=== PATIENT | male | born 1940 | race Caucasian/White ===

== ENCOUNTER 2024-06-22 10:02 | Outpatient (CLI) | payer MEDICARE, SELFPAY ==
[2024-06-22 15:51] LABS: Basophils Percent Auto 0.7 % (0.2-1.2); Eosinophils Absolute Auto 0.1 K/mm3 (0-0.3); Eosinophils Percent Auto 1.6 % (0-4.4); Hematocrit 41.7 % (42.0-52.0); Hemoglobin 13.6 g/dL (14.0-18.0); Immature Granulocyte Absolute 0.03 K/mm3 (0.00-0.031); Immature Granulocyte Percent A 0.5 % (0-0.5); Lymphocytes Absolute Auto 1.74 K/mm3 (0.9-3.2); Lymphocytes Percent Auto 30.6 % (18.3-44.2); Mean Corpuscular HGB Conc 32.6 g/dl (32-36); Mean Corpuscular Hemoglobin 31.1 pg (26-34); Mean Corpuscular Volume 95.2 fl (80-100); Mean Platelet Volume 11.8 fl (7.4-10.4); Monocytes Absolute Auto 0.6 K/mm3 (0.1-0.6); Monocytes Percent Auto 10.5 % (2.6-8.5); Neutrophils Absolute Auto 3.2 K/mm3 (1.3-6.7); Neutrophils Percent Auto 56.1 % (45.5-73.1); Platelet Count Result 160 k/mm3 (150-375); Red Blood Count 4.38 M/mm3 (4.6-6.20); Red Cell Distribution Width 12.6 % (11.5-14.5); White Blood Count 5.7 K/mm3 (4.5-10.0)
[2024-06-22 18:23] LABS: Potassium 4.4 mmol/L (3.4-5.0)
[2024-06-22 18:40] LABS: Alanine Aminotransferase 13 U/L (6-50); Albumin Level 4.6 g/dL (3.5-5.1); Alkaline Phosphatase 74 U/L (38-126); Anion Gap 9 mmol/L (4-12); Aspartate Amino Transferase 33 U/L (17-59); Blood Urea Nitrogen 15 mg/dL (9-20); Calcium 9.7 mg/dL (8.4-10.2); Carbon Dioxide 28 mmol/L (22-30); Chloride 99 mmol/L (98-107); Estimated Glomerular Filt Rate 58; Glucose 84 mg/dL (65-110); Sodium 136 mmol/L (137-145)
== END 2024-06-22 10:03 | disposition home or self-care (01) ==
PROVIDERS: PCP Emergency Medicine; Visit Provider Emergency Medicine
DX: R41.89 Other symptoms and signs involving cognitive functions and awareness (principal); F32.A Depression, unspecified
CPT/HCPCS: 36415; 80053; 82607; 84443; 85025

== ENCOUNTER 2024-07-14 08:26 | Emergency (ER) | payer MEDICARE, SELFPAY ==
--- NOTE | ~2024-07-14 | CT_ITS ---
EXAMINATION: CT lumbar spine wo con DATE: 07/14/2024 09:58 INDICATION: Low back pain. TECHNIQUE: Computed tomography (CT) of the lumbar spine was performed without intravenous contrast. A utomated exposure control and iterative reconstruction technique were employed. The dose-length produ ct was 565.06 mGy-cm. COMPARISON: None FINDINGS: The bladder is distended. There is 3 mm retrolisthesis of L1 on L2 and L2 on L3 and 6 mm an terolisthesis of L4 on L5. There is 3 degrees dextrocurvature of thoracic lumbar spine. There is mild chronic anterior wedging of L1 vertebral body. There are changes of posterior fusion procedure from L3 to L5 with pedicle screws. There is an old periscrew fracture of right L5 pedicle and superior fac et. There are lucencies around the L5 screws, consistent with loosening. There is severely decreased disc height at L1-L2 and L2-L3, moderately decreased disc height at L3-L4, and mildly decreased disc height at L4-L5 and L5-S1. There are laminectomies at L4 and L5. The following disc levels are specif ically discussed: L1-L2: The disc is bulging. There is severe right and moderate left facet joint osteoarthritis. There is severe bilateral neural foraminal stenosis. There is moderate central canal stenosis. L2-L3: The disc is bulging. There is severe bilateral facet joint osteoarthritis. There is moderate b ilateral neural foraminal stenosis. There is mild central canal stenosis. L3-L4: The disc is bulging. There is severe bilateral facet joint osteoarthritis. There is mild right and moderate left neural foraminal stenosis. There is mild central canal stenosis with posterior dec ompression. L4-L5: The disc is bulging. There is severe bilateral facet joint osteoarthritis. There is moderate b ilateral neural foraminal stenosis. There is no central canal stenosis. L5-S1: The disc is bulging. There is severe bilateral facet joint osteoarthritis. There is mild bilat eral neural foraminal stenosis. There is mild central canal stenosis. IMPRESSION: 1. Severe lumbar spondylosis. 2. Posterior fusion procedure from L3 to L5. 3. 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 Lucencies around the L5 sc rews, consistent with loosening. Reviewed, dictated and finalized at location A. IMPRESSION: 1. Severe lumbar spondylosis. 2. Posterior fusion procedure from L3 to L5. 3. 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 [facility] ncies around the L5 screws, consistent with loosening.
[2024-07-14 08:31] VITALS: BP 124/68; PULSE 70; RESP 16; TEMP 36.7; O2SAT 97
--- NOTE | 2024-07-14 09:41 | ED.BACK ---
HPI - Back Pain/Injury General Chief Complaint: Back Pain/Injury Stated Complaint: lower back pain Time Seen by Provider: 07/14/24 08:47 History of Present Illness HPI Narrative: This is an 83-year-old male with a past medical history significant for chronic neuropathy, chronic low back pain, history of lumbar fusion in 2011. Today patient presents to the emergency room with chief complaint of low back pain radiating towards his right buttock. Describes as a intermittently burning sensation. States his symptoms are going on for 6+ months. No new neuropathy or worsening neuropathy. He states he has normal bladder and bowel function and does not have any incontinence. No saddle anesthesias. No new traumas recent injuries. He states he recently was told that he might have some hardware loosening in his lumbar spine which is when he is mostly concerned about. Does not presently follow-up with a spine or neurosurgeon as he had his procedure done in [place]. Denies any chest pain, abdominal pain, pain or symptoms. Describes the pain mostly in his right buttock posterior. No nausea, vomiting, headache, vision changes, weakness fatigue. Able to ambulate unassisted. Has not taken anything for the pain at home. Related Data Home Medications Medication Instructions Recorded Confirmed [id number] 150 mcg-vit K1 tablet PO 06/22/24 06/22/24 30 mcg-lycop 300 mcg-lutein tablet (Centrum Minis Men 50 Plus) Allergies Allergy/AdvReac Type Severity Reaction Status Date / Time No Known Allergies Allergy Unverified 06/22/24 09:17 Review of Systems Review of Systems: As reviewed above in HPI [facility] Past Medical History Medical History Age-related cognitive decline Arthritis Prophylactic gland removal Removed from neck 1976 Prostate disorder Vision disorder Surgical History Surgical History History of hip replacement Left 2006 Previous back surgery Fusion S3-S5 Family History Family History Father Cancer Mother Cancer Colostomy care Social History Social History Smoking status: Former smoker Tobacco type: pipe Alcohol intake: never Substance use: never Substance use type: does not use Exam Narrative: GENERAL: [Well-appearing, well-nourished, and in no acute distress.] HEAD: [Normocephalic, atraumatic.] EYES: [PERRLA and EOMI.] ENT: Nares clear, no rhinorrhea or epistaxis. Mucous membranes moist. NECK: Supple. CHEST: [Clear to auscultation. No respiratory distress.] HEART: [Regular rate and rhythm]. No murmur heard. [Normal peripheral pulses.] ABDOMEN: [Soft, nondistended], [nontender], [No rigidity or guarding] EXTREMITIES: Normal range of motion. [No edema.] Some tenderness focally in the right posterior thigh in the gluteus magda, no step-offs deformities, minimal paraspinal muscle with no midline tenderness to the lumbar region. SKIN: Warm, dry, no rash. NEURO: [No focal deficits]. Alert and oriented [x3.] No ataxia in the arms or legs. No saddle anesthesias, no weakness, footdrop or new neuropathy present. PSYCH: [Normal mood and affect.] Course Vital Signs Vital signs: Vital Signs Temperature 36.7 C 07/14/24 08:31 Pulse Rate 70 07/14/24 08:31 Respiratory Rate 16 07/14/24 08:31 Blood Pressure 124/68 07/14/24 08:31 Pulse Oximetry 97 07/14/24 08:31 Oxygen Delivery Room Air 07/14/24 08:31 Temperature 36.7 C 07/14/24 08:31 Pulse Rate 70 07/14/24 08:31 Respiratory Rate 16 07/14/24 08:31 Blood Pressure 124/68 07/14/24 08:31 Pulse Oximetry 97 07/14/24 08:31 Oxygen Delivery Room Air 07/14/24 08:31 MDM - Back Pain/Injury MDM Narrative Medical decision making narrative:
[2024-07-14] MEDS: methocarbamoL 750 MG TABLET PO (10:07)
[2024-07-14] MEDS: ACETAMINOPHEN 500 MG TABLET 1000 MG PO (10:07)
[2024-07-14 11:20] VITALS: BP 130/86; PULSE 74; RESP 14; O2SAT 99
== END 2024-07-14 11:21 | disposition home or self-care (01) ==
PROVIDERS: Emergency Provider Student in an Organized Health Care Education/Training Program; PCP Emergency Medicine
DX: M47.26 Other spondylosis with radiculopathy, lumbar region (principal); T84.038A Mechanical loosening of other internal prosthetic joint, initial encounter; G62.9 Polyneuropathy, unspecified; M19.90 Unspecified osteoarthritis, unspecified site; N42.9 Disorder of prostate, unspecified; R41.81 Age-related cognitive decline; Z98.1 Arthrodesis status; Z96.642 Presence of left artificial hip joint; Z87.891 Personal history of nicotine dependence; Y79.2 Prosthetic and other implants, materials and accessory orthopedic devices associated with adverse incidents
CPT/HCPCS: 72131; 99284; A9270

== ENCOUNTER 2024-12-01 03:36 | Inpatient (IN) | payer MEDICARE, SELFPAY ==
[2024-12-01] VITALS (56 sets, daily range): BP systolic 85–148; BP diastolic 51–109; PULSE 60–79; RESP 13–30; TEMP 36.4–36.6; O2SAT 93–100; BMI 25.9
--- NOTE | ~2024-12-01 | CT_ITS ---
EXAMINATION: CTA chest PE protocol DATE: 12/01/2024 08:36 INDICATION: Chest pain. TECHNIQUE: Computed tomography angiography (CTA) of the chest was performed with 100 mL Omnipaque-350 intravenous contrast timed to evaluate the pulmonary arteries. Coronal maximum intensity projection 3D-reconstructions were created by the technologist. Automated exposure control and iterative reconst ruction technique were employed. The dose-length product was 444.31 mGy-cm. COMPARISON: Chest 2 views 12/01/2024 FINDINGS: The lungs demonstrate mild atelectasis. Calcified right lung nodules and calcified right hi lar and mediastinal lymph nodes are consistent with old granulomatous disease. No pleural effusion. T he heart size is normal. No pericardial effusion. There is a left chest wall pacer with leads in the right atrium and right ventricle. There is no pulmonary embolus. Calcifications in the liver and sple en are consistent with old granulomatous disease. IMPRESSION: 1. No pulmonary embolus. 2. The nodule described on the chest radiograph correlates with costochondral calcification. Reviewed, dictated and finalized at location A. CTOR SEARCH MARKETING STRATEGIES IMPRESSION: 1. No pulmonary embolus. 2. The nodule described on the chest radiograph correlates with costochondral c alcification.
--- NOTE | ~2024-12-01 | US_ITS ---
EXAMINATION: US art doppler w press LE BI DATE: 12/02/2024 11:41 INDICATION: Claudication TECHNIQUE: Segmental pressures and plethysmographic and Doppler waveforms of the brachial and lower e xtremity arteries were obtained. COMPARISON: None. FINDINGS: Right and left brachial artery pressures of 124 mm Hg and 126 mm Hg, respectively, are concordant (no rmal difference <= 30 mmHg). The right and left high-thigh pressure indices are 0.82 and 1.29, respec tively (normal > 1.2). The right ankle-brachial index (NARDA) is 1.34 (normal >= 0.9-1). The right great toe-brachial index (T BI) is 0.52 (normal >= 0.6-0.8). The right lower extremity segmental pressure gradients are increased between the right high thigh and the contralateral left high thigh as well as between the right belo w-the-knee popliteal artery and the arteries at the ankle (normal gradients <= 20-30 mmHg between adj acent levels on the same leg or the same levels on the two legs). Arterial waveforms demonstrate bris k systolic upstrokes throughout the arteries of the right lower limb. The left NARDA is 1.28. The left TBI is 0.47. The left lower extremity segmental pressure gradients are increased between the left posterior tibial artery and both the left dorsalis pedis artery as well a s the contralateral right posterior tibial artery . Arterial waveforms demonstrate brisk systolic ups trokes throughout the arteries of the left lower limb. IMPRESSION: 1. Mild arterial occlusive disease with normal bilateral NARDA's but mildly decreased bilateral TBI's. Reviewed, dictated and finalized at location B. MOTIVE SERVICE MANAGEMENT TEACHER IMPRESSION: 1. Mild arterial occlusive disease with normal bilateral NARDA's but mildly decre ased bilateral TBI's.
--- NOTE | ~2024-12-01 | XR_ITS ---
Clinical Indication: Chest pain AP and lateral views of the chest: Comparison: None Findings: Possible 15 mm right basilar pulmonary nodule. Left lung clear. Cardiomediastinal silhouet te is within normal limits, with pacemaker device. Bones and soft tissues are unremarkable. Impression: Possible 15 mm right basilar pulmonary nodule versus confluence of shadows. Chest CT advised to confi rm or exclude pulmonary nodule. Reviewed, dictated and finalized at [facility]. OR DEPARTMENT SUPERVISOR Impression: Possible 15 mm right basilar pulmonary nodule versus confluence of shadows. Renetta st CT advised to confirm or exclude pulmonary nodule.
--- NOTE | 2024-12-01 03:38 | ECG_ITS ---
Test Date: 2024-12-01 03:38:22 Measurements Intervals [place] Rate: 61 P: 69 HI: 202 QRS: -23 QRSD: 132 T: 191 QT: 437 QTc: 442 Interpretive Statements ELECTRONIC ATRIAL PACEMAKER ELECTRONIC VENTRICULAR PACEMAKER BASELINE ARTIFACT- I, II, III, AVR, AVL, AVF, V1-V3 NO FURTHER INTERPRETATION IS POSSIBLE ATYPICAL ECG No previous ECG available for comparison Electronically Signed On 12-01-2024 06:18:24 PIN ATTACHER by Justin Rodriguez D.O.
[2024-12-01 03:59] LABS: Basophils Percent Auto 0.5 % (0.2-1.2); Eosinophils Absolute Auto 0.1 K/mm3 (0-0.3); Eosinophils Percent Auto 2.1 % (0-4.4); Hematocrit 39.8 % (42.0-52.0); Hemoglobin 13.2 g/dL (14.0-18.0); Immature Granulocyte Absolute 0.01 K/mm3 (0.00-0.031); Immature Granulocyte Percent A 0.2 % (0-0.5); Immature Platelet Fraction Pct 5.8 % (0.9-11.2); Lymphocytes Absolute Auto 2.09 K/mm3 (0.9-3.2); Lymphocytes Percent Auto 35.9 % (18.3-44.2); Mean Corpuscular HGB Conc 33.2 g/dl (32-36); Mean Corpuscular Hemoglobin 31.4 pg (26-34); Mean Corpuscular Volume 94.5 fl (80-100); Monocytes Absolute Auto 0.5 K/mm3 (0.1-0.6); Monocytes Percent Auto 8.4 % (2.6-8.5); Neutrophils Absolute Auto 3.1 K/mm3 (1.3-6.7); Neutrophils Percent Auto 52.9 % (45.5-73.1); Platelet Count Result 134 k/mm3 (150-375); Red Blood Count 4.21 M/mm3 (4.6-6.20); Red Cell Distribution Width 12.6 % (11.5-14.5); White Blood Count 5.8 K/mm3 (4.5-10.0)
[2024-12-01 04:08] LABS: Alanine Aminotransferase 20 U/L (6-50); Albumin Level 4.2 g/dL (3.5-5.1); Alkaline Phosphatase 63 U/L (38-126); Anion Gap 6 mmol/L (4-12); Aspartate Amino Transferase 30 U/L (17-59); Blood Urea Nitrogen 21 mg/dL (9-20); Calcium 9.5 mg/dL (8.4-10.2); Carbon Dioxide 28 mmol/L (22-30); Chloride 105 mmol/L (98-107); Estimated CRCL calculation 53 ml/min; Estimated Glomerular Filt Rate > 60; Glucose 97 mg/dL (65-110); INR 1.1; Lipase 163 U/L (23-300); Partial Thromboplastin Time 24.4 Seconds (22.3-36.8); Prothrombin Time 14.2 Seconds (11.1-14.7); Sodium 139 mmol/L (137-145)
[2024-12-01 04:34] LABS: Influenza A QL RT-PCR Negative (Negative); Influenza B QL RT-PCR Negative (Negative); RSV RNA, RT-PCR Negative (Negative); SARS-CoV-2 RNA PCR Negative (Negative)
--- OUTSIDE RECORDS SUMMARY | 2024-12-01 04:34 | XMS_ITS | Patient Health Summary ---
Author Organization [facility] Address [address] [place] [address] Care Team Providers Care Account Management Assistant Name Role Phone Chon Little MD Primary Care Provider + Note from [facility],non-owned Affiliates and Associated Physician Practices is amultiple site organization consisting of ambulatory clinics and hospital sitesin [place], [place], [place] and [place]. This disclosure is being madepursuant to the Care Everywhere program and may not contain all information available regarding this patient. Last updated 18.[facility] Allergies No known active allergies Medications * Be aware that medications may not be up to date on this document. Alwaysverify current medications with the patient. * tamsulosin (FLOMAX) 0.4 MG capsule(Started 08/10/2018) Take 1 capsule by mouth once daily 3 refills remaining * finasteride (PROSCAR) 5 MG tablet(Started 08/10/2018) Take 1 tablet by mouth once daily 3 refills remaining Social History Tobacco Use Types Packs/Day Years Used Date Smoking Tobacco: Former Smokeless Tobacco: Never Sex and Gender Information Value Date Recorded Sex Assigned at Not on file Gender Identity Not on file Sexual Orientation Not on file Last Filed Vital Signs Vital Sign Reading Time Taken Comments Blood Pressure 105/60 08/18/2018 2:44 PM CDT Pulse 52 08/18/2018 2:44 PM CDT Temperature 36.1 C (97 F) 08/18/2018 2:44 PM CDT Respiratory Rate - - Oxygen Saturation 99% 08/18/2018 2:44 PM CDT Inhaled Oxygen Concentration - - Weight 82.1 kg (181 lb) 08/18/2018 2:44 PM CDT Height 177.8 cm (5' 10 ) 08/18/2018 2:44 PM CDT Body Mass Index 25.97 08/18/2018 2:44 PM CDT Procedures * LA ANAL/URINARY MUSCLE STUDY(Performed 08/18/2018) 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 * LA COMPLEX CYSTOMETROGRAM(Performed 08/18/2018) 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 Results * LA COMPLEX CYSTOMETROGRAM, LA ANAL/URINARY MUSCLE STUDY (08/18/2018 4:11 PM CDT) Narrative Trav Price MD - 08/18/2018 4:11 PM CDT Trav Price MD 08/18/2018 4:11 PM Urodynamic Results Indication for Procedure: urinary retention Noninvasive Uroflow: Not done, pt in retention Cystometrogram: First Sensation: 83 ml Capacity: 273 ml Compliance: normal Instability: yes Urge incontinence: no Stress incontinence: no VLPP: n/a DLPP: n/a EMG: normal Comments: Pressure Flow Study: Pt unable to void but able to generate detrusor pressures up to over 90 cm/H2O Comments: Findings: Retention with high bladder pressures and pt still not able to void. C/W [place]. Plan: Discussed continued catheter drainage or cic alone, dual therapy with prostate meds that will hopefull eventually get him out of retention, and surgical options. Pt elects for the latter. TURP ordered. R/B of procedure was well as postoperative expectations explained and he still agrees to proceed. Trav Price MD Trav Price MD PROCEDURE/MINOR SHELL RGICAL ORDERABLES Care Teams Account Management Assistant Relationship Specialty Start Date End Date Chon Little MD [address] [place] [id number] PCP - General 08/10/18
--- OUTSIDE RECORDS SUMMARY | 2024-12-01 04:34 | XMS_ITS | Clinical Summary ---
Author Organization [facility] Address [address] [place] [address] Care Team Providers Care Color Printer Operator Name Role Phone Chon iLttle MD Primary Care Provider + Source Comments [facility],non-owned Affiliates and Associated Physician Practices is amultiple site organization consisting of ambulatory clinics and hospital sitesin [place], [place], [place] and [place]. This disclosure is being madepursuant to the Care Everywhere program and may not contain all information available regarding this patient. Last updated 18.[facility] Allergies No known active allergies Medications * Be aware that medications may not be up to date on this document. Alwaysverify current medications with the patient. Medication Sig Dispensed Refills Start Date End Date Status tamsulosin (FLOMAX) 0.4 MG capsuleIndications:Ur inary retention,Benign prostatic hyperplasia with urinary obstruction Take 1 capsule by mouth once daily 90 capsule 3 08/10/2018 Active finasteride (PROSCAR) 5 MG tabletIndications:Uri nary retention,Benign prostatic hyperplasia with urinary obstruction Take 1 tablet by mouth once daily 90 tablet 3 08/10/2018 Active Social History Tobacco Use Types Packs/Day Years [...] Mass Index 25.97 08/18/2018 2:44 PM CDT Plan of Treatment Health Maintenance Due Date Last Done Comments MEDICARE AWV 12 MONTHS 1940 DTAP/TDAP/TD VACCINES (1 - Tdap) 1959 PNEUMOCOCCAL VACCINE 50+ (1 of 1 - PCV) 1990 ZOSTER VACCINE (1 of 2) 1990 Respiratory Syncytial Virus (RSV) Vaccine Pt: or over 60 yrs (1 - 1-dose 75+ series) 2015 COVID-19 VACCINE ( - 2023-2 5 season) 2024 INFLUENZA VACCINE (#1) 2024 DEPRESSION SCREENING 10/26/2024 HEPATITIS B VACCINE Aged Out No longe r eligible based on patient's age to complete this topic HIB VACCINE Aged Out No longer eligi ble based on patient's age to complete this topic HPV VACCINE Aged Out No longer eligi ble based on patient's age to complete this topic MENINGOCOCCAL (Group B) VACCINE Aged Out No longer eligible based on patient's age to complete this topic MENINGOCOCCAL VACCINE Aged Out No akash sepideh eligible based on patient's age to complete this topic Care Teams Color Printer Operator Relationship Specialty Start Date End Date Chon Little MD [address] [facility] [[email or web address]] [address] [place] [phone] PCP - General 08/10/18
--- OUTSIDE RECORDS SUMMARY | 2024-12-01 04:34 | XMS_ITS | Referral Summary ---
Author Organization [facility] Address [address] [place] [address] Care Team Providers Care Surveyor Mine Name Role Phone Chon Little MD Primary Care Provider + Source Comments [facility],non-owned Affiliates and Associated Physician Practices is amultiple site organization consisting of ambulatory clinics and hospital sitesin [place], [place], [place] and [place]. This disclosure is being madepursuant to the Care Everywhere program and may not contain all information available regarding this patient. Last updated 18.[facility] Allergies No known active allergies Medications * [...] 08/18/2018 2:44 PM CDT Plan of Treatment Not on file Care Teams Surveyor Mine Relationship Specialty Start Date End Date Chon Little MD [address] [place] [address] [place] [id number] PCP - General 08/10/18
--- NOTE | 2024-12-01 05:54 | ED_ITS ---
HPI - Chest Pain General Chief Complaint: Chest Pain Stated Complaint: CHEST PAIN Time Seen by Provider: 12/01/24 04:24 Source: patient and RN notes reviewed Mode of arrival: EMS Limitations: no limitations History of Present Illness HPI narrative: Patient presents to the emergency department acute onset Right-sided chest pain from a 10 in severity occurring 3 hours prior to arrival while at rest listening to the radio. He states the pain was constant. he denies any underlying cardiac issues although he does have a pacemaker. When asked about this he states that was a joke ... and proceeds to tell a story about how he had been admitted at [facility] for a prostate issue when meals over because he dropped some paperwork and then a bunch pupil rest in and told he was having a heart attack and then he had a pacemaker placed. Patient had surgery on his left eye on Thursday. He states he has never experienced chest pain like this before he and it is not going away, initially described as dull. Earlier he had nausea but this resolved. No vomiting. Denies lower extremity edema. He he denies any jl diaphoresis although he states I felt like I was trying to get sweaty. he states that he was short of breath although also states that this is chronic for him. He has been having a cough but this is also chronic since 1976. Cardiac risk factors: no hypertension, no hyperlipidemia, no diabetes, puffs on a pipe but denies inhaling; no obesity. Prior history of myocardial infarction based on the above but no prior history of TIA or CVA. No family history of myocardial infarction first-degree relative before the age of 65. Related Data Home Medications ?Medication ?Instructions ?Recorded ?Confirmed ?Last Taken ?Type [id number] 150 mcg-vit K1 1 tablet PO DAILY 06/22/24 12/01/24 11/30/24 History 30 mcg-lycop 300 mcg-lutein tablet (Centrum Minis Men 50 Plus) brimonidine 0.1 % eye drops 1 drp EACH EYE BID 12/01/24 12/01/24 11/30/24 History Allergies Allergy/AdvReac Type Severity Reaction Status Date / Time No Known Allergies Allergy Verified 12/01/24 21:29 [facility] Past Medical History Medical History (Updated 12/01/24 @ 22:06 by Sondra Kerns MD) Anxiety Neuropathy Pacemaker Age-related cognitive decline Vision disorder Arthritis Prostate disorder Prophylactic gland removal Removed from neck 1976 Surgical History Surgical History S/P eye surgery Left eye 2024 Previous back surgery Fusion S3-S5 History of hip replacement Left 2006 Family History Family History Father Cancer Mother Cancer Colostomy care Son Diabetes mellitus Social History Social History (Updated 12/01/24 @ 08:47 by Sondra Kerns MD) Smoking status: Current some day smoker Tobacco type: pipe Second hand tobacco smoke exposure: No Alcohol intake: unknown Substance use: never Substance use type: does not use Do You Feel Safe in your Home?: Yes Lack of Transportation: No Lack of Food: Never True Current Housing: I Have Housing Concerned About Future Housing: No Difficulty Paying Gas/Electric Bills: No Difficulty Paying for Meds: No Currently Unemployed: No Education: High School Diploma/GED Difficulty w/ Childcare or Family Care: No Occupation/Education: retired 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 HEAD: Normocephalic, atraumatic. EYES: Non icteric. Left subconjunctival hemorrhage. ENT: Nares clear, no rhinorrhea or epistaxis. NECK: Supple. CHEST: Speaking in full sentences. No respiratory distress. lungs clear to auscultation bilaterally without appreciable crackles or rhonchi or wheezes. Pacemaker in place left anterior chest HEART: Regular rate and rhythm. ABDOMEN: Soft, nondistended. EXTREMITIES: Normal range of motion. No Bilateral lower extremity edema. SKIN: Warm, dry, no rash overlying chest NEURO: No focal deficits. Alert and oriented x3. PSYCH: Normal mood and affect. Course Vital Signs Vital signs: Vital Signs Temperature 97.6 F 12/01/24 03:32 Pulse Rate 66 12/01/24 03:32 Respiratory Rate 18 12/01/24 03:32 Blood Pressure 101/62 12/01/24 03:32 Pulse Oximetry 98 12/01/24 03:32 Oxygen Delivery Room Air 12/01/24 03:32 Temperature 97.8 F 12/01/24 21:30 Pulse Rate 60 12/01/24 21:53 Respiratory Rate 20 12/01/24 21:30 Blood Pressure 102/54 L 12/01/24 21:30 Pulse Oximetry 93 12/01/24 21:30 Oxygen Delivery Room Air 12/01/24 21:00 MDM - Chest Pain MDM Narrative Medical decision making narrative: Patient present with chest pain at rest starting prior to arrival. In the emergency department they are afebrile with vital signs within normal limits. Normocytic anemia, stable from previous. Thrombocytopenia. HEART SCORE History 2 highly suspicious 1 moderately suspicious 0 slightly suspicious History score [address] depression/elevation not due to LBBB, LVH, or digoxin [address] depression but LBBB, LVH, nonspecific repolarization changes 0 normal ECG score 0 (paced) Age 2 >/= 65 1 45-64 0 <45 Age score 2 Risk factors (HTN, hypercholesterolemia, DM, obesity with BMI >30, current smoker or cessation </=3mo), positive fam hx with parent or sibling with CVD before age 65, atherosclerotic disease (prior DC, PCI/CABG, CVA/TIA, or peripheral arterial disease) 2 >/= 3 risk factors or history of atherosclerotic dz 1 - 1-2 risk factors 0 no known risk factors Risk factor score 1 (Hx DC) Initial Troponin 2 >3 times normal limit 1 1-3 times normal limit 0 less than or equal to normal limit Troponin score 2 (16x upper limit normal) Total HEART Score 6 EMS reportedly administered nitroglycerin spray, unclear effect. Patient was given a 1 time dose of sublingual nitroglycerin here and he does state that the pain moves from 9/10 in severity to 5 or 6/10 in severity however he does become hypotensive during this with a blood pressure of 98/56 and a mean arterial pressure of 69. Dimer slightly elevated so proceeded with CT pe but negative. The pulmonary nodule seen on CXR appears to be a calcification. Repeat troponin still elevated. Discussed with control operator flow coat hospitalist Dr Sales. Will be IMU for NSTEMI and HEART score. Dr Sales requested consult be placed for cards. Patient confirms DNR status. In the event of cardiopulmonary arrest, put me in the ground. Differential Diagnosis Differential diagnosis: Likely pneumothorax, stable angina, unstable angina pectoris, atypical chest pain, st elevation myocardial infarction, costochondritis, chest pain, biliary colic and other (considered zoster, PE, PNA, acute viral syndrome) Lab Data Attestation: I reviewed the patient's lab results. 12/01/24 03:45 12/01/24 03:45 Labs: Lab Results 12/01/24 12/01/24 Range/Units 03:45 06:28 WBC 5.8 (4.5-10.0) K/mm3 RBC 4.21 L (4.6-6.20) M/mm3 Hgb 13.2 L (14.0-18.0) g/dL Hct 39.8 L (42.0-52.0) % MCV 94.5 (80-100) fl MCH 31.4 (26-34) pg MCHC 33.2 (32-36) g/dl RDW 12.6 (11.5-14.5) % Plt Count 134 L (150-375) k/mm3 MPV 11.0 H (7.4-10.4) fl Immature Gran % (Auto) 0.2 (0-0.5) % Neut % (Auto) 52.9 (45.5-73.1) % Lymph % (Auto) 35.9 (18.3-44.2) % Heard % (Auto) 8.4 (2.6-8.5) % Eos % (Auto) 2.1 (0-4.4) % Baso % (Auto) 0.5 (0.2-1.2) % Lymph # (Auto) 2.09 (0.9-3.2) K/mm3 Heard # (Auto) 0.5 (0.1-0.6) K/mm3 Eos # (Auto) 0.1 (0-0.3) K/mm3 Baso # (Auto) 0.0 (0.0-0.1) K/mm3 Abs Immat Gran (auto) 0.01 (0.00-0.031) K/mm3 Absolute Neuts (auto) 3.1 (1.3-6.7) K/mm3 Absolute Nucleated RBC 0.000 (0.0-0.012) K/mm3 Nucleated RBC % 0.0 (0.0-0.2) % % Immature Plt Fraction 5.8 (0.9-11.2) % PT 14.2 (11.1-14.7) Seconds INR 1.1 APTT 24.4 (22.3-36.8) Seconds D-Dimer 1.09 H (<0.48) ug/mL Sodium 139 (137-145) mmol/L Potassium 4.0 (3.4-5.0) mmol/L Chloride 105 (98-107) mmol/L Carbon Dioxide 28 (22-30) mmol/L Anion Gap 6 (4-12) mmol/L BUN 21 H (9-20) mg/dL Creatinine 0.95 (0.7-1.3) mg/dL Estim Creat Clear Calc 53 ml/min Estimated GFR > 60 (59 - ) Glucose 97 (65-110) mg/dL Calcium 9.5 (8.4-10.2) mg/dL Total Bilirubin 1.0 (0.2-1.3) mg/dL AST 30 (17-59) U/L ALT 20 (6-50) U/L Alkaline Phosphatase 63 (38-126) U/L Troponin I 0.550 H* 0.484 H* (0.000-0.034) ng/mL NT-Pro-B Natriuret Pep 54 (19.9-100) pg/mL Total Protein 7.0 (6.3-8.2) g/dL Albumin 4.2 (3.5-5.1) g/dL Lipase 163 (23-300) U/L Influenza A (RT-PCR) Negative (Negative) Influenza B (RT-PCR) Negative (Negative) RSV (RT-PCR) Negative (Negative) SARS-CoV-2 RNA (RT-PCR) Negative (Negative) Imaging Data Attestation: I personally reviewed and interpreted this imaging study as follows: My impression: cardiomegaly. Pacemaker leads present. Radiologist's impression: Impressions Chest X-Ray 12/01/24 06:34 Impression: Possible 15 mm right basilar pulmonary nodule versus confluence of shadows. Chest CT advised to confirm or exclude pulmonary nodule. Chest CTA 12/01/24 08:36 IMPRESSION: 1. No pulmonary embolus. 2. The nodule described on the chest radiograph correlates with costochondral calcification. ECG Data EKG #1: Attestation: I personally reviewed and interpreted this ECG as follows: ECG completion date: 12/01/24 ECG completion time: 03:38 Prior ECG tracings: not available for review ( No prior for comparison) Interpretation: electronic atrial pacemaker/electronic ventricular pacemaker. Good R-wave progression across the precordial leads. T-wave inversion in inferior leads 2 and AVF but upright in lead 3. T-wave inversion in V3, possibly due to lead placement. EKG #2: Attestation: I personally reviewed and interpreted this ECG as follows: ECG completion date: 12/01/24 ECG completion time: 06:38 Interpretation: Electronic atrial and ventricular pacemaker. Good R-wave progression across the precordial leads. Biphasic T-waves in lead 3 but upright in contiguous inferior leads 2 and AVF. No other T-wave inversions. Discharge Plan Discharge Clinical Impression: Non-ST elevation DC (NSTEMI), Normocytic anemia, Thrombocytopenia Patient Disposition: Still a Patient Condition: Stable Time of Disposition: 08:57
[2024-12-01] MEDS: NITROGLYCERIN SL 0.4 MG TABLET SUBLINGUAL (06:17)
--- NOTE | 2024-12-01 06:27 | ECG_ITS ---
Test Date: 2024-12-01 06:38:17 Measurements Intervals [place] Rate: 59 P: 195 NC: 193 QRS: -8 QRSD: 138 T: 40 QT: 466 QTc: 465 Interpretive Statements ELECTRONIC ATRIAL PACEMAKER ELECTRONIC VENTRICULAR PACEMAKER BASELINE ARTIFACT- III NO FURTHER INTERPRETATION IS POSSIBLE ATYPICAL ECG Compared to ECG 12/01/2024 03:38:22 No significant changes Electronically Signed On 12-01-2024 07:55:[address] OPERATIONS CLERK by Justin Rodriguez D.O.
[2024-12-01 06:59] LABS: NT Pro B Type Natriuretic Pept 54 pg/mL (19.9-100)
[2024-12-01 07:10] LABS: Troponin I 0.484 ng/mL (0.000-0.034)
[2024-12-01 08:19] LABS: D Dimer 1.09 ug/mL (<0.48)
--- NOTE | 2024-12-01 09:59 | ECG_ITS ---
Test Date: 2024-12-01 10:11:55 Measurements Intervals [place] Rate: 60 P: -52 WA: 193 QRS: -4 QRSD: 140 T: 43 QT: 469 QTc: 469 Interpretive Statements ELECTRONIC ATRIAL PACEMAKER ELECTRONIC VENTRICULAR PACEMAKER BASELINE ARTIFACT- I, II, III, AVR, AVL, AVF, V1-V3 NO FURTHER INTERPRETATION IS POSSIBLE ATYPICAL ECG Compared to ECG 12/01/2024 06:38:17 No significant changes Electronically Signed On 12-01-2024 10:24:10 SECURITY TESTER by Justin Rodriguez D.O.
--- NOTE | 2024-12-01 11:21 | PM.CNCAR ---
Assessment and Plan Assessment and plan (1) Non-ST elevation WI (NSTEMI): Code(s): I21.4 - Non-ST elevation (NSTEMI) myocardial infarction Status: Acute (2) Atrial fibrillation: Qualifiers: Atrial fibrillation type: unspecified Qualified Code(s): I48.91 - Unspecified atrial fibrillation Code(s): I48.91 - Unspecified atrial fibrillation Status: Acute Plan 84-year-old man with previous history of WI and tobacco use who is now also status post permanent pacemaker presented with chest discomfort Non ST-elevation WI -recommend aspirin 81 mg rosuvastatin 40 mg, metoprolol tartrate 25 mg p.o. b.i.d. -would recommend starting a heparin drip for ACS protocol -if patient continue to have chest pain despite medical management, would add nitroglycerin drip -obtain a transthoracic echocardiogram -patient will require an ischemic eval which he agreed to however like to consult his family member suggest his daughter prior to proceeding -also he has not been NPO and has been eating since 10:00 a.m., please keep patient NPO for possible left heart catheterization today if patient and his family agrees Chronic atrial fibrillation -on chart review, it appears that he has atrial fibrillation fibrillation 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 His right-sided chest discomfort is described as pain that is persistent since 2:00 a.m. this morning he typically wakes up at 2:00 a.m. to go turn on the TV and make his breakfast. Today when he woke up at 2:00 a.m., he made his way to his TV when he suddenly started to feel severe pain in the right side of his chest that is persistent. The pain has subsided since his arrival in the emergency department however it is still continuing to be persistent. He denies any shortness of breath, orthopnea, or bleeding. He denies any syncopal events recently. When asked about his permanent pacemaker device he is unsure why it was placed and he has not been following up with anyone for monitoring of his pacemaker. He lives at home by himself and typically is able to take care of everything by himself. When the weather was warmer this past summer, he was able to ambulate outside of his home for about a mile and did not experience any cardiopulmonary limitations. Throughout the interview, he continually is eating his breakfast around 10:00 a.m. Review of Systems Cardiovascular: Cardiovascular: Reports as per HPI Respiratory: Respiratory: Reports as per HPI [facility] Past Medical History Medical History (Updated 12/01/24 @ 11:28 by Mert Bradley MD) Anxiety Neuropathy Pacemaker Age-related cognitive decline Vision disorder Arthritis Prostate disorder Prophylactic gland removal Removed from neck 1976 Surgical History Surgical History S/P eye surgery Left eye 2024 Previous back surgery Fusion S3-S5 History of hip replacement Left 2006 Family History Family History Father Cancer Mother Cancer Colostomy care Son Diabetes mellitus Social History Social History (Updated 12/01/24 @ 08:47 by Sondra Kerns MD) Smoking status: Current every day smoker Tobacco type: pipe Alcohol intake: never Substance use: never Substance use type: does not use Occupation/Education: retired 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 Meds Home Medications and Allergies Home Medications ?Medication ?Instructions ?Recorded ?Confirmed ?Type [id number] 150 mcg-vit K1 tablet PO 06/22/24 08/10/24 History 30 mcg-lycop 300 mcg-lutein tablet (Centrum Minis Men 50 Plus) gabapentin 100 mg capsule 100 mg PO QHS #90 caps 08/10/24 12/01/24 Rx Allergies Allergy/AdvReac Type Severity Reaction Status Date / Time No Known Allergies Allergy Verified 12/01/24 03:40 Vital Signs Vital Signs - 24 hr 12/01/24 03:32 12/01/24 03:40 12/01/24 03:51 Temperature 36.4 C Pulse Rate 66 60 Respiratory Rate 18 Blood Pressure 101/62 Pulse Oximetry 98 100 Oxygen Delivery Room Air Room Air 12/01/24 03:51 12/01/24 05:23 12/01/24 06:16 Temperature 36.5 C Pulse Rate 61 61 Respiratory Rate 14 20 Blood Pressure 115/64 116/63 Pulse Oximetry 100 99 97 Oxygen Delivery Room Air 12/01/24 06:22 12/01/24 06:28 12/01/24 06:50 Temperature Pulse Rate 60 60 60 Respiratory Rate 20 20 20 Blood Pressure 105/59 L 85/57 L 105/60 Pulse Oximetry 100 100 95 Oxygen Delivery 12/01/24 07:55 12/01/24 11:13 Temperature Pulse Rate 60 79 Respiratory Rate 13 20 Blood Pressure 108/62 132/64 Pulse Oximetry 100 100 Oxygen Delivery Exam Const: General: comfortable Eyes: EOM: EOMs intact bilaterally Neck: Neck: no JVD Resp: Effort & Inspection: normal respiratory effort Auscultation: clear to auscultation bilaterally Cardio: Rate: regular rate Rhythm: regular rhythm GI: GI Palp: Yes Soft to palpation Neuro: Speech: normal speech Extrem: General: no pedal edema Results Labs and Meds 12/01/24 03:45 12/01/24 03:45 Lab results: Cardiac Enzymes 12/01/24 12/01/24 12/01/24 Range/Units 03:45 06:28 10:06 AST 30 (17-59) U/L Troponin I 0.550 H* 0.484 H* 1.070 H* D (0.000-0.034) ng/mL Coagulation 12/01/24 Range/Units 03:45 PT 14.2 (11.1-14.7) Seconds APTT 24.4 (22.3-36.8) Seconds CBC 12/01/24 Range/Units 03:45 WBC 5.8 (4.5-10.0) K/mm3 RBC 4.21 L (4.6-6.20) M/mm3 Hgb 13.2 L (14.0-18.0) g/dL Hct 39.8 L (42.0-52.0) % Plt Count 134 L (150-375) k/mm3 Lymph # (Auto) 2.09 (0.9-3.2) K/mm3 [place] # (Auto) 0.5 (0.1-0.6) K/mm3 Eos # (Auto) 0.1 (0-0.3) K/mm3 Baso # (Auto) 0.0 (0.0-0.1) K/mm3 Comprehensive Metabolic Panel 12/01/24 Range/Units 03:45 Sodium 139 (137-145) mmol/L Potassium 4.0 (3.4-5.0) mmol/L Chloride 105 (98-107) mmol/L Carbon Dioxide 28 (22-30) mmol/L BUN 21 H (9-20) mg/dL Creatinine 0.95 (0.7-1.3) mg/dL Glucose 97 (65-110) mg/dL Calcium 9.5 (8.4-10.2) mg/dL AST 30 (17-59) U/L ALT 20 (6-50) U/L Alkaline Phosphatase 63 (38-126) U/L Total Protein 7.0 (6.3-8.2) g/dL Albumin 4.2 (3.5-5.1) g/dL Intake and Output 11/30/24 12/01/24 12/01/24 23:59 07:59 15:59 Output Total 200 400 Balance -200 -400 Output: Urine 200 400 Other: Number of Bowel Movements Today 1 Patient Weight 12/01/24 23:59 Weight 81.81 kg
--- NOTE | 2024-12-01 12:15 | PC.NURSE ---
Spoke with daughter-updated on patient condition. She reported that patient does have paperwork for care wishes-suggested that they be brought so can be placed on chart. She reports that she will ask her brother to bring them when he comes later today. She reports that she is his POA
[2024-12-01] MEDS: HEPARIN SODIUM 5,000 UNITS/ML VIAL 4000 UNITS IV PUSH (12:28)
[2024-12-01] MEDS: HEPARIN SOD/D5W 100 UNITS/ML 25,000 UNITS/250 ML BAG 10 UNITS IV CONT (12:28)
--- NOTE | 2024-12-01 14:15 | PC.NURSE ---
Report to Nancy EUGENE from [facility]
--- NOTE | 2024-12-01 14:33 | WPDHPUPDATE1 ---
History and Physical Update Update Date/Time: 12/01/24 12:33 History and Physical has been reviewed, including an updated exam of the patient. There are NO changes in the patient's condition. Risks, benefits, and alternatives have been discussed and questions answered. Patient agrees to proceed with procedure.
--- NOTE | 2024-12-01 14:33 | WPDMODSED ---
Moderate Sedation Note-Pt Data Patient Data Allergies Allergy/AdvReac Type Severity Reaction Status Date / Time No Known Allergies Allergy Verified 12/01/24 03:40 Home Medications ?Medication ?Instructions ?Recorded ?Confirmed ?Type [id number] 150 mcg-vit K1 tablet PO 06/22/24 08/10/24 History 30 mcg-lycop 300 mcg-lutein tablet (Centrum Minis Men 50 Plus) gabapentin 100 mg capsule 100 mg PO QHS #90 caps 08/10/24 12/01/24 Rx brimonidine 0.1 % eye drops drp 12/01/24 History Current Medications: Active Medications Acetaminophen (Acetaminophen 325 Mg Tablet) 650 mg PO Q4H PRN PRN Reason: Mild Pain (1-3) or Fever Aspirin (Aspirin 81 Mg Enteric Tablet) 81 mg PO QAM [facility] Heparin Sodium (Porcine) (Heparin Sodium 5,000 Units/Ml Vial) 4,000 units IV PUSH PRN PRN PRN Reason: aPTT less than 55 seconds Heparin Sodium (Porcine) (Heparin Sodium 5,000 Units/Ml Vial) 3,500 units IV PUSH PRN PRN PRN Reason: aPTT 55 - 70 seconds Heparin Sodium/Dextrose (Heparin Sodium/D5w 100 Units/Ml) 25,000 units in 250 mls @ 10 mls/hr IV CONT .Q24H [facility]; Protocol Last Admin: 12/01/24 12:28 Dose: 1,000 units/hr, 10 mls/hr Metoprolol Tartrate (Metoprolol Tartrate 25 Mg Tablet) 25 mg PO Q12HR [facility] Ondansetron HCl (Ondansetron Inj 4 Mg/2 Ml Vial) 4 mg IV PUSH Q4H PRN PRN Reason: Nausea Perflutren Lipid Microsphere (Perflutren Lipid Microspheres 1.5 Ml Vial Diluted To 10 Ml Total Volume) 0 ml IV PUSH ONCE PRN; Protocol PRN Reason: adequate visualization Stop: 12/04/24 11:34 Rosuvastatin Calcium (Rosuvastatin 20 Mg Tablet) 40 mg PO EVENING [facility] Sedation/Anesthesia: No previous sedation/anesthesia problems (including family history). [facility] Past Medical History Medical History (Updated 12/01/24 @ 11:28 by Mert Bradley MD) Anxiety Neuropathy Pacemaker Age-related cognitive decline Vision disorder Arthritis Prostate disorder Prophylactic gland removal Removed from neck 1976 Surgical History Surgical History S/P eye surgery Left eye 2024 Previous back surgery Fusion S3-S5 History of hip replacement Left 2006 Family History Family History Father Cancer Mother Cancer Colostomy care Son Diabetes mellitus Social History Social History (Updated 12/01/24 @ 08:47 by Sondra Kerns MD) Smoking status: Current every day smoker Tobacco type: pipe Alcohol intake: never Substance use: never Substance use type: does not use Occupation/Education: retired 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 Physical Exam Physical Exam Pre Procedural Exam: Normal: Lungs, Heart Rate and Heart Rhythm Hours since solid foods: 5 Hours since liquid intake: 5 Mallampati Classification: class II Internal Medicine - PN: Obj Da Vital Signs Vital Signs: Vital Signs - 24 hr 12/01/24 03:32 12/01/24 03:40 12/01/24 03:51 Temperature 36.4 C Pulse Rate 66 60 Respiratory Rate 18 Blood Pressure 101/62 Pulse Oximetry 98 100 Oxygen Delivery Room Air Room Air 12/01/24 03:51 12/01/24 05:23 12/01/24 06:16 Temperature 36.5 C Pulse Rate 61 61 Respiratory Rate 14 20 Blood Pressure 115/64 116/63 Pulse Oximetry 100 99 97 Oxygen Delivery Room Air 12/01/24 06:22 12/01/24 06:28 12/01/24 06:50 Temperature Pulse Rate 60 60 60 Respiratory Rate 20 20 20 Blood Pressure 105/59 L 85/57 L 105/60 Pulse Oximetry 100 100 95 Oxygen Delivery 12/01/24 07:31 12/01/24 07:55 12/01/24 09:45 Temperature Pulse Rate 60 60 60 Respiratory Rate 20 13 25 H Blood Pressure 108/62 108/62 Pulse Oximetry 100 100 96 Oxygen Delivery 12/01/24 10:00 12/01/24 10:15 12/01/24 10:30 Temperature Pulse Rate 60 60 62 Respiratory Rate 14 22 H 27 H Blood Pressure Pulse Oximetry 100 100 99 Oxygen Delivery 12/01/24 10:45 12/01/24 11:00 12/01/24 11:13 Temperature Pulse Rate 64 60 79 Respiratory Rate 24 H 23 H 20 Blood Pressure 132/64 Pulse Oximetry 100 Oxygen Delivery 12/01/24 11:14 12/01/24 11:15 12/01/24 11:16 Temperature Pulse Rate 73 67 65 Respiratory Rate 18 18 19 Blood Pressure 132/64 123/69 Pulse Oximetry 100 100 100 Oxygen Delivery 12/01/24 11:30 12/01/24 11:45 12/01/24 12:00 Temperature Pulse Rate 60 60 60 Respiratory Rate 26 H 19 17 Blood Pressure Pulse Oximetry 100 100 Oxygen Delivery 12/01/24 12:02 12/01/24 12:15 12/01/24 12:30 Temperature Pulse Rate 60 62 63 Respiratory Rate 14 18 20 Blood Pressure 119/63 Pulse Oximetry 94 Oxygen Delivery 12/01/24 12:45 12/01/24 13:00 12/01/24 13:15 Temperature Pulse Rate 60 61 60 Respiratory Rate 25 H 24 H 14 Blood Pressure Pulse Oximetry 99 98 100 Oxygen Delivery 12/01/24 13:30 12/01/24 13:45 Temperature Pulse Rate 74 60 Respiratory Rate 19 25 H Blood Pressure Pulse Oximetry 100 99 Oxygen Delivery Intake/Output Intake/Output: Intake & Output 11/28/24 11/29/24 11/30/24 12/01/24 23:59 23:59 23:59 23:59 Output Total 600 Balance -600 Meds/Results Medications: Active Medications Generic Name Dose Route Start Last Admin Trade Name Freq PRN Reason Stop Dose Admin Acetaminophen 650 mg 12/01/24 08:58 Acetaminophen 325 Mg Tablet PO Q4H PRN Mild Pain (1-3) or Fever Aspirin 81 mg 12/02/24 09:00 Aspirin 81 Mg Enteric Tablet PO [facility] Heparin Sodium (Porcine) 4,000 units 12/01/24 11:33 Heparin Sodium 5,000 Units/Ml Vial IV PUSH PRN PRN aPTT less than 55 seconds Heparin Sodium (Porcine) 3,500 units 12/01/24 11:33 Heparin Sodium 5,000 Units/Ml Vial IV PUSH PRN PRN aPTT 55 - 70 seconds Heparin Sodium/Dextrose 25,000 units in 250 mls @ 10 mls/hr 12/01/24 11:35 12/01/24 12:28 Heparin Sodium/D5w 100 Units/Ml IV CONT 1,000 units/hr .Q24H [facility] 10 mls/hr Administration Protocol 1,000 UNITS/HR Metoprolol Tartrate 25 mg 12/01/24 21:00 Metoprolol Tartrate 25 Mg Tablet PO Q12HR [facility] Ondansetron HCl 4 mg 12/01/24 08:58 Ondansetron Inj 4 Mg/2 Ml Vial IV PUSH Q4H PRN Nausea Perflutren Lipid Microsphere 0 ml 12/01/24 11:34 Perflutren Lipid Microspheres 1.5 Ml Vial Diluted To 10 Ml Total Volume IV PUSH 12/04/24 11:34 ONCE PRN adequate visualization Protocol Rosuvastatin Calcium 40 mg 12/01/24 18:00 Rosuvastatin 20 Mg Tablet PO EVENING [facility] Radiology Results: ITS Impressions Chest X-Ray 12/01/24 06:34 Impression: Possible 15 mm right basilar pulmonary nodule versus confluence of shadows. Chest CT advised to confirm or exclude pulmonary nodule. Chest CTA 12/01/24 08:36 IMPRESSION: 1. No pulmonary embolus. 2. The nodule described on the chest radiograph correlates with costochondral calcification. Labs 12/01/24 03:45 12/01/24 03:45 Labs: Laboratory Results - last 24 hr 12/01/24 12/01/24 12/01/24 03:45 06:28 10:06 WBC 5.8 RBC 4.21 L Hgb 13.2 L Hct 39.8 L MCV 94.5 MCH 31.4 MCHC 33.2 RDW 12.6 Plt Count 134 L MPV 11.0 H Immature Gran % (Auto) 0.2 Neut % (Auto) 52.9 Lymph % (Auto) 35.9 [place] % (Auto) 8.4 Eos % (Auto) 2.1 Baso % (Auto) 0.5 Lymph # (Auto) 2.09 [place] # (Auto) 0.5 Eos # (Auto) 0.1 Baso # (Auto) 0.0 Abs Immat Gran (auto) 0.01 Absolute Neuts (auto) 3.1 Absolute Nucleated RBC 0.000 Nucleated RBC % 0.0 % Immature Plt Fraction 5.8 PT 14.2 INR 1.1 APTT 24.4 D-Dimer 1.09 H Sodium 139 Potassium 4.0 Chloride 105 Carbon Dioxide 28 Anion Gap 6 BUN 21 H Creatinine 0.95 Estim Creat Clear Calc 53 Estimated GFR > 60 Glucose 97 Calcium 9.5 Total Bilirubin 1.0 AST 30 ALT 20 Alkaline Phosphatase 63 Troponin I 0.550 H* 0.484 H* 1.070 H* D NT-Pro-B Natriuret Pep 54 Total Protein 7.0 Albumin 4.2 Lipase 163 Influenza A (RT-PCR) Negative Influenza B (RT-PCR) Negative RSV (RT-PCR) Negative SARS-CoV-2 RNA (RT-PCR) Negative ASA Classification/Sedation ASA Classification/Sedation ASA Class: III Emergent: No Risks: Risks, benefits and alternatives explained and patient/family accepted plan for sedation. Patient re-evaluated immediately prior to sedation.
--- NOTE | 2024-12-01 15:34 | PM.IMHP ---
H&P: HPI History of Present Illness Date/Time: 12/01/24 15:34 Chief Complaint: Chest pain Narrative: 84 years old gentleman with history of persists AFib, status post pacemaker, thrombocytopenia, chronic anemia, present ED with a chief complaint of chest pain. Patient started have chest pain about 2:00 a.m. today, locating in the right chest, patient has some shortness breath associated with chest pain. Patient denies cough, thyroid SIRS, fever, chills, abdomen pain, nausea vomiting diarrhea bloody stools, or dysuria. Patient also denies headache, focal weakness, vision change. Upon arrival to ED, patient is afebrile, blood pressure stable, patient was found have tachypnea. Labs showed anemia hemoglobin 13.2 on the baseline, dilated 134, chemistry unremarkable, a set elevated BUN creatinine ratio 21/0.95. Patient found have elevated troponin x3 that is trending up. EKG showed paced rhythm, heart rate 60, no specific ST or T-wave changes. CTA chest shows no PE, and old granulomatous disease. Patient received aspirin, heparin drip in the ED. ER physician consulted digital experience manager. We admit patient for further evaluation and management. Review of Systems Review of Systems: ROS negative except above PMFSH Past Medical History Medical History (Updated 12/01/24 @ 11:28 by Mert Bradley MD) Anxiety Neuropathy Pacemaker Age-related cognitive decline Vision disorder Arthritis Prostate disorder Prophylactic gland removal Removed from neck 1976 Surgical History Surgical History S/P eye surgery Left eye 2024 Previous back surgery Fusion S3-S5 History of hip replacement Left 2006 Family History Family History Father Cancer Mother Cancer Colostomy care Son Diabetes mellitus Social History Social History (Updated 12/01/24 @ 08:47 by Sondra Kerns MD) Smoking status: Current every day smoker Tobacco type: pipe Alcohol intake: never Substance use: never Substance use type: does not use Occupation/Education: retired 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 Meds Home Medications and Allergies Home Medications ?Medication ?Instructions ?Recorded ?Confirmed ?Type [id number] 150 mcg-vit K1 tablet PO 06/22/24 08/10/24 History 30 mcg-lycop 300 mcg-lutein tablet (Centrum Minis Men 50 Plus) gabapentin 100 mg capsule 100 mg PO QHS #90 caps 08/10/24 12/01/24 Rx brimonidine 0.1 % eye drops drp 12/01/24 History Allergies Allergy/AdvReac Type Severity Reaction Status Date / Time No Known Allergies Allergy Verified 12/01/24 03:40 Vital Signs Vital Signs - 24 hr 12/01/24 03:32 12/01/24 03:40 12/01/24 03:51 Temperature 97.6 F Pulse Rate 66 60 Respiratory Rate 18 Blood Pressure 101/62 Pulse Oximetry 98 100 Oxygen Delivery Room Air Room Air 12/01/24 03:51 12/01/24 05:23 12/01/24 06:16 Temperature 97.7 F Pulse Rate 61 61 Respiratory Rate 14 20 Blood Pressure 115/64 116/63 Pulse Oximetry 100 99 97 Oxygen Delivery Room Air 12/01/24 06:22 12/01/24 06:28 12/01/24 06:50 Temperature Pulse Rate 60 60 60 Respiratory Rate 20 20 20 Blood Pressure 105/59 L 85/57 L 105/60 Pulse Oximetry 100 100 95 Oxygen Delivery 12/01/24 07:31 12/01/24 07:55 12/01/24 09:45 Temperature Pulse Rate 60 60 60 Respiratory Rate 20 13 25 H Blood Pressure 108/62 108/62 Pulse Oximetry 100 100 96 Oxygen Delivery 12/01/24 10:00 12/01/24 10:15 12/01/24 10:30 Temperature Pulse Rate 60 60 62 Respiratory Rate 14 22 H 27 H Blood Pressure Pulse Oximetry 100 100 99 Oxygen Delivery 12/01/24 10:45 12/01/24 11:00 12/01/24 11:13 Temperature Pulse Rate 64 60 79 Respiratory Rate 24 H 23 H 20 Blood Pressure 132/64 Pulse Oximetry 100 Oxygen Delivery 12/01/24 11:14 12/01/24 11:15 12/01/24 11:16 Temperature Pulse Rate 73 67 65 Respiratory Rate 18 18 19 Blood Pressure 132/64 123/69 Pulse Oximetry 100 100 100 Oxygen Delivery 12/01/24 11:30 12/01/24 11:45 12/01/24 12:00 Temperature Pulse Rate 60 60 60 Respiratory Rate 26 H 19 17 Blood Pressure Pulse Oximetry 100 100 Oxygen Delivery 02/06/25 12:02 12/01/24 12:15 12/01/24 12:30 Temperature Pulse Rate 60 62 63 Respiratory Rate 14 18 20 Blood Pressure 119/63 Pulse Oximetry 94 Oxygen Delivery 12/01/24 12:45 12/01/24 13:00 12/01/24 13:15 Temperature Pulse Rate 60 61 60 Respiratory Rate 25 H 24 H 14 Blood Pressure Pulse Oximetry 99 98 100 Oxygen Delivery 12/01/24 13:30 12/01/24 13:45 Temperature Pulse Rate 74 60 Respiratory Rate 19 25 H Blood Pressure Pulse Oximetry 100 99 Oxygen Delivery Exam Narrative: GENERAL: Pleasant, in no acute distress. Well-nourished. - EYES: EOMI. Anicteric. - HENT: Moist mucous membranes. - LUNGS: Clear to auscultation bilaterally, no wheezing, rhonchi, or rales. - CARDIOVASCULAR: Regular rate and rhythm. No murmur. No JVD. - ABDOMEN: Soft, non-tender and non-distended. No palpable masses. - EXTREMITIES: No edema. Peripheral pulses 2+. Non-tender. - NEUROLOGIC: No focal neurological deficits. CN II-XII grossly intact. - PSYCHIATRIC: Awake, Alert and oriented x 3. Appropriate mood and affect. - SKIN: No rashes or lesions. Warm. - LYMPH: No cervical lymphadenopathy. H&P: Results Labs Labs: Short CBC 12/01/24 Range/Units 03:45 WBC 5.8 (4.5-10.0) K/mm3 Hgb 13.2 L (14.0-18.0) g/dL Hct 39.8 L (42.0-52.0) % Plt Count 134 L (150-375) k/mm3 [facility] 12/01/24 03:45 Sodium 139 Potassium 4.0 Chloride 105 Carbon Dioxide 28 BUN 21 H Creatinine 0.95 Glucose 97 Calcium 9.5 Cardiac Enzymes 12/01/24 12/01/24 12/01/24 Range/Units 03:45 06:28 10:06 Troponin I 0.550 H* 0.484 H* 1.070 H* D (0.000-0.034) ng/mL Liver Function 12/01/24 Range/Units 03:45 Total Bilirubin 1.0 (0.2-1.3) mg/dL AST 30 (17-59) U/L ALT 20 (6-50) U/L Alkaline Phosphatase 63 (38-126) U/L Albumin 4.2 (3.5-5.1) g/dL Assessment and Plan Assessment and plan (1) Non-ST elevation CT (NSTEMI): Code(s): I21.4 - Non-ST elevation (NSTEMI) myocardial infarction Status: Acute (2) Atrial fibrillation: Qualifiers: Atrial fibrillation type: unspecified Qualified Code(s): I48.91 - Unspecified atrial fibrillation Code(s): I48.91 - Unspecified atrial fibrillation Status: Acute (3) Pacemaker: Code(s): Z95.0 - Presence of cardiac pacemaker Status: Acute (4) Pulmonary nodule: Code(s): R91.1 - Solitary pulmonary nodule Status: Acute (5) Tobacco use: Code(s): Z72.0 - Tobacco use Status: Acute (6) Glaucoma: Qualifiers: Glaucoma type: unspecified Laterality: bilateral Qualified Code(s): H40.9 - Unspecified glaucoma Code(s): H40.9 - Unspecified glaucoma Status: Acute (7) Thrombocytopenia: Code(s): D69.6 - Thrombocytopenia, unspecified Status: Acute Plan NSTEMI Patient started have chest pain about 2:00 p.m. today patient has some shortness breast Denies history of stent or CABG Positive troponin x3 does trending up EKG showed paced rhythm no specific ST or T-wave changes Received aspirin 324 mg once in the ED, continue aspirin 81 mg daily p.o. metoprolol 12.5 mg b.i.d. p.o., nitroglycerin 0.4 mg p.o. p.r.n. Crestor 40 mg daily p.o. Follow-up lipid panel, serial troponin, EKG p.r.n. Pending echocardiogram Started heparin drip, continue heparin drip per ACS protocol Place patient telemetry monitoring Chronic anemia No obvious bleeding On the baseline Follow-up CBC, ferritin, iron panel and reticulocyte Thrombocytopenia On the lower side of normal range Follow-up CBC May refer to heme oncologist for follow-up after discharge Patient may stay more than 2 midnights hospital Hospitalist MIPS Advance Care Plan I have confirmed that the patient's Advanced Care Plan is present, code status is documented, or surrogate decision maker is listed in patient medical record.: Yes Medication Reconciliation I have utilized all available resources to obtain, update and review the patients current medications (includes all prescriptions, OTC, herbals, cannabis, and nutritional supplements).: Yes
[2024-12-01 16:14] LABS: Activated Clotting Time 308 SEC (74-137)
[2024-12-01 16:14] LABS: Activated Clotting Time 314 SEC (74-137)
--- NOTE | 2024-12-01 16:16 | WPDCARDPROC ---
Cardiac Cath Procedure Note Date of procedure:: 12/01/24 Performing physician:: CATHETERIZATION LABORATORY REPORT Procedure Date: 12/01/2024 Referring Physician: Dr. Sales Anesthesia: Versed and Fentanyl were ordered and given in my presence at 1439, procedure ended at 1606. Supervision of nurse monitored moderate sedation with 2mg Versed and 100mcg Fentanyl was provided for 86 minutes. Pre-op Diagnosis: NSTEMI Post-op Diagnosis: NSTEMI Procedure(s): Left heart catheterization with coronary angiography Percutaneous coronary intervention to left circumflex and proximal to mid LAD Access Site: Right radial artery Brief History and Clinical Indications: A 4-year-old man with bradycardia status post permanent pacemaker placement and previous history of ME presents with chest discomfort whose clinical presentation is consistent with non ST elevation ME All risks, benefits and alternatives to left heart catheterization with or without percutaneous coronary intervention was discussed at length with the patient. Risk of complications including but not limited to bleeding, infection, arrhythmia, stroke, worsening kidney function, blood loss, groin hematoma, limb loss, emergency coronary artery bypass grafting, and even were discussed with the patient and all questions were answered. The patient understood and wished to proceed. Time out called, patient name, date of , medical record number, allergies, procedure performed, identify Profiling Machine Operator, patient and staff member concurred with accurate data, procedure carried on. Findings: LEFT HEART CATHETERIZATION FINDINGS: 1. Left main: The left main coronary artery is widely patent without any significant obstructive disease. 2. Left anterior descending: The LAD is a large caliber vessel that gives off 1 significant diagonal branch. The LAD in its midbody has a 70% stenosis. One significant diagonal branch is angiographically free of high-grade stenosis. 3. Left circumflex: The left circumflex artery gives off 1 OM branch that is angiographically free of high-grade stenosis. The remainder of the left circumflex terminates distally as an occlusion. 4. Right coronary artery: The RCA is a large dominant vessel that has a 80% stenosis in its proximal body followed by diffuse 20-30% stenosis. The RPDA and right posterior lateral branches are free of angiographic high-grade stenosis. There does not appear to be any clear collaterals to the left circulation system. 5. Left ventricle: A. End-diastolic pressure 23 mmHg. B. LV gram deferred. C. No significant gradient across aortic valve on catheter pullback. 6. Opening AO pressure 131/70 and closing AO pressure 144/70 Description of Procedure: Informed consent signed and placed in the chart. Patient transferred to lift slab operator room. Prepped and draped in usual sterile fashion. 2% lidocaine injected subcutaneously in right wrist area. 22-gauge venipuncture catheter used to access the right radial artery with the Seldinger technique. 6-FR slender sheath placed in right radial artery. Nitroglycerin 200mcg, Verapamil 2.5mg, and Heparin 5000U was given intraarterial through the sheath. J wire advanced under fluoroscopy 5F TIG diagnostic catheter engaged Left Main Coronary Artery. 5F TIG diagnostic catheter engaged Right Coronary Artery Multiple orthogonal angiogram obtained and reviewed 5F Pigtail diagnostic catheter crossed aortic valve to obtain LVEDP, LV angiogram deferred. At this time given lack of robust collaterals to the left circulation system and persistent chest discomfort, decision was made to revascularize the occluded left circumflex the significant LAD lesion. Procedure Description for PCI: Heparin was used for anticoagulation (ACT maintained above 250) Patient loaded with heparin at 70 units/kg. 6F EBU3.5 guide catheter was used to intubate the LMCA. 0.014 Runthrough coronary wire was passed in to the distal left circumflex. The lesion was pre-dilated with a 2.5 x 20 mm balloon inflated to high BERTHA with sabianism of NIURKA 3 flow. A 2.5 x 18mm [place] Cotton SHAVON was successfully deployed into distal left circumflex prior to the take off of the OM2 branch that returned after pre-dilation. The stent was post dilated with a 2.75 x 15mm NC. After deployment of stent and post-dilation, there was no reflow phenomenon and a BMW wire was placed into OM2 vessel which had NIURKA 0 flow. Both the distal left circumflex and the OM2 vessel were treated with a 2.0 x 15 mm balloon dilated to high atmosphere without significant sabianism of flow. At this time the Runthrough wire was exchanged out for a 300 cm luge coronary wire was advanced into the distal left circumflex. A caravel microcatheter, which was the only available microcatheter was used to deliver 200mcg of nitroprusside and 200mcg of adenosine into the left circumflex system. After drug delivery, the Caravel microcatheter was removed. Repeat angiography demonstrated excellent stent apposition and expansion with NIURKA 3 flow into the distal left circumflex as well as the OM2 vessel. All equipment was removed from the left circumflex system under fluoroscopy. Attention was then turned to LAD lesion. A new Runthrough wire was negotiated into the distal LAD. The LAD lesion was stented with a 3.5 x 22 mm Johnathan Cotton SHAVON; post dilated with a 3.75 x 12mm NC to 22atm with excellent angiographic results. Coronary wire and guide-catheter were removed were removed under fluoroscopy. Final angiogram demonstrated excellent results with no angiographic complications identified. At this time, given the patient's contrast load and earlier CT angiogram, decision was made to complete the procedure at this time without intervening on the RCA. Assessment: Successful PCI to an occluded distal left circumflex with a 2.5 x 18mm Johnathan Cotton SHAVON; post dilated with 2.75 x 15mm NC with sabianism of NIURKA 3 flow in OM2 and distal left circumflex vessels. Successful PCI to an angiographically significant mLAD lesion with a 3.5 x 22mm Cambridge Cotton SHAVON with excellent angioraphic results. Post Operative Condition: Stable No significant blood loss Disposition: Floor. Plan: Aspirin 81 mg p.o. daily indefinitely. Brilinta 90 mg p.o. b.i.d. for minimum of 1 year. Continue anti-anginals, aggressive medical therapy, and risk factor modification. Obtain transthoracic echocardiogram. Consider RCA revascularization. Mert Bradley Interventional Cardiology
[2024-12-01] MEDS: SODIUM CHLORIDE 0.9% IV 1,000 ML 125 ML IV CONT (19:05)
[2024-12-01] MEDS: ACETAMINOPHEN 325 MG TABLET 650 MG PO (20:12)
--- NOTE | 2024-12-01 21:05 | ADMGEN ---
This patient, Andrés Dempsey, was admitted to IMU Room 200-01. Patient/family oriented to hospital policies and general routines including ID bracelet, bed and alarms, visiting hours, pain management, procedures, bathroom and other care routines, personal items, smoking policy, room service/diet, and visiting hours. Information on how to activate the Rapid Response Team has been discussed. Patient/Family are encouraged to report perceived risks to care and to ask questions if they do not understand what they are told or what they should do.
--- NOTE | 2024-12-01 21:15 | ADMGEN ---
This patient, Andrés Dempsey, was admitted to [facility] at 2105. Patient/family oriented to hospital policies and general routines including ID bracelet, bed and alarms, visiting hours, pain management, procedures, bathroom and other care routines, personal items, smoking policy, room service/diet, and visiting hours. Information on how to activate the Rapid Response Team has been discussed. Patient/Family are encouraged to report perceived risks to care and to ask questions if they do not understand what they are told or what they should do.
[2024-12-01] MEDS: ROSUVASTATIN 20 MG TABLET 40 MG PO (21:53)
[2024-12-01] MEDS: METOPROLOL TARTRATE 25 MG TABLET PO (21:53)
[2024-12-01] MEDS: GABAPENTIN 100 MG CAPSULE PO (21:53)
[2024-12-02] VITALS (16 sets, daily range): BP systolic 104–121; BP diastolic 51–81; PULSE 5–75; RESP 16–24; TEMP 36.6–36.9; O2SAT 96–100
--- NOTE | 2024-12-02 | ECHO_ITS ---
Patient Info Name: Andrés Dempsey Age: 84 years : 1940 Gender: Male Ht: 70 in Wt: 180 lbs BSA: 2.02 m2 HR: 60 bpm BP: 104 / 52 mmHg Technical Quality: Fair Exam Date: 12/02/2024 10:06 AM Exam Location: Echo Lab Patient Status: Inpatient Admit Date: 12/02/2024 Staff Ordering Physician: Mert Bradley [facility] Construction Inspector: González De León RDCS Attending Provider: Deepti Sales MD Exam Type: CA echo doppler color flow Study Info Indications - NSTEMI Complete two-dimensional, color flow and Doppler transthoracic echocardiogram is performed. Summary 1. Technically difficult study with limited views. Patient uncooperative during exam. 2. Left ventricular chamber dimension is normal. 3. Left ventricular systolic function is mildly reduced, estimated at 40-45%. 4. There is moderately increased left ventricular wall thickness. 5. The left ventricular diastolic function is grade I diastolic dysfunction. 6. Right ventricular systolic function is normal. 7. Left atrial chamber dimension is mildly enlarged. 8. Right atrial chamber dimension is mildly enlarged. 9. No significant valvular disease. Left Ventricle Left ventricular chamber dimension is normal. Left ventricular systolic function is mildly reduced, estimated at 40-45%. There is moderately increased left ventricular wall thickness. The left ventricular diastolic function is grade I diastolic dysfunction. Right Ventricle Right ventricular chamber dimension is normal. Right ventricular systolic function is normal. Left Atria Left atrial chamber dimension is mildly enlarged. Right Atria Right atrial chamber dimension is mildly enlarged. Atrial Septum Intact interatrial septum visualized by color flow imaging. Aortic Valve The aortic valve is not well visualized. There is no aortic valve regurgitation. Pulmonic Valve The pulmonic valve is not well visualized. Mitral Valve There is trace mitral valve regurgitation. Tricuspid Valve There is trace tricuspid valve regurgitation. Pericardium/Pleural There is no pericardial effusion. Inferior Vena Cava Inferior vena cava is not well visualized. Aorta The aortic root size at the sinus of Valsalva is normal. Left Ventricular Outflow Tract Name Value Normal LVOT 2D LVOT Diameter 1.8 cm LVOT Doppler LVOT Peak Gradient 3 mmHg LVOT Mean Gradient 2 mmHg LVOT VTI 19 cm LVOT VTI/AV VTI Ratio 0.8 LVOT Stroke Volume 48 ml LVOT CO 2.9 l/min LVOT CI 1.4 l/min/m2 Pulmonic Valve Name Value Normal RVOT Doppler RVOT Peak Gradient 2 mmHg PV Doppler PV Peak Gradient 2 mmHg Mitral Valve Name Value Normal MV Doppler MV Peak Gradient 4 mmHg MV Mean Gradient 2 mmHg MV Decel [place] 405 cm/s2 MV PHT 47 ms MV Area (PHT) 4.7 cm2 4.0-5.0 MV Area (Cont Eq VTI) 1.8 cm2 MV Diastolic Function MV E Peak Velocity 45 cm/s MV A Peak Velocity 100 cm/s MV E/A 0.4 MV Decel Time 111 ms MV Annular TDI MV E/e' (Septal) 9.4 <=8.0 MV E/e' (Lateral) 9.5 <=8.0 MV E/e' (Average) 9.5 Aorta Name Value Normal Ascending Aorta Ao Root Diameter (MM) 3.0 cm Ao Root Diam Index (MM) 1.5 cm/m2 Aortic Valve Name Value Normal AV Doppler AV Peak Velocity 120 cm/s AV Peak Gradient 6 mmHg AV Mean Gradient 3 mmHg AV VTI 25 cm AV Area (Cont Eq VTI) 1.9 cm2 >=3.0 AV Area (Cont Eq Anders) 1.7 cm2 AV Regurgitation 2D LVOT Area 2.5 cm2 Ventricles Name Value Normal LV Dimensions 2D/MM IVS Diastolic Thickness (2D) 1.3 cm 0.6-1.0 LVID Diastole (2D) 4.0 cm 4.2-5.8 LVIW Diastolic Thickness (2D) 1.8 cm 0.6-1.0 LVID Systole (2D) 3.1 cm 2.5-4.0 LVOT Diameter 1.8 cm LV Mass (2D Cubed) 249.21 g 88.00-224.00 LV Mass Index (2D Cubed) 123 g/m2 49-115 Relative Wall Thickness (2D) 0.92 LV Fractional Shortening/Ejection Fraction 2D/MM LV Fractional Shortening (2D) 23 % 25-43 LV EF (2D Teicholz) 46 % 52-72 LV Diastolic Volume (4C MOD) 110 ml LV EF (4C MOD) 53 % LV Diastolic Volume (2C MOD) 74 ml LV EF (2C MOD) 49 % LV Diastolic Volume (BP MOD) 91 ml 62-150 LV Diastolic Volume Index (BP MOD) 45 ml/m2 34-74 LV Systolic Volume (BP MOD) 45 ml 21-61 LV Systolic Volume Index (BP MOD) 22 ml/m2 11-31 LV EF (BP MOD) 51 % 52-72 LV Diastolic Length (4C) 8.2 cm LV Systolic Length (4C) 7.3 cm LV Stroke Volume (4C MOD) 58 ml Atria Name Value Normal LA Dimensions LA Dimension (MM) 4.2 cm 3.0-4.1 LA Volume (4C A-L) 49 ml LA Volume (BP A-L) 48 ml RA Dimensions RA Area (4C) 17.6 cm2 <=18.0 Report Signatures
[2024-12-02] MEDS: BRIMONIDINE TARTRATE 0.1% 5 ML OPHTH DROPS 1 DROP EACH EYE ×2 (00:15→08:43)
--- NOTE | 2024-12-02 02:59 | PC.NURSE ---
Pt center consultant driver multiple times per hour with various requests. When staff attempts to ascertain what the pt needs pt became aggitated. Pt confused at times stating he wants to get up but when reminded that he needed assist x 2 to ambulate on admission pt states that this was not true. Staff reoriented pt on multiple occasions.
[2024-12-02] MEDS: ASPIRIN 81 MG ENTERIC TABLET PO (08:44)
[2024-12-02] MEDS: METOPROLOL TARTRATE 25 MG TABLET PO ×2 (08:44→22:05)
[2024-12-02] MEDS: TICAGRELOR 90 MG TABLET PO (08:44)
--- NOTE | 2024-12-02 10:16 | PC.NURSE ---
planetarium technician called this RN to the room. Stated that the patient is being rude and uncooperative and that she doesn't want to complete the testing at this point . This RN discussed with the planetarium technician that not completing the test was not optional. This RN discussed then with the patient that while we understand he wants to go home, we have some testing to complete to make sure he has a safe discharge. This RN asked the patient if he can be compliant with the testing or if he wants to refuse the testing he has a right to do so. The patient agreed to complete the testing and turned into the position the planetarium technician requested he turn to.
--- NOTE | 2024-12-02 12:40 | PC.NURSE ---
Patient chair alarm going off in the room. This RN entered the room to find the patient up walking with a very unsteady gait. Upon arrival to the room the patient appeared as though he were about to fall forward. This RN took ahold of patient's arm to assist him back to the chair. The patient became very angry and combative. Yelling and even acted as though he would hit me. This RN instructed the patient that due to our safety concerns related to his unsteady gait and the fact that he is hooked up to a Purewick for urination, that at this time he is unable to get up without help. Several people entered the room at this time including patient managed care director, charge nurse and someone from physical therapy team. The patient stated These people will not let me get up to walk 5 feet to the bathroom . and I just want to go get my vitamins . This RN and the physical therapist reiterated to the patient that he can not get up without help, and that it is a safety concern from our perspective. The patient continued to say, I just want to go to my house and get my vitamins, and you won't let me do that or walk to the bathroom . This RN called the patients family member to inform them that the patient will be moved from room 200 and placed in room 206 bed 2. This RN explained to the patient's family member that he appeared to be confused at times and other times he was able to answer all orientation questions. This RN explained to the family member that he had became angry, and acted as though he might hit not only myself, but also the patient managed care director when she tried to assist him back to the chair. This RN further explained that he is a high risk for leaving against medical advice, and/or falling. This RN explained he was being moved into room 206 because it has a camera and our goal of care is that he remain safe. Family member verbalizes understanding. States that she is out of state and cannot get to the hospital until tomorrow. The family member did raise concern about the fact that the patient is BiPolar and that while she don't believe he would hurt anyone his emotions can be impacted. She asked questions about starting on anti-psychotics. This RN explained that he would need to be seen outpatient for that particular issue, and that if he had been non-compliant with medications in the past there is a high risk that he will not follow through with the meds. Family member verbalizes understanding. Patient is now refusing to where his potline monitor and refusing to allow us to get vital signs at this time.
--- NOTE | 2024-12-02 12:48 | PM.PNCARD ---
Progress Note: A&P Assessment and Plan (1) Non-ST elevation [place] (NSTEMI): Code(s): I21.4 - Non-ST elevation (NSTEMI) myocardial infarction Status: Acute (2) Atrial fibrillation: Qualifiers: Atrial fibrillation type: unspecified Qualified Code(s): I48.91 - Unspecified atrial fibrillation Code(s): I48.91 - Unspecified atrial fibrillation Status: Acute Plan 84-year-old man with previous history of NV and tobacco use who is now also status post permanent pacemaker presented with chest discomfort Non ST-elevation NV -s/p coronary angiogram with PCI/SHAVON x 2 to the distal LCx and mid LAD -Aspirin 81 mg p.o. daily indefinitely. He has no insurance coverage for medications. Therefore, will shift to Plavix. 600mg loading dose tomorrow followed by 75mg daily for minimum of 1 year. -Continue anti-anginals, aggressive medical therapy, and risk factor modification. -Echo pending -Consider RCA revascularization. 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 Security present because he has been aggressive toward staff. He is verbally abusive/insulting but he did agree to talk to me and denies having any chest pain. Review of Systems Cardiovascular: Cardiovascular: Reports as per HPI Respiratory: Respiratory: Reports as per HPI Exam Const: General: comfortable Eyes: EOM: EOMs intact bilaterally Neck: Neck: no JVD Resp: Effort & Inspection: normal respiratory effort Auscultation: clear to auscultation bilaterally Cardio: Rate: regular rate Rhythm: regular rhythm Neuro: General: confusion Speech: normal speech Extrem: General: no pedal edema Other: right radial arterial access site free from bleeding, hematoma. Radial pulse intact Psych: Mental Status: mental status grossly abnormal Affect: Hostile affect present Attitude: Belligerent attititude/behavior present Objective Data Vital Signs Vital Signs: Vital Signs - 24 hr 12/01/24 13:00 12/01/24 13:15 12/01/24 13:30 Temperature Pulse Rate 61 60 74 Pulse Rate [Bilateral Radial Palpation] Respiratory Rate 24 H 14 19 Blood Pressure Pulse Oximetry 98 100 100 Oxygen Delivery 12/01/24 13:45 12/01/24 16:30 12/01/24 16:30 Temperature Pulse Rate 60 67 Pulse Rate [Bilateral Radial Palpation] 67 Respiratory Rate 25 H 19 Blood Pressure 120/64 Pulse Oximetry 99 100 Oxygen Delivery Room Air 12/01/24 16:45 12/01/24 16:45 12/01/24 17:00 Temperature Pulse Rate 61 62 Pulse Rate [Bilateral Radial Palpation] 61 Respiratory Rate 14 16 Blood Pressure 120/64 121/109 H Pulse Oximetry 100 98 Oxygen Delivery Room Air Room Air 12/01/24 17:00 12/01/24 17:15 12/01/24 17:15 Temperature Pulse Rate 72 Pulse Rate [Bilateral Radial Palpation] 62 72 Respiratory Rate 15 Blood Pressure 128/75 Pulse Oximetry 96 Oxygen Delivery Room Air 12/01/24 17:30 12/01/24 17:30 12/01/24 17:45 Temperature Pulse Rate 60 Pulse Rate [Bilateral Radial Palpation] 60 61 Respiratory Rate 14 Blood Pressure 111/51 L Pulse Oximetry 100 Oxygen Delivery Room Air 12/01/24 17:45 12/01/24 18:00 12/01/24 18:00 Temperature Pulse Rate 61 60 Pulse Rate [Bilateral Radial Palpation] 60 Respiratory Rate 23 H 24 H Blood Pressure 142/73 H 142/73 H Pulse Oximetry 99 98 Oxygen Delivery Room Air Room Air 12/01/24 18:15 12/01/24 18:15 12/01/24 18:30 Temperature Pulse Rate 64 Pulse Rate [Bilateral Radial Palpation] 64 60 Respiratory Rate 30 H Blood Pressure 109/70 Pulse Oximetry 100 Oxygen Delivery Room Air 12/01/24 18:30 12/01/24 18:45 12/01/24 18:45 Temperature Pulse Rate 60 61 Pulse Rate [Bilateral Radial Palpation] 61 Respiratory Rate 23 H 26 H Blood Pressure 102/59 L 109/59 L Pulse Oximetry 98 98 Oxygen Delivery Room Air Room Air 12/01/24 19:03 12/01/24 19:03 12/01/24 19:15 Temperature Pulse Rate 60 Pulse Rate [Bilateral Radial Palpation] 60 60 Respiratory Rate 27 H Blood Pressure 114/60 Pulse Oximetry 100 Oxygen Delivery Room Air 12/01/24 19:15 12/01/24 19:30 12/01/24 19:30 Temperature Pulse Rate 60 60 Pulse Rate [Bilateral Radial Palpation] 60 Respiratory Rate 22 H 19 Blood Pressure 112/64 114/61 Pulse Oximetry 98 98 Oxygen Delivery Room Air Room Air 12/01/24 19:45 12/01/24 19:45 12/01/24 20:00 Temperature Pulse Rate 60 61 Pulse Rate [Bilateral Radial Palpation] 60 Respiratory Rate 23 H 20 Blood Pressure 112/56 L 148/69 H Pulse Oximetry 98 100 Oxygen Delivery Room Air Room Air 12/01/24 20:00 12/01/24 20:15 12/01/24 20:15 Temperature Pulse Rate 61 Pulse Rate [Bilateral Radial Palpation] 61 61 Respiratory Rate 20 Blood Pressure 112/65 Pulse Oximetry 99 Oxygen Delivery Room Air 12/01/24 20:30 12/01/24 20:30 12/01/24 20:45 Temperature Pulse Rate 60 Pulse Rate [Bilateral Radial Palpation] 60 63 Respiratory Rate 19 Blood Pressure 114/56 L Pulse Oximetry 100 Oxygen Delivery Room Air 12/01/24 20:45 12/01/24 21:00 12/01/24 21:00 Temperature Pulse Rate 63 60 Pulse Rate [Bilateral Radial Palpation] 60 Respiratory Rate 21 H 16 Blood Pressure 119/65 119/65 Pulse Oximetry 100 100 Oxygen Delivery Room Air Room Air 12/01/24 21:30 12/01/24 21:53 12/01/24 22:00 Temperature 36.6 C 36.5 C Pulse Rate 67 60 60 Pulse Rate [Bilateral Radial Palpation] Respiratory Rate 20 18 Blood Pressure 102/54 L 129/75 Pulse Oximetry 93 93 Oxygen Delivery 12/01/24 23:00 12/01/24 23:00 12/01/24 23:33 Temperature Pulse Rate 60 60 Pulse Rate [Bilateral Radial Palpation] 60 Respiratory Rate 18 Blood Pressure Pulse Oximetry 93 Oxygen Delivery Room Air 12/01/24 23:35 12/02/24 00:00 12/02/24 04:00 Temperature 36.6 C 36.6 C Pulse Rate 60 65 62 Pulse Rate [Bilateral Radial Palpation] Respiratory Rate 18 18 Blood Pressure 111/65 104/52 L Pulse Oximetry 96 100 Oxygen Delivery 12/02/24 04:00 12/02/24 04:00 12/02/24 07:34 Temperature 36.6 C Pulse Rate 60 60 64 Pulse Rate [Bilateral Radial Palpation] Respiratory Rate 18 20 Blood Pressure 121/58 L Pulse Oximetry 100 98 Oxygen Delivery Room Air 12/02/24 08:00 12/02/24 08:00 12/02/24 08:44 Temperature Pulse Rate 75 64 64 Pulse Rate [Bilateral Radial Palpation] Respiratory Rate 20 Blood Pressure Pulse Oximetry 98 Oxygen Delivery Room Air 12/02/24 10:00 Temperature Pulse Rate 65 Pulse Rate [Bilateral Radial Palpation] Respiratory Rate Blood Pressure Pulse Oximetry Oxygen Delivery Intake/Output Intake/Output: Intake & Output 11/29/24 11/30/24 12/01/24 12/02/24 23:59 23:59 23:59 23:59 Intake Total 2520 Output Total 600 2600 Balance -600 -80 Meds/Results Medications: Active Medications Generic Name Dose Route Start Last Admin Trade Name Freq PRN Reason Stop Dose Admin Acetaminophen 650 mg 12/01/24 08:58 12/01/24 20:12 Acetaminophen 325 Mg Tablet PO 650 mg Q4H PRN Administration Mild Pain (1-3) or Fever Aspirin 81 mg 12/02/24 09:00 12/02/24 08:44 Aspirin 81 Mg Enteric Tablet PO 81 mg QAM LORETO Administration Brimonidine Tartrate 1 drop 12/02/24 00:15 12/02/24 08:43 Brimonidine Tartrate 0.1% 5 Ml Ophth Drops EACH EYE 1 drop BID LORETO Administration Gabapentin 100 mg 12/01/24 21:00 12/01/24 21:53 Gabapentin 100 Mg Capsule PO 100 mg QHS LORETO Administration Metoprolol Tartrate 25 mg 12/01/24 21:00 12/02/24 08:44 Metoprolol Tartrate 25 Mg Tablet PO 25 mg Q12HR LORETO Administration Ondansetron HCl 4 mg 12/01/24 08:58 Ondansetron Inj 4 Mg/2 Ml Vial IV PUSH Q4H PRN Nausea Perflutren Lipid Microsphere 0 ml 12/01/24 11:34 Perflutren Lipid Microspheres 1.5 Ml Vial Diluted To 10 Ml Total Volume IV PUSH 12/04/24 11:34 ONCE PRN adequate visualization Protocol Rosuvastatin Calcium 40 mg 12/01/24 18:00 12/01/24 21:53 Rosuvastatin 20 Mg Tablet PO 40 mg EVENING LORETO Administration Ticagrelor 90 mg 12/02/24 09:00 12/02/24 08:44 Ticagrelor 90 Mg Tablet PO 90 mg Q12HR LORETO Administration Radiology Results: ITS Impressions Chest X-Ray 12/01/24 06:34 Impression: Possible 15 mm right basilar pulmonary nodule versus confluence of shadows. Chest CT advised to confirm or exclude pulmonary nodule. Chest CTA 12/01/24 08:36 IMPRESSION: 1. No pulmonary embolus. 2. The nodule described on the chest radiograph correlates with costochondral calcification. Doppler Study Ultrasound 12/02/24 11:42 IMPRESSION: 1. Mild arterial occlusive disease with normal bilateral NARDA's but mildly decreased bilateral TBI's. Labs Labs: Laboratory Results - last 24 hr 12/01/24 12/01/24 15:14 16:13 Activ Coag Time Kaolin 314 H 308 H
[2024-12-02] MEDS: OLANZapine 5 MG, WATER, STERILE FOR INJECTION 2.1 ML IM (13:38)
--- NOTE | 2024-12-02 14:05 | P.PNIM_ITS ---
Progress Note: A&P Assessment and Plan (1) Non-ST elevation [place] (NSTEMI): Code(s): I21.4 - Non-ST elevation (NSTEMI) myocardial infarction Status: Acute (2) Atrial fibrillation: Qualifiers: Atrial fibrillation type: unspecified Qualified Code(s): I48.91 - Unspecified atrial fibrillation Code(s): I48.91 - Unspecified atrial fibrillation Status: Acute (3) Pacemaker: Code(s): Z95.0 - Presence of cardiac pacemaker Status: Acute (4) Pulmonary nodule: Code(s): R91.1 - Solitary pulmonary nodule (5) Tobacco use: Code(s): Z72.0 - Tobacco use Status: Acute (6) Glaucoma: Qualifiers: Glaucoma type: unspecified Laterality: bilateral Qualified Code(s): H40.9 - Unspecified glaucoma Code(s): H40.9 - Unspecified glaucoma Status: Acute (7) Thrombocytopenia: Code(s): D69.6 - Thrombocytopenia, unspecified Status: Acute Plan NSTEMI chest pain resolved S/p PCI to LCX and mid LAD Continue Aspirin, Plavix, Metoprolol and Statin cardiology recommends revascularization of RCA ECHO pending cardiology pending Chronic anemia No obvious bleeding On the baseline Follow-up CBC, ferritin, iron panel and reticulocyte Thrombocytopenia Plts 134 monitor Afib on pacemaker continue Metoprolol anticoagulation per cardiology DVT prophylaxis on Sq lovenox Subjective Date/time seen: 12/02/24 14:05 Interval history: denies any chest pain Cardiology recommending RCA revascularization Review of Systems Review of Systems: ROS negative except above Exam Narrative: GENERAL: Pleasant, in no acute distress. Well-nourished. - EYES: EOMI. Anicteric. - HENT: Moist mucous membranes. - LUNGS: Clear to auscultation bilateral ly, no wheezing, rhonchi, or rales. - CARDIOVASCULAR: Regular rate and rhyth m. No murmur. No JVD. - ABDOMEN: Soft, non-tender and non-dist ended. No palpable masses. - EXTREMITIES: No edema. Peripheral puls es 2+. Non-tender. - NEUROLOGIC: No focal neurological defi cits. CN II-XII grossly intact. - PSYCHIATRIC: Awake, Alert and oriented x 3. Appropriate mood and affect. - SKIN: No rashes or lesions. Warm. - LYMPH: No cervical lymphadenopathy. Objective Data Vital Signs Vital Signs: Vital Signs - 24 hr 12/01/24 16:30 12/01/24 16:30 12/01/24 16:45 Temperature Pulse Rate 67 Pulse Rate [Bilateral Radial Palpation] 67 61 Respiratory Rate 19 Blood Pressure 120/64 Pulse Oximetry 100 Oxygen Delivery Room Air 12/01/24 16:45 12/01/24 17:00 12/01/24 17:00 Temperature Pulse Rate 61 62 Pulse Rate [Bilateral Radial Palpation] 62 Respiratory Rate 14 16 Blood Pressure 120/64 121/109 H Pulse Oximetry 100 98 Oxygen Delivery Room Air Room Air 12/01/24 17:15 12/01/24 17:15 12/01/24 17:30 Temperature Pulse Rate 72 60 Pulse Rate [Bilateral Radial Palpation] 72 Respiratory Rate 15 14 Blood Pressure 128/75 111/51 L Pulse Oximetry 96 100 Oxygen Delivery Room Air Room Air 12/01/24 17:30 12/01/24 17:45 12/01/24 17:45 Temperature Pulse Rate 61 Pulse Rate [Bilateral Radial Palpation] 60 61 Respiratory Rate 23 H Blood Pressure 142/73 H Pulse Oximetry 99 Oxygen Delivery Room Air 12/01/24 18:00 12/01/24 18:00 12/01/24 18:15 Temperature Pulse Rate 60 64 Pulse Rate [Bilateral Radial Palpation] 60 Respiratory Rate 24 H 30 H Blood Pressure 142/73 H 109/70 Pulse Oximetry 98 100 Oxygen Delivery Room Air Room Air 12/01/24 18:15 12/01/24 18:30 12/01/24 18:30 Temperature Pulse Rate 60 Pulse Rate [Bilateral Radial Palpation] 64 60 Respiratory Rate 23 H Blood Pressure 102/59 L Pulse Oximetry 98 Oxygen Delivery Room Air 12/01/24 18:45 12/01/24 18:45 12/01/24 19:03 Temperature Pulse Rate 61 Pulse Rate [Bilateral Radial Palpation] 61 60 Respiratory Rate 26 H Blood Pressure 109/59 L Pulse Oximetry 98 Oxygen Delivery Room Air 12/01/24 19:03 12/01/24 19:15 12/01/24 19:15 Temperature Pulse Rate 60 60 Pulse Rate [Bilateral Radial Palpation] 60 Respiratory Rate 27 H 22 H Blood Pressure 114/60 112/64 Pulse Oximetry 100 98 Oxygen Delivery Room Air Room Air 12/01/24 19:30 12/01/24 19:30 12/01/24 19:45 Temperature Pulse Rate 60 Pulse Rate [Bilateral Radial Palpation] 60 60 Respiratory Rate 19 Blood Pressure 114/61 Pulse Oximetry 98 Oxygen Delivery Room Air 12/01/24 19:45 12/01/24 20:00 12/01/24 20:00 Temperature Pulse Rate 60 61 Pulse Rate [Bilateral Radial Palpation] 61 Respiratory Rate 23 H 20 Blood Pressure 112/56 L 148/69 H Pulse Oximetry 98 100 Oxygen Delivery Room Air Room Air 12/01/24 20:15 12/01/24 20:15 12/01/24 20:30 Temperature Pulse Rate 61 Pulse Rate [Bilateral Radial Palpation] 61 60 Respiratory Rate 20 Blood Pressure 112/65 Pulse Oximetry 99 Oxygen Delivery Room Air 12/01/24 20:30 12/01/24 20:45 12/01/24 20:45 Temperature Pulse Rate 60 63 Pulse Rate [Bilateral Radial Palpation] 63 Respiratory Rate 19 21 H Blood Pressure 114/56 L 119/65 Pulse Oximetry 100 100 Oxygen Delivery Room Air Room Air 12/01/24 21:00 12/01/24 21:00 12/01/24 21:30 Temperature 97.8 F Pulse Rate 60 67 Pulse Rate [Bilateral Radial Palpation] 60 Respiratory Rate 16 20 Blood Pressure 119/65 102/54 L Pulse Oximetry 100 93 Oxygen Delivery Room Air 12/01/24 21:53 12/01/24 22:00 12/01/24 23:00 Temperature 97.7 F Pulse Rate 60 60 Pulse Rate [Bilateral Radial Palpation] 60 Respiratory Rate 18 Blood Pressure 129/75 Pulse Oximetry 93 Oxygen Delivery 12/01/24 23:00 12/01/24 23:33 12/01/24 23:35 Temperature Pulse Rate 60 60 60 Pulse Rate [Bilateral Radial Palpation] Respiratory Rate 18 Blood Pressure Pulse Oximetry 93 Oxygen Delivery Room Air 12/02/24 00:00 12/02/24 04:00 12/02/24 04:00 Temperature 98 F 97.9 F Pulse Rate 65 62 60 Pulse Rate [Bilateral Radial Palpation] Respiratory Rate 18 18 Blood Pressure 111/65 104/52 L Pulse Oximetry 96 100 Oxygen Delivery 12/02/24 04:00 12/02/24 07:34 12/02/24 08:00 Temperature 97.8 F Pulse Rate 60 64 75 Pulse Rate [Bilateral Radial Palpation] Respiratory Rate 18 20 Blood Pressure 121/58 L Pulse Oximetry 100 98 Oxygen Delivery Room Air 12/02/24 08:00 12/02/24 08:44 12/02/24 10:00 Temperature Pulse Rate 64 64 65 Pulse Rate [Bilateral Radial Palpation] Respiratory Rate 20 Blood Pressure Pulse Oximetry 98 Oxygen Delivery Room Air Intake/Output Intake/Output: Intake & Output 11/29/24 11/30/24 12/01/24 12/02/24 23:59 23:59 23:59 23:59 Intake Total 2520 Output Total 600 2600 Balance -600 -80 Meds/Results Medications: Active Medications Generic Name Dose Route Start Last Admin Trade Name Freq PRN Reason Stop Dose Admin Acetaminophen 650 mg 12/01/24 08:58 12/01/24 20:12 Acetaminophen 325 Mg Tablet PO 650 mg Q4H PRN Administration Mild Pain (1-3) or Fever Aspirin 81 mg 12/02/24 09:00 12/02/24 08:44 Aspirin 81 Mg Enteric Tablet PO 81 mg QAM LORETO Administration Brimonidine Tartrate 1 drop 12/02/24 00:15 12/02/24 08:43 Brimonidine Tartrate 0.1% 5 Ml Ophth Drops EACH EYE 1 drop BID LROETO Administration Clopidogrel Bisulfate 600 mg 12/03/24 09:00 Clopidogrel Bisulfate 300 Mg Tablet PO 12/03/24 09:01 ONCE ONE Clopidogrel Bisulfate 75 mg 12/04/24 09:00 Clopidogrel Bisulfate 75 Mg Tablet PO QAM LORETO Gabapentin 100 mg 12/01/24 21:00 12/01/24 21:53 Gabapentin 100 Mg Capsule PO 100 mg QHS LORETO Administration Metoprolol Tartrate 25 mg 12/01/24 21:00 12/02/24 08:44 Metoprolol Tartrate 25 Mg Tablet PO 25 mg Q12HR LORETO Administration Ondansetron HCl 4 mg 12/01/24 08:58 Ondansetron Inj 4 Mg/2 Ml Vial IV PUSH Q4H PRN Nausea Perflutren Lipid Microsphere 0 ml 12/01/24 11:34 Perflutren Lipid Microspheres 1.5 Ml Vial Diluted To 10 Ml Total Volume IV PUSH 12/04/24 11:34 ONCE PRN adequate visualization Protocol Rosuvastatin Calcium 40 mg 12/01/24 18:00 12/01/24 21:53 Rosuvastatin 20 Mg Tablet PO 40 mg EVENING LORETO Administration Radiology Results: ITS Impressions Chest X-Ray 12/01/24 06:34 Impression: Possible 15 mm right basilar pulmonary nodule versus confluence of shadows. Chest CT advised to confirm or exclude pulmonary nodule. Chest CTA 12/01/24 08:36 IMPRESSION: 1. No pulmonary embolus. 2. The nodule described on the chest radiograph correlates with costochondral calcification. Doppler Study Ultrasound 12/02/24 11:42 IMPRESSION: 1. Mild arterial occlusive disease with normal bilateral NARDA's but mildly decreased bilateral TBI's. Labs Labs: Laboratory Results - last 24 hr 12/01/24 12/01/24 15:14 16:13 Activ Coag Time Kaolin 314 H 308 H
--- NOTE | 2024-12-02 15:50 | PCOTNOTE ---
Pt on hold for OT evaluation due to needing to be restrained and sedated. Will continue to follow.
[2024-12-02] MEDS: HALOPERIDOL LACTATE 5 MG/ML VIAL 2 MG IV PUSH (17:43)
[2024-12-02] MEDS: QUEtiapine FUMARATE 25 MG TABLET PO (22:05)
[2024-12-02] MEDS: GABAPENTIN 100 MG CAPSULE PO (22:05)
[2024-12-03] VITALS (18 sets, daily range): BP systolic 92–102; BP diastolic 46–61; PULSE 60–102; RESP 16–20; TEMP 36.4–37; O2SAT 93–98
[2024-12-03] MEDS: METOPROLOL TARTRATE 25 MG TABLET PO ×2 (09:45→21:36)
[2024-12-03] MEDS: ENOXAPARIN 40 MG/0.4 ML SYRINGE SUB-Q (09:45)
[2024-12-03] MEDS: ASPIRIN 81 MG ENTERIC TABLET PO (09:45)
[2024-12-03] MEDS: CLOPIDOGREL BISULFATE 300 MG TABLET 600 MG PO (10:00)
[2024-12-03] MEDS: BRIMONIDINE TARTRATE 0.1% 5 ML OPHTH DROPS 1 DROP EACH EYE ×2 (12:00→18:48)
--- NOTE | 2024-12-03 12:47 | P.PNCA_ITS ---
Progress Note: A&P Assessment and Plan (1) Non-ST elevation [place] (NSTEMI): Code(s): I21.4 - Non-ST elevation (NSTEMI) myocardial infarction Status: Acute (2) Atrial fibrillation: Qualifiers: Atrial fibrillation type: unspecified Qualified Code(s): I48.91 - Unspecified atrial fibrillation Code(s): I48.91 - Unspecified atrial fibrillation Status: Acute Plan NSTEMI status post PCI to left circumflex and LAD with residual disease in the RCA 80% stenosis Atrial fibrillation intermittent Status post dual-chamber pacemaker V paced Plan Aspirin Plavix Metoprolol Statin Start oral anticoagulation Eliquis 5 mg b.i.d. and DC aspirin, after the staged PCI Follow-up device interrogation Subjective Date/time seen: 12/03/24 12:47 Interval history: No acute events Telemetry paced ventricular rhythm Review of Systems Review of Systems: All systems reviewed & are unremarkable except as noted in HPI and below Exam Const: General: comfortable Eyes: EOM: EOMs intact bilaterally Neck: Neck: no JVD Resp: Effort & Inspection: normal respiratory effort Auscultation: clear to auscultation bilaterally Cardio: Rate: regular rate Rhythm: regular rhythm Neuro: General: confusion Speech: normal speech Extrem: General: no pedal edema Other: right radial arterial access site free from bleeding, hematoma. Radial pulse intact Psych: Mental Status: mental status grossly abnormal Affect: Hostile affect present Attitude: Belligerent attititude/behavior present Objective Data Vital Signs Vital Signs: Vital Signs - 24 hr 12/02/24 16:00 12/02/24 16:00 12/02/24 16:00 Temperature 36.9 C Pulse Rate 69 69 69 Respiratory Rate 24 H 24 H Blood Pressure 120/81 Pulse Oximetry 98 Oxygen Delivery Room Air 12/02/24 18:00 12/02/24 19:45 12/02/24 20:00 Temperature Pulse Rate 5 L 63 62 Respiratory Rate 16 Blood Pressure Pulse Oximetry 100 Oxygen Delivery Room Air 12/02/24 22:00 12/02/24 22:05 12/02/24 22:39 Temperature 36.8 C Pulse Rate 62 62 64 Respiratory Rate 16 Blood Pressure 109/51 L Pulse Oximetry 100 Oxygen Delivery 12/02/24 23:39 12/02/24 23:58 12/03/24 00:00 Temperature 36.6 C Pulse Rate 60 60 60 Respiratory Rate 16 16 Blood Pressure 110/51 L Pulse Oximetry 100 100 Oxygen Delivery Room Air 12/03/24 02:00 12/03/24 03:43 12/03/24 04:00 Temperature 36.6 C Pulse Rate 65 60 60 Respiratory Rate 16 16 Blood Pressure 95/47 L Pulse Oximetry 96 96 Oxygen Delivery Room Air 12/03/24 04:00 12/03/24 05:29 12/03/24 08:00 Temperature 37.0 C Pulse Rate 60 60 60 Respiratory Rate 18 Blood Pressure 94/47 L Pulse Oximetry 98 Oxygen Delivery 12/03/24 08:00 12/03/24 08:00 12/03/24 09:45 Temperature Pulse Rate 101 H 101 H 101 H Respiratory Rate 18 Blood Pressure Pulse Oximetry 98 Oxygen Delivery Room Air 12/03/24 10:00 12/03/24 12:00 Temperature 36.4 C L Pulse Rate 102 H 60 Respiratory Rate 20 Blood Pressure 92/61 L Pulse Oximetry 97 Oxygen Delivery Intake/Output Intake/Output: Intake & Output 11/30/24 12/01/24 12/02/24 12/03/24 23:59 23:59 23:59 23:59 Intake Total 2520 760 Output Total 600 3250 Balance -600 -730 760 Meds/Results Medications: Active Medications Generic Name Dose Route Start Last Admin Trade Name Freq PRN Reason Stop Dose Admin Acetaminophen 650 mg 12/01/24 08:58 12/01/24 20:12 Acetaminophen 325 Mg Tablet PO 650 mg Q4H PRN Administration Mild Pain (1-3) or Fever Aspirin 81 mg 12/02/24 09:00 12/03/24 09:45 Aspirin 81 Mg Enteric Tablet PO 81 mg QAM [facility] Administration Brimonidine Tartrate 1 drop 12/02/24 00:15 12/02/24 17:26 Brimonidine Tartrate 0.1% 5 Ml Ophth Drops EACH EYE Not Given BID [facility]1983 Clopidogrel Bisulfate 75 mg 12/04/24 09:00 Clopidogrel Bisulfate 75 Mg Tablet PO QAM [facility]1983 Enoxaparin Sodium 40 mg 12/03/24 09:00 12/03/24 09:45 Enoxaparin 40 Mg/0.4 Ml Syringe SUB-Q 40 mg DAILY [facility]1983 Administration Gabapentin 100 mg 12/01/24 21:00 12/02/24 22:05 Gabapentin 100 Mg Capsule PO 100 mg QHS LORETO Administration Metoprolol Tartrate 25 mg 12/01/24 21:00 12/03/24 09:45 Metoprolol Tartrate 25 Mg Tablet PO 25 mg Q12HR LORETO Administration Ondansetron HCl 4 mg 12/01/24 08:58 Ondansetron Inj 4 Mg/2 Ml Vial IV PUSH Q4H PRN Nausea Perflutren Lipid Microsphere 0 ml 12/01/24 11:34 Perflutren Lipid Microspheres 1.5 Ml Vial Diluted To 10 Ml Total Volume IV PUSH 12/04/24 11:34 ONCE PRN adequate visualization Protocol Quetiapine Fumarate 25 mg 12/02/24 21:00 12/02/24 22:05 Quetiapine Fumarate 25 Mg Tablet PO 25 mg HS LORETO Administration Rosuvastatin Calcium 40 mg 12/01/24 18:00 12/02/24 17:27 Rosuvastatin 20 Mg Tablet PO Not Given EVENING [facility] Radiology Results: ITS Impressions Chest X-Ray 12/01/24 06:34 Impression: Possible 15 mm right basilar pulmonary nodule versus confluence of shadows. Chest CT advised to confirm or exclude pulmonary nodule. Chest CTA 12/01/24 08:36 IMPRESSION: 1. No pulmonary embolus. 2. The nodule described on the chest radiograph correlates with costochondral calcification. Doppler Study Ultrasound 12/02/24 11:42 IMPRESSION: 1. Mild arterial occlusive disease with normal bilateral NARDA's but mildly decreased bilateral TBI's.
--- NOTE | 2024-12-03 14:50 | P.PNIM_ITS ---
Progress Note: A&P Assessment and Plan (1) Non-ST elevation OR (NSTEMI): Code(s): I21.4 - Non-ST elevation (NSTEMI) myocardial infarction Status: Acute (2) Atrial fibrillation: Qualifiers: Atrial fibrillation type: unspecified Qualified Code(s): I48.91 - Unspecified atrial fibrillation Code(s): I48.91 - Unspecified atrial fibrillation Status: Acute (3) Pacemaker: Code(s): Z95.0 - Presence of cardiac pacemaker Status: Acute (4) Pulmonary nodule: Code(s): R91.1 - Solitary pulmonary nodule (5) Tobacco use: Code(s): Z72.0 - Tobacco use Status: Acute (6) Glaucoma: Qualifiers: Glaucoma type: unspecified Laterality: bilateral Qualified Code(s): H40.9 - Unspecified glaucoma Code(s): H40.9 - Unspecified glaucoma Status: Acute (7) Thrombocytopenia: Code(s): D69.6 - Thrombocytopenia, unspecified Status: Acute Plan NSTEMI chest pain resolved S/p PCI to LCX and mid LAD Continue Plavix, Metoprolol and Statin cardiology recommends revascularization of RCA ECHO EF 40-45% cardiology pending Ischemic cardiomyopathy with EF 40-45% ECHO showed EF 40-45% cardiology to started titrating guideline therapy cardiology following Atrial fibrillation Continue Eliquis and Metoprolol s/p pacemaker monitor Chronic anemia No obvious bleeding On the baseline Follow-up CBC, ferritin, iron panel and reticulocyte Thrombocytopenia Plts 134 monitor Afib on pacemaker continue Metoprolol anticoagulation per cardiology DVT prophylaxis on Sq lovenox Subjective Date/time seen: 12/03/24 14:50 Interval history: Comfortable at bedside patient was agitated yesterday Review of Systems Review of Systems: ROS negative except above Exam Narrative: GENERAL: Pleasant, in no acute distress. Well-nourished. - EYES: EOMI. Anicteric. - HENT: Moist mucous membranes. - LUNGS: Clear to auscultation bilateral ly, no wheezing, rhonchi, or rales. - CARDIOVASCULAR: Regular rate and rhyth m. No murmur. No JVD. - ABDOMEN: Soft, non-tender and non-dist ended. No palpable masses. - EXTREMITIES: No edema. Peripheral puls es 2+. Non-tender. - NEUROLOGIC: No focal neurological defi cits. CN II-XII grossly intact. - PSYCHIATRIC: Awake, Alert and oriented x 3. Appropriate mood and affect. - SKIN: No rashes or lesions. Warm. - LYMPH: No cervical lymphadenopathy. Objective Data Vital Signs Vital Signs: Vital Signs - 24 hr 12/02/24 16:00 12/02/24 16:00 12/02/24 16:00 Temperature 98.4 F Pulse Rate 69 69 69 Respiratory Rate 24 H 24 H Blood Pressure 120/81 Pulse Oximetry 98 Oxygen Delivery Room Air 12/02/24 18:00 12/02/24 19:45 12/02/24 20:00 Temperature Pulse Rate 5 L 63 62 Respiratory Rate 16 Blood Pressure Pulse Oximetry 100 Oxygen Delivery Room Air 12/02/24 22:00 12/02/24 22:05 12/02/24 22:39 Temperature 98.2 F Pulse Rate 62 62 64 Respiratory Rate 16 Blood Pressure 109/51 L Pulse Oximetry 100 Oxygen Delivery 12/02/24 23:39 12/02/24 23:58 12/03/24 00:00 Temperature 97.9 F Pulse Rate 60 60 60 Respiratory Rate 16 16 Blood Pressure 110/51 L Pulse Oximetry 100 100 Oxygen Delivery Room Air 12/03/24 02:00 12/03/24 03:43 12/03/24 04:00 Temperature 98 F Pulse Rate 65 60 60 Respiratory Rate 16 16 Blood Pressure 95/47 L Pulse Oximetry 96 96 Oxygen Delivery Room Air 12/03/24 04:00 12/03/24 05:29 12/03/24 08:00 Temperature 98.6 F Pulse Rate 60 60 60 Respiratory Rate 18 Blood Pressure 94/47 L Pulse Oximetry 98 Oxygen Delivery 12/03/24 08:00 12/03/24 08:00 12/03/24 09:45 Temperature Pulse Rate 101 H 101 H 101 H Respiratory Rate 18 Blood Pressure Pulse Oximetry 98 Oxygen Delivery Room Air 12/03/24 10:00 12/03/24 12:00 Temperature 97.5 F L Pulse Rate 102 H 60 Respiratory Rate 20 Blood Pressure 92/61 L Pulse Oximetry 97 Oxygen Delivery Intake/Output Intake/Output: Intake & Output 11/30/24 12/01/24 12/02/24 12/03/24 23:59 23:59 23:59 23:59 Intake Total 2520 760 Output Total 600 3250 Balance -600 -730 760 Meds/Results Medications: Active Medications Generic Name Dose Route Start Last Admin Trade Name Freq PRN Reason Stop Dose Admin Acetaminophen 650 mg 12/01/24 08:58 12/01/24 20:12 Acetaminophen 325 Mg Tablet PO 650 mg Q4H PRN Administration Mild Pain (1-3) or Fever Aripiprazole 10 mg 12/03/24 14:50 Aripiprazole 10 Mg Tablet PO DAILY [facility] Aspirin 81 mg 12/02/24 09:00 12/03/24 09:45 Aspirin 81 Mg Enteric Tablet PO 81 mg QAM [facility] Administration Brimonidine Tartrate 1 drop 12/02/24 00:15 12/02/24 17:26 Brimonidine Tartrate 0.1% 5 Ml Ophth Drops EACH EYE Not Given BID [facility] Clopidogrel Bisulfate 75 mg 12/04/24 09:00 Clopidogrel Bisulfate 75 Mg Tablet PO QAM [facility] Enoxaparin Sodium 40 mg 12/03/24 09:00 12/03/24 09:45 Enoxaparin 40 Mg/0.4 Ml Syringe SUB-Q 40 mg DAILY [facility] Administration Gabapentin 100 mg 12/01/24 21:00 12/02/24 22:05 Gabapentin 100 Mg Capsule PO 100 mg QHS [facility] Administration Metoprolol Tartrate 25 mg 12/01/24 21:00 12/03/24 09:45 Metoprolol Tartrate 25 Mg Tablet PO 25 mg Q12HR [facility] Administration Ondansetron HCl 4 mg 12/01/24 08:58 Ondansetron Inj 4 Mg/2 Ml Vial IV PUSH Q4H PRN Nausea Perflutren Lipid Microsphere 0 ml 12/01/24 11:34 Perflutren Lipid Microspheres 1.5 Ml Vial Diluted To 10 Ml Total Volume IV PUSH 12/04/24 11:34 ONCE PRN adequate visualization Protocol Rosuvastatin Calcium 40 mg 12/01/24 18:00 12/02/24 17:27 Rosuvastatin 20 Mg Tablet PO Not Given EVENING [facility] Radiology Results: ITS Impressions Chest X-Ray 12/01/24 06:34 Impression: Possible 15 mm right basilar pulmonary nodule versus confluence of shadows. Chest CT advised to confirm or exclude pulmonary nodule. Chest CTA 12/01/24 08:36 IMPRESSION: 1. No pulmonary embolus. 2. The nodule described on the chest radiograph correlates with costochondral calcification. Doppler Study Ultrasound 12/02/24 11:42 IMPRESSION: 1. Mild arterial occlusive disease with normal bilateral NARDA's but mildly decreased bilateral TBI's.
[2024-12-03] MEDS: ARIPiprazole 10 MG TABLET PO (16:20)
[2024-12-03] MEDS: ROSUVASTATIN 20 MG TABLET 40 MG PO (18:00)
[2024-12-03] MEDS: ACETAMINOPHEN 325 MG TABLET 650 MG PO (21:36)
[2024-12-03] MEDS: GABAPENTIN 100 MG CAPSULE PO (21:36)
[2024-12-04] VITALS (24 sets, daily range): BP systolic 98–118; BP diastolic 46–83; PULSE 60–90; RESP 18–20; TEMP 36.6–37.1; O2SAT 93–100
[2024-12-04 04:45] LABS: Basophils Percent Auto 0.4 % (0.2-1.2); Eosinophils Absolute Auto 0.1 K/mm3 (0-0.3); Eosinophils Percent Auto 1.2 % (0-4.4); Hematocrit 41.8 % (42.0-52.0); Hemoglobin 13.7 g/dL (14.0-18.0); Immature Granulocyte Absolute 0.04 K/mm3 (0.00-0.031); Immature Granulocyte Percent A 0.4 % (0-0.5); Immature Platelet Fraction Pct 6.3 % (0.9-11.2); Lymphocytes Percent Auto 13.9 % (18.3-44.2); Mean Corpuscular HGB Conc 32.8 g/dl (32-36); Mean Corpuscular Hemoglobin 31.4 pg (26-34); Mean Corpuscular Volume 95.9 fl (80-100); Mean Platelet Volume 11.3 fl (7.4-10.4); Monocytes Absolute Auto 1.1 K/mm3 (0.1-0.6); Monocytes Percent Auto 11.1 % (2.6-8.5); Neutrophils Absolute Auto 7.4 K/mm3 (1.3-6.7); Platelet Count Result 126 k/mm3 (150-375); Red Blood Count 4.36 M/mm3 (4.6-6.20); Red Cell Distribution Width 12.5 % (11.5-14.5); White Blood Count 10.1 K/mm3 (4.5-10.0)
[2024-12-04 05:00] LABS: Alanine Aminotransferase 32 U/L (6-50); Alkaline Phosphatase 69 U/L (38-126); Anion Gap 9 mmol/L (4-12); Aspartate Amino Transferase 74 U/L (17-59); Bilirubin,Total 1.1 mg/dL (0.2-1.3); Blood Urea Nitrogen 29 mg/dL (9-20); Calcium 9.4 mg/dL (8.4-10.2); Carbon Dioxide 23 mmol/L (22-30); Chloride 105 mmol/L (98-107); Estimated CRCL calculation 43 ml/min; Estimated Glomerular Filt Rate 59; Glucose 99 mg/dL (65-110); Potassium 3.6 mmol/L (3.4-5.0); Sodium 137 mmol/L (137-145)
[2024-12-04] MEDS: ASPIRIN 81 MG ENTERIC TABLET PO (08:03)
[2024-12-04] MEDS: METOPROLOL TARTRATE 25 MG TABLET PO ×2 (08:03→22:27)
[2024-12-04] MEDS: ARIPiprazole 10 MG TABLET PO (08:03)
[2024-12-04] MEDS: CLOPIDOGREL BISULFATE 75 MG TABLET PO (08:03)
[2024-12-04] MEDS: BRIMONIDINE TARTRATE 0.1% 5 ML OPHTH DROPS 1 DROP EACH EYE ×2 (08:04→17:37)
[2024-12-04] MEDS: ENOXAPARIN 40 MG/0.4 ML SYRINGE SUB-Q (08:04)
--- NOTE | 2024-12-04 12:53 | P.PNIM_ITS ---
Progress Note: A&P Assessment and Plan (1) Non-ST elevation [place] (NSTEMI): Code(s): I21.4 - Non-ST elevation (NSTEMI) myocardial infarction Status: Acute (2) Atrial fibrillation: Qualifiers: Atrial fibrillation type: unspecified Qualified Code(s): I48.91 - Unspecified atrial fibrillation Code(s): I48.91 - Unspecified atrial fibrillation Status: Acute (3) Pacemaker: Code(s): Z95.0 - Presence of cardiac pacemaker Status: Acute (4) Pulmonary nodule: Code(s): R91.1 - Solitary pulmonary nodule (5) Tobacco use: Code(s): Z72.0 - Tobacco use Status: Acute (6) Glaucoma: Qualifiers: Glaucoma type: unspecified Laterality: bilateral Qualified Code(s): H40.9 - Unspecified glaucoma Code(s): H40.9 - Unspecified glaucoma Status: Acute (7) Thrombocytopenia: Code(s): D69.6 - Thrombocytopenia, unspecified Status: Acute Plan NSTEMI chest pain resolved S/p PCI to LCX and mid LAD Continue Plavix, Metoprolol and Statin cardiology recommends revascularization of RCA ECHO EF 40-45% cardiology pending Ischemic cardiomyopathy with EF 40-45% ECHO showed EF 40-45% cardiology to started titrating guideline therapy cardiology following Atrial fibrillation Continue Eliquis and Metoprolol s/p pacemaker monitor Chronic anemia No obvious bleeding On the baseline Follow-up CBC, ferritin, iron panel and reticulocyte Thrombocytopenia Plts 126 monitor Afib on pacemaker continue Metoprolol and Eliquis Cardiology following Hx of Schizophrenia patient was agitated Continue Aripiprazole will discuss discharge plans tomorrow with family DVT prophylaxis on Sq lovenox Subjective Date/time seen: 12/04/24 12:53 Interval history: Comfortable at bedside patient appears calm today and was eating by herself this morning Review of Systems Review of Systems: ROS negative except above Exam Narrative: GENERAL: Pleasant, in no acute distress. Well-nourished. - EYES: EOMI. Anicteric. - HENT: Moist mucous membranes. - LUNGS: Clear to auscultation bilateral ly, no wheezing, rhonchi, or rales. - CARDIOVASCULAR: Regular rate and rhyth m. No murmur. No JVD. - ABDOMEN: Soft, non-tender and non-dist ended. No palpable masses. - EXTREMITIES: No edema. Peripheral puls es 2+. Non-tender. - NEUROLOGIC: No focal neurological defi cits. CN II-XII grossly intact. - PSYCHIATRIC: Awake, Alert and oriented x 3. Appropriate mood and affect. - SKIN: No rashes or lesions. Warm. - LYMPH: No cervical lymphadenopathy. Objective Data Vital Signs Vital Signs: Vital Signs - 24 hr 12/03/24 14:00 12/03/24 15:50 12/03/24 16:00 Temperature 97.7 F Pulse Rate 60 60 60 Respiratory Rate 19 19 Blood Pressure 92/51 L Pulse Oximetry 98 98 Oxygen Delivery Room Air 12/03/24 16:00 12/03/24 18:00 12/03/24 20:00 Temperature 97.8 F Pulse Rate 60 60 60 Respiratory Rate 18 Blood Pressure 102/48 L Pulse Oximetry 95 Oxygen Delivery 12/03/24 20:00 12/03/24 20:05 12/03/24 21:36 Temperature Pulse Rate 63 60 60 Respiratory Rate 18 Blood Pressure Pulse Oximetry 95 Oxygen Delivery Room Air 12/03/24 22:00 12/03/24 23:46 12/04/24 00:00 Temperature 98.3 F Pulse Rate 60 65 60 Respiratory Rate 18 Blood Pressure 96/46 L Pulse Oximetry 93 Oxygen Delivery 12/04/24 00:10 12/04/24 02:00 12/04/24 03:10 Temperature 98.7 F Pulse Rate 65 61 64 Respiratory Rate 18 20 Blood Pressure 104/50 L Pulse Oximetry 93 97 Oxygen Delivery Room Air 12/04/24 03:18 12/04/24 04:00 12/04/24 05:44 Temperature Pulse Rate 64 72 63 Respiratory Rate 20 Blood Pressure Pulse Oximetry 97 Oxygen Delivery Room Air 12/04/24 08:00 12/04/24 08:00 12/04/24 08:03 Temperature Pulse Rate 73 73 90 Respiratory Rate 20 Blood Pressure Pulse Oximetry 98 Oxygen Delivery Room Air 12/04/24 08:21 12/04/24 10:00 12/04/24 12:00 Temperature 97.8 F Pulse Rate 73 73 73 Respiratory Rate 20 20 Blood Pressure 98/48 L Pulse Oximetry 98 98 Oxygen Delivery Room Air 12/04/24 12:00 12/04/24 12:31 Temperature 98.3 F Pulse Rate 73 63 Respiratory Rate 20 Blood Pressure 107/65 Pulse Oximetry 100 Oxygen Delivery Intake/Output Intake/Output: Intake & Output 12/01/24 12/02/24 12/03/24 12/04/24 23:59 23:59 23:59 23:59 Intake Total 2520 1000 480 Output Total 600 3250 0 325 Balance -600 -730 1000 155 Meds/Results Medications: Active Medications Generic Name Dose Route Start Last Admin Trade Name Freq PRN Reason Stop Dose Admin Acetaminophen 650 mg 12/01/24 08:58 12/03/24 21:36 Acetaminophen 325 Mg Tablet PO 650 mg Q4H PRN Administration Mild Pain (1-3) or Fever Aripiprazole 10 mg 12/03/24 14:50 12/04/24 08:03 Aripiprazole 10 Mg Tablet PO 10 mg DAILY [facility] Administration Aspirin 81 mg 12/02/24 09:00 12/04/24 08:03 Aspirin 81 Mg Enteric Tablet PO 81 mg QAM [facility] Administration Brimonidine Tartrate 1 drop 12/02/24 00:15 12/04/24 08:04 Brimonidine Tartrate 0.1% 5 Ml Ophth Drops EACH EYE 1 drop BID [facility] Administration Clopidogrel Bisulfate 75 mg 12/04/24 09:00 12/04/24 08:03 Clopidogrel Bisulfate 75 Mg Tablet PO 75 mg QAM [facility] Administration Enoxaparin Sodium 40 mg 12/03/24 09:00 12/04/24 08:04 Enoxaparin 40 Mg/0.4 Ml Syringe SUB-Q 40 mg DAILY [facility] Administration Gabapentin 100 mg 12/01/24 21:00 12/03/24 21:36 Gabapentin 100 Mg Capsule PO 100 mg QHS [facility] Administration Metoprolol Tartrate 25 mg 12/01/24 21:00 12/04/24 08:03 Metoprolol Tartrate 25 Mg Tablet PO 25 mg Q12HR [facility] Administration Ondansetron HCl 4 mg 12/01/24 08:58 Ondansetron Inj 4 Mg/2 Ml Vial IV PUSH Q4H PRN Nausea Rosuvastatin Calcium 40 mg 12/01/24 18:00 12/03/24 18:00 Rosuvastatin 20 Mg Tablet PO 40 mg EVENING [facility] Administration Radiology Results: ITS Impressions Chest X-Ray 12/01/24 06:34 Impression: Possible 15 mm right basilar pulmonary nodule versus confluence of shadows. Chest CT advised to confirm or exclude pulmonary nodule. Chest CTA 12/01/24 08:36 IMPRESSION: 1. No pulmonary embolus. 2. The nodule described on the chest radiograph correlates with costochondral calcification. Doppler Study Ultrasound 12/02/24 11:42 IMPRESSION: 1. Mild arterial occlusive disease with normal bilateral NARDA's but mildly decreased bilateral TBI's. Labs Labs: Laboratory Results - last 24 hr 12/04/24 04:22 WBC 10.1 H RBC 4.36 L Hgb 13.7 L Hct 41.8 L MCV 95.9 MCH 31.4 MCHC 32.8 RDW 12.5 Plt Count 126 L MPV 11.3 H Immature Gran % (Auto) 0.4 Neut % (Auto) 73.0 Lymph % (Auto) 13.9 L Story % (Auto) 11.1 H Eos % (Auto) 1.2 Baso % (Auto) 0.4 Lymph # (Auto) 1.40 Story # (Auto) 1.1 H Eos # (Auto) 0.1 Baso # (Auto) 0.0 Abs Immat Gran (auto) 0.04 H Absolute Neuts (auto) 7.4 H Absolute Nucleated RBC 0.000 Nucleated RBC % 0.0 % Immature Plt Fraction 6.3 Sodium 137 Potassium 3.6 Chloride 105 Carbon Dioxide 23 Anion Gap 9 BUN 29 H Creatinine 1.18 Estim Creat Clear Calc 43 Estimated GFR 59 Glucose 99 Calcium 9.4 Magnesium 2.0 Total Bilirubin 1.1 AST 74 H ALT 32 Alkaline Phosphatase 69 Total Protein 7.0 Albumin 4.0
[2024-12-04] MEDS: ROSUVASTATIN 20 MG TABLET 40 MG PO (17:37)
[2024-12-04] MEDS: ACETAMINOPHEN 325 MG TABLET 650 MG PO (22:27)
[2024-12-04] MEDS: GABAPENTIN 100 MG CAPSULE PO (22:27)
[2024-12-05] VITALS (15 sets, daily range): BP systolic 94–119; BP diastolic 47–63; PULSE 47–86; RESP 17–20; TEMP 36.5–36.8; O2SAT 96–97
--- NOTE | 2024-12-05 08:29 | P.PNCA_ITS ---
Progress Note: A&P Assessment and Plan (1) Non-ST elevation CT (NSTEMI): Code(s): I21.4 - Non-ST elevation (NSTEMI) myocardial infarction Status: Acute (2) Pacemaker: Code(s): Z95.0 - Presence of cardiac pacemaker Status: Acute Plan 84-year-old man with previous history of CT and tobacco use who is now also status post permanent pacemaker presented with chest discomfort Non ST elevation CT -status post PCI to occluded left circumflex and severe LAD stenosis -there is residual severe RCA stenosis that will be medically managed after dis cussion with patient and his family -continue aspirin 81 mg p.o. daily, Plavix 75 mg p.o. daily, and rosuvastatin 40 mg every evening -he was switched from Brilinta to Plavix due to insurance issues Bradycardia status post permanent pacemaker -after discussion with his family, it was found out that he had severe episode of bradycardia with anesthesia the left to the permanent pacemaker implantation -outpatient monitoring and interrogation Ischemic cardiomyopathy -consolidate metoprolol tartrate to metoprolol succinate 50 mg p.o. daily -currently his blood pressures are unable to tolerate additional guideline directed medical therapy -will repeat transthoracic echocardiogram 3-6 months from now in the outpatient setting Hyperlipidemia -continue rosuvastatin 40 mg every evening There is no further inpatient cardiac workup warranted at this time. Patient can be discharged from a cardiac perspective. Please call Cardiology with additional questions. Subjective Date/time seen: 12/05/24 08:29 Interval history: No chest pain or shortness of breath. Review of Systems Cardiovascular: Cardiovascular: Reports as per HPI Respiratory: Respiratory: Reports as per HPI Exam Const: General: comfortable Eyes: EOM: EOMs intact bilaterally Neck: Neck: no JVD Resp: Effort & Inspection: normal respiratory effort Auscultation: clear to auscultation bilaterally Cardio: Rate: regular rate Rhythm: regular rhythm Extrem: General: no edema Objective Data Vital Signs Vital Signs: Vital Signs - 24 hr 12/04/24 10:00 12/04/24 12:00 12/04/24 12:00 Temperature Pulse Rate 73 73 73 Respiratory Rate 20 Blood Pressure Pulse Oximetry 98 Oxygen Delivery Room Air 12/04/24 12:31 12/04/24 14:00 12/04/24 16:00 Temperature 36.8 C Pulse Rate 63 63 64 Respiratory Rate 20 Blood Pressure 107/65 Pulse Oximetry 100 Oxygen Delivery 12/04/24 16:00 12/04/24 16:48 12/04/24 17:43 Temperature 37.1 C Pulse Rate 63 62 62 Respiratory Rate 20 20 Blood Pressure 98/46 L Pulse Oximetry 100 97 Oxygen Delivery Room Air 12/04/24 19:38 12/04/24 20:00 12/04/24 21:30 Temperature 36.9 C Pulse Rate 60 62 60 Respiratory Rate 18 18 Blood Pressure 105/55 L Pulse Oximetry 95 95 Oxygen Delivery Room Air 12/04/24 22:00 12/04/24 22:27 12/04/24 23:20 Temperature 36.7 C Pulse Rate 60 61 61 Respiratory Rate 20 Blood Pressure 118/83 Pulse Oximetry 95 Oxygen Delivery 12/04/24 23:24 12/05/24 00:00 12/05/24 02:00 Temperature Pulse Rate 61 67 69 Respiratory Rate 20 Blood Pressure Pulse Oximetry 95 Oxygen Delivery Room Air 12/05/24 03:15 12/05/24 03:18 12/05/24 04:00 Temperature 36.5 C Pulse Rate 64 64 64 Respiratory Rate 20 20 Blood Pressure 94/54 L Pulse Oximetry 97 97 Oxygen Delivery Room Air 12/05/24 06:00 Temperature Pulse Rate 63 Respiratory Rate Blood Pressure Pulse Oximetry Oxygen Delivery Intake/Output Intake/Output: Intake & Output 12/02/24 12/03/24 12/04/24 12/05/24 23:59 23:59 23:59 23:59 Intake Total 2520 1000 1220 572 Output Total 3250 0 1325 700 Balance -730 1000 -105 -128 Meds/Results Medications: Active Medications Generic Name Dose Route Start Last Admin Trade Name Freq PRN Reason Stop Dose Admin Acetaminophen 650 mg 12/01/24 08:58 12/04/24 22:27 Acetaminophen 325 Mg Tablet PO 650 mg Q4H PRN Administration Mild Pain (1-3) or Fever Aripiprazole 10 mg 12/03/24 14:50 12/04/24 08:03 Aripiprazole 10 Mg Tablet PO 10 mg DAILY [facility] Administration Aspirin 81 mg 12/02/24 09:00 12/04/24 08:03 Aspirin 81 Mg Enteric Tablet PO 81 mg QAM [facility] Administration Brimonidine Tartrate 1 drop 12/02/24 00:15 12/04/24 17:37 Brimonidine Tartrate 0.1% 5 Ml Ophth Drops EACH EYE 1 drop BID [facility] Administration Clopidogrel Bisulfate 75 mg 12/04/24 09:00 12/04/24 08:03 Clopidogrel Bisulfate 75 Mg Tablet PO 75 mg QAM [facility] Administration Enoxaparin Sodium 40 mg 12/03/24 09:00 12/04/24 08:04 Enoxaparin 40 Mg/0.4 Ml Syringe SUB-Q 40 mg DAILY [facility] Administration Gabapentin 100 mg 12/01/24 21:00 12/04/24 22:27 Gabapentin 100 Mg Capsule PO 100 mg QHS [facility] Administration Metoprolol Succinate 50 mg 12/05/24 09:00 Metoprolol Succinate Ext Rel 50 Mg Tabcr PO QAM [facility] Ondansetron HCl 4 mg 12/01/24 08:58 Ondansetron Inj 4 Mg/2 Ml Vial IV PUSH Q4H PRN Nausea Rosuvastatin Calcium 40 mg 12/01/24 18:00 12/04/24 17:37 Rosuvastatin 20 Mg Tablet PO 40 mg EVENING [facility] Administration Radiology Results: ITS Impressions Chest X-Ray 12/01/24 06:34 Impression: Possible 15 mm right basilar pulmonary nodule versus confluence of shadows. Chest CT advised to confirm or exclude pulmonary nodule. Chest CTA 12/01/24 08:36 IMPRESSION: 1. No pulmonary embolus. 2. The nodule described on the chest radiograph correlates with costochondral calcification. Doppler Study Ultrasound 12/02/24 11:42 IMPRESSION: 1. Mild arterial occlusive disease with normal bilateral NARDA's but mildly decreased bilateral TBI's.
[2024-12-05] MEDS: METOPROLOL SUCCINATE EXT REL 50 MG TABCR PO (08:43)
[2024-12-05] MEDS: ARIPiprazole 10 MG TABLET PO (08:43)
[2024-12-05] MEDS: CLOPIDOGREL BISULFATE 75 MG TABLET PO (08:43)
[2024-12-05] MEDS: ASPIRIN 81 MG ENTERIC TABLET PO (08:43)
[2024-12-05] MEDS: ENOXAPARIN 40 MG/0.4 ML SYRINGE SUB-Q (08:44)
[2024-12-05] MEDS: BRIMONIDINE TARTRATE 0.1% 5 ML OPHTH DROPS 1 DROP EACH EYE (08:48)
--- NOTE | 2024-12-05 13:45 | P.PNIM_ITS ---
Progress Note: A&P Assessment and Plan (1) Non-ST elevation [place] (NSTEMI): Code(s): I21.4 - Non-ST elevation (NSTEMI) myocardial infarction Status: Acute (2) Atrial fibrillation: Qualifiers: Atrial fibrillation type: unspecified Qualified Code(s): I48.91 - Unspecified atrial fibrillation Code(s): I48.91 - Unspecified atrial fibrillation Status: Acute (3) Pacemaker: Code(s): Z95.0 - Presence of cardiac pacemaker Status: Acute (4) Pulmonary nodule: Code(s): R91.1 - Solitary pulmonary nodule (5) Tobacco use: Code(s): Z72.0 - Tobacco use Status: Acute (6) Glaucoma: Qualifiers: Glaucoma type: unspecified Laterality: bilateral Qualified Code(s): H40.9 - Unspecified glaucoma Code(s): H40.9 - Unspecified glaucoma Status: Acute (7) Thrombocytopenia: Code(s): D69.6 - Thrombocytopenia, unspecified Status: Acute Plan NSTEMI chest pain resolved S/p PCI to LCX and mid LAD Continue Plavix, Metoprolol and Statin cardiology recommends revascularization of RCA ECHO EF 40-45% cardiology pending Ischemic cardiomyopathy with EF 40-45% ECHO showed EF 40-45% Continue Metoprolol for now, Blood pressure not able to tolerate further GDMT meds cardiology following will follow up with cardiology for further titration Atrial fibrillation Continue Eliquis and Metoprolol s/p pacemaker monitor Chronic anemia No obvious bleeding On the baseline Follow-up CBC, ferritin, iron panel and reticulocyte Thrombocytopenia Plts 126 monitor Afib on pacemaker continue Metoprolol and Eliquis Cardiology following Hx of Schizophrenia patient was agitated Continue Aripiprazole will discuss discharge plans tomorrow with family DVT prophylaxis on Sq lovenox will clarify with cardiology about continueing Aspirin and Plavix with Eliquis vs Plavix and Eliquis. Subjective Date/time seen: 12/05/24 13:45 Interval history: No chest pain or shortness of breath. Comfortable at bedside Agitation controlled on Aripiprazole, patient will discharge on current dose and follow up with Psych cardiology and patient agreed to medical management of RCA Review of Systems Review of Systems: ROS negative except above Exam Narrative: GENERAL: Pleasant, in no acute distress. Well-nourished. - EYES: EOMI. Anicteric. - HENT: Moist mucous membranes. - LUNGS: Clear to auscultation bilateral ly, no wheezing, rhonchi, or rales. - CARDIOVASCULAR: Regular rate and rhyth m. No murmur. No JVD. - ABDOMEN: Soft, non-tender and non-dist ended. No palpable masses. - EXTREMITIES: No edema. Peripheral puls es 2+. Non-tender. - NEUROLOGIC: No focal neurological defi cits. CN II-XII grossly intact. - PSYCHIATRIC: Awake, Alert and oriented x 3. Appropriate mood and affect. - SKIN: No rashes or lesions. Warm. - LYMPH: No cervical lymphadenopathy. Objective Data Vital Signs Vital Signs: Vital Signs - 24 hr 12/04/24 14:00 12/04/24 16:00 12/04/24 16:00 Temperature Pulse Rate 63 64 63 Respiratory Rate 20 Blood Pressure Pulse Oximetry 100 Oxygen Delivery Room Air 12/04/24 16:48 12/04/24 17:43 12/04/24 19:38 Temperature 98.8 F 98.4 F Pulse Rate 62 62 60 Respiratory Rate 20 18 Blood Pressure 98/46 L 105/55 L Pulse Oximetry 97 95 Oxygen Delivery 12/04/24 20:00 12/04/24 21:30 12/04/24 22:00 Temperature Pulse Rate 62 60 60 Respiratory Rate 18 Blood Pressure Pulse Oximetry 95 Oxygen Delivery Room Air 12/04/24 22:27 12/04/24 23:20 12/04/24 23:24 Temperature 98.1 F Pulse Rate 61 61 61 Respiratory Rate 20 20 Blood Pressure 118/83 Pulse Oximetry 95 95 Oxygen Delivery Room Air 12/05/24 00:00 12/05/24 02:00 12/05/24 03:15 Temperature 97.7 F Pulse Rate 67 69 64 Respiratory Rate 20 Blood Pressure 94/54 L Pulse Oximetry 97 Oxygen Delivery 12/05/24 03:18 12/05/24 04:00 12/05/24 06:00 Temperature Pulse Rate 64 64 63 Respiratory Rate 20 Blood Pressure Pulse Oximetry 97 Oxygen Delivery Room Air 12/05/24 08:00 12/05/24 08:00 12/05/24 08:43 Temperature 97.7 F Pulse Rate 47 L 60 62 Respiratory Rate 18 Blood Pressure 118/63 Pulse Oximetry 96 Oxygen Delivery 12/05/24 10:00 12/05/24 11:31 12/05/24 12:00 Temperature 97.7 F Pulse Rate 62 58 L Respiratory Rate 20 Blood Pressure 119/47 L Pulse Oximetry 96 97 Oxygen Delivery Room Air 12/05/24 12:23 Temperature Pulse Rate 78 Respiratory Rate Blood Pressure Pulse Oximetry Oxygen Delivery Intake/Output Intake/Output: Intake & Output 12/02/24 12/03/24 12/04/24 12/05/24 23:59 23:59 23:59 23:59 Intake Total 2520 1000 1220 892 Output Total 3250 0 1325 700 Balance -730 1000 -105 192 Meds/Results Medications: Active Medications Generic Name Dose Route Start Last Admin Trade Name Freq PRN Reason Stop Dose Admin Acetaminophen 650 mg 12/01/24 08:58 12/04/24 22:27 Acetaminophen 325 Mg Tablet PO 650 mg Q4H PRN Administration Mild Pain (1-3) or Fever Aripiprazole 10 mg 12/03/24 14:50 12/05/24 08:43 Aripiprazole 10 Mg Tablet PO 10 mg DAILY LORETO Administration Aspirin 81 mg 12/02/24 09:00 12/05/24 08:43 Aspirin 81 Mg Enteric Tablet PO 81 mg QAM LORETO Administration Brimonidine Tartrate 1 drop 12/02/24 00:15 12/05/24 08:48 Brimonidine Tartrate 0.1% 5 Ml Ophth Drops EACH EYE 1 drop BID LORETO Administration Clopidogrel Bisulfate 75 mg 12/04/24 09:00 12/05/24 08:43 Clopidogrel Bisulfate 75 Mg Tablet PO 75 mg QAM LORETO Administration Enoxaparin Sodium 40 mg 12/03/24 09:00 12/05/24 08:44 Enoxaparin 40 Mg/0.4 Ml Syringe SUB-Q 40 mg DAILY LORETO Administration Gabapentin 100 mg 12/01/24 21:00 12/04/24 22:27 Gabapentin 100 Mg Capsule PO 100 mg QHS LORETO Administration Metoprolol Succinate 50 mg 12/05/24 09:00 12/05/24 08:43 Metoprolol Succinate Ext Rel 50 Mg Tabcr PO 50 mg QAM LORETO Administration Ondansetron HCl 4 mg 12/01/24 08:58 Ondansetron Inj 4 Mg/2 Ml Vial IV PUSH Q4H PRN Nausea Rosuvastatin Calcium 40 mg 12/01/24 18:00 12/04/24 17:37 Rosuvastatin 20 Mg Tablet PO 40 mg EVENING LORETO Administration Radiology Results: ITS Impressions Chest X-Ray 12/01/24 06:34 Impression: Possible 15 mm right basilar pulmonary nodule versus confluence of shadows. Chest CT advised to confirm or exclude pulmonary nodule. Chest CTA 12/01/24 08:36 IMPRESSION: 1. No pulmonary embolus. 2. The nodule described on the chest radiograph correlates with costochondral calcification. Doppler Study Ultrasound 12/02/24 11:42 IMPRESSION: 1. Mild arterial occlusive disease with normal bilateral NARDA's but mildly decreased bilateral TBI's.
[2024-12-05] MEDS: QUEtiapine FUMARATE 12.5 MG TABLET PO ×2 (17:20→20:18)
[2024-12-05] MEDS: ROSUVASTATIN 20 MG TABLET 40 MG PO (17:20)
--- NOTE | 2024-12-05 19:25 | PC.NURSE ---
Patient started to be combative toward staff, Rosie Rodriges called at 1905.
[2024-12-05] MEDS: GABAPENTIN 100 MG CAPSULE PO (20:18)
[2024-12-06] VITALS (8 sets, daily range): BP systolic 100–111; BP diastolic 53–59; PULSE 59–86; RESP 16–20; TEMP 36.3–37.1; O2SAT 94–100
--- NOTE | 2024-12-06 05:51 | ECG_ITS ---
Test Date: 2024-12-06 06:52:13 Measurements Intervals [place] Rate: 60 P: 170 WY: 199 QRS: -2 QRSD: 133 T: 75 QT: 455 QTc: 455 Interpretive Statements ELECTRONIC ATRIAL PACEMAKER ELECTRONIC VENTRICULAR PACEMAKER NO FURTHER INTERPRETATION IS POSSIBLE ATYPICAL ECG Compared to ECG 12/01/2024 10:11:55 No significant changes Electronically Signed On 12-06-2024 07:07:16 SEAT COVERER by Justin Rodriguez D.O.
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
[2024-12-06] MEDS: HALOPERIDOL LACTATE 5 MG/ML VIAL IV PUSH (06:00)
--- NOTE | 2024-12-06 08:36 | PM.IMPN ---
Progress Note: A&P Assessment and Plan (1) Non-ST elevation [place] (NSTEMI): Code(s): I21.4 - Non-ST elevation (NSTEMI) myocardial infarction Status: Acute (2) Atrial fibrillation: Qualifiers: Atrial fibrillation type: unspecified Qualified Code(s): I48.91 - Unspecified atrial fibrillation Code(s): I48.91 - Unspecified atrial fibrillation Status: Acute (3) Pacemaker: Code(s): Z95.0 - Presence of cardiac pacemaker Status: Acute (4) Pulmonary nodule: Code(s): R91.1 - Solitary pulmonary nodule (5) Tobacco use: Code(s): Z72.0 - Tobacco use Status: Acute (6) Glaucoma: Qualifiers: Glaucoma type: unspecified Laterality: bilateral Qualified Code(s): H40.9 - Unspecified glaucoma Code(s): H40.9 - Unspecified glaucoma Status: Acute (7) Thrombocytopenia: Code(s): D69.6 - Thrombocytopenia, unspecified Status: Acute Plan NSTEMI chest pain resolved S/p PCI to LCX and mid LAD Continue aspirin, Plavix, Metoprolol and Statin cardiology recommends revascularization of RCA ECHO EF 40-45% cardiology following Ischemic cardiomyopathy with EF 40-45% ECHO showed EF 40-45% Continue Metoprolol for now, Blood pressure not able to tolerate further GDMT meds cardiology following will follow up with cardiology for further titration Atrial fibrillation Continue Metoprolol s/p pacemaker monitor Chronic anemia No obvious bleeding On the baseline Follow-up CBC, ferritin, iron panel and reticulocyte Thrombocytopenia Plts 150 monitor Afib on pacemaker continue Metoprolol and Eliquis Cardiology following Hx of Schizophrenia patient was agitated Continue Aripiprazole will discuss discharge plans tomorrow with family DVT prophylaxis on Sq lovenox will clarify with cardiology about continueing Aspirin and Plavix with Eliquis vs Plavix and Eliquis. Subjective Date/time seen: 12/06/24 08:36 Interval history: Discussed with the daughter. She reports the patient has a long history of psychiatric disease. Patient was medication in compliance for long period of time. She believes he was diagnosed with bipolar as a teenager but never took his medications properly. During current hospitalization patient received 2 stents and needs RCA revascularization. Review of Systems Review of Systems: ROS negative except above Exam Narrative: GENERAL: Pleasant, in no acute distress. Well-nourished. - EYES: EOMI. Anicteric. - HENT: Moist mucous membranes. - LUNGS: Clear to auscultation bilaterally, no wheezing, rhonchi, or rales. - CARDIOVASCULAR: Regular rate and rhythm. No murmur. No JVD. - ABDOMEN: Soft, non-tender and non-distended. No palpable masses. - EXTREMITIES: No edema. Peripheral pulses 2+. Non-tender. - NEUROLOGIC: No focal neurological deficits. CN II-XII grossly intact. - PSYCHIATRIC: Awake, Alert and oriented x 3. Appropriate mood and affect. - SKIN: No rashes or lesions. Warm. - LYMPH: No cervical lymphadenopathy. Objective Data Vital Signs Vital Signs: Vital Signs - 24 hr 12/05/24 08:43 12/05/24 10:00 12/05/24 11:31 Temperature Pulse Rate 62 62 Respiratory Rate Blood Pressure Pulse Oximetry 96 Oxygen Delivery Room Air 12/05/24 12:00 12/05/24 12:23 12/05/24 16:23 Temperature 97.7 F Pulse Rate 58 L 78 71 Respiratory Rate 20 Blood Pressure 119/47 L Pulse Oximetry 97 Oxygen Delivery 12/05/24 16:50 12/05/24 20:00 12/05/24 20:00 Temperature 98.2 F Pulse Rate 51 L 86 Respiratory Rate 17 Blood Pressure 109/53 L Pulse Oximetry 96 Oxygen Delivery Room Air 12/05/24 20:00 12/06/24 00:00 12/06/24 04:00 Temperature 98.2 F Pulse Rate 77 71 67 Respiratory Rate 20 Blood Pressure 111/52 L Pulse Oximetry 97 Oxygen Delivery Intake/Output Intake/Output: Intake & Output 12/03/24 12/04/24 12/05/24 12/06/24 23:59 23:59 23:59 23:59 Intake Total 1000 1220 1802 Output Total 0 1325 1000 470 Balance 1000 -105 802 -470 Meds/Results Medications: Active Medications Generic Name Dose Route Start Last Admin Trade Name Freq PRN Reason Stop Dose Admin Acetaminophen 650 mg 12/01/24 08:58 12/04/24 22:27 Acetaminophen 325 Mg Tablet PO 650 mg Q4H PRN Administration Mild Pain (1-3) or Fever Aripiprazole 10 mg 12/03/24 14:50 12/05/24 08:43 Aripiprazole 10 Mg Tablet PO 10 mg DAILY LORETO Administration Aspirin 81 mg 12/02/24 09:00 12/05/24 08:43 Aspirin 81 Mg Enteric Tablet PO 81 mg QAM LORETO Administration Brimonidine Tartrate 1 drop 12/02/24 00:15 12/05/24 17:45 Brimonidine Tartrate 0.1% 5 Ml Ophth Drops EACH EYE Not Given BID LORETO Clopidogrel Bisulfate 75 mg 12/04/24 09:00 12/05/24 08:43 Clopidogrel Bisulfate 75 Mg Tablet PO 75 mg QAM LORETO Administration Enoxaparin Sodium 40 mg 12/03/24 09:00 12/05/24 08:44 Enoxaparin 40 Mg/0.4 Ml Syringe SUB-Q 40 mg DAILY LORETO Administration Gabapentin 100 mg 12/01/24 21:00 12/05/24 20:18 Gabapentin 100 Mg Capsule PO 100 mg QHS LORETO Administration Metoprolol Succinate 50 mg 12/05/24 09:00 12/05/24 08:43 Metoprolol Succinate Ext Rel 50 Mg Tabcr PO 50 mg QAM LORETO Administration Rosuvastatin Calcium 40 mg 12/01/24 18:00 12/05/24 17:20 Rosuvastatin 20 Mg Tablet PO 40 mg EVENING LORETO Administration Radiology Results: ITS Impressions Chest X-Ray 12/01/24 06:34 Impression: Possible 15 mm right basilar pulmonary nodule versus confluence of shadows. Chest CT advised to confirm or exclude pulmonary nodule. Chest CTA 12/01/24 08:36 IMPRESSION: 1. No pulmonary embolus. 2. The nodule described on the chest radiograph correlates with costochondral calcification. Doppler Study Ultrasound 12/02/24 11:42 IMPRESSION: 1. Mild arterial occlusive disease with normal bilateral NARDA's but mildly decreased bilateral TBI's. Hospitalist [facility] Advance Care Plan I have confirmed that the patient's Advanced Care Plan is present, code status is documented, or surrogate decision maker is listed in patient medical record.: Yes Medication Reconciliation I have utilized all available resources to obtain, update and review the patients current medications (includes all prescriptions, OTC, herbals, cannabis, and nutritional supplements).: Yes
[2024-12-06] MEDS: ARIPiprazole 10 MG TABLET PO (09:20)
[2024-12-06] MEDS: METOPROLOL SUCCINATE EXT REL 50 MG TABCR PO (09:20)
[2024-12-06] MEDS: ENOXAPARIN 40 MG/0.4 ML SYRINGE SUB-Q (09:20)
[2024-12-06] MEDS: ASPIRIN 81 MG ENTERIC TABLET PO (09:20)
[2024-12-06] MEDS: CLOPIDOGREL BISULFATE 75 MG TABLET PO (09:21)
[2024-12-06] MEDS: BRIMONIDINE TARTRATE 0.1% 5 ML OPHTH DROPS 1 DROP EACH EYE ×2 (09:22→17:05)
[2024-12-06 09:46] LABS: Basophils Percent Auto 0.7 % (0.2-1.2); Eosinophils Absolute Auto 0.2 K/mm3 (0-0.3); Eosinophils Percent Auto 3.6 % (0-4.4); Hematocrit 42.5 % (42.0-52.0); Hemoglobin 14.2 g/dL (14.0-18.0); Immature Granulocyte Absolute 0.02 K/mm3 (0.00-0.031); Immature Granulocyte Percent A 0.3 % (0-0.5); Lymphocytes Absolute Auto 0.87 K/mm3 (0.9-3.2); Lymphocytes Percent Auto 14.8 % (18.3-44.2); Mean Corpuscular HGB Conc 33.4 g/dl (32-36); Mean Corpuscular Volume 92.8 fl (80-100); Mean Platelet Volume 11.4 fl (7.4-10.4); Monocytes Absolute Auto 0.4 K/mm3 (0.1-0.6); Monocytes Percent Auto 7.3 % (2.6-8.5); Neutrophils Absolute Auto 4.3 K/mm3 (1.3-6.7); Neutrophils Percent Auto 73.3 % (45.5-73.1); Platelet Count Result 150 k/mm3 (150-375); Red Blood Count 4.58 M/mm3 (4.6-6.20); Red Cell Distribution Width 12.3 % (11.5-14.5); White Blood Count 5.9 K/mm3 (4.5-10.0)
[2024-12-06 09:58] LABS: Alanine Aminotransferase 62 U/L (6-50); Alkaline Phosphatase 86 U/L (38-126); Anion Gap 7 mmol/L (4-12); Aspartate Amino Transferase 62 U/L (17-59); Blood Urea Nitrogen 20 mg/dL (9-20); Calcium 9.7 mg/dL (8.4-10.2); Carbon Dioxide 27 mmol/L (22-30); Chloride 104 mmol/L (98-107); Estimated CRCL calculation 50 ml/min; Estimated Glomerular Filt Rate > 60; Glucose 120 mg/dL (65-110); Magnesium 2.2 mg/dL (1.6-2.3); Potassium 4.1 mmol/L (3.4-5.0); Sodium 138 mmol/L (137-145)
--- NOTE | 2024-12-06 11:20 | PCPTNOTE ---
Attempted to see patient for PT, however patient was too drowsy to participate with PT. Patient would open eyes when requested, however unable to keep them open.
--- NOTE | 2024-12-06 12:12 | PCOTNOTE ---
The patient treatment was not able to be completed. No appropriate to be seen at this time. Will plan to continue treatment per plan of care.
[2024-12-06] MEDS: ROSUVASTATIN 20 MG TABLET 40 MG PO (17:04)
--- NOTE | 2024-12-06 18:11 | PC.NURSE ---
Right soft wrist restraint released at 0800. Dr. Jameson notified and in agreement.
--- NOTE | 2024-12-06 18:13 | PC.NURSE ---
Left soft wrist restraint released at 1200. Dr. Jameson notified and in agreement. All restraint interventions removed/completed.
[2024-12-06] MEDS: GABAPENTIN 100 MG CAPSULE PO (20:50)
[2024-12-07] VITALS: PULSE 60
[2024-12-07 04:00] VITALS: BP 131/80; PULSE 60; RESP 16; TEMP 36.6; O2SAT 99
[2024-12-07 06:33] LABS: Hematocrit 38.3 % (42.0-52.0); Hemoglobin 12.7 g/dL (14.0-18.0); Mean Corpuscular HGB Conc 33.2 g/dl (32-36); Mean Corpuscular Hemoglobin 31.2 pg (26-34); Mean Corpuscular Volume 94.1 fl (80-100); Mean Platelet Volume 11.6 fl (7.4-10.4); Platelet Count Result 147 k/mm3 (150-375); Red Blood Count 4.07 M/mm3 (4.6-6.20); Red Cell Distribution Width 12.1 % (11.5-14.5); White Blood Count 6.5 K/mm3 (4.5-10.0)
[2024-12-07 06:41] LABS: Alanine Aminotransferase 58 U/L (6-50); Albumin Level 3.6 g/dL (3.5-5.1); Alkaline Phosphatase 90 U/L (38-126); Anion Gap 9 mmol/L (4-12); Aspartate Amino Transferase 52 U/L (17-59); Bilirubin,Total 0.8 mg/dL (0.2-1.3); Blood Urea Nitrogen 21 mg/dL (9-20); Calcium 9.1 mg/dL (8.4-10.2); Carbon Dioxide 24 mmol/L (22-30); Chloride 103 mmol/L (98-107); Estimated CRCL calculation 50 ml/min; Estimated Glomerular Filt Rate > 60; Glucose 104 mg/dL (65-110); Potassium 3.7 mmol/L (3.4-5.0); Sodium 136 mmol/L (137-145)
[2024-12-07 08:00] VITALS: BP 98/54; PULSE 84; RESP 15; TEMP 36.9; O2SAT 95
--- NOTE | 2024-12-07 08:29 | PM.DS ---
DS: Admitting Diagnosis Discharge Date 12/07/2024 Admitting Diagnosis Chest pain DS: Discharge Diagnosis Discharge Diagnosis (1) Non-ST elevation [place] (NSTEMI): Code(s): I21.4 - Non-ST elevation (NSTEMI) myocardial infarction Status: Acute (2) Atrial fibrillation: Qualifiers: Atrial fibrillation type: unspecified Qualified Code(s): I48.91 - Unspecified atrial fibrillation Code(s): I48.91 - Unspecified atrial fibrillation Status: Acute (3) Pacemaker: Code(s): Z95.0 - Presence of cardiac pacemaker Status: Acute (4) Pulmonary nodule: Code(s): R91.1 - Solitary pulmonary nodule (5) Tobacco use: Code(s): Z72.0 - Tobacco use Status: Acute (6) Glaucoma: Qualifiers: Glaucoma type: unspecified Laterality: bilateral Qualified Code(s): H40.9 - Unspecified glaucoma Code(s): H40.9 - Unspecified glaucoma Status: Acute (7) Thrombocytopenia: Code(s): D69.6 - Thrombocytopenia, unspecified Status: Acute Plan NSTEMI DS: Summary Hospital Course Hospital Course: 84 years old gentleman with history of persists AFib, status post pacemaker, thrombocytopenia, chronic anemia, present ED with a chief complaint of chest pain. Patient started have chest pain about 2:00 a.m. today, locating in the right chest, patient has some shortness breath associated with chest pain. Patient denies cough, thyroid SIRS, fever, chills, abdomen pain, nausea vomiting diarrhea bloody stools, or dysuria. Patient also denies headache, focal weakness, vision change. Upon arrival to ED, patient is afebrile, blood pressure stable, patient was found have tachypnea. Labs showed anemia hemoglobin 13.2 on the baseline, dilated 134, chemistry unremarkable, a set elevated BUN creatinine ratio 21/0.95. Patient found have elevated troponin x3 that is trending up. EKG showed paced rhythm, heart rate 60, no specific ST or T-wave changes. CTA chest shows no PE, and old granulomatous disease. Patient received aspirin, heparin drip in the ED. ER physician consulted protein chemist. I assumed on 12/06 NSTEMI chest pain resolved S/p PCI to LCX and mid LAD Continue aspirin, Plavix, Metoprolol and Statin cardiology recommends revascularization of RCA as OP ECHO EF 40-45% F/U cardiology as OP Ischemic cardiomyopathy with EF 40-45% ECHO showed EF 40-45% Continue Metoprolol for now, Blood pressure not able to tolerate further GDMT meds will follow up with cardiology for further titration Atrial fibrillation Continue Metoprolol s/p pacemaker monitor Chronic anemia No obvious bleeding On the baseline Follow-up CBC, ferritin, iron panel and reticulocyte Thrombocytopenia Plts 150 monitor Afib on pacemaker continue Metoprolol and Eliquis Cardiology following Hx of Schizophrenia patient was agitated Continue Aripiprazole Pt needs Psychiatry evalaution will discuss discharge plans tomorrow with family Discharged with following instructions: -Status post PCI to occluded left circumflex and severe LAD stenosis -Residual severe RCA stenosis that will be medically managed after discussion with patient and his family -Continue aspirin 81 mg p.o. daily, Plavix 75 mg p.o. daily, and rosuvastatin 40 mg every evening -Patient needs formal Psychiatry Evaluation for Bipolar -Started Abilify in hospital but strongly recommend to follow up with Psychiatry to continue the medication. -Outpatient pacemaker monitoring and interrogation. Time Spent with Patient Time attestation: Total time spent providing and/or coordinating discharge services: Exam Narrative: GENERAL: Pleasant, in no acute distress. Well-nourished. - EYES: EOMI. Anicteric. - HENT: Moist mucous membranes. - LUNGS: Clear to auscultation bilaterally, no wheezing, rhonchi, or rales. - CARDIOVASCULAR: Regular rate and rhythm. No murmur. No JVD. - ABDOMEN: Soft, non-tender and non-distended. No palpable masses. - EXTREMITIES: No edema. Peripheral pulses 2+. Non-tender. - NEUROLOGIC: No focal neurological deficits. CN II-XII grossly intact. - PSYCHIATRIC: Awake, Alert and oriented x 3. Appropriate mood and affect. - SKIN: No rashes or lesions. Warm. - LYMPH: No cervical lymphadenopathy. DS: Data Data Completed and Pending Labs on day of discharge: Labs from last 24 hours 12/07/24 12/06/24 06:13 09:33 WBC 6.5 5.9 RBC 4.07 L 4.58 L Hgb 12.7 L 14.2 Hct 38.3 L 42.5 MCV 94.1 92.8 MCH 31.2 31.0 MCHC 33.2 33.4 RDW 12.1 12.3 Plt Count 147 L 150 MPV 11.6 H 11.4 H Immature Gran % (Auto) 0.3 Neut % (Auto) 73.3 H Lymph % (Auto) 14.8 L [place] % (Auto) 7.3 Eos % (Auto) 3.6 Baso % (Auto) 0.7 Lymph # (Auto) 0.87 L [place] # (Auto) 0.4 Eos # (Auto) 0.2 Baso # (Auto) 0.0 Abs Immat Gran (auto) 0.02 Absolute Neuts (auto) 4.3 Absolute Nucleated RBC 0.000 Nucleated RBC % 0.0 Sodium 136 L 138 Potassium 3.7 4.1 Chloride 103 104 Carbon Dioxide 24 27 Anion Gap 9 7 BUN 21 H 20 Creatinine 1.00 1.00 Estim Creat Clear Calc 50 50 Estimated GFR > 60 > 60 Glucose 104 120 H Calcium 9.1 9.7 Magnesium 2.2 Total Bilirubin 0.8 1.0 AST 52 62 H ALT 58 H 62 H Alkaline Phosphatase 90 86 Total Protein 7.0 7.0 Albumin 3.6 4.0 Discharge Plan Discharge Attending physician on discharge: Amadou Jameson Consulting providers: Mert Bradley Discharging Clinician: Amadou Jameson Anticipated Discharge Date/Time: 12/07/24 10:58 Patient Disposition: Home Health Service Activity: as tolerated Diet: heart healthy Discharge Instructions: [facility] [address] [place] [address] DISCHARGE INSTRUCTIONS - POST PCI Activity 1. No driving x 24 hours 2. No lifting, pushing or pulling more than 10 pounds for 1 week. 3. No strenuous exercise or activity (including sexual activity) until you are released to do so. 4. May shower but no tub baths or swimming pool for 1 week. Medications DO NOT STOP YOUR MEDICATIONS ONLY YOUR HAIR DRYER CAN STOP THE FOLLOWING MEDICATIONS - PLEASE CALL THE OFFICE WITH QUESTIONS. *Aspirin *Atorvastatin *Metoprolol *Clopidogrel (Plavix) Important Reminders 1. Keep your stent card in your wallet at all times 2. Follow a heart healthy diet paying extra attention to cholesterol and fats. 3. Stay hydrated. 4. If you have chest pain unrelieved by rest or nitroglycerin (if prescribed) call 911 immediately. 5. If you miss one dose of Plavix (if prescribed) take a tablet at the next time due. If you miss 2 doses take a tablet when you remember and resume at the next time due. *For any other questions please call the office at [phone]. Office hours are 8AM 4:30PM Thursday through Thursday. Per Care Coordination: [facility] ([phone]) has been arranged for physical and occupational therapy. They will call you to schedule first visit. RN please fax discharge orders to [phone] Please follow up with [facility] for Psychiatry you have a choice, but some of the services are below: [place] [address] [address] [place] [address] -Status post PCI to occluded left circumflex and severe LAD stenosis -Residual severe RCA stenosis that will be medically managed after discussion with patient and his family -Continue aspirin 81 mg p.o. daily, Plavix 75 mg p.o. daily, and rosuvastatin 40 mg every evening -Patient needs formal Psychiatry Evaluation for Bipolar -Started Abilify in hospital but strongly recommend to follow up with Psychiatry to continue the medication. -Outpatient pacemaker monitoring and interrogation. Patient Instructions: Antibiotic Form, Clopidogrel (By mouth) Patient Language: Maltese Stand Alone Forms: General Discharge Information Follow-up/Referrals: Andrés Garcia DO [Primary Care Provider] - (-status post PCI to occluded left circumflex and severe LAD stenosis -there is residual severe RCA stenosis that will be medically managed after discussion with patient and his family -continue aspirin 81 mg p.o. daily, Plavix 75 mg p.o. daily, and rosuvastatin 40 mg every evening) Discharge Medications: New metoprolol succinate 50 mg Tablet Extended Release 24 Hr 50 mg PO QAM Qty: 30 0RF clopidogrel 75 mg Tablet 75 mg PO QAM Qty: 30 0RF aspirin 81 mg Tablet,Delayed Release (Dr/Ec) 81 mg PO QAM Qty: 30 0RF aripiprazole [Abilify] 10 mg Tablet 10 mg PO DAILY Qty: 30 0RF rosuvastatin 20 mg Tablet 40 mg PO EVENING Qty: 30 0RF Continued Centrum Minis Men 50 Plus [id number] mcg tablet 1 tablet PO DAILY gabapentin 100 mg capsule 100 mg PO QHS Qty: 90 0RF brimonidine 0.1 % drops 1 drp EACH EYE BID Date of admission: 12/02/24 10:09 Primary Care Provider: Andrés Garcia Admitting Provider: Deepti Sales Attending physician on admission: Deepti Sales Condition: Stable
[2024-12-07 09:24] VITALS: PULSE 65
[2024-12-07] MEDS: METOPROLOL SUCCINATE EXT REL 50 MG TABCR PO (09:24)
[2024-12-07] MEDS: CLOPIDOGREL BISULFATE 75 MG TABLET PO (09:24)
[2024-12-07] MEDS: ARIPiprazole 10 MG TABLET PO (09:24)
[2024-12-07] MEDS: ASPIRIN 81 MG ENTERIC TABLET PO (09:25)
[2024-12-07] MEDS: ENOXAPARIN 40 MG/0.4 ML SYRINGE SUB-Q (09:25)
[2024-12-07] MEDS: BRIMONIDINE TARTRATE 0.1% 5 ML OPHTH DROPS 1 DROP EACH EYE (09:26)
== END 2024-12-07 11:38 | disposition home health service (06) | DRG 322 ==
LOC: ANHED 08:58 → ANHIMU 10:20 → ANH2MED 12-05 13:20
PROVIDERS: Internal Medicine; Admitting Provider Hospitalist; Emergency Provider Student in an Organized Health Care Education/Training Program; PCP Internal Medicine; Visit Provider General Practice
PROC: 4A023N7 Measurement of Cardiac Sampling and Pressure, Left Heart, Percutaneous Approach (ICD-10-PCS; CPT 93452; principal; 2024-12-01 14:00)
PROC: 027135Z Dilation of Coronary Artery, Two Arteries with Two Drug-eluting Intraluminal Devices, Percutaneous Approach (ICD-10-PCS; CPT 92928; 2024-12-01 14:00)
PROC: 027135Z Dilation of Coronary Artery, Two Arteries with Two Drug-eluting Intraluminal Devices, Percutaneous Approach (ICD-10-PCS; 2024-12-01 14:00)
DX: I21.4 Non-ST elevation (NSTEMI) myocardial infarction (principal); I48.19 Other persistent atrial fibrillation; I24.89 Other forms of acute ischemic heart disease; I73.9 Peripheral vascular disease, unspecified; I25.5 Ischemic cardiomyopathy; D64.9 Anemia, unspecified; D69.6 Thrombocytopenia, unspecified; R91.1 Solitary pulmonary nodule; M19.90 Unspecified osteoarthritis, unspecified site; H40.9 Unspecified glaucoma; H53.9 Unspecified visual disturbance; G62.9 Polyneuropathy, unspecified; F20.9 Schizophrenia, unspecified; R41.81 Age-related cognitive decline; F41.9 Anxiety disorder, unspecified; Z20.822 Contact with and (suspected) exposure to COVID-19; Z96.642 Presence of left artificial hip joint; Z95.0 Presence of cardiac pacemaker; Z72.0 Tobacco use
CPT/HCPCS: 36415; 71046; 71275; 80053; 83690; 83735; 83880; 84484; 85025; 85027; 85055; 85380; 85610; 85730; 87637; 93005; 93306; 93458; 93923; 96374; 96375; 97110; 97116; 97161; 97165; 97530; 99285; A4565; A9270; C1725; C1769; C1874; C1887; C1894; C9600; G0378; J0153; J1327; J1630; J1644; J1650; J2003; J2250; J2305; J2359; J2405; J3010; J7030; J7040; Q9967

== ENCOUNTER 2024-12-22 19:37 | Inpatient (IN) | payer MEDICARE, SELFPAY ==
--- NOTE | ~2024-12-22 | XR_ITS ---
XR chest 1V portable Ordering provider: Marin West MD History: 84 years Male with . Weakness . Comparison: December 01, 2024 FINDINGS: MEDIASTINUM: The cardiac silhouette is slightly enlarged. Left bipolar pacemaker. LUNGS: No effusions or pneumothorax. Minimal opacification in the left lung base suggestive of atelec tasis versus pneumonia. OTHER: No free air under the diaphragm. Degenerative changes of the spine. IMPRESSION: Left basilar Atelectasis versus pneumonia. Reviewed, dictated and finalized at location A. ING MACHINE OPERATOR
--- NOTE | ~2024-12-22 | CT_ITS ---
EXAMINATION: CT lumbar spine wo con DATE: 12/23/2024 04:34 INDICATION: Back pain TECHNIQUE: Computed tomography (CT) of the lumbar spine was performed without intravenous contrast. T he dose-length product was 982.03 mGy-cm. Automated exposure control and iterative reconstruction chanel hnique were employed. COMPARISON: CT dated 07/14/2024 FINDINGS: There is posterior fusion at L3-L5. 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 Screw fracture right L5 pedicle and superior facet. Lucencies around L5 screws, consistent with loosening. There is disc narrowing an d endplate hypertrophy at all lumbar levels. There is degenerative retrolisthesis at L1-2 and L2-3 wi th grade 1 spondylolisthesis at L4-5. No acute fracture or traumatic malalignment. There are calcifie d granulomas of the spleen. There is dependent atelectasis in the lung bases. There are parapelvic cy st of the left kidney. There is atherosclerosis of the aorta. IMPRESSION: 1. No acute fracture. 2: Severe lumbar spondylosis with fusion at L3-L5. Reviewed, dictated and finalized at location A. ICING SPECIALIST
--- NOTE | ~2024-12-22 | US_ITS ---
TESTICULAR ULTRASOUND (Doppler ultrasound interrogation techniques used as needed for this exam.) Ordering provider: Marin West History: . Scrotal pain . Comparison: None. FINDINGS: TESTICLES: Normal in size. The right measures 4.2x 2.1x 3 cm and the left measures 4x 1.7x 3 cm. Norm al echogenicity bilaterally without mass lesion. Normal Doppler flow bilaterally. EPIDIDYMIDES: Normal in size. Normal echogenicity bilaterally. Both demonstrate normal Doppler flow. HYDROCELE: None. VARICOCELE: Bilateral varicocele. OTHER ABNORMALITY: Air is seen in the left scrotum. IMPRESSION: Air is seen in the left scrotum. Clinical evaluation to exclude anaerobic infection should be conside red. Bilateral varicocele. Otherwise, normal testicular ultrasound. Reviewed, dictated and finalized at location A. S ASSOCIATE FISHING IMPRESSION: Air is seen in the left scrotum. Clinical evaluation to exclude anaerobic infec tion should be considered. Bilateral varicocele. Otherwise, normal testicular u ltrasound.
--- NOTE | ~2024-12-22 | CT_ITS ---
EXAMINATION: CT hip LT wo con DATE: 12/23/2024 04:30 INDICATION: Flank pain. Status post fall. TECHNIQUE: Computed tomography (CT) of the left hip was performed without intravenous contrast. The d ose-length product was 331.82 mGy-cm. Automated exposure control and iterative reconstruction technPopdust ue were employed. COMPARISON: CT dated 12/22/2024 FINDINGS: There is a left total hip arthroplasty. Prosthesis in anatomic alignment. No fracture or tr aumatic malalignment. No significant soft tissue abnormality. Enlarged prostate gland. IMPRESSION: 1. No acute bone or joint abnormality. Reviewed, dictated and finalized at location A. ING MACHINE OPERATOR
--- NOTE | ~2024-12-22 | XR_ITS ---
XR knee LT 3V Ordering provider: Salvador Guerrero MD History: . fall/pain . Comparison: None. FINDINGS: BONES: No acute fracture or dislocation. JOINT SPACES: Normal. chondrocalcinosis. Marginal osteophytes in the knee and patella. SOFT TISSUES: Normal. IMPRESSION: No acute osseous abnormality left knee. Chondrocalcinosis. Reviewed, dictated and finalized at location A. D REPRESENTATIVE/HEALTH EDUCATION
--- NOTE | ~2024-12-22 | US_ITS ---
Renal-Bladder ultrasound Clinical History: Soft tissue density right renal pelvis COMPARISON: CT scan dated 12/22/2024 Technique: Real-time sonographic imaging of the kidneys and urinary bladder was performed. Findings: The right kidney measures 10.7 cm in length and the left kidney measures 11.3 cm. There is no hydronephrosis or renal calculus identified. Renal cortical echogenicity is within normal limits. There is a suspected 4.3 x 3.6 x 3.8 cm mass at the right renal pelvis region. The urinary bladder is moderately distended at the time of this exam. No intraluminal echoes are iden tified. No abnormal wall thickening is seen. Prostate gland is enlarged. Impression: 4.3 x 3.6 x 3.8 cm probable mass in the renal pelvis region, suspicious for urothelial carcinoma. CT urogram or pre and postcontrast renal MRI recommended to assess for enhancing soft tissue neoplastic lesion versus a potential alternative consideration such as hematoma. Reviewed, dictated and finalized at [facility]. STANT PLANT CONTROLLER Impression: 4.3 x 3.6 x 3.8 cm probable mass in the renal pelvis region, suspicious for uro thelial carcinoma. CT urogram or pre and postcontrast renal MRI recommended to assess for enhancing soft tissue neoplastic lesion versus a potential alternati ve consideration such as hematoma.
--- NOTE | ~2024-12-22 | CT_ITS ---
CT abdomen pelvis wo con Ordering provider: Marin West MD History: 84 years Male with . Flank pain . Comparison: None. Technique: CT abdomen and pelvis without IV and without oral contrast. Automated exposure control and iterative reconstruction technique were employed. The dose-length product was 564.21 mGy-cm. Findings: VISUALIZED LOWER CHEST: Normal. UPPER ABDOMINAL ORGANS: Liver: Normal. Multiple calcified granulomas. Gallbladder: Normal. Spleen: Normal. Multiple calcified granulomas. Stomach/duodenum: Normal. Pancreas: Normal. Adrenals: Normal. Kidneys: Left parapelvic cysts are noted. Soft tissue density in the right renal pelvis is noted laura uring 2.8 cm and extending into the renal pelvis. A mass cannot be excluded. Other differential inclu de hematoma. Further evaluation advised. PELVIC ORGANS: The bladder is normal. Grossly enlarged prostate is noted. BOWEL AND MESENTERY: Colon: No evidence of diverticulitis. Normal appendix. Small Bowel: Normal. No obstruction. Peritoneum/mesentery: No free air or free fluid. No mesenteric lymphadenopathy. RETROPERITONEUM: Mild atheromatous disease of the abdominal aorta. No retroperitoneal lymphadenopat hy. MUSCULOSKELETAL: Superficial soft tissues: The superficial soft tissues are normal. Bones: Age appropriate degenerative changes of the spine. Postoperative changes in the left femur. Po stoperative changes in the lower spine. Bilateral right hip osteoarthritic changes. IMPRESSION: 1. No evidence of appendicitis, diverticulitis or intestinal obstruction. 2. Soft tissue density in the right renal pelvis area. Further evaluation advised. Left parapelvic r enal cysts. 3. Grossly enlarged prostate. Reviewed, dictated and finalized at location A. UMER RELATIONS SPECIALIST
[2024-12-22 19:35] VITALS: BP 149/83; PULSE 66; RESP 17; TEMP 36.4; O2SAT 100
--- OUTSIDE RECORDS SUMMARY | 2024-12-22 19:58 | XMS_ITS | Referral Summary ---
Author Organization [facility] Address [address] [place] [address] Care Team Providers Care Shrink Pit Operator Name Role Phone Chon Little MD Primary Care Provider + Source Comments [facility],non-owned Affiliates and Associated Physician Practices is amultiple site organization consisting of ambulatory clinics and hospital sitesin [place], [place], [place] and [place]. This disclosure is being madepursuant to the Care Everywhere program and may not contain all information available regarding this patient. Last updated 18.[facility] Allergies No known active allergies Medications * [...] of Treatment Not on file Care Teams Shrink Pit Operator Relationship Specialty Start Date End Date Chon Little MD [address] [place] [id number] PCP - General 08/10/18
--- OUTSIDE RECORDS SUMMARY | 2024-12-22 19:58 | XMS_ITS | Clinical Summary ---
Author Organization [facility] Address [facility] [place] [address] Care Team Providers Care Trailer Mechanic Name Role Phone KiraHaseeb koenig Primary Care Provider Allergies No known active allergies Medications gabapentin (NEURONTIN) 400 MG capsule Take 1 capsule (400 mg total) by mouth 3 (three) times daily. Active Active Problems Problem Noted Date Diagnosed Date Lumbar radiculopathy 09/03/2023 GERD (gastroesophageal reflux disease) Tobacco use 12/01/2022 Spinal stenosis 12/01/2022 Arthritis 12/01/2022 BPH without urinary obstruction 12/01/2022 Pacemaker 11/28/2022 [facility]) Heart block AV second degree 11/26/2022 BPH with urinary obstruction 11/18/2022 BPH with obstruction/lower urinary tract symptom s 03/15/2019 Benign prostatic hyperplasia with urinary obstru ction 02/19/2019 Recurrent UTI 02/19/2019 Abnormal digital rectal exam 02/19/2019 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 09/27/2012 Overview (11/02/2018): s/p L3--L5 fusion Esophageal reflux 06/04/2012 Irritable bowel syndrome 06/04/2012 Spinal stenosis of lumbar region 10/13/2011 Overview (11/02/2018): Date Onset: 10/13/2011 Sprain of other specified site of sacroiliac reg ion 10/13/2011 Overview (11/02/2018): Date Onset: 10/13/2011 Resolved Problems Problem Noted Date Diagnosed Date Resolved Date Hypertrophy of prostate with out urinary obstruction and other lower urinary tract symptoms (LUTS) 09/22/2012 11/09/2022 Encounters Date Type Department Care Team Description 12/20/2024 Telephone [facility], [address] [address] Marni Ham, RN Record Request 12/07/2024 Telephone [facility] Care Management [address] [place] [address] Susan Nina vehicle body builder (Swing bed referral to [facility] from [facility]/) 10/31/2024 2:20 PM SUPERVISOR PICKING CREW Allied Health/Nurse Visit [facility], [address] [address] Sonido Nielson MD Remote Device Check from Last 3 Months Immunizations Name Administration Dates Next Due Influenza Adult (Generic) 08/08/2022 MODERNA COVID-19 (12+) MRNA, LNP-S, PF, 100 MCG/ 0.5 ML DOSE 08/22/2021,01/23/2021,12/26/2020 MODERNA COVID-19 (AIRCRAFT MECHANIC ELECTRICAL AND RADIO FLOYD TAMANNA), MRNA, LNP-S, PF, 50 MCG/ 0.25 ML DOSE 06/19/2022 Pneumococcal (Pneumovax 23) 06/06/2021 Pneumococcal (Prevnar 20) 12/11/2022 Family History Medical History Relation Comments Cancer Father Cancer Mother rectal cancer, c olostomy Cancer Sister Relation Status Comments Daughter 1 Alive Daughter 2 Alive Father (Age 80) unsure of caus e of his Mother (Age 92) unsure of what caused her Sister Son 1 Alive Son 2 Alive Social History Tobacco Use Types Packs/Day Years Used Date Smoking Tobacco: Every Day Pipe Smokeless Tobacco: Never Tobacco Cessation:Ready to Q uit: Not Asked; Counseling Given: Not Answered Comments:quit cigarettes in 1984, smokes a pipe occasionally and says he does not inhale Passive Exposure Comments:PT STATES STOPPED CIGARETTES, ONLY USES PIPE NOW Alcohol Use Standard Drinks/Week Comments Never 0 (1 standard drink = 0.6 oz pur e alcohol) OASIS D0700: Social Isolation Answer Da te Recorded Frequency of experiencing loneliness or isolatio n Sometimes 01/12/2023 OASIS A1250: Transportation Answer Date Recorded Lack of Transportation (Medical) No 01/12/2023 Lack of Transportation (Non-Medical) No 01/12/2023 Patient Unable or Declines to Respond No 01/12/2023 OASIS B1300: Health Literacy Answer Jeffrey e Recorded Frequency of needing help to read materials from doctor or pharmacy Never 01/12/2023 Humiliation, Afraid, Rape, and Kick questionnair e Answer Date Recorded Within the last year, have y ou been afraid of your partner or ex-partner? No 11/26/2022 Within the last year, have y ou been humiliated or emotionally abused in other ways by your partner or ex-partner? No Within the last year, have y ou been kicked, hit, slapped, or otherwise physically hurt by your partner or ex-partner? No 11/26/2022 Within the last year, have y ou been raped or forced to have any kind of sexual activity by your partner or ex-partner? No 11/26/2022 AUDIT-C Answer Date Recorded Frequency of Alcohol Consumption Never 11/02/2018 Average Number of Drinks Not on file 019 Frequency of Binge Drinking Not on file 05/2019 Overall Financial Resource Strain (CARDIA) Answe r Date Recorded How hard is it for you to pa y for the very basics like food, housing, medical care, and heating? Not very hard 11/26/2022 PHQ-2 Answer Date Recorded Patient Health Questionnaire-2 Score 0 01/05/2023 Hunger Vital Sign Answer Date Recorded Within the past 12 months, y ou worried that your food would run out before you got the money to buy more. Never true 11/26/19 23 Within the past 12 months, t he food you bought just didn't last and you didn't have money to get more. Never true 11/26/2022 PRAPARE - Transportation Answer Date Re corded In the past 12 months, has l ack of transportation kept you from medical appointments or from getting medications? No 10/2022 In the past 12 months, has l ack of transportation kept you from meetings, work, or from getting things needed for daily living? No 11/26/2022 Housing Stability Vital Sign Answer Jeffrey e Recorded In the last 12 months, was t here a time when you were not able to pay the mortgage or rent on time? No 11/26/2022 In the last 12 months, how many places have you lived? 1 11/26/2022 In the last 12 months, was t here a time when you did not have a steady place to sleep or slept in a fci (including now)? No 11/26/2022 Sex and Gender Information Value Date Recorded Sex Assigned at Not on file Legal Sex Male 11:10 PM CDT Gender Identity Not on file Sexual Orientation Not on file Last Filed Vital Signs Vital Sign Reading Time Taken Comments Blood Pressure 107/58 09/19/2024 10:05 AM SUPERVISOR PICKING CREW Pulse 81 09/19/2024 10:05 AM SUPERVISOR PICKING CREW Temperature 36 C (96.8 F) 09/19/2024 8:03 AM SUPERVISOR PICKING CREW Respiratory Rate 16 09/19/2024 8:03 AM SUPERVISOR PICKING CREW Oxygen Saturation 98% 09/19/2024 10:05 AM SUPERVISOR PICKING CREW Inhaled Oxygen Concentration - - Weight 79.4 kg (175 lb) 09/19/2024 8:03 AM SUPERVISOR PICKING CREW Height 177.8 cm (5' 10 ) 09/19/2024 8:03 AM SUPERVISOR PICKING CREW Body Mass Index 25.11 09/19/2024 8:03 AM SUPERVISOR PICKING CREW Plan of Treatment Health Maintenance Due Date Last Done Comments Zoster Vaccines (1 of 2) 1990 Annual Medicare Wellness Visit 2005 RSV Immunization or 60+ Years (1 - 1-dose 75+ series) 2015 COVID-19 Vaccine ( - season) 2024 05/12/2023, 06/19/2022, 08/22/2021, Additional history exists Influenza Adult (#1) 2024 08/08/2022 PHQ-2 (Physician Sterling) 10/26/2024 01/05/2023 DTaP, Tdap and Td Vaccines (1 - Tdap) 10/26/2028 Postponed from 1959 (Per Provider Recommendation) Pneumococcal Vaccine: 65+ Years Completed 12/11/2022, 06/06/2021 Meningococcal B Vaccine Aged Out No l onger eligible based on patient's age to complete this topic Meningococcal Vaccine Aged Out No akash sepideh eligible based on patient's age to complete this topic RSV Immunizations Under 20 Months Aged Out No longer eligible based on patient's age to complete this topic Goals Goal Patient Goal Type Associated Problems Recent Progress Patient-Stated? Author Establish Plan for Symptom Monitoring Lifestyle On track( 023 9:43 AM SUPERVISOR PICKING CREW) Naima Barrett RN Medical Devices Implanted Type Area Calculator Operator Device Identifier Shelf Expiration Date Model / Serial / Lot His Lead Implant-2022 Implanted:Qt y: 1 on 11/27/2022 by Kaiden Hodgson MD Lead Implant Left: Chest [employer] [id number] 07/04/2024 [id number] / [id number] / Description:LEFT BUNDLE BRAN CH Ra Lead Implant-2022 Implanted:Qt y: 1 on 11/27/2022 by Kaiden Hodgson MD Lead Implant Right: Atrium [employer] [id number] 09/17/2024 [id number] / [id number] / Description:APPENDAGE Mdt Pacemaker-11/27/2022 Implanted:Qt y: 1 on 11/27/2022 by Kaiden Hodgson MD Pacemaker Left: Chest [employer] CARDIAC RHYTHM AND HEART FAILURE - DIV M [id number] 02/21/2024 [id number] / [id number] / Tecnis 1 Piece Iol Implanted:Qt y: 1 on 09/19/2024 by Jean-Pierre Chaparro MD at [facility] Left: Eye [employer] [id number] 04/11/2027 / [id number] / Insurance MEDICARE AETNA Advance Directives * Full Code (Latest Code Status on File) Date Activated Date Inactivated Comments 12/14/2022 6:40 PM 12/22/2022 9:12 AM * Full Code Date Activated Date Inactivated Comments 12/01/2022 5:44 PM 12/10/2022 2:04 PM * Full Code Date Activated Date Inactivated Comments 11/27/2022 5:33 PM 12/01/2022 5:11 PM * Full Code Date Activated Date Inactivated Comments 11/26/2022 2:49 PM 11/27/2022 5:33 PM * Full Code Date Activated Date Inactivated Comments 11/18/2022 3:16 PM 2022 2:54 PM Care Teams Trailer Mechanic Relationship Specialty Start Date End Date Haseeb Malone [place] [address] [address] PCP - General FAMILY PRACTICE 12/11/22
--- OUTSIDE RECORDS SUMMARY | 2024-12-22 19:58 | XMS_ITS | Encounter Summary ---
Author Organization [facility] Address [facility] [place] [address] Care Team Providers Care Stock Counter Name Role Phone Miki Munoz MD Unavailable [phone] Naima Nobles RN Unavailable [phone] Haseeb Malone DO Primary Care Provider [phone] Reason for Visit * Reason Onset Date Comments Follow Up Call 12/12/2022 Encounter Details Date Type Department Care Team (Late st Contact Info) Description 12/12/2022 Hospital Follow-up Call [facility] [address] [place] [address] Luh Mendiola, RN Follow Up Call Social History Tobacco Use Types Packs/Day Years Used Date Smoking Tobacco: Former Cigarettes 2 30 1 955 - 1984 Pipe Smokeless Tobacco: Never Comments:quit cigarettes in 1984, smokes a pipe occasionally and says he does not inhale Alcohol Use Standard Drinks/Week Comments Never 0 (1 standard drink = 0.6 oz pur e alcohol) Humiliation, Afraid, Rape, and Kick questionnair e [...] Answer Date Recorded Patient Health Questionnaire-2 Score 2 12/15/2022 Hunger Vital Sign Answer Date Recorded Within [...] place to sleep or slept in a custodial (including now)? No 11/26/2022 Sex and Gender Information Value Date Recorded Sex Assigned at Not on file Legal Sex Male 11:10 PM CDT Gender Identity Not on file Sexual Orientation Not on file COVID-19 Exposure Response Date Recorded In the last 10 days, have yo u been in contact with someone who was confirmed or suspected to have Coronavirus/COVID-19? No / Unsure 12/15/2022 7:48 AM SEASONAL RETAIL MERCHANDISER documented as of this encounter Functional Status * RETIRED Are you deaf or do you have serious difficulty hearing Answer Date of Assessment Author Status No 12/10/2022 10:01 AM SEASONAL RETAIL MERCHANDISER Acti ve * RETIRED Are you blind or do you have serious difficulty seeing, even when wearing glasses? Answer Date of Assessment Author Status No 12/10/2022 10:01 AM SEASONAL RETAIL MERCHANDISER Acti ve * Do you have serious difficulty walking or climbing stairs? Answer Date of Assessment Author Status No 12/10/2022 10:01 AM April Kang RN Active * Do you have difficulty dressing or bathing? Answer Date of Assessment Author Status No 12/10/2022 10:01 AM April Kang RN Active * Because of a physical, mental, or emotional condition, do you have difficulty doing errands alone such as visiting a doctor's office or shopping? Answer Date of Assessment Author Status Yes 12/10/2022 10:01 AM April Kang RN Active documented as of this encounter Mental Status * Because of a physical, mental, or emotional condition, do you have serious difficulty concentrating, remembering, or making decisions? Answer Entry Date Author Status No 12/10/2022 10:01 AM April Kang RN Active documented in this encounter Plan of Treatment Not on file documented as of this encounter Goals Goal Patient Goal Type Associated Problems Recent Progress Patient-Stated? Author Establish Plan for Symptom Monitoring Lifestyle On track( 023 9:43 AM SEASONAL RETAIL MERCHANDISER) No Naima Nobles RN documented as of this encounter Visit Diagnoses Not on filedocumented in this encounter Additional Health Concerns Assessment Noted Time PHQ-9 Depression Total Score: 12 022 10:30 AM CDT documented as of this encounter Care Teams Stock Counter Relationship Specialty Start Date End Date Haseeb Malone DO [address] [place] [address] PCP - General FAMILY PRACTICE 12/11/22 Miki Munoz MD UROLOGY 03/03/19 01/04/23 Naima Nobles, RN [address] [place] [address] Clinic Specialist (Ambulatory) REGISTERED NURSE 11/19/2210/17 documented as of this encounter
--- OUTSIDE RECORDS SUMMARY | 2024-12-22 19:58 | XMS_ITS | Encounter Summary ---
Author Organization [facility] Address [facility] [place] [address] Care Team Providers Care Manager Women Name Role Phone Trav Bullock MD Primary Care Provider [phone] Miki Munoz MD Unavailable [phone] Andrés Goins DO Primary Care Provider [phone] None, Provider Primary Care Provider UnavailMaritza Garcia MD Primary Care Provider [phone] Naima Nobles RN Unavailable [phone] Haseeb Malone DO Primary Care Provider [phone] None, Provider Primary Care Provider UnavailHaseeb Hunter DO Primary Care Provider [phone] Encounter Details Date Type Department Care Team (Late st Contact Info) Description 01/03/2019 Abstract [facility] CONVERSION [address] [place] [address] , Generic Conversion, Social History Tobacco Use Types Packs/Day Years Used Date Smoking Tobacco: Former Cigarettes Q uit: 1985 Smokeless Tobacco: Never Alcohol Use Standard Drinks/Week Comments No 0 (1 standard drink = 0.6 oz pur e alcohol) AUDIT-C Answer Date Recorded Frequency of Alcohol Consumption Never 11/02/2018 Average Number of Drinks Not on file 019 Frequency of Binge Drinking Not on file 05/2019 Sex and Gender Information Value Date Recorded Sex Assigned at Not on file Legal Sex Male 11:10 PM CDT Gender Identity Not on file Sexual Orientation Not on file documented as of this encounter Plan of Treatment Not on file documented as of this encounter Visit Diagnoses Not on filedocumented in this encounter Care Teams Manager Women Relationship Specialty [place] [address] [place] [address] PCP - General FAMILY PRACTICE 10/29/18 06/05/21 [place] [address] [place] [address] PCP - General FAMILY PRACTICE 06/06/21 09/30/22 None, ProviderMD PCP - General UNKNOWN PHYSICIAN SPECIALTY 10/01/22 10/07/22 Maritza Rose MD [address] [place] [address] PCP - General FAMILY PRACTICE 10/08/22 11/19/22 Haseeb Malone [place] [address] [place] [place] [address] PCP - General FAMILY PRACTICE 11/20/22 11/25/22 None, MD Ariel PCP - General UNKNOWN PHYSICIAN SPECIALTY 11/26/22 12/10/22 Haseeb Malone DO [address] [place] [address] PCP - General FAMILY PRACTICE 12/11/22 [place] [address] [place] [address] UROLOGY 03/03/19 01/04/23 Naima Nobles RN [address] [place] [address] Cnc Machine Setter (Ambulatory) REGISTERED NURSE 11/19/22 01/04/23 documented as of this encounter
--- OUTSIDE RECORDS SUMMARY | 2024-12-22 19:58 | XMS_ITS | Clinical Summary ---
Author Organization [facility] [employer] Address [address] [place] [address] Care Team Providers Care Passenger Locomotive Engineer Name Role Phone Chon Little MD Primary Care Provider + Source Comments [facility],non-owned Affiliates and Associated Physician Practices is amultiple site organization consisting of ambulatory clinics and hospital sitesin [place], [place], [place] and [place]. This disclosure is being madepursuant to the Care Everywhere program and may not contain all information available regarding this patient. Last updated 18.[employer] Allergies No known active allergies Medications * [...] age to complete this topic Care Teams Passenger Locomotive Engineer Relationship Specialty Start Date End Date Chon Little MD [address] [facility] [address] [place] [address] PCP - General 08/10/18
--- OUTSIDE RECORDS SUMMARY | 2024-12-22 19:58 | XMS_ITS | Patient Health Summary ---
Author Organization [facility] [employer] Address [address] [place] [address] Care Team Providers Care Vice President Of Contracts Name Role Phone Chon Little MD Primary Care Provider + Note from [facility],non-owned Affiliates and Associated Physician Practices is amultiple site organization consisting of ambulatory clinics and hospital sitesin [place], [place], [place] and [place]. This disclosure is being madepursuant to the Care Everywhere program and may not contain all information available regarding this patient. Last updated 18.[facility] Allergies No known active allergies Medications * [...] 25.97 08/18/2018 2:44 PM CDT Procedures * RI ANAL/URINARY MUSCLE STUDY(Performed 08/18/2018) 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 * RI COMPLEX CYSTOMETROGRAM(Performed 08/18/2018) 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 Results * RI COMPLEX CYSTOMETROGRAM, RI ANAL/URINARY MUSCLE STUDY (08/18/2018 4:11 PM CDT) [...] MD PROCEDURE/MINOR SHELL RGICAL ORDERABLES Care Teams Vice President Of Contracts Relationship Specialty Start Date End Date Chon Little MD [address] [facility] [address] [place] [address] PCP - General 08/10/18
[2024-12-22 20:00] VITALS: BP 140/79; PULSE 66; RESP 19; O2SAT 100
--- NOTE | 2024-12-22 20:04 | ED_ITS ---
HPI - General Adult General Chief complaint: Urogenital-Male <Marin West MD - Last Filed: 12/22/24 20:05> Stated complaint: LOW BACK PAIN INTO TESTICLES RASH ACROSS FLANK <Marin West MD - Last Filed: 12/22/24 20:05> Time Seen by Provider: 12/22/24 19:50 <Marin West MD - Last Filed: 12/22/24 20:05> History of Present Illness HPI narrative: Patient 84-year-old gentleman presents emergency department with chief complaint of back pain and difficulty urinating and pain in his testicles. The patient states he is very weak has not really gotten out of bed reports that he has been sitting and urine and stool patient states that he started having pain in his low back reports he feels as though he is not able to urinate and feels as though his kidneys are failing. <Marin West MD - Last Filed: 12/22/24 20:05> Related Data Home medications: Home Medications ?Medication ?Instructions ?Recorded ?Confirmed ?Last Taken ?Type [id number] 150 mcg-vit K1 1 tablet PO DAILY 06/22/24 12/01/24 11/30/24 History 30 mcg-lycop 300 mcg-lutein tablet (Centrum Minis Men 50 Plus) brimonidine 0.1 % eye drops 1 drp EACH EYE BID 12/01/24 12/01/24 11/30/24 History <Marin West MD - Last Filed: 12/22/24 20:05> Allergies/adverse reactions: Allergies Allergy/AdvReac Type Severity Reaction Status Date / Time No Known Allergies Allergy Verified 12/22/24 19:44 <Marin West MD - Last Filed: 12/22/24 20:05> Review of Systems 2 Review of Systems: A 10 system review of systems was completed on the patient and is negative except for what is stated in the HPI. Nursing and ancillary documentation was reviewed. <Marin West MD - Last Filed: 12/22/24 20:05> [facility] Past Medical History Medical History: Medical History Anxiety Neuropathy Pacemaker Age-related cognitive decline Vision disorder Arthritis Prostate disorder Prophylactic gland removal Removed from neck 1976 <Marin West MD - Last Filed: 12/22/24 20:05> Surgical History Surgical History: Surgical History S/P eye surgery Left eye 2024 Previous back surgery Fusion S3-S5 History of hip replacement Left 2006 <Marin West MD - Last Filed: 12/22/24 20:05> Family History Family History: Family History Father Cancer Mother Cancer Colostomy care Son Diabetes mellitus <Marin West MD - Last Filed: 12/22/24 20:05> Social History Social History: Social History Smoking status: Current some day smoker Tobacco type: pipe Second hand tobacco smoke exposure: No Alcohol intake: unknown Substance use: never Substance use type: does not use Do You Feel Safe in your Home?: Yes Lack of Transportation: No Lack of Food: Never True Current Housing: I Have Housing Concerned About Future Housing: No Difficulty Paying Gas/Electric Bills: No Difficulty Paying for Meds: No Currently Unemployed: No Education: High School Diploma/GED Difficulty w/ Childcare or Family Care: No Occupation/Education: retired 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 HEAD: Normocephalic, atraumatic. EYES: PERRLA and EOMI. ENT: Nares clear, no rhinorrhea or epistaxis. Mucous membranes moist. NECK: Supple. CHEST: Clear to auscultation. No respiratory distress. HEART: Regular rate and rhythm. No murmur heard. Normal peripheral pulses. ABDOMEN: Soft, nontender, nondistended, normal active bowel sounds. EXTREMITIES: Normal range of motion. No edema. SKIN: Warm, dry, no rash. No skin breakdown but there is dried stool present on the skin NEURO: No focal deficits. Alert and oriented x3. PSYCH: Normal mood and affect. <Marin West MD - Last Filed: 12/22/24 20:05> Course Course Emergency Course: Patient signed out to me at 10:[address] results and likely admission to hospital given his deconditioning and debility with inability to ambulate without causing significant back pain. I went and evaluated the patient who tells me that over last 3 weeks he has not been able to walk significantly well as he is having pain that is worsening from his lumbar back. His a history of lumbar surgery at L3 through 5 and fusion. He states that he has not fallen or had any new injuries but was recently hospitalized here several weeks ago and upon discharge was not able to take care of himself. EMS found the patient covered in his own feces at home, he has been crawling around the house trying to get to the bathroom. He was covered in feces on his arrival here in the emergency department. After getting cleaned up I evaluated him from a neurological standpoint he has good strength and sensation distally, normal range of motion of the ankles with EHL and FHL 5/5, no sensory deficits in the arms or legs. No saddle anesthesias. Good rectal tone. No midline thoracic, lumbar spinal tenderness in the cervical region. We tried an ambulate the patient multiple times after analgesia medications and he was not able to tolerate bearing more than a few steps without feeling decongestant and the and feeling the pain returning. Suspicion is very low for any kind of neurological emergency or cauda equina given his lack of red flag signs. 2+ radial pulses 2+ dorsalis pedis pulses. He was recently admitted here for cardiac catheterization although they went through his radial artery suspicion for intra aortic process is very unlikely. Patient was also complaining of some urinary issues in testicular pain and swelling although on examination he has no testicular pain or masses. We did obtain CT images of his abdomen, pelvis, lumbar spine and hip. Ultrasound of the scrotum were obtained. Laboratory studies showed no leukocytosis or significant anemia. Normal platelet count. Patient's electrolytes are all within normal limits, normal renal function, normal hepatic function. Negative lactic acid. Urinalysis had some ketones but no signs of infection or blood. Negative viral panel. Chest x-ray shows basilar atelectasis. Scrotal ultrasound shows bilateral varicoceles, mild amount of air in left scrotum but clinically has no evidence of infection and urinalysis without any signs of infection. Normal testicular ultrasound otherwise. Abdomen pelvis CT shows no evidence of appendicitis, diverticulitis, intestinal obstruction. Grossly enlarged prostate is seen which could explain his feelings that he is having difficulty urinating. Soft tissue density in the right pelvis incidentally found. CT of the cervical spine shows no fractures, hip shows no bone or joint abnormalities. Previous lumbar fusion is seen. Attempt to ambulate the patient more time he was still having difficulties. Again neurologically he is intact, will require PT, OT and possible rehabilitation or senior care placement given his level functional status at baseline. I also reviewed the chart show that he has a history of bipolar depression. Spoke to the hospitalist who accepted the patient to a medical- surgical bed at this time. Admit orders and physical therapy, occupational therapy orders placed. Patient comfortable with this plan of care. <Hoang Greer MD - Last Filed: 12/23/24 06:32> Vital Signs Vital signs: Vital Signs Temperature 36.4 C 12/22/24 19:35 Pulse Rate 66 12/22/24 19:35 Respiratory Rate 17 12/22/24 19:35 Blood Pressure 149/83 H 12/22/24 19:35 Pulse Oximetry 100 12/22/24 19:35 Oxygen Delivery Room Air 12/22/24 19:35 Temperature 36.4 C 12/22/24 19:35 Pulse Rate 71 12/23/24 05:50 Respiratory Rate 12/23/24 05:50 Blood Pressure 136/86 12/23/24 05:50 Pulse Oximetry 100 12/23/24 05:50 Oxygen Delivery Room Air 12/22/24 19:35 <Marin West MD - Last Filed: 12/22/24 20:05> Vital Signs Temperature 36.4 C 12/22/24 19:35 Pulse Rate 66 12/22/24 19:35 Respiratory Rate 17 12/22/24 19:35 Blood Pressure 149/83 H 12/22/24 19:35 Pulse Oximetry 100 12/22/24 19:35 Oxygen Delivery Room Air 12/22/24 19:35 Temperature 36.4 C 12/22/24 19:35 Pulse Rate 71 12/23/24 05:50 Respiratory Rate 20 12/23/24 05:50 Blood Pressure 136/86 12/23/24 05:50 Pulse Oximetry 100 12/23/24 05:50 Oxygen Delivery Room Air 12/22/24 19:35 <Hoang Greer MD - Last Filed: 12/23/24 06:32> Medical Decision Making Vital Signs Vital Signs: Vital Signs Temperature 36.4 C 12/22/24 19:35 Pulse Rate 66 12/22/24 19:35 Respiratory Rate 17 12/22/24 19:35 Blood Pressure 149/83 H 12/22/24 19:35 Pulse Oximetry 100 12/22/24 19:35 Oxygen Delivery Room Air 12/22/24 19:35 Temperature 36.4 C 12/22/24 19:35 Pulse Rate 71 12/23/24 05:50 Respiratory Rate 20 12/23/24 05:50 Blood Pressure 136/86 12/23/24 05:50 Pulse Oximetry 100 12/23/24 05:50 Oxygen Delivery Room Air 12/22/24 19:35 <Marin West MD - Last Filed: 12/22/24 20:05> Vital Signs Temperature 36.4 C 12/22/24 19:35 Pulse Rate 66 12/22/24 19:35 Respiratory Rate 17 12/22/24 19:35 Blood Pressure 149/83 H 12/22/24 19:35 Pulse Oximetry 100 12/22/24 19:35 Oxygen Delivery Room Air 12/22/24 19:35 Temperature 36.4 C 12/22/24 19:35 Pulse Rate 71 12/23/24 05:50 Respiratory Rate 20 12/23/24 05:50 Blood Pressure 136/86 12/23/24 05:50 Pulse Oximetry 100 12/23/24 05:50 Oxygen Delivery Room Air 12/22/24 19:35 <Hoang Greer MD - Last Filed: 12/23/24 06:32> Lab Data Result diagrams: 12/22/24 21:34 12/22/24 22:18 <Marin West MD - Last Filed: 12/22/24 20:05> Labs: Lab Results 12/22/24 12/22/24 12/23/24 Range/Units 21:34 22:18 01:06 WBC 7.5 (4.5-10.0) K/mm3 RBC 3.81 L (4.6-6.20) M/mm3 Hgb 11.8 L (14.0-18.0) g/dL Hct 35.9 L (42.0-52.0) % MCV 94.2 (80-100) fl MCH 31.0 (26-34) pg MCHC 32.9 (32-36) g/dl RDW 13.0 (11.5-14.5) % Plt Count 141 L (150-375) k/mm3 MPV 11.4 H (7.4-10.4) fl Immature Gran % (Auto) 0.3 (0-0.5) % Neut % (Auto) 64.9 (45.5-73.1) % Lymph % (Auto) 20.1 (18.3-44.2) % [place] % (Auto) 10.8 H (2.6-8.5) % Eos % (Auto) 3.2 (0-4.4) % Baso % (Auto) 0.7 (0.2-1.2) % Lymph # (Auto) 1.51 (0.9-3.2) K/mm3 [place] # (Auto) 0.8 H (0.1-0.6) K/mm3 Eos # (Auto) 0.2 (0-0.3) K/mm3 Baso # (Auto) 0.1 (0.0-0.1) K/mm3 Abs Immat Gran (auto) 0.02 (0.00-0.031) K/mm3 Absolute Neuts (auto) 4.9 (1.3-6.7) K/mm3 Absolute Nucleated RBC 0.000 (0.0-0.012) K/mm3 Nucleated RBC % 0.0 (0.0-0.2) % Sodium 139 (137-145) mmol/L Potassium 4.0 (3.4-5.0) mmol/L Chloride 108 H (98-107) mmol/L Carbon Dioxide 19 L (22-30) mmol/L Anion Gap 12 (4-12) mmol/L BUN 19 (9-20) mg/dL Creatinine 0.91 (0.7-1.3) mg/dL Estim Creat Clear Calc 55 ml/min Estimated GFR > 60 (59 - ) Glucose 88 (65-110) mg/dL Lactic Acid 0.7 (0.7-2.0) mmol/L Calcium 9.1 (8.4-10.2) mg/dL Magnesium 1.8 (1.6-2.3) mg/dL Total Bilirubin 0.9 (0.2-1.3) mg/dL AST 28 (17-59) U/L ALT 26 (6-50) U/L Alkaline Phosphatase 69 (38-126) U/L Total Protein 7.0 (6.3-8.2) g/dL Albumin 3.8 (3.5-5.1) g/dL Lipase 152 (23-300) U/L Procalcitonin 0.1 ng/mL Urine Color Yellow (Yellow) Urine Appearance Clear (Clear) Urine pH 5.5 (5.0-9.0) Ur Specific [place] 1.018 (1.001-1.035) Urine Protein Negative (Negative) mg/dL Urine Glucose (UA) Negative (Negative) mg/dL Urine Ketones 1+ H (Negative) mg/dL Ur Blood (Man) Negative (Negative) Urine Nitrate Negative (Negative) Urine Bilirubin Negative (Negative) Urine Urobilinogen 0.2 (<2.0) mg/dL Leukocyte Esterase Rfl Negative (Negative) ANA/UL Influenza A (RT-PCR) Negative (Negative) Influenza B (RT-PCR) Negative (Negative) RSV (RT-PCR) Negative (Negative) SARS-CoV-2 RNA (RT-PCR) Negative (Negative) <Marin West MD - Last Filed: 12/22/24 20:05> Lab Results 12/22/24 12/22/24 12/23/24 Range/Units 21:34 22:18 01:06 WBC 7.5 (4.5-10.0) K/mm3 RBC 3.81 L (4.6-6.20) M/mm3 Hgb 11.8 L (14.0-18.0) g/dL Hct 35.9 L (42.0-52.0) % MCV 94.2 (80-100) fl MCH 31.0 (26-34) pg MCHC 32.9 (32-36) g/dl RDW 13.0 (11.5-14.5) % Plt Count 141 L (150-375) k/mm3 MPV 11.4 H (7.4-10.4) fl Immature Gran % (Auto) 0.3 (0-0.5) % Neut % (Auto) 64.9 (45.5-73.1) % Lymph % (Auto) 20.1 (18.3-44.2) % [place] % (Auto) 10.8 H (2.6-8.5) % Eos % (Auto) 3.2 (0-4.4) % Baso % (Auto) 0.7 (0.2-1.2) % Lymph # (Auto) 1.51 (0.9-3.2) K/mm3 [place] # (Auto) 0.8 H (0.1-0.6) K/mm3 Eos # (Auto) 0.2 (0-0.3) K/mm3 Baso # (Auto) 0.1 (0.0-0.1) K/mm3 Abs Immat Gran (auto) 0.02 (0.00-0.031) K/mm3 Absolute Neuts (auto) 4.9 (1.3-6.7) K/mm3 Absolute Nucleated RBC 0.000 (0.0-0.012) K/mm3 Nucleated RBC % 0.0 (0.0-0.2) % Sodium 139 (137-145) mmol/L Potassium 4.0 (3.4-5.0) mmol/L Chloride 108 H (98-107) mmol/L Carbon Dioxide 19 L (22-30) mmol/L Anion Gap 12 (4-12) mmol/L BUN 19 (9-20) mg/dL Creatinine 0.91 (0.7-1.3) mg/dL Estim Creat Clear Calc 55 ml/min Estimated GFR > 60 (59 - ) Glucose 88 (65-110) mg/dL Lactic Acid 0.7 (0.7-2.0) mmol/L Calcium 9.1 (8.4-10.2) mg/dL Magnesium 1.8 (1.6-2.3) mg/dL Total Bilirubin 0.9 (0.2-1.3) mg/dL AST 28 (17-59) U/L ALT 26 (6-50) U/L Alkaline Phosphatase 69 (38-126) U/L Total Protein 7.0 (6.3-8.2) g/dL Albumin 3.8 (3.5-5.1) g/dL Lipase 152 (23-300) U/L Procalcitonin 0.1 ng/mL Urine Color Yellow (Yellow) Urine Appearance Clear (Clear) Urine pH 5.5 (5.0-9.0) Ur Specific [place] 1.018 (1.001-1.035) Urine Protein Negative (Negative) mg/dL Urine Glucose (UA) Negative (Negative) mg/dL Urine Ketones 1+ H (Negative) mg/dL Ur Blood (Man) Negative (Negative) Urine Nitrate Negative (Negative) Urine Bilirubin Negative (Negative) Urine Urobilinogen 0.2 (<2.0) mg/dL Leukocyte Esterase Rfl Negative (Negative) ANA/UL Influenza A (RT-PCR) Negative (Negative) Influenza B (RT-PCR) Negative (Negative) RSV (RT-PCR) Negative (Negative) SARS-CoV-2 RNA (RT-PCR) Negative (Negative) <Hoang Greer MD - Last Filed: 12/23/24 06:32> Discharge Plan Discharge Clinical Impression: Acute exacerbation of chronic low back pain, Debility, Difficulty in walking, Fusion of lumbar spine <Marin West MD - Last Filed: 12/22/24 20:05> Patient Disposition: Still a Patient <Marin West MD - Last Filed: 12/22/24 20:05> Condition: Stable <Marin West MD - Last Filed: 12/22/24 20:05> Patient Language: Peruvian <Marin West MD - Last Filed: 12/22/24 20:05> Prescriptions: No Action Centrum Minis Men 50 Plus [id number] mcg tablet 1 tablet PO DAILY gabapentin 100 mg capsule 100 mg PO QHS Qty: 90 0RF brimonidine 0.1 % drops 1 drp EACH EYE BID metoprolol succinate 50 mg Tablet Extended Release 24 Hr 50 mg PO QAM Qty: 30 0RF clopidogrel 75 mg Tablet 75 mg PO QAM Qty: 30 0RF aspirin 81 mg Tablet,Delayed Release (Dr/Ec) 81 mg PO QAM Qty: 30 0RF aripiprazole [Abilify] 10 mg Tablet 10 mg PO DAILY Qty: 30 0RF rosuvastatin 20 mg Tablet 40 mg PO EVENING Qty: 30 0RF <Marin West MD - Last Filed: 12/22/24 20:05> Follow-up/Referrals: Andrés Garcia, [Primary Care Provider] - <Marin West MD - Last Filed: 12/22/24 20:05> Time of Disposition: 06:32 <Marin West MD - Last Filed: 12/22/24 20:05> 06:32 <Hoang Greer MD - Last Filed: 12/23/24 06:32>
[2024-12-22] MEDS: SODIUM CHLORIDE 0.9% IV 1,000 ML 999 ML IV CONT (21:00)
--- NOTE | 2024-12-22 21:02 | PC.NURSE ---
2044 Patient refusing catheterization
[2024-12-22 21:14] VITALS: BP 143/69; PULSE 75; RESP 21; O2SAT 98
[2024-12-22 21:51] LABS: Basophils Absolute Auto 0.1 K/mm3 (0.0-0.1); Basophils Percent Auto 0.7 % (0.2-1.2); Eosinophils Absolute Auto 0.2 K/mm3 (0-0.3); Eosinophils Percent Auto 3.2 % (0-4.4); Hematocrit 35.9 % (42.0-52.0); Hemoglobin 11.8 g/dL (14.0-18.0); Immature Granulocyte Absolute 0.02 K/mm3 (0.00-0.031); Immature Granulocyte Percent A 0.3 % (0-0.5); Lymphocytes Absolute Auto 1.51 K/mm3 (0.9-3.2); Lymphocytes Percent Auto 20.1 % (18.3-44.2); Mean Corpuscular HGB Conc 32.9 g/dl (32-36); Mean Corpuscular Volume 94.2 fl (80-100); Mean Platelet Volume 11.4 fl (7.4-10.4); Monocytes Absolute Auto 0.8 K/mm3 (0.1-0.6); Monocytes Percent Auto 10.8 % (2.6-8.5); Neutrophils Absolute Auto 4.9 K/mm3 (1.3-6.7); Neutrophils Percent Auto 64.9 % (45.5-73.1); Platelet Count Result 141 k/mm3 (150-375); Red Blood Count 3.81 M/mm3 (4.6-6.20); White Blood Count 7.5 K/mm3 (4.5-10.0)
[2024-12-22 22:00] VITALS: BP 140/73; PULSE 77; RESP 22; O2SAT 97
[2024-12-22 22:01] LABS: Lactic Acid Reflex 0.7 mmol/L (0.7-2.0)
[2024-12-22] MEDS: MORPHINE SULFATE (*CRX) 4 MG/ML INJ 2 MG IV PUSH (22:14)
[2024-12-22 22:27] LABS: Influenza A QL RT-PCR Negative (Negative); Influenza B QL RT-PCR Negative (Negative); RSV RNA, RT-PCR Negative (Negative); SARS-CoV-2 RNA PCR Negative (Negative)
[2024-12-22 22:35] LABS: Alanine Aminotransferase 26 U/L (6-50); Albumin Level 3.8 g/dL (3.5-5.1); Alkaline Phosphatase 69 U/L (38-126); Anion Gap 12 mmol/L (4-12); Aspartate Amino Transferase 28 U/L (17-59); Bilirubin,Total 0.9 mg/dL (0.2-1.3); Blood Urea Nitrogen 19 mg/dL (9-20); Calcium 9.1 mg/dL (8.4-10.2); Carbon Dioxide 19 mmol/L (22-30); Chloride 108 mmol/L (98-107); Estimated CRCL calculation 55 ml/min; Estimated Glomerular Filt Rate > 60; Glucose 88 mg/dL (65-110); Lipase 152 U/L (23-300); Magnesium 1.8 mg/dL (1.6-2.3); Sodium 139 mmol/L (137-145)
[2024-12-22 22:40] LABS: Procalcitonin 0.1 ng/mL
[2024-12-23] VITALS (9 sets, daily range): BP systolic 107–147; BP diastolic 55–86; PULSE 60–88; RESP 16–20; TEMP 36.3–36.9; O2SAT 96–100; BMI 26.9
[2024-12-23 01:14] LABS: Add Urine Microscopic? NO; Appearance Urine Clear (Clear); Bilirubin Urine Negative (Negative); Blood Urine Negative (Negative); Color Urine Yellow (Yellow); Glucose Urine UA Negative (Negative); Ketones Urine 1+ mg/dL (Negative); Leukocyte Esterase Ur Negative LEU/UL (Negative); Nitrate Urine Negative (Negative); Protein Urine Negative (Negative); Specific Grav Ur 1.018 (1.001-1.035); Urobilinogen Urine 0.2 mg/dL (<2.0); pH Urine 5.5 (5.0-9.0)
[2024-12-23] MEDS: MORPHINE SULFATE (*CRX) 4 MG/ML INJ IV PUSH (03:02)
[2024-12-23] MEDS: HYDROmorphone HCL INJ (*CRX) 1 MG/ML SYR 0.5 MG IV PUSH (04:13)
[2024-12-23] MEDS: dexAMETHasone SOD PHOS INJ 10 MG/ML 1 ML VIAL IV PUSH (04:13)
--- NOTE | 2024-12-23 08:31 | PC.NURSE ---
Spoke with pt's POA, POA would like follow up with kidney and back CT findings.
--- NOTE | 2024-12-23 11:13 | ADMGEN ---
This patient, Andrés Dempsey, was admitted to [facility] Room 314-01. Patient/family oriented to hospital policies and general routines including ID bracelet, bed and alarms, visiting hours, pain management, procedures, bathroom and other care routines, personal items, smoking policy, room service/diet, and visiting hours. Information on how to activate the Rapid Response Team has been discussed. Patient/Family are encouraged to report perceived risks to care and to ask questions if they do not understand what they are told or what they should do.
--- NOTE | 2024-12-23 13:46 | PM.IMHP ---
H&P: HPI History of Present Illness Date/Time: 12/23/24 13:46 Chief Complaint: Urinary retention generalized weakness Narrative: ER-HPI narrative: Patient 84-year-old gentleman presents emergency department with chief complaint of back pain and difficulty urinating and pain in his testicles. The patient states he is very weak has not really gotten out of bed reports that he has been sitting and urine and stool patient states that he started having pain in his low back reports he feels as though he is not able to urinate and feels as though his kidneys are failing. Patient is 84-year-old male will hold emergency department and poor hygiene with complaint of unable to urinate unable to ambulate and do a debilitated. Patient with history of bipolar unfortunately patient had not been able to followed up by his psychiatrist. Patient states his main concern is unable to urinate though he has a frequent urination with small amount. Review of Systems Review of Systems: A 10 system review of systems was completed on the patient and is negative except for what is stated in the HPI. Nursing and ancillary documentation was reviewed. [facility] Past Medical History Medical History Anxiety Neuropathy Pacemaker Age-related cognitive decline Vision disorder Arthritis Prostate disorder Prophylactic gland removal Removed from neck 1976 Surgical History Surgical History S/P eye surgery Left eye 2024 Previous back surgery Fusion S3-S5 History of hip replacement Left 2006 Family History Family History Father Cancer Mother Cancer Colostomy care Son Diabetes mellitus Social History Social History Smoking status: Current some day smoker Second hand tobacco smoke exposure: No Alcohol intake: unknown Substance use: never Substance use type: does not use Do You Feel Safe in your Home?: Yes Lack of Transportation: No Lack of Food: Never True Current Housing: I Have Housing Concerned About Future Housing: No Difficulty Paying Gas/Electric Bills: No Difficulty Paying for Meds: No Currently Unemployed: No Education: High School Diploma/GED Difficulty w/ Childcare or Family Care: No Occupation/Education: retired 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 Spiritual care concerns: No Meds Home Medications and Allergies Home Medications ?Medication ?Instructions ?Recorded ?Confirmed ?Type [id number] 150 mcg-vit K1 1 tablet PO DAILY 06/22/24 12/23/24 History 30 mcg-lycop 300 mcg-lutein tablet (Centrum Minis Men 50 Plus) gabapentin 100 mg capsule 100 mg PO QHS #90 caps 08/10/24 12/23/24 Rx brimonidine 0.1 % eye drops 1 drp EACH EYE BID 12/01/24 12/23/24 History aripiprazole 10 mg tablet (Abilify) 10 mg PO DAILY #30 tabs 12/07/24 12/23/24 Rx aspirin 81 mg tablet,delayed 81 mg PO QAM #30 tabs 12/07/24 12/23/24 Rx release clopidogrel 75 mg tablet 75 mg PO QAM #30 tabs 12/07/24 12/23/24 Rx metoprolol succinate 50 mg 50 mg PO QAM #30 tabs 12/07/24 12/23/24 Rx tablet,extended release 24 hr rosuvastatin 20 mg tablet 40 mg (2 x 20 mg) PO EVENING #30 12/07/24 12/23/24 Rx tabs Allergies Allergy/AdvReac Type Severity Reaction Status Date / Time No Known Allergies Allergy Verified 12/22/24 19:44 Vital Signs Vital Signs - 24 hr 12/22/24 19:35 12/22/24 20:00 12/22/24 21:14 Temperature 36.4 C Pulse Rate 66 66 75 Respiratory Rate 17 19 21 H Blood Pressure 149/83 H 140/79 143/69 H Pulse Oximetry 100 100 98 Oxygen Delivery Room Air 12/22/24 22:00 12/23/24 00:07 12/23/24 02:12 Temperature Pulse Rate 77 64 63 Respiratory Rate 22 H 20 17 Blood Pressure 140/73 131/65 Pulse Oximetry 97 97 96 Oxygen Delivery 12/23/24 03:20 12/23/24 05:50 12/23/24 08:55 Temperature Pulse Rate 60 71 80 Respiratory Rate 17 20 18 Blood Pressure 128/57 L 136/86 136/61 Pulse Oximetry 97 100 98 Oxygen Delivery 12/23/24 09:40 12/23/24 12:18 Temperature 36.3 C L Pulse Rate 88 Respiratory Rate 16 Blood Pressure 147/58 H Pulse Oximetry 98 98 Oxygen Delivery Room Air Exam Narrative: Elderly somewhat confused Patient is comfortable, NAD HEENT: eyes are clear and none icteric LUNGS:CTA HEART: RR S1S2 ABD: BS+, Soft and nontender Lower extremities: no edema SKIN: nonjaundiced Neuro: grossly intact. H&P: Results Labs Labs: Short CBC 12/22/24 Range/Units 21:34 WBC 7.5 (4.5-10.0) K/mm3 Hgb 11.8 L (14.0-18.0) g/dL Hct 35.9 L (42.0-52.0) % Plt Count 141 L (150-375) k/mm3 BMP 12/22/24 22:18 Sodium 139 Potassium 4.0 Chloride 108 H Carbon Dioxide 19 L BUN 19 Creatinine 0.91 Glucose 88 Calcium 9.1 Liver Function 12/22/24 Range/Units 22:18 Total Bilirubin 0.9 (0.2-1.3) mg/dL AST 28 (17-59) U/L ALT 26 (6-50) U/L Alkaline Phosphatase 69 (38-126) U/L Albumin 3.8 (3.5-5.1) g/dL Urine 12/23/24 Range/Units 01:06 Urine Color Yellow (Yellow) Urine Appearance Clear (Clear) Urine pH 5.5 (5.0-9.0) Ur Specific [place] 1.018 (1.001-1.035) Urine Protein Negative (Negative) mg/dL Urine Glucose (UA) Negative (Negative) mg/dL Assessment and Plan Assessment and plan (1) Urinary retention due to benign prostatic hyperplasia: Code(s): N40.1 - Benign prostatic hyperplasia with lower urinary tract symptoms; R33.8 - Other retention of urine Status: Acute (2) Debility: Code(s): R53.81 - Other malaise Status: Acute (3) Acute exacerbation of chronic low back pain: Code(s): M54.50 - Low back pain, unspecified; G89.29 - Other chronic pain Status: Acute (4) HTN (hypertension), benign: Code(s): I10 - Essential (primary) hypertension Status: Acute (5) Hyperlipidemia LDL goal <100: Code(s): E78.5 - Hyperlipidemia, unspecified Status: Acute (6) Atrial fibrillation: Qualifiers: Atrial fibrillation type: unspecified Qualified Code(s): I48.91 - Unspecified atrial fibrillation Code(s): I48.91 - Unspecified atrial fibrillation Status: Acute Plan 84-year-old male with history of grossly enlarged prostate and complains of urinary retention unable to urinate will start the patient on Flomax and finasteride and monitor the patient, patient was recently admitted in hospital with atrial fibrillation and was discharged home on Plavix and aspirin for anticoagulation as patient was not able to for Eliquis, patient with history of bipolar has not been able to seen by his psychiatrist will resume patient's Abilify. Will have a PT OT evaluate the patient patient will benefit going to rehab deferred discharged home. Quality VTE Prophylaxis VTE prophylaxis: mechanical ordered and pharmacologic ordered Hospitalist MIPS Advance Care Plan I have confirmed that the patient's Advanced Care Plan is present, code status is documented, or surrogate decision maker is listed in patient medical record.: Yes Medication Reconciliation I have utilized all available resources to obtain, update and review the patients current medications (includes all prescriptions, OTC, herbals, cannabis, and nutritional supplements).: Yes
--- NOTE | 2024-12-23 14:09 | ECG_ITS ---
Test Date: 2024-12-23 15:37:28 Measurements Intervals [place] Rate: 70 P: 81 TN: 210 QRS: -13 QRSD: 133 T: 78 QT: 435 QTc: 472 Interpretive Statements ELECTRONIC VENTRICULAR PACEMAKER VENTRICULAR PREMATURE COMPLEX BASELINE ARTIFACT- I, II, III, AVR, AVL, AVF, V1-V2 NO FURTHER INTERPRETATION IS POSSIBLE ATYPICAL ECG Compared to ECG 12/06/2024 06:52:13 NO SIGNIFICANT CHANGE Electronically Signed On 12-23-2024 16:04:50 DRAWER LINER by Justin Rodriguez D.O.
[2024-12-23] MEDS: TAMSULOSIN HCL 0.4 MG CAPSULE PO (15:14)
[2024-12-23] MEDS: ARIPiprazole 10 MG TABLET PO (15:14)
[2024-12-23] MEDS: LORazepam (*CRX) 0.5 MG TABLET PO ×2 (15:14→22:44)
[2024-12-23] MEDS: ROSUVASTATIN 20 MG TABLET 40 MG PO (17:26)
[2024-12-23] MEDS: GABAPENTIN 100 MG CAPSULE PO (20:42)
[2024-12-23] MEDS: BRIMONIDINE TARTRATE 0.1% 5 ML OPHTH DROPS 1 DROP EACH EYE (20:43)
[2024-12-23] MEDS: HYDROcodone/acetaminophen (*CRX) 5-325 MG TABLET 1 TAB PO (22:43)
[2024-12-24] MEDS: LIDOCAINE 5% PATCH 2 PATCH TRANSDERM ×2 (03:55→20:20)
[2024-12-24 06:00] VITALS: BP 144/64; PULSE 71; RESP 18; TEMP 36.3; O2SAT 99
[2024-12-24 07:02] LABS: Hematocrit 37.7 % (42.0-52.0); Hemoglobin 12.3 g/dL (14.0-18.0); Mean Corpuscular HGB Conc 32.6 g/dl (32-36); Mean Corpuscular Hemoglobin 31.2 pg (26-34); Mean Corpuscular Volume 95.7 fl (80-100); Mean Platelet Volume 11.5 fl (7.4-10.4); Platelet Count Result 155 k/mm3 (150-375); Red Blood Count 3.94 M/mm3 (4.6-6.20); Red Cell Distribution Width 12.8 % (11.5-14.5); White Blood Count 7.4 K/mm3 (4.5-10.0)
[2024-12-24 07:10] LABS: Anion Gap 11 mmol/L (4-12); Blood Urea Nitrogen 26 mg/dL (9-20); Calcium 9.6 mg/dL (8.4-10.2); Carbon Dioxide 24 mmol/L (22-30); Chloride 105 mmol/L (98-107); Estimated CRCL calculation 46 ml/min; Estimated Glomerular Filt Rate > 60; Glucose 129 mg/dL (65-110); Sodium 140 mmol/L (137-145)
[2024-12-24] MEDS: LORazepam (*CRX) 0.5 MG TABLET PO (10:54)
[2024-12-24] MEDS: FINASTERIDE 5 MG TABLET PO (10:55)
[2024-12-24 10:56] VITALS: PULSE 72
[2024-12-24] MEDS: METOPROLOL SUCCINATE EXT REL 50 MG TABCR PO (10:56)
[2024-12-24] MEDS: ASPIRIN 81 MG ENTERIC TABLET PO (10:57)
[2024-12-24] MEDS: MULTIVITAMINS /C LUTEIN (CENTRUM SILVER) TABLET *BKC 1 TAB PO (10:57)
[2024-12-24] MEDS: TAMSULOSIN HCL 0.4 MG CAPSULE PO (10:57)
[2024-12-24] MEDS: CLOPIDOGREL BISULFATE 75 MG TABLET PO (10:58)
[2024-12-24] MEDS: ARIPiprazole 10 MG TABLET PO (10:58)
--- NOTE | 2024-12-24 13:47 | P.PNIM_ITS ---
Progress Note: A&P Assessment and Plan (1) Urinary retention due to benign prostatic hyperplasia: Code(s): N40.1 - Benign prostatic hyperplasia with lower urinary tract symptoms; R33.8 - Other retention of urine Status: Acute (2) Debility: Code(s): R53.81 - Other malaise Status: Acute (3) Acute exacerbation of chronic low back pain: Code(s): M54.50 - Low back pain, unspecified; G89.29 - Other chronic pain Status: Acute (4) HTN (hypertension), benign: Code(s): I10 - Essential (primary) hypertension Status: Acute (5) Hyperlipidemia LDL goal <100: Code(s): E78.5 - Hyperlipidemia, unspecified Status: Acute (6) Atrial fibrillation: Qualifiers: Atrial fibrillation type: unspecified Qualified Code(s): I48.91 - Unspecified atrial fibrillation Code(s): I48.91 - Unspecified atrial fibrillation Status: Acute Plan Patient is 84-year-old male was brought to emergency department with poor h ygiene with complaint of unable to urinate unable to ambulate and debilitated. Patient with history of bipolar unfortunately patient had not been able to followed up by his psychiatrist. today patient confused and not cooperative has a sitter, Patient states his main concern is unable to urinate though he has a frequent urination with small amount, started patient on Flomax and finasteride which has helped patient with urination. will have PT/OT work with the patient, will continue to monitor. Subjective Date/time seen: 12/24/24 13:47 Interval history: Patient is 84-year-old male was brought to emergency department with poor hygiene with complaint of unable to urinate unable to ambulate and debilitated. Patient with history of bipolar unfortunately patient had not been able to followed up by his psychiatrist. today patient confused and not cooperative has a sitter, Patient states his main concern is unable to urinate though he has a frequent urination with small amount, starte patient on Flomax and finasteride which has helped patient with urination. will have PT/OT work with the patient, will continue to monitor. Review of Systems Review of Systems: A 10 system review of systems was completed on the patient and is negative except for what is stated in the HPI. Nursing and ancillary documentation was reviewed. Exam Narrative: Elderly somewhat confused Patient is comfortable, NAD HEENT: eyes are clear and none icteric LUNGS:CTA HEART: RR S1S2 ABD: BS+, Soft and nontender Lower extremities: no edema SKIN: nonjaundiced Neuro: grossly intact. Objective Data Vital Signs Vital Signs: Vital Signs - 24 hr 12/23/24 14:32 12/23/24 20:00 12/23/24 21:48 Temperature 36.9 C 36.5 C Pulse Rate 83 68 Respiratory Rate 16 18 Blood Pressure 107/79 116/55 L Pulse Oximetry 99 98 Oxygen Delivery Room Air 12/24/24 06:00 12/24/24 10:56 Temperature 36.3 C L Pulse Rate 71 72 Respiratory Rate 18 Blood Pressure 144/64 H Pulse Oximetry 99 Oxygen Delivery Intake/Output Intake/Output: Intake & Output 12/21/24 12/22/24 12/23/24 12/24/24 23:59 23:59 23:59 23:59 Intake Total 1000 1030 1660 Balance 1000 1030 1660 Meds/Results Medications: Active Medications Generic Name Dose Route Start Last Admin Trade Name Freq PRN Reason Stop Dose Admin Acetaminophen 650 mg 12/23/24 06:32 Acetaminophen 325 Mg Tablet PO Q4H PRN Mild Pain (1-3) or Fever Hydrocodone Bitart/Acetaminophen 1 tab 12/23/24 14:23 12/23/24 22:43 Hydrocodone/Acetaminophen (*Crx) 5-325 Mg Tablet PO 1 tab Q6H PRN Administration Pain Rated 4-6 Aripiprazole 10 mg 12/24/24 09:00 12/24/24 10:58 Aripiprazole 10 Mg Tablet PO 10 mg DAILY LORETO Administration Aspirin 81 mg 12/24/24 09:00 12/24/24 10:57 Aspirin 81 Mg Enteric Tablet PO 81 mg QAM LORETO Administration Brimonidine Tartrate 1 drop 12/23/24 21:00 12/23/24 20:43 Brimonidine Tartrate 0.1% 5 Ml Ophth Drops EACH EYE 1 drop Q12HR LORETO Administration Clopidogrel Bisulfate 75 mg 12/24/24 09:00 12/24/24 10:58 Clopidogrel Bisulfate 75 Mg Tablet PO 75 mg QAM LORETO Administration Finasteride 5 mg 12/24/24 09:00 12/24/24 10:55 Finasteride 5 Mg Tablet PO 5 mg QAM LORETO Administration Gabapentin 100 mg 12/23/24 21:00 12/23/24 20:42 Gabapentin 100 Mg Capsule PO 100 mg QHS LORETO Administration Lidocaine 2 patch 12/24/24 03:55 12/24/24 03:55 Lidocaine 5% Patch TRANSDERM 2 patch HS LORETO Administration Lorazepam 0.5 mg 12/23/24 14:58 12/24/24 10:54 Lorazepam (*Crx) 0.5 Mg Tablet PO 0.5 mg Q8H PRN Administration Anxiety Metoprolol Succinate 50 mg 12/24/24 09:00 12/24/24 10:56 Metoprolol Succinate Ext Rel 50 Mg Tabcr PO 50 mg QAM LORETO Administration Multivitamins/Minerals 1 tab 12/24/24 09:00 12/24/24 10:57 Multivitamins /C Lutein (Centrum Silver) Tablet *Bkc PO 1 tab QAM LORETO Administration Rosuvastatin Calcium 40 mg 12/23/24 18:00 12/23/24 17:26 Rosuvastatin 20 Mg Tablet PO 40 mg EVENING LORETO Administration Tamsulosin HCl 0.4 mg 12/23/24 14:15 12/24/24 10:57 Tamsulosin Hcl 0.4 Mg Capsule PO 0.4 mg QAM LORETO Administration Radiology Results: ITS Impressions Chest X-Ray 12/22/24 20:28 IMPRESSION: Left basilar Atelectasis versus pneumonia. Scrotum Ultrasound 12/22/24 22:32 IMPRESSION: Air is seen in the left scrotum. Clinical evaluation to exclude anaerobic infection should be considered. Bilateral varicocele. Otherwise, normal testicular ultrasound. Hip CT 12/23/24 06:07 IMPRESSION: 1. No acute bone or joint abnormality. Lumbar Spine CT 12/23/24 06:11 IMPRESSION: 1. No acute fracture. 2: Severe lumbar spondylosis with fusion at L3-L5. Labs Labs: Laboratory Results - last 24 hr 12/24/24 06:04 WBC 7.4 RBC 3.94 L Hgb 12.3 L Hct 37.7 L MCV 95.7 MCH 31.2 MCHC 32.6 RDW 12.8 Plt Count 155 MPV 11.5 H Sodium 140 Potassium 4.0 Chloride 105 Carbon Dioxide 24 Anion Gap 11 BUN 26 H Creatinine 1.10 Estim Creat Clear Calc 46 Estimated GFR > 60 Glucose 129 H Calcium 9.6 Magnesium 2.0 Quality VTE Prophylaxis VTE prophylaxis: mechanical ordered and pharmacologic ordered
[2024-12-24 14:00] VITALS: BP 116/72; PULSE 85; RESP 16; TEMP 36.5; O2SAT 98
[2024-12-24] MEDS: OLANZapine 5 MG, WATER, STERILE FOR INJECTION 2.1 ML IM (15:05)
--- NOTE | 2024-12-24 18:57 | WPDPN ---
Subjective Date/time seen: 12/24/24 18:57 Interval history: this is a short progress note, patient had been confused, noncooperative, combative and aggressive patient was ativan and zyprexa without much improvement, patient was hitting nursing staff therefore patient is placed in 4 point soft retrains, patient is comfortable and NAD, there is a sitter with patient to monitor. Objective Data Vital Signs Vital Signs: Vital Signs - 24 hr 12/23/24 20:00 12/23/24 21:48 12/24/24 06:00 Temperature 36.5 C 36.3 C L Pulse Rate 68 71 Respiratory Rate 18 18 Blood Pressure 116/55 L 144/64 H Pulse Oximetry 98 99 Oxygen Delivery Room Air 12/24/24 10:56 12/24/24 13:31 12/24/24 14:00 Temperature 36.5 C Pulse Rate 72 85 Respiratory Rate 16 Blood Pressure 116/72 Pulse Oximetry 98 Oxygen Delivery Room Air 12/24/24 15:46 Temperature Pulse Rate Respiratory Rate Blood Pressure Pulse Oximetry Oxygen Delivery Room Air Intake/Output Intake/Output: Intake & Output 12/21/24 12/22/24 12/23/24 12/24/24 23:59 23:59 23:59 23:59 Intake Total 1000 1030 1780 Balance 1000 1030 1780 Meds/Results Medications: Active Medications Generic Name Dose Route Start Last Admin Trade Name Freq PRN Reason Stop Dose Admin Acetaminophen 650 mg 12/23/24 06:32 Acetaminophen 325 Mg Tablet PO Q4H PRN Mild Pain (1-3) or Fever Hydrocodone Bitart/Acetaminophen 1 tab 12/23/24 14:23 12/23/24 22:43 Hydrocodone/Acetaminophen (*Crx) 5-325 Mg Tablet PO 1 tab Q6H PRN Administration Pain Rated 4-6 Aripiprazole 10 mg 12/24/24 09:00 12/24/24 10:58 Aripiprazole 10 Mg Tablet PO 10 mg DAILY LORETO Administration Aspirin 81 mg 12/24/24 09:00 12/24/24 10:57 Aspirin 81 Mg Enteric Tablet PO 81 mg QAM LORETO Administration Brimonidine Tartrate 1 drop 12/23/24 21:00 12/24/24 17:44 Brimonidine Tartrate 0.1% 5 Ml Ophth Drops EACH EYE Not Given Q12HR LORETO Clopidogrel Bisulfate 75 mg 12/24/24 09:00 12/24/24 10:58 Clopidogrel Bisulfate 75 Mg Tablet PO 75 mg QAM LORETO Administration Finasteride 5 mg 12/24/24 09:00 12/24/24 10:55 Finasteride 5 Mg Tablet PO 5 mg QAM LORETO Administration Gabapentin 100 mg 12/23/24 21:00 12/23/24 20:42 Gabapentin 100 Mg Capsule PO 100 mg QHS LORETO Administration Lidocaine 2 patch 12/24/24 03:55 12/24/24 03:55 Lidocaine 5% Patch TRANSDERM 2 patch HS LORETO Administration Lorazepam 0.5 mg 12/23/24 14:58 12/24/24 10:54 Lorazepam (*Crx) 0.5 Mg Tablet PO 0.5 mg Q8H PRN Administration Anxiety Metoprolol Succinate 50 mg 12/24/24 09:00 12/24/24 10:56 Metoprolol Succinate Ext Rel 50 Mg Tabcr PO 50 mg QAM LORETO Administration Multivitamins/Minerals 1 tab 12/24/24 09:00 12/24/24 10:57 Multivitamins /C Lutein (Centrum Silver) Tablet *Bkc PO 1 tab QAM LORETO Administration Rosuvastatin Calcium 40 mg 12/23/24 18:00 12/24/24 18:41 Rosuvastatin 20 Mg Tablet PO Not Given EVENING LORETO Tamsulosin HCl 0.4 mg 12/23/24 14:15 12/24/24 10:57 Tamsulosin Hcl 0.4 Mg Capsule PO 0.4 mg QAM LORETO Administration Radiology Results: ITS Impressions Chest X-Ray 12/22/24 20:28 IMPRESSION: Left basilar Atelectasis versus pneumonia. Scrotum Ultrasound 12/22/24 22:32 IMPRESSION: Air is seen in the left scrotum. Clinical evaluation to exclude anaerobic infection should be considered. Bilateral varicocele. Otherwise, normal testicular ultrasound. Hip CT 12/23/24 06:07 IMPRESSION: 1. No acute bone or joint abnormality. Lumbar Spine CT 12/23/24 06:11 IMPRESSION: 1. No acute fracture. 2: Severe lumbar spondylosis with fusion at L3-L5. Knee X-Ray 12/24/24 17:54 IMPRESSION: No acute osseous abnormality left knee. Chondrocalcinosis. Labs Labs: Laboratory Results - last 24 hr 12/24/24 06:04 WBC 7.4 RBC 3.94 L Hgb 12.3 L Hct 37.7 L MCV 95.7 MCH 31.2 MCHC 32.6 RDW 12.8 Plt Count 155 MPV 11.5 H Sodium 140 Potassium 4.0 Chloride 105 Carbon Dioxide 24 Anion Gap 11 BUN 26 H Creatinine 1.10 Estim Creat Clear Calc 46 Estimated GFR > 60 Glucose 129 H Calcium 9.6 Magnesium 2.0
[2024-12-24] MEDS: GABAPENTIN 100 MG CAPSULE PO (20:23)
[2024-12-24] MEDS: BRIMONIDINE TARTRATE 0.1% 5 ML OPHTH DROPS 1 DROP EACH EYE (20:23)
[2024-12-24 22:01] VITALS: BP 97/73; PULSE 60; RESP 18; TEMP 36.8; O2SAT 100
[2024-12-25] MEDS: LORazepam (*CRX) 0.5 MG TABLET PO ×2 (00:08→21:27)
[2024-12-25 00:51] VITALS: RESP 18
[2024-12-25 04:47] VITALS: RESP 16
[2024-12-25 06:09] VITALS: BP 117/61; PULSE 65; RESP 16; O2SAT 98
--- NOTE | 2024-12-25 12:07 | P.PNIM_ITS ---
Progress Note: A&P Assessment and Plan (1) Urinary retention due to benign prostatic hyperplasia: Code(s): N40.1 - Benign prostatic hyperplasia with lower urinary tract symptoms; R33.8 - Other retention of urine Status: Acute (2) Debility: Code(s): R53.81 - Other malaise Status: Acute (3) Acute exacerbation of chronic low back pain: Code(s): M54.50 - Low back pain, unspecified; G89.29 - Other chronic pain Status: Acute (4) HTN (hypertension), benign: Code(s): I10 - Essential (primary) hypertension Status: Acute (5) Hyperlipidemia LDL goal <100: Code(s): E78.5 - Hyperlipidemia, unspecified Status: Acute (6) Atrial fibrillation: Qualifiers: Atrial fibrillation type: unspecified Qualified Code(s): I48.91 - Unspecified atrial fibrillation Code(s): I48.91 - Unspecified atrial fibrillation Status: Acute Plan Patient is 84-year-old male was brought to emergency department with poor h ygiene with complaint of unable to urinate unable to ambulate and debilitated. Patient with history of bipolar unfortunately patient had not been able to followed up by his psychiatrist. patient confused and not cooperative has a sitter, Patient states his main concern is unable to urinate though he has a frequent urination with small amount, started patient on Flomax and finasteride which has helped patient with urination. will have PT/OT work with the patient, will continue to monitor. there was incidental finding on patient CT of abdomen which was concerning of renal mass to delores evaluate patient had renal US which showed 4.3 x 3.6 x 3.8 cm probable mass in the renal pelvis region, suspicious for urothelial carcinoma. CT urogram or pre and postcontrast renal MRI recommended to assess for enhancing soft tissue neoplastic lesion versus a potential alternative consideration such as hematoma. will consult urologist for further recommendations. Subjective Date/time seen: 12/25/24 12:07 Interval history: on 12/24, was called to assess, patient had been confused, noncooperative, combative and aggressive patient was given Ativan and Zyprexa without much improvement, patient was hitting nursing staff therefore patient was placed in 4 point soft retrains, today patient still remains in strain patient is comfortable and NAD, there is a sitter with patient to monitor. Patient is 84-year-old male was brought to emergency department with poor hygiene with complaint of unable to urinate unable to ambulate and debilitated. Patient with history of bipolar unfortunately patient had not been able to followed up by his psychiatrist. patient confused and not cooperative has a sitter, Patient states his main concern is unable to urinate though he has a frequent urination with small amount, started patient on Flomax and finasteride which has helped patient with urination. will have PT/OT work with the patient, will continue to monitor. there was incidental finding on patient CT of abdomen which was concerning of renal mass to delores evaluate patient had renal US which showed 4.3 x 3.6 x 3.8 cm probable mass in the renal pelvis region, suspicious for urothelial carcinoma. CT urogram or pre and postcontrast renal MRI recommended to assess for enhancing soft tissue neoplastic lesion versus a potential alternative consideration such as hematoma. will consult urologist for further recommendations. Review of Systems Review of Systems: A 10 system review of systems was completed on the patient and is negative except for what is stated in the HPI. Nursing and ancillary documentation was reviewed. Exam Narrative: Elderly somewhat confused Patient is comfortable, NAD HEENT: eyes are clear and none icteric LUNGS:CTA HEART: RR S1S2 ABD: BS+, Soft and nontender Lower extremities: no edema SKIN: nonjaundiced Neuro: grossly intact. Objective Data Vital Signs Vital Signs: Vital Signs - 24 hr 12/24/24 13:31 12/24/24 14:00 12/24/24 15:46 Temperature 36.5 C Pulse Rate 85 Respiratory Rate 16 Blood Pressure 116/72 Pulse Oximetry 98 Oxygen Delivery Room Air Room Air 12/24/24 20:00 12/24/24 22:01 12/25/24 00:51 Temperature 36.8 C Pulse Rate 60 Respiratory Rate 18 18 Blood Pressure 97/73 L Pulse Oximetry 100 Oxygen Delivery Room Air 12/25/24 04:47 12/25/24 06:09 Temperature Pulse Rate 65 Respiratory Rate 16 16 Blood Pressure 117/61 Pulse Oximetry 98 Oxygen Delivery Intake/Output Intake/Output: Intake & Output 12/22/24 12/23/24 12/24/24 12/25/24 23:59 23:59 23:59 23:59 Intake Total 1000 1030 1780 640 Output Total 800 Balance 1000 1030 1780 -160 Meds/Results Medications: Active Medications Generic Name Dose Route Start Last Admin Trade Name Freq PRN Reason Stop Dose Admin Acetaminophen 650 mg 12/23/24 06:32 Acetaminophen 325 Mg Tablet PO Q4H PRN Mild Pain (1-3) or Fever Hydrocodone Bitart/Acetaminophen 1 tab 12/23/24 14:23 12/23/24 22:43 Hydrocodone/Acetaminophen (*Crx) 5-325 Mg Tablet PO 1 tab Q6H PRN Administration Pain Rated 4-6 Aripiprazole 10 mg 12/24/24 09:00 12/24/24 10:58 Aripiprazole 10 Mg Tablet PO 10 mg DAILY LORETO Administration Aspirin 81 mg 12/24/24 09:00 12/24/24 10:57 Aspirin 81 Mg Enteric Tablet PO 81 mg QAM LORETO Administration Brimonidine Tartrate 1 drop 12/23/24 21:00 12/24/24 20:23 Brimonidine Tartrate 0.1% 5 Ml Ophth Drops EACH EYE 1 drop Q12HR LORETO Administration Clopidogrel Bisulfate 75 mg 12/24/24 09:00 12/24/24 10:58 Clopidogrel Bisulfate 75 Mg Tablet PO 75 mg QAM LORETO Administration Finasteride 5 mg 12/24/24 09:00 12/24/24 10:55 Finasteride 5 Mg Tablet PO 5 mg QAM LORETO Administration Gabapentin 100 mg 12/23/24 21:00 12/24/24 20:23 Gabapentin 100 Mg Capsule PO 100 mg QHS LORETO Administration Lidocaine 2 patch 12/24/24 03:55 12/24/24 20:20 Lidocaine 5% Patch TRANSDERM 2 patch HS LORETO Administration Lorazepam 0.5 mg 12/23/24 14:58 12/25/24 00:08 Lorazepam (*Crx) 0.5 Mg Tablet PO 0.5 mg Q8H PRN Administration Anxiety Metoprolol Succinate 50 mg 12/24/24 09:00 12/24/24 10:56 Metoprolol Succinate Ext Rel 50 Mg Tabcr PO 50 mg QAM LORETO Administration Multivitamins/Minerals 1 tab 12/24/24 09:00 12/24/24 10:57 Multivitamins /C Lutein (Centrum Silver) Tablet *Bkc PO 1 tab QAM LORETO Administration Rosuvastatin Calcium 40 mg 12/23/24 18:00 12/24/24 18:41 Rosuvastatin 20 Mg Tablet PO Not Given EVENING [facility] Tamsulosin HCl 0.4 mg 12/23/24 14:15 12/24/24 10:57 Tamsulosin Hcl 0.4 Mg Capsule PO 0.4 mg QAM [facility] Administration Radiology Results: ITS Impressions Chest X-Ray 12/22/24 20:28 IMPRESSION: Left basilar Atelectasis versus pneumonia. Scrotum Ultrasound 12/22/24 22:32 IMPRESSION: Air is seen in the left scrotum. Clinical evaluation to exclude anaerobic infection should be considered. Bilateral varicocele. Otherwise, normal testicular ultrasound. Hip CT 12/23/24 06:07 IMPRESSION: 1. No acute bone or joint abnormality. Lumbar Spine CT 12/23/24 06:11 IMPRESSION: 1. No acute fracture. 2: Severe lumbar spondylosis with fusion at L3-L5. Knee X-Ray 12/24/24 17:54 IMPRESSION: No acute osseous abnormality left knee. Chondrocalcinosis. Renal Ultrasound 12/25/24 06:36 Impression: 4.3 x 3.6 x 3.8 cm probable mass in the renal pelvis region, suspicious for urothelial carcinoma. CT urogram or pre and postcontrast renal MRI recommended to assess for enhancing soft tissue neoplastic lesion versus a potential alternative consideration such as hematoma. Quality VTE Prophylaxis VTE prophylaxis: mechanical ordered and pharmacologic ordered
[2024-12-25 12:46] LABS: Hematocrit 37.1 % (42.0-52.0); Hemoglobin 12.2 g/dL (14.0-18.0); Immature Platelet Fraction Pct 5.1 % (0.9-11.2); Mean Corpuscular HGB Conc 32.9 g/dl (32-36); Mean Corpuscular Hemoglobin 31.1 pg (26-34); Mean Corpuscular Volume 94.6 fl (80-100); Mean Platelet Volume 10.9 fl (7.4-10.4); Platelet Count Result 121 k/mm3 (150-375); Red Blood Count 3.92 M/mm3 (4.6-6.20); White Blood Count 6.8 K/mm3 (4.5-10.0)
[2024-12-25 12:54] LABS: Anion Gap 8 mmol/L (4-12); Blood Urea Nitrogen 20 mg/dL (9-20); Calcium 9.5 mg/dL (8.4-10.2); Carbon Dioxide 25 mmol/L (22-30); Chloride 107 mmol/L (98-107); Estimated CRCL calculation 52 ml/min; Estimated Glomerular Filt Rate > 60; Glucose 86 mg/dL (65-110); Magnesium 1.9 mg/dL (1.6-2.3); Sodium 140 mmol/L (137-145)
[2024-12-25 14:00] VITALS: BP 122/77; PULSE 61; RESP 16; TEMP 36.1; O2SAT 97
[2024-12-25 21:22] VITALS: BP 137/88; PULSE 65; RESP 16; TEMP 37.1; O2SAT 96
[2024-12-25] MEDS: GABAPENTIN 100 MG CAPSULE PO (21:27)
[2024-12-25] MEDS: BRIMONIDINE TARTRATE 0.1% 5 ML OPHTH DROPS 1 DROP EACH EYE (21:29)
[2024-12-25] MEDS: LIDOCAINE 5% PATCH 2 PATCH TRANSDERM (21:46)
[2024-12-26] VITALS: BP 132/73; PULSE 60; RESP 16; TEMP 36.8; O2SAT 98
[2024-12-26 06:00] VITALS: BP 111/92; PULSE 78; RESP 14; TEMP 36.6; O2SAT 95
[2024-12-26 06:57] LABS: Hematocrit 41.7 % (42.0-52.0); Hemoglobin 13.7 g/dL (14.0-18.0); Immature Platelet Fraction Pct 5.7 % (0.9-11.2); Mean Corpuscular HGB Conc 32.9 g/dl (32-36); Mean Corpuscular Hemoglobin 30.9 pg (26-34); Mean Corpuscular Volume 93.9 fl (80-100); Mean Platelet Volume 11.3 fl (7.4-10.4); Platelet Count Result 146 k/mm3 (150-375); Red Blood Count 4.44 M/mm3 (4.6-6.20); Red Cell Distribution Width 12.7 % (11.5-14.5); White Blood Count 6.8 K/mm3 (4.5-10.0)
[2024-12-26 07:10] LABS: Anion Gap 11 mmol/L (4-12); Blood Urea Nitrogen 20 mg/dL (9-20); Calcium 9.9 mg/dL (8.4-10.2); Carbon Dioxide 24 mmol/L (22-30); Chloride 104 mmol/L (98-107); Estimated CRCL calculation 55 ml/min; Estimated Glomerular Filt Rate > 60; Glucose 84 mg/dL (65-110); Potassium 4.1 mmol/L (3.4-5.0); Sodium 139 mmol/L (137-145)
[2024-12-26 09:35] VITALS: PULSE 64
[2024-12-26] MEDS: LORazepam (*CRX) 0.5 MG TABLET PO ×2 (09:35→20:16)
[2024-12-26] MEDS: ASPIRIN 81 MG ENTERIC TABLET PO (09:35)
[2024-12-26] MEDS: MULTIVITAMINS /C LUTEIN (CENTRUM SILVER) TABLET *BKC 1 TAB PO (09:35)
[2024-12-26] MEDS: METOPROLOL SUCCINATE EXT REL 50 MG TABCR PO (09:35)
[2024-12-26] MEDS: ARIPiprazole 10 MG TABLET PO (09:36)
[2024-12-26] MEDS: TAMSULOSIN HCL 0.4 MG CAPSULE PO (09:36)
[2024-12-26] MEDS: CLOPIDOGREL BISULFATE 75 MG TABLET PO (09:36)
[2024-12-26] MEDS: FINASTERIDE 5 MG TABLET PO (09:36)
[2024-12-26] MEDS: BRIMONIDINE TARTRATE 0.1% 5 ML OPHTH DROPS 1 DROP EACH EYE ×2 (09:40→20:16)
--- NOTE | 2024-12-26 12:20 | P.CONUR_ITS ---
Assessment and Plan Assessment and plan (1) Renal mass, right: Code(s): N28.89 - Other specified disorders of kidney and ureter Status: Acute Assessment and Plan: - 3.5cm right renal mass noted on noncontrast CT imaging and renal ultrasound, new compared to CT imaging in [facility] 4[facility] years ago - Known history of bilateral renal cysts (2) Scrotal pain: Code(s): N50.82 - Scrotal pain Status: Acute Assessment and Plan: - Left scrotal gas and bilateral varicocele noted on testicular ultrasound - Urine culture negative for infection - Perineal tenderness on palpation, testicles unremarkable (3) BPH w urinary obs/LUTS: Code(s): N40.1 - Benign prostatic hyperplasia with lower urinary tract symptoms; N13.8 - Other obstructive and reflux uropathy Status: Acute Assessment and Plan: - Chronic prostatomegaly with hx laser vaporization - Hospitalist restarted tamsulosin, finasteride on admission (4) History of elevated PSA: Code(s): Z87.898 - Personal history of other specified conditions Status: Acute Assessment and Plan: PSA Trend 10/2022 9.84 04/2022 9.14 05/2021 8.56 11/2019 7.83 07/2018 10.16 Negative prostate biopsy 2018 (5) Debility: Code(s): R53.81 - Other malaise Status: Acute Assessment and Plan: - Per hospitalist input, he may require detention placement Plan - Renal function stable, Cr 0.9 - No leukocytosis, afebrile - Agree with tamsulosin + finasteride for obstructive BPH - Recommend CT urogram when patient no longer requires restraints to better assess upper tract - Recommend outpatient cystoscopy to evaluate for recurrent urethral stricture - Symptoms of dysuria, increased urinary frequency, and perineum tenderness suspicious for prostatitis - Consider treatment with 14-day course BID Cipro or Bactrim - Patient will need referral to [facility] or [facility] for ongoing outpatient management Urology Consult Note HPI Date Seen: 12/26/24 Requesting Physician: Israel Elias MD Primary Care Provider: Andrés Garcia DO Consult Narrative Reason for consult: Right renal mass Narrative: Andrés Uma Dempsey is an 84 year old male admitted 12/23/24 from home with low back pain, dysuria, testicular pain, debility after he was found down by EMS covered in urine and feces. On chart review, patient has an extensive urologic history including obstructive BPH, chronically elevated PSA, bulbar urethral stricture, bilateral renal cysts. He is a former patient of Dr. Munoz ([facility]), last office visit 11/2022. Had negative prostate biopsy in 2019. Urethral stricture dilation & laser vaporization of prostate 10/2022. He was dismissed from [facility] in 2013 after an escalating behavioral episode in clinic. On chart review in [facility], he has not been evaluated by urology in 2 years. Medical history significant for biploar depression, cardiac disease, pacemaker, chronic low back pain, former smoker. DNR code status noted. Urology was consulted for evaluation of right kidney abnormality suspicious for possible renal mass identified on CT imaging. He was previously on finasteride and tamsulosin for prostatomegaly, unknown how long he has been without these medications. These meds were restarted by the hospitalist team on admission. On exam, patient is in 4-point restraints. Bedside sitter reports violent behavior, including kicking and swinging at staff. He is alert and conversational, [facility] historian. States he and his primary care provider make decisions together. Reports low back pain currently, denies dysuria, constipation, abdominal pain, fever, nausea. Testicular exam unremarkable except mild perineal tenderness. PERTINENT IMAGIN12/24/24 Renal-Bladder Ultrasound Impression: 4.3 x 3.6 x 3.8 cm probable mass in the right renal pelvis region, suspicious for urothelial carcinoma. CT urogram or pre and postcontrast renal MRI recommended to assess for enhancing soft tissue neoplastic lesion versus a potential alternative consideration such as hematoma. /12/22/24 Testicular Ultrasound Impression: Air is seen in the left scrotum. Clinical evaluation to exclude anaerobic infection should be considered. Bilateral varicocele. Otherwise, normal testicular ultrasound. 12/22/24 CT AP WO CON Kidneys: Left parapelvic cysts are noted. Soft tissue density in the right renal pelvis is noted measuring 2.8 cm and extending into the renal pelvis. A mass cannot be excluded. Other differential include hematoma. Further evaluation advised. PELVIC ORGANS: The bladder is normal. Grossly enlarged prostate is noted. PERTINENT LABS: 12/26/24 - WBC 6.8, HGB 13.7, Cr 0.91 12/23/24 URINALYSIS - negative for blood and infection Review of Systems 2 Constitutional: Constitutional: Reports as per HPI Eyes: Eyes: Reports no additional eye complaints ENT: Reports Normal hearing present Cardiovascular: Cardiovascular: Denies chest pain Respiratory: Respiratory: Reports no additional respiratory complaints Gastrointestinal: Gastrointestinal: Reports as per HPI Genitourinary: Genitourinary: Reports as per HPI Musculoskeletal: Musculoskeletal: Reports as per HPI Psychiatric: Psychiatric: Reports as per HPI [facility] Past Medical History Medical History (Updated 12/26/24 @ 15:05 by Kamini Nunn APRN) Bulbous urethral stricture Anxiety Neuropathy Pacemaker Age-related cognitive decline Vision disorder Arthritis Prostate disorder Prophylactic gland removal Removed from neck 1976 Surgical History Surgical History S/P eye surgery Left eye 2024 Previous back surgery Fusion S3-S5 History of hip replacement Left 2006 Family History Family History Father Cancer Mother Cancer Colostomy care Son Diabetes mellitus Social History Social History Smoking status: Current some day smoker Second hand tobacco smoke exposure: No Alcohol intake: unknown Substance use: never Substance use type: does not use Do You Feel Safe in your Home?: Yes Lack of Transportation: No Lack of Food: Never True Current Housing: I Have Housing Concerned About Future Housing: No Difficulty Paying Gas/Electric Bills: No Difficulty Paying for Meds: No Currently Unemployed: No Education: High School Diploma/GED Difficulty w/ Childcare or Family Care: No Occupation/Education: retired 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 Spiritual care concerns: No Meds Home Medications and Allergies Home Medications ?Medication ?Instructions ?Recorded ?Confirmed ?Type [id number] 150 mcg-vit K1 1 tablet PO DAILY 06/22/24 12/23/24 History 30 mcg-lycop 300 mcg-lutein tablet (Centrum Minis Men 50 Plus) gabapentin 100 mg capsule 100 mg PO QHS #90 caps 08/10/24 12/23/24 Rx brimonidine 0.1 % eye drops 1 drp EACH EYE BID 12/01/24 12/23/24 History aripiprazole 10 mg tablet (Abilify) 10 mg PO DAILY #30 tabs 12/07/24 12/23/24 Rx aspirin 81 mg tablet,delayed 81 mg PO QAM #30 tabs 12/07/24 12/23/24 Rx release clopidogrel 75 mg tablet 75 mg PO QAM #30 tabs 12/07/24 12/23/24 Rx metoprolol succinate 50 mg 50 mg PO QAM #30 tabs 12/07/24 12/23/24 Rx tablet,extended release 24 hr rosuvastatin 20 mg tablet 40 mg (2 x 20 mg) PO EVENING #30 12/07/24 12/23/24 Rx tabs Allergies Allergy/AdvReac Type Severity Reaction Status Date / Time No Known Allergies Allergy Verified 12/22/24 19:44 Vital Signs Vital Signs - 24 hr 12/25/24 14:00 12/25/24 20:00 12/25/24 21:22 Temperature 97.0 F L 98.7 F Pulse Rate 61 65 Respiratory Rate 16 16 Blood Pressure 122/77 137/88 Pulse Oximetry 97 96 Oxygen Delivery Room Air 12/26/24 00:00 12/26/24 06:00 12/26/24 08:00 Temperature 98.2 F 97.9 F Pulse Rate 60 78 Respiratory Rate 16 14 Blood Pressure 132/73 111/92 H Pulse Oximetry 98 95 Oxygen Delivery Room Air 12/26/24 09:35 Temperature Pulse Rate 64 Respiratory Rate Blood Pressure Pulse Oximetry Oxygen Delivery Exam 2 Const: General: no acute distress HENMT: Face/Nose/Sinus: Normal nares present Eyes: General: appearance normal, both eyes and all related structures Resp: Effort & Inspection: normal respiratory effort : Male General Exam: Yes tenderness (perineal ) Urinary Catheter: Urinary Catheter: other (PureWick) Skin: General skin exam: normal color Psych: Affect: normal affect Results Labs 12/26/24 06:17 12/26/24 06:17 Labs: Short CBC 12/25/24 12/26/24 Range/Units 12:39 06:17 WBC 6.8 6.8 (4.5-10.0) K/mm3 Hgb 12.2 L 13.7 L (14.0-18.0) g/dL Hct 37.1 L 41.7 L (42.0-52.0) % Plt Count 121 L 146 L (150-375) k/mm3 BMP 12/25/24 12/26/24 12:39 06:17 Sodium 140 139 Potassium 4.0 4.1 Chloride 107 104 Carbon Dioxide 25 24 BUN 20 20 Creatinine 0.96 0.91 Glucose 86 84 Calcium 9.5 9.9
[2024-12-26 13:57] VITALS: BP 120/60; PULSE 60; RESP 18; TEMP 36.5; O2SAT 95
--- NOTE | 2024-12-26 16:49 | PM.IMPN ---
Progress Note: A&P Assessment and Plan (1) Urinary retention due to benign prostatic hyperplasia: Code(s): N40.1 - Benign prostatic hyperplasia with lower urinary tract symptoms; R33.8 - Other retention of urine Status: Acute (2) Debility: Code(s): R53.81 - Other malaise Status: Acute (3) Acute exacerbation of chronic low back pain: Code(s): M54.50 - Low back pain, unspecified; G89.29 - Other chronic pain Status: Acute (4) HTN (hypertension), benign: Code(s): I10 - Essential (primary) hypertension Status: Acute (5) Hyperlipidemia LDL goal <100: Code(s): E78.5 - Hyperlipidemia, unspecified Status: Acute (6) Atrial fibrillation: Qualifiers: Atrial fibrillation type: unspecified Qualified Code(s): I48.91 - Unspecified atrial fibrillation Code(s): I48.91 - Unspecified atrial fibrillation Status: Acute Plan Patient is 84-year-old male was brought to emergency department with poor hygiene with complaint of unable to urinate unable to ambulate and debilitated. Patient with history of bipolar unfortunately patient had not been able to followed up by his psychiatrist. patient confused and not cooperative has a sitter, Patient states his main concern is unable to urinate though he has a frequent urination with small amount, started patient on Flomax and finasteride which has helped patient with urination. will have PT/OT work with the patient, will continue to monitor. there was incidental finding on patient CT of abdomen which was concerning of renal mass to delores evaluate patient had renal US which showed 4.3 x 3.6 x 3.8 cm probable mass in the renal pelvis region, suspicious for urothelial carcinoma. CT urogram or pre and postcontrast renal MRI recommended to assess for enhancing soft tissue neoplastic lesion versus a potential alternative consideration such as hematoma. Today patient was seen by urologist to further evaluate renal and monitor patient will need CT urogram this can be done once the patient is more cooperative and clinically stable, the urologist also suspect the patient urinary symptoms may be stemming from parostitis and recommended 14 days of Cipro which will start. today spoke with patient daughter Orly and gave update, she is not too keen to transfer patient to [facility] or [facility]. Subjective Date/time seen: 12/26/24 16:49 Interval history: on 12/24, was called to assess, patient had been confused, noncooperative, combative and aggressive patient was given Ativan and Zyprexa without much improvement, patient was hitting nursing staff therefore patient was placed in 4 point soft retrains, today patient still remains in strain patient is comfortable and NAD, there is a sitter with patient to monitor. Patient is 84-year-old male was brought to emergency department with poor hygiene with complaint of unable to urinate unable to ambulate and debilitated. Patient with history of bipolar unfortunately patient had not been able to followed up by his psychiatrist. patient confused and not cooperative has a sitter, Patient states his main concern is unable to urinate though he has a frequent urination with small amount, started patient on Flomax and finasteride which has helped patient with urination. will have PT/OT work with the patient, will continue to monitor. there was incidental finding on patient CT of abdomen which was concerning of renal mass to delores evaluate patient had renal US which showed 4.3 x 3.6 x 3.8 cm probable mass in the renal pelvis region, suspicious for urothelial carcinoma. CT urogram or pre and postcontrast renal MRI recommended to assess for enhancing soft tissue neoplastic lesion versus a potential alternative consideration such as hematoma. Today patient was seen by urologist to further evaluate renal and monitor patient will need CT urogram this can be done once the patient is more cooperative and clinically stable, the urologist also suspect the patient urinary symptoms may be stemming from parostitis and recommended 14 days of Cipro which will start. today spoke with patient daughter Orly and gave update, she is not too keen to transfer patient to [facility] or [facility]. Review of Systems Review of Systems: A 10 system review of systems was completed on the patient and is negative except for what is stated in the HPI. Nursing and ancillary documentation was reviewed. Exam Narrative: Elderly somewhat confused Patient is comfortable, NAD HEENT: eyes are clear and none icteric LUNGS:CTA HEART: RR S1S2 ABD: BS+, Soft and nontender Lower extremities: no edema SKIN: nonjaundiced Neuro: grossly intact. Objective Data Vital Signs Vital Signs: Vital Signs - 24 hr 12/25/24 20:00 12/25/24 21:22 12/26/24 00:00 Temperature 37.1 C 36.8 C Pulse Rate 65 60 Respiratory Rate 16 16 Blood Pressure 137/88 132/73 Pulse Oximetry 96 98 Oxygen Delivery Room Air 12/26/24 06:00 12/26/24 08:00 12/26/24 09:35 Temperature 36.6 C Pulse Rate 78 64 Respiratory Rate 14 Blood Pressure 111/92 H Pulse Oximetry 95 Oxygen Delivery Room Air 12/26/24 13:57 Temperature 36.5 C Pulse Rate 60 Respiratory Rate 18 Blood Pressure 120/60 Pulse Oximetry 95 Oxygen Delivery Intake/Output Intake/Output: Intake & Output 12/23/24 12/24/24 12/25/24 12/26/24 23:59 23:59 23:59 23:59 Intake Total 1030 1780 640 150 Output Total 800 450 Balance 1030 1780 -160 -300 Meds/Results Medications: Active Medications Generic Name Dose Route Start Last Admin Trade Name Freq PRN Reason Stop Dose Admin Acetaminophen 650 mg 12/23/24 06:32 Acetaminophen 325 Mg Tablet PO Q4H PRN Mild Pain (1-3) or Fever Hydrocodone Bitart/Acetaminophen 1 tab 12/23/24 14:23 12/23/24 22:43 Hydrocodone/Acetaminophen (*Crx) 5-325 Mg Tablet PO 1 tab Q6H PRN Administration Pain Rated 4-6 Aripiprazole 10 mg 12/24/24 09:00 12/26/24 09:36 Aripiprazole 10 Mg Tablet PO 10 mg DAILY LORETO Administration Aspirin 81 mg 12/24/24 09:00 12/26/24 09:35 Aspirin 81 Mg Enteric Tablet PO 81 mg QAM LORETO Administration Brimonidine Tartrate 1 drop 12/23/24 21:00 12/26/24 09:40 Brimonidine Tartrate 0.1% 5 Ml Ophth Drops EACH EYE 1 drop Q12HR LORETO Administration Clopidogrel Bisulfate 75 mg 12/24/24 09:00 12/26/24 09:36 Clopidogrel Bisulfate 75 Mg Tablet PO 75 mg QAM LORETO Administration Finasteride 5 mg 12/24/24 09:00 12/26/24 09:36 Finasteride 5 Mg Tablet PO 5 mg QAM LORETO Administration Gabapentin 100 mg 12/23/24 21:00 12/25/24 21:27 Gabapentin 100 Mg Capsule PO 100 mg QHS LORETO Administration Lidocaine 2 patch 12/24/24 03:55 12/25/24 21:46 Lidocaine 5% Patch TRANSDERM 2 patch HS LORETO Administration Lorazepam 0.5 mg 12/23/24 14:58 12/26/24 09:35 Lorazepam (*Crx) 0.5 Mg Tablet PO 0.5 mg Q8H PRN Administration Anxiety Metoprolol Succinate 50 mg 12/24/24 09:00 12/26/24 09:35 Metoprolol Succinate Ext Rel 50 Mg Tabcr PO 50 mg QAM LORETO Administration Multivitamins/Minerals 1 tab 12/24/24 09:00 12/26/24 09:35 Multivitamins /C Lutein (Centrum Silver) Tablet *Bkc PO 1 tab QAM LORETO Administration Rosuvastatin Calcium 40 mg 12/23/24 18:00 12/25/24 18:56 Rosuvastatin 20 Mg Tablet PO Not Given EVENING LORETO Tamsulosin HCl 0.4 mg 12/23/24 14:15 12/26/24 09:36 Tamsulosin Hcl 0.4 Mg Capsule PO 0.4 mg QAM LORETO Administration Radiology Results: ITS Impressions Chest X-Ray 12/22/24 20:28 IMPRESSION: Left basilar Atelectasis versus pneumonia. Scrotum Ultrasound 12/22/24 22:32 IMPRESSION: Air is seen in the left scrotum. Clinical evaluation to exclude anaerobic infection should be considered. Bilateral varicocele. Otherwise, normal testicular ultrasound. Hip CT 12/23/24 06:07 IMPRESSION: 1. No acute bone or joint abnormality. Lumbar Spine CT 12/23/24 06:11 IMPRESSION: 1. No acute fracture. 2: Severe lumbar spondylosis with fusion at L3-L5. Knee X-Ray 12/24/24 17:54 IMPRESSION: No acute osseous abnormality left knee. Chondrocalcinosis. Renal Ultrasound 12/25/24 06:36 Impression: 4.3 x 3.6 x 3.8 cm probable mass in the renal pelvis region, suspicious for urothelial carcinoma. CT urogram or pre and postcontrast renal MRI recommended to assess for enhancing soft tissue neoplastic lesion versus a potential alternative consideration such as hematoma. Labs Labs: Laboratory Results - last 24 hr 12/26/24 06:17 WBC 6.8 RBC 4.44 L Hgb 13.7 L Hct 41.7 L MCV 93.9 MCH 30.9 MCHC 32.9 RDW 12.7 Plt Count 146 L MPV 11.3 H % Immature Plt Fraction 5.7 Sodium 139 Potassium 4.1 Chloride 104 Carbon Dioxide 24 Anion Gap 11 BUN 20 Creatinine 0.91 Estim Creat Clear Calc 55 Estimated GFR > 60 Glucose 84 Calcium 9.9 Magnesium 2.0 Quality VTE Prophylaxis VTE prophylaxis: mechanical ordered and pharmacologic ordered
[2024-12-26] MEDS: ROSUVASTATIN 20 MG TABLET 40 MG PO (17:41)
[2024-12-26] MEDS: HYDROcodone/acetaminophen (*CRX) 5-325 MG TABLET 1 TAB PO (18:16)
[2024-12-26] MEDS: LIDOCAINE 5% PATCH 2 PATCH TRANSDERM (20:16)
[2024-12-26] MEDS: CIPROFLOXACIN 500 MG TAB PO (20:16)
[2024-12-26] MEDS: GABAPENTIN 100 MG CAPSULE PO (20:16)
[2024-12-26 20:47] VITALS: BP 109/54; PULSE 67; RESP 20; TEMP 37; O2SAT 95
[2024-12-27] VITALS: BP 115/67; PULSE 67; RESP 16; TEMP 37.1; O2SAT 95
[2024-12-27 05:46] VITALS: BP 117/65; PULSE 67; RESP 18; TEMP 36.6; O2SAT 90
[2024-12-27 06:39] LABS: Hemoglobin 13.5 g/dL (14.0-18.0); Immature Platelet Fraction Pct 5.4 % (0.9-11.2); Mean Corpuscular HGB Conc 32.9 g/dl (32-36); Mean Corpuscular Volume 94.3 fl (80-100); Mean Platelet Volume 10.9 fl (7.4-10.4); Platelet Count Result 136 k/mm3 (150-375); Red Blood Count 4.35 M/mm3 (4.6-6.20); Red Cell Distribution Width 12.5 % (11.5-14.5); White Blood Count 7.9 K/mm3 (4.5-10.0)
[2024-12-27 07:00] LABS: Anion Gap 8 mmol/L (4-12); Blood Urea Nitrogen 24 mg/dL (9-20); Calcium 9.9 mg/dL (8.4-10.2); Carbon Dioxide 26 mmol/L (22-30); Chloride 103 mmol/L (98-107); Estimated CRCL calculation 52 ml/min; Estimated Glomerular Filt Rate > 60; Glucose 95 mg/dL (65-110); Magnesium 1.9 mg/dL (1.6-2.3); Potassium 4.3 mmol/L (3.4-5.0); Sodium 137 mmol/L (137-145)
[2024-12-27 08:26] VITALS: PULSE 68
[2024-12-27] MEDS: MULTIVITAMINS /C LUTEIN (CENTRUM SILVER) TABLET *BKC 1 TAB PO (08:26)
[2024-12-27] MEDS: ARIPiprazole 10 MG TABLET PO (08:26)
[2024-12-27] MEDS: METOPROLOL SUCCINATE EXT REL 50 MG TABCR PO (08:26)
[2024-12-27] MEDS: TAMSULOSIN HCL 0.4 MG CAPSULE PO (08:26)
[2024-12-27] MEDS: CIPROFLOXACIN 500 MG TAB PO ×2 (08:26→21:16)
[2024-12-27] MEDS: CLOPIDOGREL BISULFATE 75 MG TABLET PO (08:26)
[2024-12-27] MEDS: ASPIRIN 81 MG ENTERIC TABLET PO (08:26)
[2024-12-27] MEDS: HYDROcodone/acetaminophen (*CRX) 5-325 MG TABLET 1 TAB PO ×3 (08:27→21:16)
[2024-12-27] MEDS: FINASTERIDE 5 MG TABLET PO (08:27)
[2024-12-27] MEDS: BRIMONIDINE TARTRATE 0.1% 5 ML OPHTH DROPS 1 DROP EACH EYE ×2 (08:28→21:17)
[2024-12-27 14:00] VITALS: BP 105/56; PULSE 62; RESP 16; TEMP 36; O2SAT 99
--- NOTE | 2024-12-27 14:13 | P.PNIM_ITS ---
Progress Note: A&P Assessment and Plan (1) Urinary retention due to benign prostatic hyperplasia: Code(s): N40.1 - Benign prostatic hyperplasia with lower urinary tract symptoms; R33.8 - Other retention of urine Status: Acute (2) Debility: Code(s): R53.81 - Other malaise Status: Acute (3) Acute exacerbation of chronic low back pain: Code(s): M54.50 - Low back pain, unspecified; G89.29 - Other chronic pain Status: Acute (4) HTN (hypertension), benign: Code(s): I10 - Essential (primary) hypertension Status: Acute (5) Hyperlipidemia LDL goal <100: Code(s): E78.5 - Hyperlipidemia, unspecified Status: Acute (6) Atrial fibrillation: Qualifiers: Atrial fibrillation type: unspecified Qualified Code(s): I48.91 - Unspecified atrial fibrillation Code(s): I48.91 - Unspecified atrial fibrillation Status: Acute Plan Patient is 84-year-old male was brought to emergency department with poor h ygiene with complaint of unable to urinate unable to ambulate and debilitated. Patient with history of bipolar unfortunately patient had not been able to followed up by his psychiatrist. patient confused and not cooperative has a sitter, Patient states his main concern is unable to urinate though he has a frequent urination with small amount, started patient on Flomax and finasteride which has helped patient with urination. will have PT/OT work with the patient, will continue to monitor. there was incidental finding on patient CT of abdomen which was concerning of renal mass to delores evaluate patient had renal US which showed 4.3 x 3.6 x 3.8 cm probable mass in the renal pelvis region, suspicious for urothelial carcinoma. CT urogram or pre and postcontrast renal MRI recommended to assess for enhancing soft tissue neoplastic lesion versus a potential alternative consideration such as hematoma. Today patient was seen by urologist to further evaluate renal and monitor patient will need CT urogram this can be done once the patient is more cooperative and clinically stable, the urologist also suspect the patient urinary symptoms may be stemming from parostitis and recommended 14 days of Cipro which will start. on 12/26 spoke with patient daughter Orly and gave update, she is not too keen to transfer patient to [facility] or [facility]. patient still need aggresive and needs soft restains, will continue to monitor. Subjective Date/time seen: 12/27/24 14:13 Interval history: on 12/24, was called to assess, patient had been confused, noncooperative, combative and aggressive patient was given Ativan and Zyprexa without much im provement, patient was hitting nursing staff therefore patient was placed in 4 point soft retrains, today patient still remains in strain patient is comfortable and NAD, there is a sitter with patient to monitor. Patient is 84-year-old male was brought to emergency department with poor hygiene with complaint of unable to urinate unable to ambulate and debilitated. Patient with history of bipolar unfortunately patient had not been able to followed up by his psychiatrist. patient confused and not cooperative has a sitter, Patient states his main concern is unable to urinate though he has a frequent urination with small amount, started patient on Flomax and finasteride which has helped patient with urination. will have PT/OT work with the patient, will continue to monitor. there was incidental finding on patient CT of abdomen which was concerning of renal mass to delores evaluate patient had renal US which showed 4.3 x 3.6 x 3.8 cm probable mass in the renal pelvis region, suspicious for urothelial carcinoma. CT urogram or pre and postcontrast renal MRI recommended to assess for enhancing soft tissue neoplastic lesion versus a potential alternative consideration such as hematoma. Today patient was seen by urologist to further evaluate renal and monitor patient will need CT urogram this can be done once the patient is more cooperative and clinically stable, the urologist also suspect the patient urinary symptoms may be stemming from parostitis and recommended 14 days of Cipro which will start. on 12/26 spoke with patient daughter Orly and gave update, she is not too keen to transfer patient to [facility] or [facility]. patient still need aggresive and needs soft restains, will continue to monitor. Review of Systems Review of Systems: A 10 system review of systems was completed on the patient and is negative except for what is stated in the HPI. Nursing and ancillary documentation was reviewed. Exam Narrative: Elderly somewhat confused Patient is comfortable, NAD HEENT: eyes are clear and none icteric LUNGS:CTA HEART: RR S1S2 ABD: BS+, Soft and nontender Lower extremities: no edema SKIN: nonjaundiced Neuro: grossly intact. Objective Data Vital Signs Vital Signs: Vital Signs - 24 hr 12/26/24 20:47 12/27/24 00:00 12/27/24 05:46 Temperature 37.0 C 37.1 C 36.6 C Pulse Rate 67 67 67 Respiratory Rate 20 16 18 Blood Pressure 109/54 L 115/67 117/65 Pulse Oximetry 95 95 90 Oxygen Delivery 12/27/24 08:25 12/27/24 08:26 Temperature Pulse Rate 68 Respiratory Rate Blood Pressure Pulse Oximetry Oxygen Delivery Room Air Intake/Output Intake/Output: Intake & Output 12/24/24 12/25/24 12/26/24 12/27/24 23:59 23:59 23:59 23:59 Intake Total 1780 640 150 790 Output Total 800 1050 175 Balance 1780 160 900 615 Meds/Results Medications: Active Medications Generic Name Dose Route Start Last Admin Trade Name Freq PRN Reason Stop Dose Admin Acetaminophen 650 mg 12/23/24 06:32 Acetaminophen 325 Mg Tablet PO Q4H PRN Mild Pain (1-3) or Fever Hydrocodone Bitart/Acetaminophen 1 tab 12/23/24 14:23 12/27/24 08:27 Hydrocodone/Acetaminophen (*Crx) 5-325 Mg Tablet PO 1 tab Q6H PRN Administration Pain Rated 4-6 Aripiprazole 10 mg 12/24/24 09:00 12/27/24 08:26 Aripiprazole 10 Mg Tablet PO 10 mg DAILY LORETO Administration Aspirin 81 mg 12/24/24 09:00 12/27/24 08:26 Aspirin 81 Mg Enteric Tablet PO 81 mg QAM LORETO Administration Brimonidine Tartrate 1 drop 12/23/24 21:00 12/27/24 08:28 Brimonidine Tartrate 0.1% 5 Ml Ophth Drops EACH EYE 1 drop Q12HR LORETO Administration Ciprofloxacin 500 mg 12/26/24 21:00 12/27/24 08:26 Ciprofloxacin 500 Mg Tab PO 500 mg Q12HR LORETO Administration Clopidogrel Bisulfate 75 mg 12/24/24 09:00 12/27/24 08:26 Clopidogrel Bisulfate 75 Mg Tablet PO 75 mg QAM LORETO Administration Finasteride 5 mg 12/24/24 09:00 12/27/24 08:27 Finasteride 5 Mg Tablet PO 5 mg QAM LORETO Administration Gabapentin 100 mg 12/23/24 21:00 12/26/24 20:16 Gabapentin 100 Mg Capsule PO 100 mg QHS LORETO Administration Lidocaine 2 patch 12/24/24 03:55 12/26/24 20:16 Lidocaine 5% Patch TRANSDERM 2 patch HS LORETO Administration Lorazepam 0.5 mg 12/23/24 14:58 12/26/24 20:16 Lorazepam (*Crx) 0.5 Mg Tablet PO 0.5 mg Q8H PRN Administration Anxiety Metoprolol Succinate 50 mg 12/24/24 09:00 12/27/24 08:26 Metoprolol Succinate Ext Rel 50 Mg Tabcr PO 50 mg QAM LORETO Administration Multivitamins/Minerals 1 tab 12/24/24 09:00 12/27/24 08:26 Multivitamins /C Lutein (Centrum Silver) Tablet *Bkc PO 1 tab QAM LORETO Administration Rosuvastatin Calcium 40 mg 12/23/24 18:00 12/26/24 17:41 Rosuvastatin 20 Mg Tablet PO 40 mg EVENING LORETO Administration Tamsulosin HCl 0.4 mg 12/23/24 14:15 12/27/24 08:26 Tamsulosin Hcl 0.4 Mg Capsule PO 0.4 mg QAM LORETO Administration Radiology Results: ITS Impressions Chest X-Ray 12/22/24 20:28 IMPRESSION: Left basilar Atelectasis versus pneumonia. Scrotum Ultrasound 12/22/24 22:32 IMPRESSION: Air is seen in the left scrotum. Clinical evaluation to exclude anaerobic infection should be considered. Bilateral varicocele. Otherwise, normal testicular ultrasound. Hip CT 12/23/24 06:07 IMPRESSION: 1. No acute bone or joint abnormality. Lumbar Spine CT 12/23/24 06:11 IMPRESSION: 1. No acute fracture. 2: Severe lumbar spondylosis with fusion at L3-L5. Knee X-Ray 12/24/24 17:54 IMPRESSION: No acute osseous abnormality left knee. Chondrocalcinosis. Renal Ultrasound 12/25/24 06:36 Impression: 4.3 x 3.6 x 3.8 cm probable mass in the renal pelvis region, suspicious for urothelial carcinoma. CT urogram or pre and postcontrast renal MRI recommended to assess for enhancing soft tissue neoplastic lesion versus a potential alternative consideration such as hematoma. Labs Labs: Laboratory Results - last 24 hr 12/27/24 06:30 WBC 7.9 RBC 4.35 L Hgb 13.5 L Hct 41.0 L MCV 94.3 MCH 31.0 MCHC 32.9 RDW 12.5 Plt Count 136 L MPV 10.9 H % Immature Plt Fraction 5.4 Sodium 137 Potassium 4.3 Chloride 103 Carbon Dioxide 26 Anion Gap 8 BUN 24 H Creatinine 0.97 Estim Creat Clear Calc 52 Estimated GFR > 60 Glucose 95 Calcium 9.9 Magnesium 1.9 Quality VTE Prophylaxis VTE prophylaxis: mechanical ordered and pharmacologic ordered
[2024-12-27] MEDS: LORazepam (*CRX) 0.5 MG TABLET PO (17:50)
[2024-12-27] MEDS: ROSUVASTATIN 20 MG TABLET 40 MG PO (17:50)
[2024-12-27] MEDS: GABAPENTIN 100 MG CAPSULE PO (21:16)
[2024-12-27] MEDS: LIDOCAINE 5% PATCH 2 PATCH TRANSDERM (21:17)
[2024-12-27 22:00] VITALS: BP 97/47; PULSE 65; RESP 14; TEMP 37; O2SAT 94
[2024-12-28 06:00] VITALS: BP 117/52; PULSE 64; RESP 14; TEMP 36.2; O2SAT 97
[2024-12-28 06:28] LABS: Anion Gap 12 mmol/L (4-12); Blood Urea Nitrogen 31 mg/dL (9-20); Calcium 9.4 mg/dL (8.4-10.2); Carbon Dioxide 23 mmol/L (22-30); Chloride 102 mmol/L (98-107); Estimated CRCL calculation 46 ml/min; Estimated Glomerular Filt Rate > 60; Glucose 88 mg/dL (65-110); Potassium 3.9 mmol/L (3.4-5.0); Sodium 137 mmol/L (137-145)
[2024-12-28 06:31] LABS: Hematocrit 39.5 % (42.0-52.0); Hemoglobin 13.1 g/dL (14.0-18.0); Immature Platelet Fraction Pct 5.9 % (0.9-11.2); Mean Corpuscular HGB Conc 33.2 g/dl (32-36); Mean Corpuscular Hemoglobin 31.5 pg (26-34); Mean Platelet Volume 11.5 fl (7.4-10.4); Platelet Count Result 129 k/mm3 (150-375); Red Blood Count 4.16 M/mm3 (4.6-6.20); Red Cell Distribution Width 12.5 % (11.5-14.5); White Blood Count 6.4 K/mm3 (4.5-10.0)
[2024-12-28] MEDS: ARIPiprazole 10 MG TABLET PO (09:22)
[2024-12-28] MEDS: CIPROFLOXACIN 500 MG TAB PO ×2 (09:22→20:43)
[2024-12-28 09:23] VITALS: PULSE 62
[2024-12-28] MEDS: ASPIRIN 81 MG ENTERIC TABLET PO (09:23)
[2024-12-28] MEDS: CLOPIDOGREL BISULFATE 75 MG TABLET PO (09:23)
[2024-12-28] MEDS: METOPROLOL SUCCINATE EXT REL 50 MG TABCR PO (09:23)
[2024-12-28] MEDS: MULTIVITAMINS /C LUTEIN (CENTRUM SILVER) TABLET *BKC 1 TAB PO (09:23)
[2024-12-28] MEDS: TAMSULOSIN HCL 0.4 MG CAPSULE PO (09:23)
[2024-12-28] MEDS: FINASTERIDE 5 MG TABLET PO (09:23)
[2024-12-28] MEDS: BRIMONIDINE TARTRATE 0.1% 5 ML OPHTH DROPS 1 DROP EACH EYE (09:34)
[2024-12-28 14:00] VITALS: BP 114/75; PULSE 62; RESP 18; TEMP 36.8; O2SAT 97
--- NOTE | 2024-12-28 14:59 | WPDUROPN2 ---
Progress Note: A&P Assessment and Plan (1) Renal mass, right: Code(s): N28.89 - Other specified disorders of kidney and ureter Status: Acute Assessment and Plan: - 3.5cm right renal mass noted on noncontrast CT imaging and renal ultrasound, new compared to CT imaging in [facility] 4[facility] years ago - Known history of bilateral renal cysts (2) BPH w urinary obs/LUTS: Code(s): N40.1 - Benign prostatic hyperplasia with lower urinary tract symptoms; N13.8 - Other obstructive and reflux uropathy Status: Acute (3) History of elevated PSA: Code(s): Z87.898 - Personal history of other specified conditions Status: Acute (4) Scrotal pain: Code(s): N50.82 - Scrotal pain Status: Acute Plan - Renal function stable, no leukocytosis, afebrile - Agree with tamsulosin + finasteride for obstructive BPH - Recommend CT urogram to better assess upper tract, ordered for tomorrow morning - Recommend outpatient cystoscopy to evaluate for recurrent urethral stricture - Symptoms of dysuria, increased urinary frequency, and perineum tenderness suspicious for prostatitis, agree with 14-day course BID Cipro - Patient will need referral to [facility] or [facility] on discharge for ongoing outpatient management (former patient of Dr. Munoz who left [facility] practice in 2022; dismissed by [facility] for escalating behaviors in clinic setting). Subjective Subjective Date/Time Seen: 12/28/24 14:59 Interval history: NAEO; Patient comfortable on exam, restraints have been removed. Patient agreeable to CT Urogram tomorrow morning. Exam Narrative: Comfortable, pleasant, no distress Objective Data Vital Signs Vital Signs: Vital Signs - 24 hr 12/27/24 22:00 12/28/24 06:00 12/28/24 09:23 Temperature 98.6 F 97.1 F L Pulse Rate 65 64 62 Respiratory Rate 14 14 Blood Pressure 97/47 L 117/52 L Pulse Oximetry 94 97 12/28/24 14:00 Temperature 98.2 F Pulse Rate 62 Respiratory Rate 18 Blood Pressure 114/75 Pulse Oximetry 97 Intake/Output Intake/Output: Intake & Output 12/25/24 12/26/24 12/27/24 12/28/24 23:59 23:59 23:59 23:59 Intake Total 158 877 3734 860 Output Total 800 1050 575 Balance -160 -900 455 860 Meds/Results Medications: Active Medications Generic Name Dose Route Start Last Admin Trade Name Freq PRN Reason Stop Dose Admin Acetaminophen 650 mg 12/23/24 06:32 Acetaminophen 325 Mg Tablet PO Q4H PRN Mild Pain (1-3) or Fever Hydrocodone Bitart/Acetaminophen 1 tab 12/23/24 14:23 12/27/24 21:16 Hydrocodone/Acetaminophen (*Crx) 5-325 Mg Tablet PO 1 tab Q6H PRN Administration Pain Rated 4-6 Aripiprazole 10 mg 12/24/24 09:00 12/28/24 09:22 Aripiprazole 10 Mg Tablet PO 10 mg DAILY LORETO Administration Aspirin 81 mg 12/24/24 09:00 12/28/24 09:23 Aspirin 81 Mg Enteric Tablet PO 81 mg QAM LORETO Administration Brimonidine Tartrate 1 drop 12/23/24 21:00 12/28/24 09:34 Brimonidine Tartrate 0.1% 5 Ml Ophth Drops EACH EYE 1 drop Q12HR LORETO Administration Ciprofloxacin 500 mg 12/26/24 21:00 12/28/24 09:22 Ciprofloxacin 500 Mg Tab PO 500 mg Q12HR LORETO Administration Clopidogrel Bisulfate 75 mg 12/24/24 09:00 12/28/24 09:23 Clopidogrel Bisulfate 75 Mg Tablet PO 75 mg QAM LORETO Administration Finasteride 5 mg 12/24/24 09:00 12/28/24 09:23 Finasteride 5 Mg Tablet PO 5 mg QAM LORETO Administration Gabapentin 100 mg 12/23/24 21:00 12/27/24 21:16 Gabapentin 100 Mg Capsule PO 100 mg QHS LORETO Administration Lidocaine 2 patch 12/24/24 03:55 12/27/24 21:17 Lidocaine 5% Patch TRANSDERM 2 patch HS LORETO Administration Lorazepam 0.5 mg 12/23/24 14:58 12/27/24 17:50 Lorazepam (*Crx) 0.5 Mg Tablet PO 0.5 mg Q8H PRN Administration Anxiety Metoprolol Succinate 50 mg 12/24/24 09:00 12/28/24 09:23 Metoprolol Succinate Ext Rel 50 Mg Tabcr PO 50 mg QAM LORETO Administration Multivitamins/Minerals 1 tab 12/24/24 09:00 12/28/24 09:23 Multivitamins /C Lutein (Centrum Silver) Tablet *Bkc PO 1 tab QAM LORETO Administration Rosuvastatin Calcium 40 mg 12/23/24 18:00 12/27/24 17:50 Rosuvastatin 20 Mg Tablet PO 40 mg EVENING LORETO Administration Tamsulosin HCl 0.4 mg 12/23/24 14:15 12/28/24 09:23 Tamsulosin Hcl 0.4 Mg Capsule PO 0.4 mg QAM LORETO Administration Radiology Results: ITS Impressions Chest X-Ray 12/22/24 20:28 IMPRESSION: Left basilar Atelectasis versus pneumonia. Scrotum Ultrasound 12/22/24 22:32 IMPRESSION: Air is seen in the left scrotum. Clinical evaluation to exclude anaerobic infection should be considered. Bilateral varicocele. Otherwise, normal testicular ultrasound. Hip CT 12/23/24 06:07 IMPRESSION: 1. No acute bone or joint abnormality. Lumbar Spine CT 12/23/24 06:11 IMPRESSION: 1. No acute fracture. 2: Severe lumbar spondylosis with fusion at L3-L5. Knee X-Ray 12/24/24 17:54 IMPRESSION: No acute osseous abnormality left knee. Chondrocalcinosis. Renal Ultrasound 12/25/24 06:36 Impression: 4.3 x 3.6 x 3.8 cm probable mass in the renal pelvis region, suspicious for urothelial carcinoma. CT urogram or pre and postcontrast renal MRI recommended to assess for enhancing soft tissue neoplastic lesion versus a potential alternative consideration such as hematoma. Labs Labs: Laboratory Results - last 24 hr 12/28/24 05:58 WBC 6.4 RBC 4.16 L Hgb 13.1 L Hct 39.5 L MCV 95.0 MCH 31.5 MCHC 33.2 RDW 12.5 Plt Count 129 L MPV 11.5 H % Immature Plt Fraction 5.9 Sodium 137 Potassium 3.9 Chloride 102 Carbon Dioxide 23 Anion Gap 12 BUN 31 H Creatinine 1.10 Estim Creat Clear Calc 46 Estimated GFR > 60 Glucose 88 Calcium 9.4 Magnesium 2.0
--- NOTE | 2024-12-28 16:52 | P.PNIM_ITS ---
Progress Note: A&P Assessment and Plan (1) Urinary retention due to benign prostatic hyperplasia: Code(s): N40.1 - Benign prostatic hyperplasia with lower urinary tract symptoms; R33.8 - Other retention of urine Status: Acute (2) Debility: Code(s): R53.81 - Other malaise Status: Acute (3) Acute exacerbation of chronic low back pain: Code(s): M54.50 - Low back pain, unspecified; G89.29 - Other chronic pain Status: Acute (4) HTN (hypertension), benign: Code(s): I10 - Essential (primary) hypertension Status: Acute (5) Hyperlipidemia LDL goal <100: Code(s): E78.5 - Hyperlipidemia, unspecified Status: Acute (6) Atrial fibrillation: Qualifiers: Atrial fibrillation type: unspecified Qualified Code(s): I48.91 - Unspecified atrial fibrillation Code(s): I48.91 - Unspecified atrial fibrillation Status: Acute Plan Patient is 84-year-old male was brought to emergency department with poor h ygiene with complaint of unable to urinate unable to ambulate and debilitated. Patient with history of bipolar unfortunately patient had not been able to followed up by his psychiatrist. patient confused and not cooperative has a sitter, Patient states his main concern is unable to urinate though he has a frequent urination with small amount, started patient on Flomax and finasteride which has helped patient with urination. will have PT/OT work with the patient, will continue to monitor. there was incidental finding on patient CT of abdomen which was concerning of renal mass to delores evaluate patient had renal US which showed 4.3 x 3.6 x 3.8 cm probable mass in the renal pelvis region, suspicious for urothelial carcinoma. CT urogram or pre and postcontrast renal MRI recommended to assess for enhancing soft tissue neoplastic lesion versus a potential alternative consideration such as hematoma. Today patient was seen by urologist to further evaluate renal and monitor patient will need CT urogram this can be done once the patient is more cooperative and clinically stable, the urologist also suspect the patient urinary symptoms may be stemming from parostitis and recommended 14 days of Cipro which will start. on 12/26 spoke with patient daughter Orly and gave update, she is not too keen to transfer patient to [facility] or [facility]. today patient if off restran and calm, seen by urology agrees with current plan, patient is scheduled for CT urogram to better assess tract, will follow up, patinet waiting to dischage to a facility. Subjective Date/time seen: 12/28/24 16:52 Interval history: on 12/24, was called to assess, patient had been confused, noncooperative, combative and aggressive patient was given Ativan and Zyprexa without much improvement, patient was hitting nursing staff therefore patient was placed in 4 point soft retrains, today patient still remains in strain patient is comfortable and NAD, there is a sitter with patient to monitor. Patient is 84-year-old male was brought to emergency department with poor hygiene with complaint of unable to urinate unable to ambulate and debilitated. Patient with history of bipolar unfortunately patient had not been able to followed up by his psychiatrist. patient confused and not cooperative has a sitter, Patient states his main concern is unable to urinate though he has a frequent urination with small amount, started patient on Flomax and finasteride which has helped patient with urination. will have PT/OT work with the patient, will continue to monitor. there was incidental finding on patient CT of abdomen which was concerning of renal mass to delores evaluate patient had renal US which showed 4.3 x 3.6 x 3.8 cm probable mass in the renal pelvis region, suspicious for urothelial carcinoma. CT urogram or pre and postcontrast renal MRI recommended to assess for enhancing soft tissue neoplastic lesion versus a potential alternative consideration such as hematoma. Today patient was seen by urologist to further evaluate renal and monitor patient will need CT urogram this can be done once the patient is more cooperative and clinically stable, the urologist also suspect the patient urinary symptoms may be stemming from parosti tis and recommended 14 days of Cipro which will start. on 12/26 spoke with patient daughter Orly and gave update, she is not too keen to transfer patient to [facility] or [facility]. today patient if off restran and calm, seen by urology agrees with current plan, patient is scheduled for CT urogram to better assess tract, will follow up, patinet waiting to dischage to a facility. Review of Systems Review of Systems: A 10 system review of systems was completed on the patient and is negative except for what is stated in the HPI. Nursing and ancillary documentation was reviewed. Exam Narrative: Elderly somewhat confused Patient is comfortable, NAD HEENT: eyes are clear and none icteric LUNGS:CTA HEART: RR S1S2 ABD: BS+, Soft and nontender Lower extremities: no edema SKIN: nonjaundiced Neuro: grossly intact. Objective Data Vital Signs Vital Signs: Vital Signs - 24 hr 12/27/24 22:00 12/28/24 06:00 12/28/24 09:23 Temperature 37.0 C 36.2 C L Pulse Rate 65 64 62 Respiratory Rate 14 14 Blood Pressure 97/47 L 117/52 L Pulse Oximetry 94 97 12/28/24 14:00 Temperature 36.8 C Pulse Rate 62 Respiratory Rate 18 Blood Pressure 114/75 Pulse Oximetry 97 Intake/Output Intake/Output: Intake & Output 12/25/24 12/26/24 12/27/24 12/28/24 23:59 23:59 23:59 23:59 Intake Total 660 250 6607 860 Output Total 800 1050 575 Balance -160 -900 455 860 Meds/Results Medications: Active Medications Generic Name Dose Route Start Last Admin Trade Name Freq PRN Reason Stop Dose Admin Acetaminophen 650 mg 12/23/24 06:32 Acetaminophen 325 Mg Tablet PO Q4H PRN Mild Pain (1-3) or Fever Hydrocodone Bitart/Acetaminophen 1 tab 12/23/24 14:23 12/27/24 21:16 Hydrocodone/Acetaminophen (*Crx) 5-325 Mg Tablet PO 1 tab Q6H PRN Administration Pain Rated 4-6 Aripiprazole 10 mg 12/24/24 09:00 12/28/24 09:22 Aripiprazole 10 Mg Tablet PO 10 mg DAILY LORETO Administration Aspirin 81 mg 12/24/24 09:00 12/28/24 09:23 Aspirin 81 Mg Enteric Tablet PO 81 mg QAM LORETO Administration Brimonidine Tartrate 1 drop 12/23/24 21:00 12/28/24 09:34 Brimonidine Tartrate 0.1% 5 Ml Ophth Drops EACH EYE 1 drop Q12HR LORETO Administration Ciprofloxacin 500 mg 12/26/24 21:00 12/28/24 09:22 Ciprofloxacin 500 Mg Tab PO 500 mg Q12HR LORETO Administration Clopidogrel Bisulfate 75 mg 12/24/24 09:00 12/28/24 09:23 Clopidogrel Bisulfate 75 Mg Tablet PO 75 mg QAM LORETO Administration Finasteride 5 mg 12/24/24 09:00 12/28/24 09:23 Finasteride 5 Mg Tablet PO 5 mg QAM LORETO Administration Gabapentin 100 mg 12/23/24 21:00 12/27/24 21:16 Gabapentin 100 Mg Capsule PO 100 mg QHS LORETO Administration Lidocaine 2 patch 12/24/24 03:55 12/27/24 21:17 Lidocaine 5% Patch TRANSDERM 2 patch HS LORETO Administration Lorazepam 0.5 mg 12/23/24 14:58 12/27/24 17:50 Lorazepam (*Crx) 0.5 Mg Tablet PO 0.5 mg Q8H PRN Administration Anxiety Metoprolol Succinate 50 mg 12/24/24 09:00 12/28/24 09:23 Metoprolol Succinate Ext Rel 50 Mg Tabcr PO 50 mg QAM LORETO Administration Multivitamins/Minerals 1 tab 12/24/24 09:00 12/28/24 09:23 Multivitamins /C Lutein (Centrum Silver) Tablet *Bkc PO 1 tab QAM LORETO Administration Rosuvastatin Calcium 40 mg 12/23/24 18:00 12/27/24 17:50 Rosuvastatin 20 Mg Tablet PO 40 mg EVENING LORETO Administration Tamsulosin HCl 0.4 mg 12/23/24 14:15 12/28/24 09:23 Tamsulosin Hcl 0.4 Mg Capsule PO 0.4 mg QAM LORETO Administration Radiology Results: ITS Impressions Chest X-Ray 12/22/24 20:28 IMPRESSION: Left basilar Atelectasis versus pneumonia. Scrotum Ultrasound 12/22/24 22:32 IMPRESSION: Air is seen in the left scrotum. Clinical evaluation to exclude anaerobic infection should be considered. Bilateral varicocele. Otherwise, normal te sticular ultrasound. Hip CT 12/23/24 06:07 IMPRESSION: 1. No acute bone or joint abnormality. Lumbar Spine CT 12/23/24 06:11 IMPRESSION: 1. No acute fracture. 2: Severe lumbar spondylosis with fusion at L3-L5. Knee X-Ray 12/24/24 17:54 IMPRESSION: No acute osseous abnormality left knee. Chondrocalcinosis. Renal Ultrasound 12/25/24 06:36 Impression: 4.3 x 3.6 x 3.8 cm probable mass in the renal pelvis region, suspicious for urothelial carcinoma. CT urogram or pre and postcontrast renal MRI recommended to assess for enhancing soft tissue neoplastic lesion versus a potential alternative consideration such as hematoma. Labs Labs: Laboratory Results - last 24 hr 12/28/24 05:58 WBC 6.4 RBC 4.16 L Hgb 13.1 L Hct 39.5 L MCV 95.0 MCH 31.5 MCHC 33.2 RDW 12.5 Plt Count 129 L MPV 11.5 H % Immature Plt Fraction 5.9 Sodium 137 Potassium 3.9 Chloride 102 Carbon Dioxide 23 Anion Gap 12 BUN 31 H Creatinine 1.10 Estim Creat Clear Calc 46 Estimated GFR > 60 Glucose 88 Calcium 9.4 Magnesium 2.0 Quality VTE Prophylaxis VTE prophylaxis: mechanical ordered and pharmacologic ordered
[2024-12-28] MEDS: ROSUVASTATIN 20 MG TABLET 40 MG PO (17:06)
[2024-12-28 20:40] VITALS: PULSE 62; RESP 18; O2SAT 97
[2024-12-28] MEDS: GABAPENTIN 100 MG CAPSULE PO (20:43)
[2024-12-28 22:00] VITALS: BP 129/73; PULSE 66; RESP 18; TEMP 36.9; O2SAT 98
[2024-12-29] VITALS: RESP 18
[2024-12-29 06:00] VITALS: BP 121/60; PULSE 64; RESP 16; TEMP 36.9; O2SAT 98
[2024-12-29 07:56] LABS: Hematocrit 39.5 % (42.0-52.0); Hemoglobin 13.1 g/dL (14.0-18.0); Immature Platelet Fraction Pct 5.6 % (0.9-11.2); Mean Corpuscular HGB Conc 33.2 g/dl (32-36); Mean Corpuscular Hemoglobin 31.2 pg (26-34); Mean Platelet Volume 11.3 fl (7.4-10.4); Platelet Count Result 130 k/mm3 (150-375); Red Cell Distribution Width 12.4 % (11.5-14.5); White Blood Count 6.2 K/mm3 (4.5-10.0)
[2024-12-29 08:34] LABS: Anion Gap 6 mmol/L (4-12); Blood Urea Nitrogen 29 mg/dL (9-20); Calcium 9.5 mg/dL (8.4-10.2); Carbon Dioxide 28 mmol/L (22-30); Chloride 104 mmol/L (98-107); Estimated CRCL calculation 46 ml/min; Estimated Glomerular Filt Rate > 60; Glucose 106 mg/dL (65-110); Magnesium 2.1 mg/dL (1.6-2.3); Potassium 3.8 mmol/L (3.4-5.0); Sodium 138 mmol/L (137-145)
[2024-12-29 10:49] VITALS: PULSE 68
[2024-12-29] MEDS: MULTIVITAMINS /C LUTEIN (CENTRUM SILVER) TABLET *BKC 1 TAB PO (10:49)
[2024-12-29] MEDS: ARIPiprazole 10 MG TABLET PO (10:49)
[2024-12-29] MEDS: METOPROLOL SUCCINATE EXT REL 50 MG TABCR PO (10:49)
[2024-12-29] MEDS: FINASTERIDE 5 MG TABLET PO (10:49)
[2024-12-29] MEDS: CLOPIDOGREL BISULFATE 75 MG TABLET PO (10:52)
[2024-12-29] MEDS: ASPIRIN 81 MG ENTERIC TABLET PO (10:52)
[2024-12-29] MEDS: CIPROFLOXACIN 500 MG TAB PO (10:57)
--- NOTE | 2024-12-29 10:59 | PC.NURSE ---
AM medications administered at 1100 as patient was NPO for 2 hours prior to a procedure.
[2024-12-29 11:00] VITALS: O2SAT 98
--- NOTE | 2024-12-29 13:55 | WPDUROPN2 ---
Progress Note: A&P Assessment and Plan (1) Renal mass, right: Code(s): N28.89 - Other specified disorders of kidney and ureter Status: Acute Assessment and Plan: - 3.5cm right renal mass noted on noncontrast CT imaging and renal ultrasound, new compared to [facility] imaging in [facility] years ago - Known history of bilateral renal cysts (2) BPH w urinary obs/LUTS: Code(s): N40.1 - Benign prostatic hyperplasia with lower urinary tract symptoms; N13.8 - Other obstructive and reflux uropathy Status: Acute (3) History of elevated PSA: Code(s): Z87.898 - Personal history of other specified conditions Status: Acute (4) Scrotal pain: Code(s): N50.82 - Scrotal pain Status: Acute Plan - Agree with tamsulosin + finasteride for obstructive BPH. Continue on discharge - CT urogram to better assess upper tract, can be completed as an outpatient - Recommend outpatient cystoscopy to evaluate for recurrent urethral stricture - Symptoms of dysuria, increased urinary frequency, and perineum tenderness suspicious for prostatitis, agree with 14-day course BID Cipro - Patient will need referral to [facility] or [facility] on discharge for ongoing outpatient management (former patient of Dr. Munoz who left [facility] practice in 2022; dismissed by [facility] for escalating behaviors in clinic setting). Subjective Subjective Date/Time Seen: 12/29/24 13:55 Interval history: CT Urogram canceled. Patient uncooperative/combative with IV. Can attempt imaging on a nonurgent, outpatient basis when appropriate. Exam Narrative: Comfortable, pleasant, no distress Objective Data Vital Signs Vital Signs: Vital Signs - 24 hr 12/28/24 14:00 12/28/24 20:40 12/28/24 22:00 Temperature 98.2 F 98.4 F Pulse Rate 62 62 66 Respiratory Rate 18 18 18 Blood Pressure 114/75 129/73 Pulse Oximetry 97 97 98 Oxygen Delivery Room Air 12/29/24 00:00 12/29/24 06:00 12/29/24 10:49 Temperature 98.4 F Pulse Rate 64 68 Respiratory Rate 18 16 Blood Pressure 121/60 Pulse Oximetry 98 Oxygen Delivery 12/29/24 11:00 Temperature Pulse Rate Respiratory Rate Blood Pressure Pulse Oximetry 98 Oxygen Delivery Room Air Intake/Output Intake/Output: Intake & Output 12/26/24 12/27/24 12/28/24 12/29/24 23:59 23:59 23:59 23:59 Intake Total 150 1030 1200 Output Total 1050 575 Balance -953 460 8428 Meds/Results Medications: Active Medications Generic Name Dose Route Start Last Admin Trade Name Freq PRN Reason Stop Dose Admin Acetaminophen 650 mg 12/23/24 06:32 Acetaminophen 325 Mg Tablet PO Q4H PRN Mild Pain (1-3) or Fever Hydrocodone Bitart/Acetaminophen 1 tab 12/23/24 14:23 12/27/24 21:16 Hydrocodone/Acetaminophen (*Crx) 5-325 Mg Tablet PO 1 tab Q6H PRN Administration Pain Rated 4-6 Aripiprazole 10 mg 12/24/24 09:00 12/29/24 10:49 Aripiprazole 10 Mg Tablet PO 10 mg DAILY LORETO Administration Aspirin 81 mg 12/24/24 09:00 12/29/24 10:52 Aspirin 81 Mg Enteric Tablet PO 81 mg QAM LORETO Administration Brimonidine Tartrate 1 drop 12/23/24 21:00 12/28/24 20:09 Brimonidine Tartrate 0.1% 5 Ml Ophth Drops EACH EYE Not Given Q12HR LORETO Ciprofloxacin 500 mg 12/26/24 21:00 12/29/24 10:57 Ciprofloxacin 500 Mg Tab PO 500 mg Q12HR LORETO Administration Clopidogrel Bisulfate 75 mg 12/24/24 09:00 12/29/24 10:52 Clopidogrel Bisulfate 75 Mg Tablet PO 75 mg QAM LORETO Administration Finasteride 5 mg 12/24/24 09:00 12/29/24 10:49 Finasteride 5 Mg Tablet PO 5 mg QAM LORETO Administration Gabapentin 100 mg 12/23/24 21:00 12/28/24 20:43 Gabapentin 100 Mg Capsule PO 100 mg QHS LORETO Administration Lidocaine 2 patch 12/24/24 03:55 12/28/24 20:09 Lidocaine 5% Patch TRANSDERM Not Given HS LORETO Lorazepam 0.5 mg 12/23/24 14:58 12/27/24 17:50 Lorazepam (*Crx) 0.5 Mg Tablet PO 0.5 mg Q8H PRN Administration Anxiety Metoprolol Succinate 50 mg 12/24/24 09:00 12/29/24 10:49 Metoprolol Succinate Ext Rel 50 Mg Tabcr PO 50 mg QAM LORETO Administration Multivitamins/Minerals 1 tab 12/24/24 09:00 12/29/24 10:49 Multivitamins /C Lutein (Centrum Silver) Tablet *Bkc PO 1 tab QAM LORETO Administration Rosuvastatin Calcium 40 mg 12/23/24 18:00 12/28/24 17:06 Rosuvastatin 20 Mg Tablet PO 40 mg EVENING LORETO Administration Tamsulosin HCl 0.4 mg 12/23/24 14:15 12/28/24 09:23 Tamsulosin Hcl 0.4 Mg Capsule PO 0.4 mg QAM LORETO Administration Radiology Results: ITS Impressions Chest X-Ray 12/22/24 20:28 IMPRESSION: Left basilar Atelectasis versus pneumonia. Scrotum Ultrasound 12/22/24 22:32 IMPRESSION: Air is seen in the left scrotum. Clinical evaluation to exclude anaerobic infection should be considered. Bilateral varicocele. Otherwise, normal testicular ultrasound. Hip CT 12/23/24 06:07 IMPRESSION: 1. No acute bone or joint abnormality. Lumbar Spine CT 12/23/24 06:11 IMPRESSION: 1. No acute fracture. 2: Severe lumbar spondylosis with fusion at L3-L5. Knee X-Ray 12/24/24 17:54 IMPRESSION: No acute osseous abnormality left knee. Chondrocalcinosis. Renal Ultrasound 12/25/24 06:36 Impression: 4.3 x 3.6 x 3.8 cm probable mass in the renal pelvis region, suspicious for urothelial carcinoma. CT urogram or pre and postcontrast renal MRI recommended to assess for enhancing soft tissue neoplastic lesion versus a potential alternative consideration such as hematoma. Labs Labs: Laboratory Results - last 24 hr 12/29/24 07:32 WBC 6.2 RBC 4.20 L Hgb 13.1 L Hct 39.5 L MCV 94.0 MCH 31.2 MCHC 33.2 RDW 12.4 Plt Count 130 L MPV 11.3 H % Immature Plt Fraction 5.6 Sodium 138 Potassium 3.8 Chloride 104 Carbon Dioxide 28 Anion Gap 6 BUN 29 H Creatinine 1.09 Estim Creat Clear Calc 46 Estimated GFR > 60 Glucose 106 Calcium 9.5 Magnesium 2.1
[2024-12-29 14:00] VITALS: BP 119/61; PULSE 65; RESP 16; TEMP 36.8; O2SAT 99
[2024-12-29] MEDS: HYDROcodone/acetaminophen (*CRX) 5-325 MG TABLET 1 TAB PO (15:29)
[2024-12-29] MEDS: TAMSULOSIN HCL 0.4 MG CAPSULE PO (15:39)
[2024-12-29] MEDS: LORazepam (*CRX) 0.5 MG TABLET PO (15:39)
--- NOTE | 2024-12-29 16:47 | PM.IMPN ---
Progress Note: A&P Assessment and Plan (1) Urinary retention due to benign prostatic hyperplasia: Code(s): N40.1 - Benign prostatic hyperplasia with lower urinary tract symptoms; R33.8 - Other retention of urine Status: Acute (2) Debility: Code(s): R53.81 - Other malaise Status: Acute (3) Acute exacerbation of chronic low back pain: Code(s): M54.50 - Low back pain, unspecified; G89.29 - Other chronic pain Status: Acute (4) HTN (hypertension), benign: Code(s): I10 - Essential (primary) hypertension Status: Acute (5) Hyperlipidemia LDL goal <100: Code(s): E78.5 - Hyperlipidemia, unspecified Status: Acute (6) Atrial fibrillation: Qualifiers: Atrial fibrillation type: unspecified Qualified Code(s): I48.91 - Unspecified atrial fibrillation Code(s): I48.91 - Unspecified atrial fibrillation Status: Acute Plan Patient is 84-year-old male was brought to emergency department with poor hygiene with complaint of unable to urinate unable to ambulate and debilitated. Patient with history of bipolar unfortunately patient had not been able to followed up by his psychiatrist. patient confused and not cooperative has a sitter, Patient states his main concern is unable to urinate though he has a frequent urination with small amount, started patient on Flomax and finasteride which has helped patient with urination. will have PT/OT work with the patient, will continue to monitor. there was incidental finding on patient CT of abdomen which was concerning of renal mass to delores evaluate patient had renal US which showed 4.3 x 3.6 x 3.8 cm probable mass in the renal pelvis region, suspicious for urothelial carcinoma. CT urogram or pre and postcontrast renal MRI recommended to assess for enhancing soft tissue neoplastic lesion versus a potential alternative consideration such as hematoma. Today patient was seen by urologist to further evaluate renal and monitor patient will need CT urogram this can be done once the patient is more cooperative and clinically stable, the urologist also suspect the patient urinary symptoms may be stemming from parostitis and recommended 14 days of Cipro which will start. on 12/26 spoke with patient daughter Orly and gave update, she is not too keen to transfer patient to [facility] or [facility]. today patient if off restran and calm, seen by urology agrees with current plan, urologist had ordered Ct urogram however patient is not coopertive with IV access and urologist was informed, will wait until is more cooperative, will follow up, patient waiting to discharge to a facility. Subjective Date/time seen: 12/29/24 16:47 Interval history: Patient is 84-year-old male was brought to emergency department with poor hygiene with complaint of unable to urinate unable to ambulate and debilitated. Patient with history of bipolar unfortunately patient had not been able to followed up by his psychiatrist. patient confused and not cooperative has a sitter, Patient states his main concern is unable to urinate though he has a frequent urination with small amount, started patient on Flomax and finasteride which has helped patient with urination. will have PT/OT work with the patient, will continue to monitor. there was incidental finding on patient CT of abdomen which was concerning of renal mass to jazminhter evaluate patient had renal US which showed 4.3 x 3.6 x 3.8 cm probable mass in the renal pelvis region, suspicious for urothelial carcinoma. CT urogram or pre and postcontrast renal MRI recommended to assess for enhancing soft tissue neoplastic lesion versus a potential alternative consideration such as hematoma. Today patient was seen by urologist to further evaluate renal and monitor patient will need CT urogram this can be done once the patient is more cooperative and clinically stable, the urologist also suspect the patient urinary symptoms may be stemming from parostitis and recommended 14 days of Cipro which will start. on 12/26 spoke with patient daughter Orly and gave update, she is not too keen to transfer patient to [facility] or [facility]. today patient if off restran and calm, seen by urology agrees with current plan, urologist had ordered Ct urogram however patient is not coopertive with IV access and urologist was informed, will wait until is more cooperative, will follow up, patient waiting to discharge to a facility. Review of Systems Review of Systems: A 10 system review of systems was completed on the patient and is negative except for what is stated in the HPI. Nursing and ancillary documentation was reviewed. Exam Narrative: Elderly somewhat confused Patient is comfortable, NAD HEENT: eyes are clear and none icteric LUNGS:CTA HEART: RR S1S2 ABD: BS+, Soft and nontender Lower extremities: no edema SKIN: nonjaundiced Neuro: grossly intact. Objective Data Vital Signs Vital Signs: Vital Signs - 24 hr 12/28/24 20:40 12/28/24 22:00 12/29/24 00:00 Temperature 36.9 C Pulse Rate 62 66 Respiratory Rate 18 18 18 Blood Pressure 129/73 Pulse Oximetry 97 98 Oxygen Delivery Room Air 12/29/24 06:00 12/29/24 10:49 12/29/24 11:00 Temperature 36.9 C Pulse Rate 64 68 Respiratory Rate 16 Blood Pressure 121/60 Pulse Oximetry 98 98 Oxygen Delivery Room Air 12/29/24 14:00 Temperature 36.8 C Pulse Rate 65 Respiratory Rate 16 Blood Pressure 119/61 Pulse Oximetry 99 Oxygen Delivery Intake/Output Intake/Output: Intake & Output 12/26/24 12/27/24 12/28/24 12/29/24 23:59 23:59 23:59 23:59 Intake Total 150 1030 1200 240 Output Total 1050 575 Balance -024 362 8732 240 Meds/Results Medications: Active Medications Generic Name Dose Route Start Last Admin Trade Name Freq PRN Reason Stop Dose Admin Acetaminophen 650 mg 12/23/24 06:32 Acetaminophen 325 Mg Tablet PO Q4H PRN Mild Pain (1-3) or Fever Hydrocodone Bitart/Acetaminophen 1 tab 12/23/24 14:23 12/29/24 15:29 Hydrocodone/Acetaminophen (*Crx) 5-325 Mg Tablet PO 1 tab Q6H PRN Administration Pain Rated 4-6 Aripiprazole 10 mg 12/24/24 09:00 12/29/24 10:49 Aripiprazole 10 Mg Tablet PO 10 mg DAILY LORETO Administration Aspirin 81 mg 12/24/24 09:00 12/29/24 10:52 Aspirin 81 Mg Enteric Tablet PO 81 mg QAM LORETO Administration Brimonidine Tartrate 1 drop 12/23/24 21:00 12/29/24 16:21 Brimonidine Tartrate 0.1% 5 Ml Ophth Drops EACH EYE Not Given Q12HR LORETO Ciprofloxacin 500 mg 12/26/24 21:00 12/29/24 10:57 Ciprofloxacin 500 Mg Tab PO 500 mg Q12HR LORETO Administration Clopidogrel Bisulfate 75 mg 12/24/24 09:00 12/29/24 10:52 Clopidogrel Bisulfate 75 Mg Tablet PO 75 mg QAM LORETO Administration Finasteride 5 mg 12/24/24 09:00 12/29/24 10:49 Finasteride 5 Mg Tablet PO 5 mg QAM LORETO Administration Gabapentin 100 mg 12/23/24 21:00 12/28/24 20:43 Gabapentin 100 Mg Capsule PO 100 mg QHS LORETO Administration Lidocaine 2 patch 12/24/24 03:55 12/28/24 20:09 Lidocaine 5% Patch TRANSDERM Not Given HS LORETO Lorazepam 0.5 mg 12/23/24 14:58 12/29/24 15:39 Lorazepam (*Crx) 0.5 Mg Tablet PO 0.5 mg Q8H PRN Administration Anxiety Metoprolol Succinate 50 mg 12/24/24 09:00 12/29/24 10:49 Metoprolol Succinate Ext Rel 50 Mg Tabcr PO 50 mg QAM LORETO Administration Multivitamins/Minerals 1 tab 12/24/24 09:00 12/29/24 10:49 Multivitamins /C Lutein (Centrum Silver) Tablet *Bkc PO 1 tab QAM LORETO Administration Rosuvastatin Calcium 40 mg 12/23/24 18:00 12/28/24 17:06 Rosuvastatin 20 Mg Tablet PO 40 mg EVENING LORETO Administration Tamsulosin HCl 0.4 mg 12/23/24 14:15 12/29/24 15:39 Tamsulosin Hcl 0.4 Mg Capsule PO 0.4 mg QAM LORETO Administration Radiology Results: ITS Impressions Chest X-Ray 12/22/24 20:28 IMPRESSION: Left basilar Atelectasis versus pneumonia. Scrotum Ultrasound 12/22/24 22:32 IMPRESSION: Air is seen in the left scrotum. Clinical evaluation to exclude anaerobic infection should be considered. Bilateral varicocele. Otherwise, normal testicular ultrasound. Hip CT 12/23/24 06:07 IMPRESSION: 1. No acute bone or joint abnormality. Lumbar Spine CT 12/23/24 06:11 IMPRESSION: 1. No acute fracture. 2: Severe lumbar spondylosis with fusion at L3-L5. Knee X-Ray 12/24/24 17:54 IMPRESSION: No acute osseous abnormality left knee. Chondrocalcinosis. Renal Ultrasound 12/25/24 06:36 Impression: 4.3 x 3.6 x 3.8 cm probable mass in the renal pelvis region, suspicious for urothelial carcinoma. CT urogram or pre and postcontrast renal MRI recommended to assess for enhancing soft tissue neoplastic lesion versus a potential alternative consideration such as hematoma. Labs Labs: Laboratory Results - last 24 hr 12/29/24 07:32 WBC 6.2 RBC 4.20 L Hgb 13.1 L Hct 39.5 L MCV 94.0 MCH 31.2 MCHC 33.2 RDW 12.4 Plt Count 130 L MPV 11.3 H % Immature Plt Fraction 5.6 Sodium 138 Potassium 3.8 Chloride 104 Carbon Dioxide 28 Anion Gap 6 BUN 29 H Creatinine 1.09 Estim Creat Clear Calc 46 Estimated GFR > 60 Glucose 106 Calcium 9.5 Magnesium 2.1 Quality VTE Prophylaxis VTE prophylaxis: mechanical ordered and pharmacologic ordered
[2024-12-29] MEDS: ROSUVASTATIN 20 MG TABLET 40 MG PO (17:10)
[2024-12-29 20:39] VITALS: BP 105/59; PULSE 61; RESP 16; TEMP 36.8; O2SAT 98
[2024-12-30 06:00] VITALS: BP 118/65; PULSE 59; RESP 18; TEMP 37; O2SAT 97
[2024-12-30 06:39] LABS: Hematocrit 39.1 % (42.0-52.0); Hemoglobin 13.1 g/dL (14.0-18.0); Mean Corpuscular HGB Conc 33.5 g/dl (32-36); Mean Corpuscular Hemoglobin 31.2 pg (26-34); Mean Corpuscular Volume 93.1 fl (80-100); Platelet Count Result 142 k/mm3 (150-375); Red Cell Distribution Width 12.5 % (11.5-14.5); White Blood Count 5.7 K/mm3 (4.5-10.0)
[2024-12-30 06:45] LABS: Anion Gap 10 mmol/L (4-12); Blood Urea Nitrogen 28 mg/dL (9-20); Calcium 9.6 mg/dL (8.4-10.2); Carbon Dioxide 23 mmol/L (22-30); Chloride 106 mmol/L (98-107); Estimated CRCL calculation 53 ml/min; Estimated Glomerular Filt Rate > 60; Glucose 81 mg/dL (65-110); Magnesium 2.2 mg/dL (1.6-2.3); Potassium 3.8 mmol/L (3.4-5.0); Sodium 139 mmol/L (137-145)
[2024-12-30 08:00] VITALS: O2SAT 97
[2024-12-30] MEDS: LORazepam (*CRX) 0.5 MG TABLET PO ×2 (08:25→16:27)
[2024-12-30] MEDS: HYDROcodone/acetaminophen (*CRX) 5-325 MG TABLET 1 TAB PO ×2 (08:25→16:27)
[2024-12-30] MEDS: ARIPiprazole 10 MG TABLET PO (08:26)
[2024-12-30 08:28] VITALS: PULSE 70
[2024-12-30] MEDS: CLOPIDOGREL BISULFATE 75 MG TABLET PO (08:28)
[2024-12-30] MEDS: METOPROLOL SUCCINATE EXT REL 50 MG TABCR PO (08:28)
[2024-12-30] MEDS: ASPIRIN 81 MG ENTERIC TABLET PO (08:30)
[2024-12-30] MEDS: MULTIVITAMINS /C LUTEIN (CENTRUM SILVER) TABLET *BKC 1 TAB PO (08:30)
[2024-12-30] MEDS: TAMSULOSIN HCL 0.4 MG CAPSULE PO (08:30)
[2024-12-30] MEDS: FINASTERIDE 5 MG TABLET PO (08:30)
[2024-12-30] MEDS: CIPROFLOXACIN 500 MG TAB PO (08:30)
--- NOTE | 2024-12-30 08:57 | PM.DS ---
DS: Admitting Diagnosis Discharge Date 12/30/24 Admitting Diagnosis Urinary retention generalized weakness DS: Discharge Diagnosis Discharge Diagnosis (1) Urinary retention due to benign prostatic hyperplasia: Code(s): N40.1 - Benign prostatic hyperplasia with lower urinary tract symptoms; R33.8 - Other retention of urine Status: Acute (2) Debility: Code(s): R53.81 - Other malaise Status: Acute (3) Acute exacerbation of chronic low back pain: Code(s): M54.50 - Low back pain, unspecified; G89.29 - Other chronic pain Status: Acute (4) HTN (hypertension), benign: Code(s): I10 - Essential (primary) hypertension Status: Acute (5) Hyperlipidemia LDL goal <100: Code(s): E78.5 - Hyperlipidemia, unspecified Status: Acute (6) Atrial fibrillation: Qualifiers: Atrial fibrillation type: unspecified Qualified Code(s): I48.91 - Unspecified atrial fibrillation Code(s): I48.91 - Unspecified atrial fibrillation Status: Acute DS: Summary Hospital Course Hospital Course: Patient is 84-year-old male was brought to emergency department with poor hygiene with complaint of unable to urinate unable to ambulate and debilitated. Patient with history of bipolar unfortunately patient had not been able to followed up by his psychiatrist. patient confused and not cooperative has a sitter, Patient states his main concern is unable to urinate though he has a frequent urination with small amount, started patient on Flomax and finasteride which has helped patient with urination. will have PT/OT work with the patient, will continue to monitor. there was incidental finding on patient CT of abdomen which was concerning of renal mass to delores evaluate patient had renal US which showed 4.3 x 3.6 x 3.8 cm probable mass in the renal pelvis region, suspicious for urothelial carcinoma. CT urogram or pre and postcontrast renal MRI recommended to assess for enhancing soft tissue neoplastic lesion versus a potential alternative consideration such as hematoma. Today patient was seen by urologist to further evaluate renal and monitor patient will need CT urogram this can be done once the patient is more cooperative and clinically stable, the urologist also suspect the patient urinary symptoms may be stemming from parostitis and recommended 14 days of Cipro which will start. on 12/26 spoke with patient daughter Orly and gave update, she is not too keen to transfer patient to [facility] or [facility]. today patient if off restran and calm, seen by urology agrees with current plan, urologist had ordered Ct urogram however patient is not coopertive with IV access and urologist was informed, will wait until is more cooperative, will follow up, patient waiting to discharge to a facility. Time Spent with Patient Time attestation: Total time spent providing and/or coordinating discharge services: Exam Narrative: Elderly somewhat confused Patient is comfortable, NAD HEENT: eyes are clear and none icteric LUNGS:CTA HEART: RR S1S2 ABD: BS+, Soft and nontender Lower extremities: no edema SKIN: nonjaundiced Neuro: grossly intact. DS: Data Data Completed and Pending Labs on day of discharge: Labs from last 24 hours 12/30/24 05:52 WBC 5.7 RBC 4.20 L Hgb 13.1 L Hct 39.1 L MCV 93.1 MCH 31.2 MCHC 33.5 RDW 12.5 Plt Count 142 L MPV 11.0 H Sodium 139 Potassium 3.8 Chloride 106 Carbon Dioxide 23 Anion Gap 10 BUN 28 H Creatinine 0.95 Estim Creat Clear Calc 53 Estimated GFR > 60 Glucose 81 Calcium 9.6 Magnesium 2.2 Discharge Plan Discharge Attending physician on discharge: Israel Elias Consulting providers: Kamini Nunn; Hoang Greer; Justin Rodriguez; Jan Moreau; Dustin Norris; Rasheed Cali Discharging Clinician: Salvador Guerrero Patient Disposition: SNF Activity: as tolerated Diet: heart healthy and gestational diabetic Discharge Instructions: patient to follow up with his urologist and primary care provider as soon as possible, Patient need to be seen at [facility] hospital for his renal mass. Patient Instructions: Clopidogrel (By mouth), Safe Use of Anticoagulants (DC) Patient Language: Chinese Stand Alone Forms: General Discharge Information Follow-up/Referrals: Ari Wright MD [Physician] - Andrés Garcia DO [Primary Care Provider] - Discharge Medications: New hydrocodone-acetaminophen 5-325 mg Tablet 1 tablet PO Q6H PRN (Reason: Pain Rated 4-6) Qty: 15 0RF ciprofloxacin HCl 500 mg Tablet 500 mg PO Q12HR Qty: 24 0RF lorazepam 0.5 mg Tablet 0.5 mg PO Q8H PRN (Reason: Anxiety) Qty: 15 0RF tamsulosin 0.4 mg Capsule 0.4 mg PO QAM Qty: 30 0RF lidocaine [Lidoderm] 5 % Adhesive Patch,Medicated 2 patch transdermal HS Qty: 30 0RF finasteride [Proscar] 5 mg Tablet 5 mg PO QAM Qty: 30 0RF Continued Centrum Minis Men 50 Plus [id number] mcg tablet 1 tablet PO DAILY gabapentin 100 mg capsule 100 mg PO QHS Qty: 90 0RF brimonidine 0.1 % drops 1 drp EACH EYE BID metoprolol succinate 50 mg Tablet Extended Release 24 Hr 50 mg PO QAM Qty: 30 0RF clopidogrel 75 mg Tablet 75 mg PO QAM Qty: 30 0RF aspirin 81 mg Tablet,Delayed Release (Dr/Ec) 81 mg PO QAM Qty: 30 0RF aripiprazole [Abilify] 10 mg Tablet 10 mg PO DAILY Qty: 30 0RF rosuvastatin 20 mg Tablet 40 mg PO EVENING Qty: 30 0RF Date of admission: 12/23/24 06:32 Primary Care Provider: Andrés Garcia Admitting Provider: Israel Elias Attending physician on admission: Salvador Guerrero Condition: Stable
[2024-12-30] MEDS: BRIMONIDINE TARTRATE 0.1% 5 ML OPHTH DROPS 1 DROP EACH EYE (12:52)
[2024-12-30 14:00] VITALS: BP 107/51; PULSE 64; RESP 17; TEMP 36.2; O2SAT 100
[2024-12-30] MEDS: ROSUVASTATIN 20 MG TABLET 40 MG PO (16:28)
[2024-12-30 17:37] LABS: SARS-CoV-2 RNA PCR Negative (Negative)
== END 2024-12-30 19:19 | DRG 726 ==
LOC: ANHED 12-23 06:32 → ANH3MEDSUR 12-23 15:41
PROVIDERS: Admitting Provider Internal Medicine; Emergency Provider Emergency Medicine; PCP Internal Medicine; Visit Provider Family Medicine
DX: N40.1 Benign prostatic hyperplasia with lower urinary tract symptoms (principal); N13.8 Other obstructive and reflux uropathy; R33.8 Other retention of urine; N28.89 Other specified disorders of kidney and ureter; N28.1 Cyst of kidney, acquired; N50.82 Scrotal pain; M54.50 Low back pain, unspecified; G89.29 Other chronic pain; R53.81 Other malaise; R26.2 Difficulty in walking, not elsewhere classified; G62.9 Polyneuropathy, unspecified; F41.9 Anxiety disorder, unspecified; F31.9 Bipolar disorder, unspecified; M19.90 Unspecified osteoarthritis, unspecified site; I48.91 Unspecified atrial fibrillation; E78.5 Hyperlipidemia, unspecified; Z96.642 Presence of left artificial hip joint; Z66 Do not resuscitate; Z95.0 Presence of cardiac pacemaker; Z98.1 Arthrodesis status
CPT/HCPCS: 36415; 71045; 72131; 73562; 73700; 74176; 76775; 76870; 80048; 80053; 81003; 83605; 83690; 83735; 84145; 85025; 85027; 85055; 87635; 87637; 93005; 93976; 96361; 96374; 96375; 96376; 97161; 97165; 99285; A9270; J1100; J1171; J2270; J2359; J7030

== ENCOUNTER 2025-04-29 16:46 | Inpatient (IN) | payer MEDICARE, SELFPAY ==
[2025-04-29] VITALS (9 sets, daily range): BP systolic 79–116; BP diastolic 53–81; PULSE 64–91; RESP 16–27; TEMP 36.8; O2SAT 97–100
--- NOTE | ~2025-04-29 | CT_ITS ---
EXAMINATION: CT cervical spine wo con DATE: 04/29/2025 21:49 INDICATION: falls TECHNIQUE: Computed tomography (CT) of the cervical spine was performed without intravenous contrast. Automated exposure control and iterative reconstruction technique were employed. The dose-length pro duct was 438.83 mGy-cm. COMPARISON: None. FINDINGS: Vertebral Body Alignment: Stable multilevel mild listheses, likely secondary to degenerative changes. Craniocervical and atlantoaxial alignment: Severe degenerative change with pannus formation. Alignmen t intact. Osseous structures/fracture: No evidence of a lytic or blastic process in the visualized spine. No e vidence of acute fracture. Cervical soft tissues: The paraspinal soft tissues planes are maintained. Degenerative changes: Multilevel degenerative disc disease and facet arthropathy. Multilevel moderate to severe bilateral neural foraminal narrowing secondary to degenerative changes. Severe central can al narrowing at C4-5 secondary to degenerative changes. IMPRESSION: No acute fracture or traumatic malalignment in the cervical spine. Reviewed, dictated and finalized at location K.
--- NOTE | ~2025-04-29 | CT_ITS ---
EXAMINATION: CT brain wo con DATE: 04/29/2025 21:49 INDICATION: falls, AMS . TECHNIQUE: Computed tomography (CT) of the head was performed without intravenous contrast. The mA wa s adjusted according to patient size. Iterative reconstruction technique was employed. The dose-lengt h product was 681.00 mGy-cm. COMPARISON: 10/20/2018. FINDINGS: No acute intracranial hemorrhage or extra-axial fluid collection. No hydrocephalus, mass, or herniation. No acute ischemic infarct. Unremarkable dural venous sinus attenuation. No acute osseous abnormality. The aerated spaces are clear. Moderate atrophy and chronic white matter change. Atherosclerotic intracranial calcification. Bilater al lens replacements. Old nasal bone fractures. IMPRESSION: No acute intracranial process. Reviewed, dictated and finalized at location K.
--- NOTE | ~2025-04-29 | CT_ITS ---
CTA OF right lower extremity EXAMINATION: CTA LE RT DATE: 04/29/2025 21:49 INDICATION: Large right hip hematoma TECHNIQUE: Computed tomography angiography of the right lower extremity was performed with 100 mL Omn ipaque 350 CT abdomen pelvis 12/22/2024; x-rays of the pelvis and bilateral hips and right knee 04/29/20 25 intravenous contrast. Automated exposure control and iterative reconstruction technique were emplo yed. The dose-length product was 512.36 mGy-cm. COMPARISON: CT abdomen pelvis 12/22/2024 FINDINGS: Normal appendix. Mild bladder wall thickening and bladder wall trabeculation. Marked prostatomegaly. Subcutaneous stranding over the right hip, gluteal muscles and lateral thigh. 10.2 x 1.5 cm deep subc utaneous fluid collection, without significant surrounding wall thickening, enhancement, or internal extravasation. Mild scattered arterial atherosclerotic calcifications. No arterial occlusion, dissect ion, or significant stenosis. Degenerative changes in the right hip. Partially visualized uncomplicat ed appearing lumbar fusion hardware.: IMPRESSION: 10.2 x 1.5 cm deep subcutaneous fluid collection over the right hip, without extravasation to suggest active hemorrhage. More superficial subcutaneous edema/contusion also noted over the right hip. Blad bia wall thickening, probably secondary to chronic outlet obstruction from prostatomegaly. Reviewed, dictated and finalized at location K. IMPRESSION: 10.2 x 1.5 cm deep subcutaneous fluid collection over the right hip, without ex travasation to suggest active hemorrhage. More superficial subcutaneous edema/c ontusion also noted over the right hip. Bladder wall thickening, probably secon ayaka to chronic outlet obstruction from prostatomegaly.
--- NOTE | ~2025-04-29 | XR_ITS ---
EXAM: XR knee RT 3V, XR knee LT 3V DATE: 04/29/2025 21:56 HISTORY: falls . COMPARISON: None available. FINDINGS: Normal mineralization. No fracture or dislocation. No lytic or blastic lesion. Moderate tr icompartmental osteoarthritic changes. Chondrocalcinosis. Tibial tuberosity enthesopathy bilaterally No erosion or periosteal change. Mild anterior soft tissue swelling bilaterally. IMPRESSION: No acute osseous finding in the bilateral knees. Reviewed, dictated and finalized at location K. IMPRESSION: No acute osseous finding in the bilateral knees.
--- NOTE | ~2025-04-29 | CT_ITS ---
CLINICAL INDICATION: Right renal mass COMPARISON: Reference is made to an ultrasound examination dated 05/02/2025 and dating back to 12/24/2024 . Reference is also made to a noncontrast enhanced CT examination of the abdomen and pelvis dated 11/27. TECHNIQUE: Multiple contiguous axial images of the abdomen and pelvis were performed prior to and fol lowing the administration of with 100 mL Omnipaque-350 intravenous contrast The dose-length product (DLP) was 648.03 mGy-cm. Automated exposure control and iterative reconstruction technique were employed. FINDINGS/OBSERVATIONS: Liver: Punctate calcifications identified within the hepatic parenchyma, suggesting prior granulomato us disease. The remainder of the liver otherwise demonstrates homogeneous enhancement and is not enlarged. Gallbladder and biliary system: The gallbladder is only minimally distended, and otherwise unremarkable. Pancreas: Indeterminate contrast enhancement focus of decreased attenuation is identified within the tail of the pancreas measuring 17.3 x 12.4 mm. This focus is an interval change from CT examination performed 12/22/2024. The remainder of the pancreas otherwise enhances homogeneously without ductal dilatation. Spleen: Punctate calcifications identified within the splenic parenchyma, suggesting prior granulomatous dise ase. The remainder of the spleen otherwise enhances homogeneously and is not enlarged. Kidneys: Redemonstration of a soft tissue attenuation focus within the right renal pelvis. This focus does demonstrate avid contrast enhancement for which a malignancy is suspected. This focus appears to originate within the lower pole of the right kidney, and extends into the right renal pelvis. This mass measures 5.0 x 3.3 x 5.1 cm and has parasitized extensive vascular supply from the distal i leocolic artery, the right renal artery, and a branch from the right (likely) lumbar artery. No right-sided hydronephrosis is detected. Parapelvic cysts are identified within the left kidney The remainder of the bilateral kidneys otherwise enhance symmetrically without hydronephrosis or eliecer l calculi. Adrenal glands: Unremarkable. Gastrointestinal tract: Fecal stasis within the rectum. Colonic diverticulosis is identified without surrounding inflammatory change. Appendix: The air-filled appendix is of normal caliber (axial series, images 86 through 92) Vasculature: Densely calcified atherosclerotic disease. No filling defect within the inferior vena cava. No filling defect within the right renal vein. Lymph nodes: No pathologically enlarged or morphologically suspicious lymph nodes within the retroperitoneum or at the root of the mesentery. Scattered nonpathologically enlarged lymph nodes in the retroperitoneum, a nonspecific finding. Pelvic structures: Multiple bladder diverticula are identified along the dome of the bladder. The entirety of the right ureter is not opacified with intravenous contrast, rendering the presence of ascending or descending malignancy Limited. The left ureter is visualized, and is without filling defects. Only the posterior inferior border of the bladder is opacified with intravenous contrast. No filling defect is identified within that segment of bladder. The prostate gland is enlarged. Body wall and musculoskeletal: Redemonstration of a fluid collection within the soft tissues along the right lateral hip, measuring 10.2 x 2.8 x 11cm (anterior to posterior x medial to lateral x cranial to caudal dimension). A left total hip prosthetic is identified, demonstrating significant streak metallic artifact limitin g evaluation of the surrounding bone and soft tissue Posterior fixation hardware at the levels of L3, L4 and L5. Significant degenerative disease is ident ified within the remaining vertebral bodies. Heterogeneous attenuation is identified within L2 and the inferior endplate of L1, for which degenera tive disease is favored, but given the right renal mass, cannot exclude metastatic disease (less like ly). IMPRESSION: Multiple bladder diverticulum. Findings within the right kidney which represent a malignancy until proven otherwise, as detailed abo ve. The entirety of the right ureter is not opacified with intravenous contrast, limiting its evaluation. The entirety of the bladder is not opacified with contrast, also limiting its evaluation for which di rect visualization of both areas are recommended. Additional abnormality within the tail of the pancreas, as detailed above. Reviewed, dictated and finalized at location A. IMPRESSION: Multiple bladder diverticulum. Findings within the right kidney which represent a malignancy until proven othe rwise, as detailed above. The entirety of the right ureter is not opacified with intravenous contrast, li miting its evaluation. The entirety of the bladder is not opacified with contrast, also limiting its e valuation for which direct visualization of both areas are recommended. Additional abnormality within the tail of the pancreas, as detailed above.
--- NOTE | ~2025-04-29 | CT_ITS ---
CLINICAL INDICATION: Abnormal findings within the right kidney COMPARISON: 12/01/2024. TECHNIQUE: Multiple contiguous axial images of the chest was performed following the administration o f intravenous contrast. This CT examination was performed utilizing dose reduction techniques. DLP: 444 mGy-cm FINDINGS/OBSERVATIONS: LUNG: The lungs are clear. No nodules or discrete lung masses are identified. HEART: The heart is of normal size, without pericardial effusion. Pancreas MEDIASTINUM: No pathologically enlarged or morphologically suspicious lymph nodes are identified within the medias tinum, bilateral axilla, within the soft tissues of the anterior chest wall. Calcified lymph nodes are identified within the mediastinum suggesting prior granulomatous disease. SOFT TISSUES OF THE CHEST: Unremarkable. BONES OF THE CHEST: Subacute fracture of the posterior left rib with trace callus formation. Adjacent pleural thickening is also noted. No expansile lytic lesion is identified suggest that this is pathologic fracture. There are bridging endplate osteophytes at multiple levels in the thoracic spine, consistent with dif fuse idiopathic skeletal hyperostosis (DISH). IMPRESSION: Subacute fracture of the posterior left 10th rib with trace callus formation. No findings within the chest to suggest metastatic disease within the chest, as detailed above. Reviewed, dictated and finalized at location A.
--- NOTE | ~2025-04-29 | XR_ITS ---
EXAMINATION: XR chest 1V Exam Date/Time: 04/29/2025 21:42 CDT HISTORY: falls Comparison: 12/22/2024. RESULT: Lines, tubes, and devices: Left chest pacer with intact leads. Lungs and pleura: Clear. Cardiomediastinal silhouette: Stable. Other: No acute osseous or upper abdominal finding. IMPRESSION: No acute cardiopulmonary process. Reviewed, dictated and finalized at location K.
--- NOTE | ~2025-04-29 | US_ITS ---
EXAM: RENAL ULTRASOUND HISTORY: Follow up renal mass COMPARISON: Reference is made with a renal ultrasound dated 12/24/[address] examination of the abdomen and pelvis dated 12/22/2024. FINDINGS: RIGHT KIDNEY: 11.1 x 5.2 x 5.9 cm. Redemonstration of a growing mass within the right renal pelvis, measuring 4.1 x 4.0 x 3.3 cm which r epresents a malignancy until proven otherwise. LEFT KIDNEY: 10.8 x 5.4 x 4.8 cm No hydronephrosis or renal calculi. Pararenal cyst is suspected. BLADDER: The bladder is minimally distended on the current examination with irregularity of the mohamud and internal debris. Despite prolonged interrogation, the left ureteral jet was not visualized. Righ t ureteral jet was unremarkable. Prostatic enlargement. IMPRESSION: Interval enlargement of a mass within the right renal pelvis which represents a malignancy until prov en otherwise. Contrast-enhanced MRI is recommended as is urologic consultation. Reviewed, dictated and finalized at location A. IMPRESSION: Interval enlargement of a mass within the right renal pelvis which represents a malignancy until proven otherwise. Contrast-enhanced MRI is recommended as is urologic consultation.
--- NOTE | ~2025-04-29 | XR_ITS ---
EXAM: XR hip BI 2V w AP pelvis DATE: 04/29/2025 21:56 HISTORY: falls . COMPARISON: CT left hip 12/15/2024; CT abdomen pelvis 12/22/2024. FINDINGS: Partially visualized uncomplicated appearing lumbar fusion hardware. Lumbar spine degenera tive disc disease. 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 Uncomplicated appearing left hip arthrop lasty hardware. No lytic or blastic lesions. No acute fracture or dislocation. Chronic right L4 trans verse process fracture. IMPRESSION: No acute osseous finding in the pelvis or bilateral hips. Reviewed, dictated and finalized at location K.
--- NOTE | 2025-04-29 17:41 | ECG_ITS ---
Test Date: 2025-04-29 17:59:03 Measurements Intervals [place] Rate: 60 P: 97 PA: 240 QRS: 13 QRSD: 153 T: 116 QT: 451 QTc: 453 Interpretive Statements ELECTRONIC VENTRICULAR PACEMAKER ABNORMAL RHYTHM ECG Compared to ECG 12/23/2024 15:37:28 Ventricular premature complex(es) no longer present Electronically Signed On 04-30-2025 13:38:38 CDT by Eamon Ríos M.D.
[2025-04-29 17:55] LABS: Hematocrit 30.5 % (42.0-52.0); Hemoglobin 10.1 g/dL (14.0-18.0); Immature Granulocyte Percent A 0.5 % (0-0.5); Lymphocytes Absolute Auto 0.90 K/mm3 (0.9-3.2); Mean Corpuscular HGB Conc 33.1 g/dl (32-36); Mean Corpuscular Hemoglobin 30.1 pg (26-34); Mean Corpuscular Volume 91.0 fl (80-100); Nucleated Red Blood Cells Absolute Auto 0.000 K/mm3 (0.0-0.012); Nucleated Red Blood Cells Perc 0.0 % (0.0-0.2); Platelet Count Result 138 k/mm3 (150-375); Red Blood Count 3.35 M/mm3 (4.6-6.20); White Blood Count 7.7 K/mm3 (4.5-10.0)
[2025-04-29 18:04] LABS: Alanine Aminotransferase 37 U/L (6-50); Albumin Level 3.7 g/dL (3.5-5.1); Alkaline Phosphatase 90 U/L (38-126); Anion Gap 8 mmol/L (4-12); Aspartate Amino Transferase 79 U/L (17-59); Bilirubin,Total 0.8 mg/dL (0.2-1.3); Blood Urea Nitrogen 19 mg/dL (9-20); Calcium 9.6 mg/dL (8.4-10.2); Carbon Dioxide 27 mmol/L (22-30); Chloride 104 mmol/L (98-107); Estimated CRCL calculation 53 ml/min; Estimated Glomerular Filt Rate > 60; Glucose 87 mg/dL (65-110); Potassium 3.7 mmol/L (3.4-5.0); Sodium 139 mmol/L (137-145); Total Protein 6.8 g/dL (6.3-8.2)
[2025-04-29 18:07] LABS: INR 1.2; Prothrombin Time 15.4 Seconds (11.1-14.7)
[2025-04-29 18:08] LABS: Partial Thromboplastin Time 40.3 Seconds (22.3-36.8)
[2025-04-29 18:22] LABS: Add Urine Microscopic? NO; Appearance Urine Clear (Clear); Glucose Urine UA Negative (Negative); Leukocyte Esterase Ur Negative LEU/UL (Negative); Nitrate Urine Negative (Negative); Specific Grav Ur 1.020 (1.001-1.035)
--- NOTE | 2025-04-29 19:13 | PC.NURSE ---
Assumed care of patient after receiving bedside report from VALORIE Raymundo @ [phone]
--- OUTSIDE RECORDS SUMMARY | 2025-04-29 20:22 | XMS_ITS | Clinical Summary ---
Author Organization [facility] Address Formerly [facility] [place] [address] Care Team Providers Care Car Supervisor Name Role Phone KiraHaseeb koenig Primary Care [...] obstruction 12/01/2022 Pacemaker 11/28/2022 Sinoatrial node dysfunction ([facility]/HCC [facility]) Heart block AV second degree 11/26/2022 BPH [...] lower urinary tract symptoms (LUTS) 09/22/2012 11/09/2022 Immunizations Immunization Administration Dates Next Due Influenza Adult (Generic) 08/08/2022 MODERNA COVID-19 (12+) MRNA, LNP-S, PF, 100 MCG/ 0.5 ML DOSE 08/22/2021,01/23/2021,12/26/2020 MODERNA COVID-19 (WET AND DRY SUGAR BIN OPERATOR FLOYD TAMANNA), MRNA, LNP-S, PF, 50 MCG/ [...] place to sleep or slept in a senior care (including now)? No 11/26/2022 Sex and Gender Information Value Date Recorded Sex Assigned at Not on file Legal Sex Male 11:10 PM CDT Gender Identity Not on file Sexual Orientation Not on file Last Filed Vital Signs Vital Sign Reading Time Taken Comments Blood Pressure 107/58 09/19/2024 10:05 AM NETWORK MANAGEMENT SPECIALIST Pulse 81 09/19/2024 10:05 AM NETWORK MANAGEMENT SPECIALIST Temperature 36 C (96.8 F) 09/19/2024 8:03 AM NETWORK MANAGEMENT SPECIALIST Respiratory Rate 16 09/19/2024 8:03 AM NETWORK MANAGEMENT SPECIALIST Oxygen Saturation 98% 09/19/2024 10:05 AM NETWORK MANAGEMENT SPECIALIST Inhaled Oxygen Concentration - - Weight 79.4 kg (175 lb) 09/19/2024 8:03 AM NETWORK MANAGEMENT SPECIALIST Height 177.8 cm (5' 10) 09/19/2024 8:03 AM NETWORK MANAGEMENT SPECIALIST Body Mass Index 25.11 09/19/2024 8:03 AM NETWORK MANAGEMENT SPECIALIST Plan of Treatment Health Maintenance Due Date Last Done Comments Zoster Vaccines (1 of 2) 1990 Annual Medicare Wellness Visit 2005 RSV Immunization or 60+ Years (1 - 1-dose 75+ series) 2015 COVID-19 Vaccine ( season) 2024 05/12/2023, 06/19/2022, 08/22/2021, Additional history exists PHQ-2 (Physician [place]) 10/26/2024 DTaP, Tdap and Td Vaccines (1 - Tdap) 10/26/2028 Postponed from 1959 (Per Provider Recommendation) Pneumococcal Vaccine: 50+ Years Completed 12/11/2022, 06/06/2021 Meningococcal B Vaccine [...] Monitoring Lifestyle On track( 023 9:43 AM NETWORK MANAGEMENT SPECIALIST) No Naima Nobles RN Medical Devices Implanted Type Area Woven Wood Shade Assembler Device Identifier Shelf Expiration Date Model / Serial / Lot His Lead Implant-2022 Implanted:Qt y: 1 on 11/27/2022 by Kaiden Hodgson MD Lead Implant Left: Chest [employer] [id number] 07/04/2024 [id number] / [id number] / Description:LEFT BUNDLE BRAN CH Ra Lead Implant-2022 Implanted:Qt y: 1 on 11/27/2022 by Kaiden Hodgson MD Lead Implant Right: Atrium [employer] [id number] 09/17/2024 [id number] / [id number] / Description:APPENDAGE Mdt Pacemaker-11/27/2022 Implanted:Qt y: 1 on 11/27/2022 by Kaiden Hodgson MD Pacemaker Left: Chest [employer]TR[employer]IC CARDIAC RHYTHM AND HEART FAILURE - DIV M [id number] 02/21/2024 [id number] / [id number] / Tecnis 1 Piece Iol Implanted:Qt y: 1 on 09/19/2024 by Jean-Pierre Chaparro MD at [facility] Left: Eye [employer] [id number] 04/11/2027 / [id number] / Insurance MEDICARE AET Advance Directives * Full Code (Latest Code [...] 3:16 PM 2022 2:54 PM Care Teams Car Supervisor Relationship Specialty Start Date End Date Haseeb Malone [place] [address] PCP - General FAMILY PRACTICE 12/11/22
--- OUTSIDE RECORDS SUMMARY | 2025-04-29 20:22 | XMS_ITS | Patient Health Record ---
Author Organization [facility] Address [address] [place] [address] Care Team Providers Care Template Maker Name Role Phone VANGIE SANDHU Primary Care Provider Trav Ponce Unavailable [phone] Allergies No Known Allergies Results Component Value Reference Range Notes UDT Reviewed date:12/12/2024 11:26:59 AM Interpretation: Performing Lab: Notes/Report: THC N 0 - 50 ng/ml Cocaine N 0 - 300 ng/ml Amphetamine N 0 - 1000 ng/ml Buprenorphine (BUP) N 0 - 10 ng/ml Secobarbital (Bar) N 0 - 300 ng/ml Oxazepam (BZO) N 0 - 300 ng/ml 5-zuqzgbpybl-7,0-zkoqxdiw-5,3-diphenylpyrrolidine (LALITHA P) N 0 - 300 ng/ml Methamphetamine (MET) N 0 - 1000 ng/ml Methylenedioxymethamphetamine (MDMA) N 0 - 500 ng/ml Morphine (MOP 300/[id number]) N 0 - 300 ng/ml Methadone (MTD) N 0 - 300 ng/ml Phencyclidine (PCP) N 0 - 25 ng/ml Nortriptyline (TCA) N 0 - 1000 ng/ml Oxycodone N 0 - 300 ng/ml x N 0 - 300 ng/ml Reason For Referral No Information Medications Medication SIG (Take, Route, Frequency, Duration) Notes Start Date End Date Status ARIPiprazole 10 MG TAKE 1 TABLET BY RENETTA TH EVERY DAY Oral Once a day; Duration: 90 days Active Metoprolol Succinate ER 50 MG TAKE 1 TABLET BY MOUTH EVERY DAY IN THE MORNING Oral; Duration: 30 Days Active Rosuvastatin Calcium 20 MG TAKE 2 TABLET S BY MOUTH EVERY DAY IN THE EVENING Oral; Duration: 15 Days Active Clopidogrel Bisulfate 75 MG TAKE 1 TABLE T BY MOUTH EVERY DAY IN THE MORNING Oral; Duration: 30 Days Active [facility] Aspirin Low Dose 81 MG TAKE ONE TABL ET BY MOUTH EVERY MORNING Oral; Duration: 30 Days Active Gabapentin 100 MG TAKE 1 CAPSULE BY MO UTH EVERY DAY AT BEDTIME Oral; Duration: 90 Days Active Social History Tobacco Use: Social History Observation Description Date Details (start date - stop date) Unknown Sex Assigned At : Social History Observation Description Sex Assigned At Male Household Question Answer Notes Number of adults in household: 1 Level of education: finished high school Tobacco Control (Standard) Question Answer Notes Tobacco use: Uses tobacco in other forms Additional Findings: Tobacco user Pipe smoker AUDIT-C (Standard) Question Answer Notes Did you have a drink containing alcohol in the p ast year? No Problems Problem Type SNOMED Code ICD Code Onset Dates Problem Status W/U Status Risk Notes Problem Generalized anxiety disorder (40049917) DWAINE (generalized anxiety disorder) (F41.1) Active confirmed Problem Mild cognitive impairment (561585436) Mild cognitive impairment (G31.84) Active confirmed Vital Signs Heart Rate 50 /min 12/12/2024 Blood pressure diastolic 79 mm Hg 12/12/2024 Weight-kg 82.1 kg 12/12/2024 Blood pressure systolic 109 mm Hg 12/12/2024 Weight 181 lbs 12/12/2024 Encounters Encounter Location Date Provider Diagnosis Portal [place], [facility] [address] [address] 12/12/2024 Trav Bazan DWAINE (generalized anxiety disorder) F41.1 ; Mild cognitive impairment G31.84 and Smoker F17.200 [facility] [address] [place] [address] 12/20/2024 Trav Bazan Assessments Encounter Date Diagnosis (ICD Code) Assessment Notes Treatment Notes Treatment Clinical Notes Section Notes 12/12/2024 DWAINE (generalized anxiety disorder) (ICD-10 - F41.1) Assessment and plan reviewed with patient Call for problems with medication, side effects or need for dosage change Compliance issues reviewed Discussed the risks/benefits of this medication Discussed medication side effects Return if symptoms worsen Treatment options reviewed. discussed that it can take weeks to see full therapeutic effects of psychotropic medications. discussed when to seek emergency services. discussed crisis prevention hotline 988. 12/12/2024 Mild cognitive impairment (ICD-10 - G31.84) 12/12/2024 Smoker (ICD-10 - F17.200) 5045-Quit - Yes [place] Tobacco Quitline Call a Smoking Quitline The National Cancer [place]'s Smoking Quitline, (3-705-09H-QUIT) Smokefree.gov, which connects you with your State's Quitline, (1-852-CPXWFEJ) Veterans Smoking Quitline, (5-980-ZRDAIRQ) 12/12/2024 Other Learning About Depression Screening material was printed Notes: referral to the local chapter or national office of the Alzheimer's Association ( ; http://www.alz.o rg), the Alzheimer's Disease Education and Referral Center (ADEAR) ( ; http://www.avelino.n ih.gov/Alzheimer s/), 1. Anxiety - DWAINE-7: 5 - Patient reports anxiety at a level of 3 out of 10. - Currently taking aripiprazole (Abilify). - Plan: a. Continue aripiprazole b. Refill aripiprazole for 90 days. c. Address stress related to the remaining artery with 80% blockage. d. Follow-up in 3 months or sooner if needed. 2. Sleep Disturbance - Patient reports broken sleep, waking up multiple times during the night but still getting 6-7 hours of sleep. - Plan: a. Encourage good sleep hygiene practices. b. Monitor sleep quality and consider further evaluation if sleep disturbance worsens. 3. Cognitive Impairment - Patient scored 19 on the SLUMS examination, indicating mild cognitive impairment. - Plan: a. No pharmacological interventions at this time per discussion with patient and family. b. Discussed safety concerns with daughter. c. Follow-up in 3 months or sooner if needed. 4. Cardiac History - Patient has a history of coronary artery disease, myocardial infarction, bradycardia, and a Medtronic pacemaker. - Plan: a. Continue current cardiac medications (rosuvastatin, metoprolol, aspirin, clopidogrel). b. Encourage patient to quit smoking pipe due to risks associated with nicotine use and cardiac conditions. c. Continue to go to F/u apts with strap buckler and PCP for management 5. General Health and Safety - Patient lives alone, with son living nearby and daughter attending visit. - Plan: a. Discussed safety concerns with daughter, including smoke alarm and carbon monoxide detector batteries, removing throw rugs, adequate locks, avoiding stovetop and oven cooking. b. Encourage regular check-ins with family members and follow-up appointments as needed. Plan Of Treatment No Information Insurance Providers Payer Name Payer Address Payer Phone Subscriber Number Group Number Insured Name Patient Relationship to Insured Coverage Start Date Coverage End Date [place] [address] [place] [phone] [id number] LEONARD ROY Self - patient is the insured Aetna Medicare Supplement [address] [place] [phone] [id number] LEONARD ROY Self - patient is the insured Medical (General) History Medical History History ICD Code Past Psychiatric History: Bipolar Disord er abdominal aortic aneurysm: No atrial fibrillation: No chronic fatigue syndrome: No essential tremor: No hyperlipidemia: No hypertension: No Parkinson's disease: No restless leg syndrome: No stroke: No subdural hematoma: No type 1 diabetes mellitus: No type 2 diabetes mellitus: No myocardial infarction coronary artery disease eye nerve damage prostate enlargement bradycardia LEFT BUNDLE BRANCH Spinal stenosis of lumbar region GERD (gastroesophageal reflux disease) Lumbar radiculopathy BPH without urinary obstruction hemorrhage in the left eye open angle glaucoma of left eye Surgical History Surgery Date(Month/Year) stents in artery Left Cataract Extraction with Intraocula r Lens Implant and OMNI back fusion prostate- TURP cardiac cath pace maker- medtronic left hip replacement. Hospitalization History Reason Date(Month/Year) cardiac
--- OUTSIDE RECORDS SUMMARY | 2025-04-29 20:22 | XMS_ITS | Encounter Summary ---
Author Organization [facility] Address [facility] [place] [address] Care Team Providers Care Director Of Leadership Development Name Role Phone Trav Bullock MD Primary Care Provider [phone] Miki Munoz MD Unavailable [phone] Andrés Goins DO Primary Care Provider [phone] None, Provider Primary Care Provider UnavailMaritza Garcia MD Primary Care Provider [phone] Naima Nobles RN Unavailable [phone] Haseeb Malone DO Primary Care Provider [phone] None, Provider Primary Care Provider UnavailHaseeb Hunter DO Primary Care Provider [phone] Encounter Details Date Type Department Care Team (Late st Contact Info) Description 01/03/2019 Abstract [facility] CONVERSION [address] [place] [address] , Generic Conversion, Social History [...] on filedocumented in this encounter Care Teams Director Of Leadership Development Relationship Specialty [place] [address] [place] [address] PCP - General FAMILY PRACTICE 10/29/18 06/05/21 [place] [address] [place] [address] PCP - General FAMILY PRACTICE 06/06/21 09/30/22 None, ProviderMD PCP - General UNKNOWN PHYSICIAN SPECIALTY 10/01/22 10/07/22 Maritza Rose MD [address] [place] [address] PCP - General FAMILY PRACTICE 10/08/22 11/19/22 Haseeb Malone [place] [address] [place] [address] PCP - General FAMILY PRACTICE 11/20/22 11/25/22 None, MD Ariel PCP - General UNKNOWN PHYSICIAN SPECIALTY 11/26/22 12/10/22 Haseeb Malone DO [address] [place] [address] PCP - General FAMILY PRACTICE 12/11/22 [place] [address] [place] [address] UROLOGY 03/03/19 01/04/23 Naima Nobles RN [address] [place] [address] Television Audio Engineer (Ambulatory) REGISTERED NURSE 11/19/22 01/04/23 documented as of this encounter
--- OUTSIDE RECORDS SUMMARY | 2025-04-29 20:22 | XMS_ITS | Encounter Summary ---
Author Organization [facility] Address [facility] [place] [address] Care Team Providers Care Radiologic Technology Program Director Name Role Phone Miki Munoz MD Unavailable [phone] Naima Nobles RN Unavailable [phone] Haseeb Malone DO Primary Care Provider [phone] Reason for Visit * Reason Onset Date Comments Follow Up Call 12/12/2022 Encounter Details Date Type Department Care Team (Late st Contact Info) Description 12/12/2022 Hospital Follow-up Call [facility] Medical/Surgical [address] [place] [address] Luh Mendiola, RN Follow Up [...] place to sleep or slept in a long-term (including now)? No 11/26/2022 Sex and Gender [...] Coronavirus/COVID-19? No / Unsure 12/15/2022 7:48 AM PAD MAKING MACHINE OPERATOR documented as of this encounter Functional Status * RETIRED Are you deaf or do you have serious difficulty hearing Answer Date of Assessment Author Status No 12/10/2022 10:01 AM PAD MAKING MACHINE OPERATOR Acti ve * RETIRED Are you blind or do you have serious difficulty seeing, even when wearing glasses? Answer Date of Assessment Author Status No 12/10/2022 10:01 AM PAD MAKING MACHINE OPERATOR Acti ve * Do you have serious [...] 10:01 AM April Kang RN Active * Over the past 2 weeks, how often have you been bothered by any of the following problems? Question Answer Date of Assessment Author Status Little interest or pleasure in doing things Several days 12/15/2022 8:17 AM Cole Taylor R N Active Feeling down, depressed, or hopeless Several days 12/15/2022 8:17 AM Cole Taylor RN Active Patient Health Questionnaire-2 Score 2 12/15/2022 8:17 AM Cole Taylor RN A ctive documented as of this encounter Mental Status [...] Monitoring Lifestyle On track( 023 9:43 AM PAD MAKING MACHINE OPERATOR) Naima Barrett RN documented as of this encounter Visit Diagnoses Not on filedocumented in this encounter Additional Health Concerns Assessment Noted Time PHQ-9 Depression Total Score: 12 022 10:30 AM CDT documented as of this encounter Care Teams Radiologic Technology Program Director Relationship Specialty Start Date End Date Haseeb Malone DO [address] [place] [address] PCP - General FAMILY PRACTICE 12/11/22 Miki Munoz MD UROLOGY 03/03/19 01/04/23 Naima Nobles, RN [address] [place] [address] Real Estate Instructor (Ambulatory) REGISTERED NURSE 11/19/2210/17 documented as of this encounter
--- OUTSIDE RECORDS SUMMARY | 2025-04-29 20:22 | XMS_ITS | Clinical Summary ---
Author Organization [facility] Address [address] [place] [address] Care Team Providers Care Structural Design Engineer Name Role Phone Chon Little MD Primary Care Provider + Source Comments [facility],non-owned Affiliates and Associated Physician Practices is amultiple site organization consisting of ambulatory clinics and hospital sitesin [place], [place], [place] and [place]. This disclosure is being madepursuant to the Care Everywhere program and may not contain all information available regarding this patient. Last updated 18.[facility] Allergies No known active allergies Medications * Be aware that medications may not be up to date on this document. Alwaysverify current medications with the patient. tamsulosin (FLOMAX) 0.4 MG capsuleIndicatio ns:Urinary retention,Benign prostatic hyperplasia with urinary obstruction Take 1 capsule by mouth once daily 90 capsule 3 08/10/2018 Active finasteride (PROSCAR) 5 MG tabletIndication s:Urinary retention,Benign prostatic hyperplasia with urinary obstruction Take 1 tablet by mouth once daily 90 tablet 3 08/10/2018 Active Social History Tobacco Use Types Packs/Day Years Used Date Smoking Tobacco: Former Smokeless Tobacco: Never Sex and Gender Information Value Date Recorded Sex Assigned at Not on file Legal Sex Male 10:27 AM CDT Gender Identity Not on file Sexual [...] 2:44 PM CDT Height 177.8 cm (5' 10) 08/18/2018 2:44 PM CDT Body Mass Index 25.97 08/18/2018 2:44 PM CDT Plan of Treatment Health Maintenance Due Date Last Done Comments DTAP/TDAP/TD VACCINES (1 - Tdap) 1959 PNEUMOCOCCAL VACCINE 50+ (1 of 1 - PCV) 1990 ZOSTER VACCINE (1 of 2) 1990 Respiratory Syncytial Virus (RSV) Vaccine Pt: or over 60 yrs (1 - 1-dose 75+ series) 2015 COVID-19 VACCINE (1 - 2023-2 5 season) 2024 DEPRESSION SCREENING 10/26/2024 INFLUENZA VACCINE (#1) 2025 HEPATITIS B VACCINE Aged Out No longe r eligible based on patient's age to complete this topic HIB VACCINE Aged Out No longer eligi ble based on patient's age to complete this topic HPV VACCINE Aged Out No longer eligi ble based on patient's age to complete this topic MENINGOCOCCAL (Group B) VACC INE SHARED DECISION-MAKING Aged Out No longer eligibl e based on patient's age to complete this topic MENINGOCOCCAL GROUPS A/C/Y/W VACCINE Aged Out No longer eligible b ased on patient's age to complete this topic Insurance MEDICARE Care Teams Structural Design Engineer Relationship Specialty Start Date End Date Chon Little MD [address] [place] [address] [facility] - General 08/10/18
--- NOTE | 2025-04-29 20:53 | ED_ITS ---
HPI - Altered Mental Status General Chief Complaint: Altered Mental Status <Enedelia Duran PA-C - Last Filed: 04/30/25 00:03> Stated Complaint: AMS <Enedelia Duran PA-C - Last Filed: 04/30/25 00:03> Time Seen by Provider: 04/29/25 20:14 <Enedelia Duran PA-C - Last Filed: 04/30/25 00:03> History of Present Illness HPI narrative: 84-year-old male with history of hypertension, CAD, CKD, AFib not on anticoagulants, vascular dementia, s/p cardiac pacemaker placement presents to the emergency department from [facility] for altered mental status. Per [facility] staff patient is A&O times 2-3. Apparently he has had several frequent falls and has been deteriorating over the past week. He presents with a large bruise to his right hip was reportedly obtained over the past week. Patient is unable to provide any history regarding this. He denies any complaints except that he hopes to ?get out of here?. He denies headache, vision changes, focal numbness or weakness, chest pain or shortness of breath, abdominal pain, N/V/D, dysuria or hematuria. Pt is DNR. <Enedelia Duran PA-C - Last Filed: 04/30/25 00:03> Related Data Home Medications: Home Medications ?Medication ?Instructions ?Recorded ?Confirmed ?Last Taken ?Type [id number] 150 mcg-vit K1 1 tablet PO DAILY 06/22/24 04/30/25 12/21/24 History 30 mcg-lycop 300 mcg-lutein tablet (Centrum Minis Men 50 Plus) acetaminophen 325 mg capsule 650 mg PO Q4H PRN pain 04/30/25 04/30/25 Unknown History amantadine HCl 100 mg capsule 100 mg PO BID 04/30/25 04/30/25 Unknown History aripiprazole 10 mg tablet (Abilify) 15 mg PO DAILY 04/30/25 04/30/25 Unknown History divalproex 250 mg tablet,extended 125 mg PO BID 04/30/25 04/30/25 Unknown History release 24 hr (Depakote ER) donepezil 5 mg tablet (Aricept) 5 mg PO BID 04/30/25 04/30/25 Unknown History gabapentin 100 mg capsule 100 mg PO BID 04/30/25 04/30/25 Unknown History lidocaine 5 % topical patch 2 patch transdermal DAILY 04/30/25 04/30/25 Unknown History (Lidoderm) memantine 5 mg tablet (Namenda) 5 mg PO BID 04/30/25 04/30/25 Unknown History <Enedelia Duran PA-C - Last Filed: 04/30/25 00:03> Allergies/Adverse Reactions: Allergies Allergy/AdvReac Type Severity Reaction Status Date / Time No Known Allergies Allergy Verified 12/22/24 19:44 <LIZBET Brandt Last Filed: 04/30/25 00:03> Review of Systems 2 Review of Systems: All systems reviewed & are unremarkable except as noted in HPI and below <LIZBET Brandt Last Filed: 04/30/25 00:03> [facility] Past Medical History Medical History: Medical History (Updated 04/30/25 @ 03:42 by Shae Andrews DO) Coronary artery disease Combined systolic and diastolic congestive heart failure Echocardiogram November 2024: EF 40-45%, moderately increased left ventricular wall thickness, grade 1 diastolic dysfunction, normal right ventricular function mild biatrial enlargement Chronic constipation Atrial fibrillation Glaucoma BPH w urinary obs/LUTS Bipolar depression Vascular dementia Bulbous urethral stricture Anxiety Neuropathy Vision disorder Arthritis Prophylactic gland removal Removed from neck 1976 <LIZBET Brandt Last Filed: 04/30/25 00:03> Surgical History Surgical History: Surgical History (Updated 04/30/25 @ 03:42 by Shae Andrews DO) History of colonoscopy with polypectomy History of coronary artery stent placement Left circumflex and LAD Pacemaker S/P eye surgery Left eye 2024 Previous back surgery Fusion L3-L5 History of hip replacement Left 2006 <LIZBET Brandt Last Filed: 04/30/25 00:03> Family History Family History: Family History Father Cancer Mother Cancer Colostomy care Son Diabetes mellitus <LIZBET Brandt Last Filed: 04/30/25 00:03> Social History Social History: Social History (Updated 04/30/25 @ 03:30 by Shae Andrews DO) Social History: The patient is on probation and has a left ankle monitor in place. Code status: DNR/DNI (per EMR) Smoking status: Never smoker Second hand tobacco smoke exposure: No Alcohol intake: unknown Substance use: never Substance use type: does not use Do You Feel Safe in your Home?: Yes Lack of Transportation: No Lack of Food: Never True Current Housing: I Have Housing Concerned About Future Housing: No Difficulty Paying Gas/Electric Bills: No Difficulty Paying for Meds: No Currently Unemployed: No Education: High School Diploma/GED Difficulty w/ Childcare or Family Care: No Living arrangements: [facility] Occupation/Education: retired 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 EYES: PERRLA and EOMI. ENT: Nares clear, no rhinorrhea or epistaxis. Mucous membranes very dry NECK: Mild cervical spinous tenderness without crepitus, step-offs or deformities BACK: No midline thoracolumbar spinous tenderness, crepitus, step-offs or deformities CHEST: Clear to auscultation. No respiratory distress. No tenderness to chest wall HEART: Regular rate and rhythm. No murmur heard. Normal peripheral pulses. ABDOMEN: Soft, nontender, nondistended, normal active bowel sounds. EXTREMITIES: Large hematoma to the right hip with mild tenderness, no obvious deformity, full active and passive range of motion. Compartments are soft. Healing abrasions over bilateral knees. No tenderness remainder of extremities. DP pulses 2+. Sensation intact throughout. SKIN: Warm, dry, no rash. NEURO: No focal deficits. Alert and oriented x3. Moving all extremities spontaneously <Enedelia Duran PA-C - Last Filed: 04/30/25 00:03> Course RESEARCH STAFF MEMBER/PA Physician Supervision This visit was performed by both a physician and an APC. I performed all aspects of the MDM as documented. <Hoang Greer MD - Last Filed: 04/30/25 05:50> Vital Signs Vital signs: Vital Signs Temperature 36.8 C 04/29/25 17:20 Pulse Rate 64 04/29/25 17:20 Respiratory Rate 16 04/29/25 17:20 Blood Pressure 102/53 L 04/29/25 17:20 Pulse Oximetry 99 04/29/25 17:20 Oxygen Delivery Room Air 04/29/25 17:20 Temperature 36.8 C 04/30/25 01:52 Pulse Rate 60 04/30/25 04:00 Respiratory Rate 20 04/30/25 01:52 Blood Pressure 114/46 L 04/30/25 01:52 Pulse Oximetry 100 04/30/25 01:52 Oxygen Delivery Room Air 04/29/25 17:26 <Enedelia Duran PA-C - Last Filed: 04/30/25 00:03> Vital Signs Temperature 36.8 C 04/29/25 17:20 Pulse Rate 64 04/29/25 17:20 Respiratory Rate 16 04/29/25 17:20 Blood Pressure 102/53 L 04/29/25 17:20 Pulse Oximetry 99 04/29/25 17:20 Oxygen Delivery Room Air 04/29/25 17:20 Temperature 36.8 C 04/30/25 01:52 Pulse Rate 60 04/30/25 04:00 Respiratory Rate 20 04/30/25 01:52 Blood Pressure 114/46 L 04/30/25 01:52 Pulse Oximetry 100 04/30/25 01:52 Oxygen Delivery Room Air 04/29/25 17:26 <Hoang Greer MD - Last Filed: 04/30/25 05:50> MDM - Altered Mental Status MDM Narrative Medical decision making narrative: 84-year-old male presents emergency department for altered mental status from [facility]. Patient has reportedly been deteriorating over the past week and has had several falls. He presents with a very large hematoma to the right hip and healing abrasions over the bilateral knees. He is A&O x3 and answering questions appropriately. Mucous membranes are very dry on exam and patient did become hypotensive. Fluids started. Remainder of vitals are unremarkable. Exam is notable for the above. Lab work shows no leukocytosis. Hemoglobin is 10.1, most recent hemoglobin in December of 2024 was 13.1. I suspect the drop in hemoglobin is secondary to large hematoma to the right hip. Chemistries show an AST of 79, normal ALT bilirubin, normal alk-phos. Patient does have an elevated CK of 777, again fluids are ongoing. Chemistries to 2+ ketonuria consistent with dehydration which is evident clinically. Patient's EKG shows electronic ventricular pacemaker, no changes when compared to prior. His troponin is elevated to 0.043. He continues to deny any chest pain or shortness of breath. Will trend. Chest x-ray shows no acute cardiopulmonary findings. Bilateral knee x-ray showed no acute osseous findings. Bilateral hip x-ray showed no acute osseous findings in the hips or pelvis. CT brain shows no acute intracranial process. CT cervical spine shows no acute osseous findings. CTA of the right lower extremity shows a 10.2 x 1.5 cm deep subcutaneous fluid collection over the right hip without extravasation to suggest active hemorrhage. There is more superficial subcutaneous edema/contusion also noted over the right hip. Lactic acid normal at 0.8. Patient updated on results. On re-evaluation he is reporting some pain to the right hip, Tylenol provided. Blood pressures have improved with fluids. Plan to admit for hydration and to trend troponins. Discussed with hospitalist, Dr. Andrews, who agrees to admission. Advises med/tele and fluids at 100cc/hr. <Enedelia Duran PA-C - Last Filed: 04/30/25 00:03> Lab Data Result diagrams: 04/30/25 04:14 04/30/25 04:14 <Enedelia Duran PA-C - Last Filed: 04/30/25 00:03> Labs: Lab Results 04/29/25 04/29/25 04/29/25 Range/Units 17:49 18:10 22:06 WBC 7.7 (4.5-10.0) K/mm3 RBC 3.35 L (4.6-6.20) M/mm3 Hgb 10.1 L D (14.0-18.0) g/dL Hct 30.5 L (42.0-52.0) % MCV 91.0 (80-100) fl MCH 30.1 (26-34) pg MCHC 33.1 (32-36) g/dl RDW 13.6 (11.5-14.5) % Plt Count 138 L (150-375) k/mm3 MPV 11.1 H (7.4-10.4) fl Immature Gran % (Auto) 0.5 (0-0.5) % Neut % (Auto) 77.9 H (45.5-73.1) % Lymph % (Auto) 11.6 L (18.3-44.2) % [place] % (Auto) 8.7 H (2.6-8.5) % Eos % (Auto) 0.8 (0-4.4) % Baso % (Auto) 0.5 (0.2-1.2) % Lymph # (Auto) 0.90 (0.9-3.2) K/mm3 [place] # (Auto) 0.7 H (0.1-0.6) K/mm3 Eos # (Auto) 0.1 (0-0.3) K/mm3 Baso # (Auto) 0.0 (0.0-0.1) K/mm3 Abs Immat Gran (auto) 0.04 H (0.00-0.031) K/mm3 Absolute Neuts (auto) 6.0 (1.3-6.7) K/mm3 Absolute Nucleated RBC 0.000 (0.0-0.012) K/mm3 Nucleated RBC % 0.0 (0.0-0.2) % PT 15.4 H (11.1-14.7) Seconds INR 1.2 APTT 40.3 H (22.3-36.8) Seconds Sodium 139 (137-145) mmol/L Potassium 3.7 (3.4-5.0) mmol/L Chloride 104 (98-107) mmol/L Carbon Dioxide 27 (22-30) mmol/L Anion Gap 8 (4-12) mmol/L BUN 19 (9-20) mg/dL Creatinine 1.00 (0.7-1.3) mg/dL Estim Creat Clear Calc 53 ml/min Estimated GFR > 60 (59 - ) Glucose 87 (65-110) mg/dL Lactic Acid 0.8 (0.7-2.0) mmol/L Calcium 9.6 (8.4-10.2) mg/dL Total Bilirubin 0.8 (0.2-1.3) mg/dL AST 79 H (17-59) U/L ALT 37 (6-50) U/L Alkaline Phosphatase 90 (38-126) U/L Total Creatine Kinase 777 H (55-170) U/L Troponin I 0.043 H* (0.000-0.034) ng/mL Total Protein 6.8 (6.3-8.2) g/dL Albumin 3.7 (3.5-5.1) g/dL TSH 1.380 (0.465-4.680) uIU/mL Urine Color Yellow (Yellow) Urine Appearance Clear (Clear) Urine pH 5.5 (5.0-9.0) Ur Specific [place] 1.020 (1.001-1.035) Urine Protein Negative (Negative) mg/dL Urine Glucose (UA) Negative (Negative) mg/dL Urine Ketones 2+ H (Negative) mg/dL Ur Blood (Man) Negative (Negative) Urine Nitrate Negative (Negative) Urine Bilirubin Negative (Negative) Urine Urobilinogen 1.0 (<2.0) mg/dL Leukocyte Esterase Rfl Negative (Negative) ANA/UL Urine Opiates Screen Negative (Negative) Urine Methadone Screen Negative (Negative) Ur Barbiturates Screen Negative (Negative) Ur Phencyclidine Scrn Negative (Negative) Ur Amphetamine Screen Negative (Negative) U Benzodiazepines Scrn Negative (Negative) Urine Cocaine Screen Negative (Negative) U Cannabinoids Screen Negative (Negative) <Enedelia Duran PA-C - Last Filed: 04/30/25 00:03> Lab Results 04/29/25 04/29/25 04/29/25 Range/Units 17:49 18:10 22:06 WBC 7.7 (4.5-10.0) K/mm3 RBC 3.35 L (4.6-6.20) M/mm3 Hgb 10.1 L D (14.0-18.0) g/dL Hct 30.5 L (42.0-52.0) % MCV 91.0 (80-100) fl MCH 30.1 (26-34) pg MCHC 33.1 (32-36) g/dl RDW 13.6 (11.5-14.5) % Plt Count 138 L (150-375) k/mm3 MPV 11.1 H (7.4-10.4) fl Immature Gran % (Auto) 0.5 (0-0.5) % Neut % (Auto) 77.9 H (45.5-73.1) % Lymph % (Auto) 11.6 L (18.3-44.2) % [place] % (Auto) 8.7 H (2.6-8.5) % Eos % (Auto) 0.8 (0-4.4) % Baso % (Auto) 0.5 (0.2-1.2) % Lymph # (Auto) 0.90 (0.9-3.2) K/mm3 [place] # (Auto) 0.7 H (0.1-0.6) K/mm3 Eos # (Auto) 0.1 (0-0.3) K/mm3 Baso # (Auto) 0.0 (0.0-0.1) K/mm3 Abs Immat Gran (auto) 0.04 H (0.00-0.031) K/mm3 Absolute Neuts (auto) 6.0 (1.3-6.7) K/mm3 Absolute Nucleated RBC 0.000 (0.0-0.012) K/mm3 Nucleated RBC % 0.0 (0.0-0.2) % PT 15.4 H (11.1-14.7) Seconds INR 1.2 APTT 40.3 H (22.3-36.8) Seconds Sodium 139 (137-145) mmol/L Potassium 3.7 (3.4-5.0) mmol/L Chloride 104 (98-107) mmol/L Carbon Dioxide 27 (22-30) mmol/L Anion Gap 8 (4-12) mmol/L BUN 19 (9-20) mg/dL Creatinine 1.00 (0.7-1.3) mg/dL Estim Creat Clear Calc 53 ml/min Estimated GFR > 60 (59 - ) Glucose 87 (65-110) mg/dL Lactic Acid 0.8 (0.7-2.0) mmol/L Calcium 9.6 (8.4-10.2) mg/dL Total Bilirubin 0.8 (0.2-1.3) mg/dL AST 79 H (17-59) U/L ALT 37 (6-50) U/L Alkaline Phosphatase 90 (38-126) U/L Total Creatine Kinase 777 H (55-170) U/L Troponin I 0.043 H* (0.000-0.034) ng/mL Total Protein 6.8 (6.3-8.2) g/dL Albumin 3.7 (3.5-5.1) g/dL TSH 1.380 (0.465-4.680) uIU/mL Urine Color Yellow (Yellow) Urine Appearance Clear (Clear) Urine pH 5.5 (5.0-9.0) Ur Specific [place] 1.020 (1.001-1.035) Urine Protein Negative (Negative) mg/dL Urine Glucose (UA) Negative (Negative) mg/dL Urine Ketones 2+ H (Negative) mg/dL Ur Blood (Man) Negative (Negative) Urine Nitrate Negative (Negative) Urine Bilirubin Negative (Negative) Urine Urobilinogen 1.0 (<2.0) mg/dL Leukocyte Esterase Rfl Negative (Negative) ANA/UL Urine Opiates Screen Negative (Negative) Urine Methadone Screen Negative (Negative) Ur Barbiturates Screen Negative (Negative) Ur Phencyclidine Scrn Negative (Negative) Ur Amphetamine Screen Negative (Negative) U Benzodiazepines Scrn Negative (Negative) Urine Cocaine Screen Negative (Negative) U Cannabinoids Screen Negative (Negative) <Hoang Greer MD - Last Filed: 04/30/25 05:50> Discharge Plan Discharge Clinical Impression: Dehydration, Elevated troponin Hematoma of right hip Qualifiers: Encounter type: initial encounter Qualified Code(s): S70.01XA - Contusion of right hip, initial encounter <Enedelia Duran PA-C - Last Filed: 04/30/25 00:03> Patient Disposition: Still a Patient <Enedelia Duran PA-C - Last Filed: 04/30/25 00:03> Condition: Stable <Enedelia Duran PA-C - Last Filed: 04/30/25 00:03>
[2025-04-29] MEDS: SODIUM CHLORIDE 0.9% IV 1,000 ML 999 ML IV CONT ×2 (20:58→22:07)
[2025-04-29 21:30] LABS: Cannabinoid Screen Urine Negative (Negative)
[2025-04-29] MEDS: TETANUS,DIPHTHERIA,AC PERTUSSIS ADULT (0.5 ML) BOOSTRIX IM (22:07)
[2025-04-29 22:30] LABS: Creatine Kinase 777 U/L (55-170)
[2025-04-29 22:50] LABS: Troponin I 0.043 ng/mL (0.000-0.034)
[2025-04-29 23:05] LABS: Thyroid Stimulating Hormone 1.380 uIU/mL (0.465-4.680)
--- NOTE | 2025-04-29 23:55 | P.HP_ITS ---
H&P: HPI History of Present Illness Date/Time: 04/30/25 01:15 Chief Complaint: ?Not acting like usual? Narrative: 84-year-old male with a past medical history of atrial fibrillation, coronary disease status post 2 stents, essential hypertension, cardiac pacemaker, BPH, bipolar disorder and vascular dementia who presented to the ER from [facility] via EMS due to not acting like his usual self. assisted staff stated patient seemed lethargic and tired. The patient was alert oriented times 2 at baseline. The patient had evidence of multiple abrasions to his feet and legs. Nursing homes states that the patient had a fall last week and as a large bruise to his right hip. He is on Plavix and 81 mg aspirin. The patient grimaces with pain on palpation of the right hip. He denies any chest pain or shortness of breath but is overall poor historian. He is only alert oriented to person and the fact that he is at [facility]?. He thinks that the month is October and does not state the year. The patient follows simple commands but is not actively carrying a conversation. He does occasionally mutter nonsensical statements. The patient's body habitus is quite thin. On review patient's prior records patient has had at least a 12 kg weight loss since November. assisted staff reports that the patient has had a rapid decline in the last week. Entirety of history was obtained from review of past medical records and the physician and nursing report as the patient is unable to participate in history process. Review of Systems 2 Review of Systems: Patient is a poor historian and has history of vascular dementia [facility] Past Medical History Medical History (Updated 04/30/25 @ 03:42 by Shae Andrews DO) Coronary artery disease Combined systolic and diastolic congestive heart failure Echocardiogram November 2024: EF 40-45%, moderately increased left ventricular wall thickness, grade 1 diastolic dysfunction, normal right ventricular function mild biatrial enlargement Chronic constipation Atrial fibrillation Glaucoma BPH w urinary obs/LUTS Bipolar depression Vascular dementia Bulbous urethral stricture Anxiety Neuropathy Vision disorder Arthritis Prophylactic gland removal Removed from neck 1976 Surgical History Surgical History (Updated 04/30/25 @ 03:42 by Shae Andrews DO) History of colonoscopy with polypectomy History of coronary artery stent placement Left circumflex and LAD Pacemaker S/P eye surgery Left eye 2024 Previous back surgery Fusion L3-L5 History of hip replacement Left 2006 Family History Family History Father Cancer Mother Cancer Colostomy care Son Diabetes mellitus Social History Social History (Updated 04/30/25 @ 03:30 by Shae Andrews DO) Social History: The patient is on probation and has a left ankle monitor in place. Code status: DNR/DNI (per EMR) Smoking status: Never smoker Second hand tobacco smoke exposure: No Alcohol intake: unknown Substance use: never Substance use type: does not use Do You Feel Safe in your Home?: Yes Lack of Transportation: No Lack of Food: Never True Current Housing: I Have Housing Concerned About Future Housing: No Difficulty Paying Gas/Electric Bills: No Difficulty Paying for Meds: No Currently Unemployed: No Education: High School Diploma/GED Difficulty w/ Childcare or Family Care: No Living arrangements: half-way Occupation/Education: retired 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 Spiritual care concerns: No Meds Home Medications and Allergies Home Medications ?Medication ?Instructions ?Recorded ?Confirmed ?Type [id number] 150 mcg-vit K1 1 tablet PO DAILY 06/22/24 04/30/25 History 30 mcg-lycop 300 mcg-lutein tablet (Centrum Minis Men 50 Plus) aspirin 81 mg tablet,delayed 81 mg PO QAM #30 tabs 12/07/24 04/30/25 Rx release clopidogrel 75 mg tablet 75 mg PO QAM #30 tabs 12/07/24 04/30/25 Rx metoprolol succinate 50 mg 50 mg PO QAM #30 tabs 12/07/24 04/30/25 Rx tablet,extended release 24 hr rosuvastatin 20 mg tablet 40 mg (2 x 20 mg) PO EVENING #30 12/07/24 04/30/25 Rx tabs finasteride 5 mg tablet (Proscar) 5 mg PO QAM #30 tabs 12/30/24 04/30/25 Rx lorazepam 0.5 mg tablet 0.5 mg PO Q8H PRN Anxiety #15 tabs 12/30/24 04/30/25 Rx tamsulosin 0.4 mg capsule 0.4 mg PO QAM #30 caps 12/30/24 04/30/25 Rx acetaminophen 325 mg capsule 650 mg PO Q4H PRN pain 04/30/25 04/30/25 History amantadine HCl 100 mg capsule 100 mg PO BID 04/30/25 04/30/25 History aripiprazole 10 mg tablet (Abilify) 15 mg PO DAILY 04/30/25 04/30/25 History divalproex 250 mg tablet,extended 125 mg PO BID 04/30/25 04/30/25 History release 24 hr (Depakote ER) donepezil 5 mg tablet (Aricept) 5 mg PO BID 04/30/25 04/30/25 History gabapentin 100 mg capsule 100 mg PO BID 04/30/25 04/30/25 History lidocaine 5 % topical patch 2 patch transdermal DAILY 04/30/25 04/30/25 History (Lidoderm) memantine 5 mg tablet (Namenda) 5 mg PO BID 04/30/25 04/30/25 History Allergies Allergy/AdvReac Type Severity Reaction Status Date / Time No Known Allergies Allergy Verified 12/22/24 19:44 Vital Signs Vital Signs - 24 hr 04/29/25 17:20 04/29/25 17:26 04/29/25 18:15 Temperature 98.2 F Pulse Rate 64 65 Respiratory Rate 16 18 Blood Pressure 102/53 L 111/60 Pulse Oximetry 99 99 100 Oxygen Delivery Room Air Room Air 04/29/25 18:57 04/29/25 19:15 04/29/25 20:15 Temperature Pulse Rate 78 87 83 Respiratory Rate 17 20 27 H Blood Pressure 112/57 L 114/65 92/81 L Pulse Oximetry 100 100 100 Oxygen Delivery 04/29/25 20:45 04/29/25 20:47 04/29/25 22:15 Temperature Pulse Rate 89 91 75 Respiratory Rate 22 H 22 H 21 H Blood Pressure 86/68 L 79/59 L 116/77 Pulse Oximetry 98 98 97 Oxygen Delivery Exam 2 Narrative: Weight 67.6 kg BMI 20.2 Const: Other: Elderly, frail, thin body habitus HENMT: Other: Mucous membranes are dry, no oral pharyngeal erythema, dried food stuck to the patient's upper denture plate Eyes: Other: Pupils are equal and reactive, positive conjunctival pallor Neck: Other: No JVD, no lymphadenopathy Resp: Other: Clear to auscultation bilaterally, no increased work of breathing Cardio: Other: Regular rate and regular rhythm on palpation, 2+ bilateral radial and pedal pulses, no murmur GI: Other: Soft, nontender, nondistended, positive bowel sounds : Other: Pure wick catheter in place Skin: Other: Large bruise to the right lateral hip is quite prominent with areas of aging bruise in color changed to the perimeter down into the right groin, multiple skin abrasions to bilateral knees shins and bilateral toes as well as the dorsum of the feet Neuro: Other: Patient is alert oriented to 1st and last name and fact that he is in the hospital, is confused as to the month in year, he answers direct questions but does not carry a conversation, he follow simple commands, no facial asymmetry Extrem: Other: 5/5 certified medical assistant strength bilaterally, no clubbi ng, cyanosis or edema, ankle monitor on the left ankle Psych: Other: Confused, cooperative, poor judgment and insight H&P: Results Labs Labs: Laboratory Tests 04/29/25 17:49 04/29/25 17:49 04/29/25 04/29/25 04/29/25 17:49 18:10 22:06 WBC 7.7 RBC 3.35 L Hgb 10.1 L D Hct 30.5 L MCV 91.0 MCH 30.1 MCHC 33.1 RDW 13.6 Plt Count 138 L MPV 11.1 H Immature Gran % (Auto) 0.5 Neut % (Auto) 77.9 H Lymph % (Auto) 11.6 L [place] % (Auto) 8.7 H Eos % (Auto) 0.8 Baso % (Auto) 0.5 Lymph # (Auto) 0.90 [place] # (Auto) 0.7 H Eos # (Auto) 0.1 Baso # (Auto) 0.0 Abs Immat Gran (auto) 0.04 H Absolute Neuts (auto) 6.0 Absolute Nucleated RBC 0.000 Nucleated RBC % 0.0 PT 15.4 H INR 1.2 APTT 40.3 H Sodium 139 Potassium 3.7 Chloride 104 Carbon Dioxide 27 Anion Gap 8 BUN 19 Creatinine 1.00 Estim Creat Clear Calc 53 Estimated GFR > 60 Glucose 87 Lactic Acid 0.8 Calcium 9.6 Total Bilirubin 0.8 AST 79 H ALT 37 Alkaline Phosphatase 90 Total Creatine Kinase 777 H Troponin I 0.043 H* Total Protein 6.8 Albumin 3.7 TSH 1.380 Urine Color Yellow Urine Appearance Clear Urine pH 5.5 Ur Specific [place] 1.020 Urine Protein Negative Urine Glucose (UA) Negative Urine Ketones 2+ H Ur Blood (Man) Negative Urine Nitrate Negative Urine Bilirubin Negative Urine Urobilinogen 1.0 Leukocyte Esterase Rfl Negative Urine Opiates Screen Negative Urine Methadone Screen Negative Ur Barbiturates Screen Negative Ur Phencyclidine Scrn Negative Ur Amphetamine Screen Negative U Benzodiazepines Scrn Negative Urine Cocaine Screen Negative U Cannabinoids Screen Negative Blood Type Antibody Screen 04/29/25 04/30/25 23:43 01:36 WBC RBC Hgb Hct MCV MCH MCHC RDW Plt Count MPV Immature Gran % (Auto) Neut % (Auto) Lymph % (Auto) [place] % (Auto) Eos % (Auto) Baso % (Auto) Lymph # (Auto) [place] # (Auto) Eos # (Auto) Baso # (Auto) Abs Immat Gran (auto) Absolute Neuts (auto) Absolute Nucleated RBC Nucleated RBC % PT INR APTT Sodium Potassium Chloride Carbon Dioxide Anion Gap BUN Creatinine Estim Creat Clear Calc Estimated GFR Glucose Lactic Acid Calcium Total Bilirubin AST ALT Alkaline Phosphatase Total Creatine Kinase Troponin I 0.053 H* D Total Protein Albumin TSH Urine Color Urine Appearance Urine pH Ur Specific [place] Urine Protein Urine Glucose (UA) Urine Ketones Ur Blood (Man) Urine Nitrate Urine Bilirubin Urine Urobilinogen Leukocyte Esterase Rfl Urine Opiates Screen Urine Methadone Screen Ur Barbiturates Screen Ur Phencyclidine Scrn Ur Amphetamine Screen U Benzodiazepines Scrn Urine Cocaine Screen U Cannabinoids Screen Blood Type A Positive Antibody Screen Negative Impressions Head CT 04/29/25 21:50 IMPRESSION: No acute intracranial process. Cervical Spine CT 04/29/25 21:51 IMPRESSION: No acute fracture or traumatic malalignment in the cervical spine. Lower Extremity CTA 04/29/25 21:55 IMPRESSION: 10.2 x 1.5 cm deep subcutaneous fluid collection over the right hip, without extravasation to suggest active hemorrhage. More superficial subcutaneous edema/contusion also noted over the right hip. Bladder wall thickening, probably secondary to chronic outlet obstruction from prostatomegaly. Knee X-Ray 04/29/25 22:09 IMPRESSION: No acute osseous finding in the bilateral knees. Knee X-Ray 04/29/25 22:09 IMPRESSION: No acute osseous finding in the bilateral knees. Hip/Pelvis X-Ray 04/29/25 22:10 IMPRESSION: No acute osseous finding in the pelvis or bilateral hips. Chest X-Ray 04/29/25 22:14 IMPRESSION: No acute cardiopulmonary process. EKG: Electronic ventricular pacemaker rate of 60 QTC 453 Assessment and Plan Assessment and plan (1) Hematoma of right hip: Qualifiers: Encounter type: initial encounter Qualified Code(s): S70.01XA - Contusion of right hip, initial encounter Code(s): S70.01XA - Contusion of right hip, initial encounter Status: Acute (2) Acute on chronic anemia: Code(s): D64.9 - Anemia, unspecified Status: Acute (3) Hypotension due to hypovolemia: Code(s): E86.1 - Hypovolemia Status: Acute (4) Acute dehydration: Code(s): E86.0 - Dehydration Status: Acute (5) Rhabdomyolysis: Qualifiers: Rhabdomyolysis type: non-traumatic Qualified Code(s): M62.82 - Rhabdomyolysis Code(s): M62.82 - Rhabdomyolysis Status: Acute (6) Elevated troponin: Code(s): R79.89 - Other specified abnormal findings of blood chemistry Status: Acute (7) Severe protein-calorie malnutrition: Code(s): E43 - Unspecified severe protein-calorie malnutrition Status: Acute Plan Patient has acute on chronic anemia likely due to large hematoma in the right hip from recent fall. No active extravasation on CT scan. Although would not be surprised if the patient's hemoglobin did not continue to drop with repeat labs in the morning given that the patient required 3 L of fluid administration in the ER to have resolution of hypotension. Hypotension is likely due to hypovolemia from both dehydration and blood loss. Hypotension is since resolved. Will continue patient on IV fluid hydration 100 mL an hour for 1 L. will then re-evaluate fluid status given the patient's history of chronic systolic and diastolic heart failure. Currently patient is still appears intervascular volume depleted and does not have any evidence of JVD or edema. The patient has had significant weight loss in the last 5 months with and 12 kg weight loss. 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 Patient will need nutritional supplements. The patient does have some mildly elevated CK with possible element of rhabdomyolysis. Will continue IV fluids as discussed. Patient also has mildly elevated troponin but down from prior baseline. Patient is not having chest pain or cardiac symptoms. Troponin elevation is likely due to demand ischemia from acute on chronic anemia and hypotension in the setting of prior coronary artery disease. Will repeat CBC and electrolyte panel in a.m.. Will hold metoprolol. Patient has been admitted as observation status. Quality VTE Prophylaxis VTE prophylaxis: mechanical ordered (SCDs) Hospitalist MIPS Advance Care Plan I have confirmed that the patient's Advanced Care Plan is present, code status is documented, or surrogate decision maker is listed in patient medical record.: Yes Medication Reconciliation I have utilized all available resources to obtain, update and review the patients current medications (includes all prescriptions, OTC, herbals, cannabis, and nutritional supplements).: Yes
[2025-04-30] VITALS (10 sets, daily range): BP systolic 103–114; BP diastolic 46–94; PULSE 59–65; RESP 16–20; TEMP 36.2–36.8; O2SAT 98–100; BMI 20.2
--- NOTE | 2025-04-30 00:41 | PC.NURSE ---
patient given rectal tylenol at this time per JANINE Wilson. Unable to scan med.
[2025-04-30] MEDS: SODIUM CHLORIDE 0.9% IV 1,000 ML 100 ML IV CONT (01:32)
[2025-04-30 02:07] LABS: Troponin I 0.053 ng/mL (0.000-0.034)
[2025-04-30 04:18] LABS: Hematocrit 27.2 % (42.0-52.0); Hemoglobin 8.9 g/dL (14.0-18.0); Mean Corpuscular HGB Conc 32.7 g/dl (32-36); Mean Corpuscular Hemoglobin 30.2 pg (26-34); Mean Corpuscular Volume 92.2 fl (80-100); Platelet Count Result 115 k/mm3 (150-375); Red Blood Count 2.95 M/mm3 (4.6-6.20); White Blood Count 6.1 K/mm3 (4.5-10.0)
[2025-04-30 04:32] LABS: Anion Gap 6 mmol/L (4-12); Blood Urea Nitrogen 15 mg/dL (9-20); Calcium 8.9 mg/dL (8.4-10.2); Carbon Dioxide 25 mmol/L (22-30); Chloride 108 mmol/L (98-107); Estimated CRCL calculation 56 ml/min; Estimated Glomerular Filt Rate > 60; Glucose 96 mg/dL (65-110); Potassium 3.2 mmol/L (3.4-5.0); Sodium 139 mmol/L (137-145)
[2025-04-30 04:52] LABS: Troponin I 0.054 ng/mL (0.000-0.034)
[2025-04-30] MEDS: TAMSULOSIN HCL 0.4 MG CAPSULE PO (10:05)
[2025-04-30] MEDS: DONEPEZIL HCL 5 MG TABLET PO ×2 (10:05→23:35)
[2025-04-30] MEDS: FINASTERIDE 5 MG TABLET PO (10:05)
[2025-04-30] MEDS: MULTIVITAMINS /C LUTEIN (CENTRUM SILVER) TABLET *BKC 1 TAB PO (10:06)
[2025-04-30] MEDS: ASPIRIN 81 MG ENTERIC TABLET PO (10:06)
[2025-04-30] MEDS: GABAPENTIN 100 MG CAPSULE PO ×2 (10:06→23:34)
[2025-04-30] MEDS: DIVALPROEX SODIUM DR 125 MG TABEC PO ×2 (10:06→23:34)
[2025-04-30] MEDS: MEMANTINE 5 MG TABLET PO ×2 (10:07→23:34)
--- NOTE | 2025-04-30 12:39 | P.PNIM_ITS ---
Progress Note: A&P Assessment and Plan (1) Hematoma of right hip: Qualifiers: Encounter type: initial encounter Qualified Code(s): S70.01XA - Contusion of right hip, initial encounter Code(s): S70.01XA - Contusion of right hip, initial encounter Status: Acute Assessment and Plan: * Stable. * Appears painful for pt. * PT and OT evaluation ordered. * Fall precautions. (2) Acute on chronic anemia: Code(s): D64.9 - Anemia, unspecified Status: Acute Assessment and Plan: * Pt's anemia is worse today w/Hgb dropping from 10.1-->8.9, however he did rec eive multiple bags of IVF in the ER for hydration in the setting of Rhabdo and hypotension, suspect dilutional. * Trend to ensure stability. * Check stool Occult blood. (3) Hypotension due to hypovolemia: Code(s): E86.1 - Hypovolemia Status: Acute Assessment and Plan: * Improving. * Appears Euvolemic at this time. * No further IVF needed at this time. (4) Acute dehydration: Code(s): E86.0 - Dehydration Status: Resolved (5) Rhabdomyolysis: Qualifiers: Rhabdomyolysis type: non-traumatic Qualified Code(s): M62.82 - Rhabdomyolysis Code(s): M62.82 - Rhabdomyolysis Status: Acute Assessment and Plan: * Suspect combination of fall with hematoma on the hip and FTT. * Recheck CK. (6) Elevated troponin: Code(s): R79.89 - Other specified abnormal findings of blood chemistry Status: Acute Assessment and Plan: * Elevation but flat, trending as follows: 0.043-->0.053-->0.054 * Continue Telemetry. (7) Severe protein-calorie malnutrition: Code(s): E43 - Unspecified severe protein-calorie malnutrition Status: Acute Assessment and Plan: * Suspect Failure to thrive. * Consult dietitian * Accurate I&O, Daily weight * Over the past five months the pt has had a 12 kg weight loss. Time Spent With Patient Time with patient: 15 - 25 minutes Subjective Date/time seen: 04/30/25 12:39 Interval history: This pt was examined at the bedside in interval assessment. He is confused, and does not answer any orientation questions correctly. He does not appear to be in any acute distress at this time. Review of Systems Review of Systems: All systems reviewed & are unremarkable except as noted in HPI and below Exam Const: General: comfortable and no acute distress HENMT: Face/Nose/Sinus: Normal nares present Mouth: Yes dry mucous membranes Eyes: General: appearance normal, both eyes and all related structures Neck: Neck: supple and no JVD Resp: Effort & Inspection: normal respiratory effort Auscultation: diminished lung sounds bilateral (bases) Cardio: Rate: regular rate Rhythm: regular rhythm Heart sounds: no gallops, Murmur heart sound present and no rubs GI: GI Palp: Yes Soft to palpation and No Tenderness to palpation present (GI) Auscultation: normal bowel sounds : Other: Purewick in place Skin: General skin exam: normal color and no rashes or lesions noted Rashes: no rashes noted Wounds: wounds noted (BLE with scabbing and bruising present.) Neuro: Speech: normal speech Sensory Exam: normal sensation Extrem: Other: FROM of all extremities. Psych: Mental Status: mental status grossly abnormal (confused) Other: Pt's speech is normal but nonsensical. Objective Data Vital Signs Vital Signs: Vital Signs - 24 hr 04/29/25 17:20 04/29/25 17:26 04/29/25 18:15 Temperature 98.2 F Pulse Rate 64 65 Respiratory Rate 16 18 Blood Pressure 102/53 L 111/60 Pulse Oximetry 99 99 100 Oxygen Delivery Room Air Room Air 04/29/25 18:57 04/29/25 19:15 04/29/25 20:15 Temperature Pulse Rate 78 87 83 Respiratory Rate 17 20 27 H Blood Pressure 112/57 L 114/65 92/81 L Pulse Oximetry 100 100 100 Oxygen Delivery 04/29/25 20:45 04/29/25 20:47 04/29/25 22:15 Temperature Pulse Rate 89 91 75 Respiratory Rate 22 H 22 H 21 H Blood Pressure 86/68 L 79/59 L 116/77 Pulse Oximetry 98 98 97 Oxygen Delivery 04/30/25 00:41 04/30/25 01:52 04/30/25 04:00 Temperature 98.3 F Pulse Rate 63 60 Respiratory Rate 20 Blood Pressure 110/94 H 114/46 L Pulse Oximetry 100 Oxygen Delivery 04/30/25 06:00 04/30/25 08:00 04/30/25 08:00 Temperature 98.1 F Pulse Rate 59 L 60 Respiratory Rate 18 Blood Pressure 109/85 Pulse Oximetry 98 Oxygen Delivery Room Air Intake/Output Intake/Output: Intake & Output 04/27/25 04/28/25 04/29/25 04/30/25 23:59 23:59 23:59 23:59 Intake Total 2000 Output Total 30 Balance 1970 Meds/Results Medications: Active Medications Generic Name Dose Route Start Last Admin Trade Name Freq PRN Reason Stop Dose Admin Acetaminophen 650 mg 04/30/25 00:18 Acetaminophen 650 Mg Suppository RECTAL Q6H PRN Mild Pain (1-3) or Fever Acetaminophen 650 mg 04/30/25 03:04 Acetaminophen 325 Mg Tablet PO Q4H PRN pain 1-3 or fever Amantadine HCl 100 mg 04/30/25 09:00 Amantadine Hcl 100 Mg Capsule PO Q12HR [facility] Aripiprazole 15 mg 04/30/25 09:00 04/30/25 10:09 Aripiprazole 5 Mg Tablet PO 15 mg DAILY [facility]OR[facility]O Administration Aspirin 81 mg 04/30/25 09:00 04/30/25 10:06 Aspirin 81 Mg Enteric Tablet PO 81 mg QAM [facility] Administration Divalproex Sodium 125 mg 04/30/25 09:00 04/30/25 10:[address] 125 Mg Tabec PO 125 mg Q12HR [facility] Administration Donepezil HCl 5 mg 04/30/25 09:00 04/30/25 10:05 Donepezil Hcl 5 Mg Tablet PO 5 mg Q12HR [facility] Administration Finasteride 5 mg 04/30/25 09:00 04/30/25 10:05 Finasteride 5 Mg Tablet PO 5 mg QAM [facility] Administration Gabapentin 100 mg 04/30/25 09:00 04/30/25 10:06 Gabapentin 100 Mg Capsule PO 100 mg Q12HR [facility] Administration Lorazepam 0.5 mg 04/30/25 03:04 Lorazepam (*Crx) 0.5 Mg Tablet PO Q8H PRN Anxiety Memantine 5 mg 04/30/25 09:00 04/30/25 10:07 Memantine 5 Mg Tablet PO 5 mg Q12HR [facility] Administration Metoprolol Succinate 50 mg 04/30/25 09:00 Metoprolol Succinate Ext Rel 50 Mg Tabcr PO QAM [facility] Multivitamins/Minerals 1 tab 04/30/25 09:00 04/30/25 10:06 Multivitamins /C Lutein (Centrum Silver) Tablet *Bkc PO 1 tab QAM [facility] Administration Rosuvastatin Calcium 40 mg 04/30/25 21:00 Rosuvastatin 20 Mg Tablet PO QHS [facility] Tamsulosin HCl 0.4 mg 04/30/25 09:00 04/30/25 10:05 Tamsulosin Hcl 0.4 Mg Capsule PO 0.4 mg QAM [facility] Administration Radiology Results: ITS Impressions Head CT 04/29/25 21:50 IMPRESSION: No acute intracranial process. Cervical Spine CT 04/29/25 21:51 IMPRESSION: No acute fracture or traumatic malalignment in the cervical spine. Lower Extremity CTA 04/29/25 21:55 IMPRESSION: 10.2 x 1.5 cm deep subcutaneous fluid collection over the right hip, without extravasation to suggest active hemorrhage. More superficial subcutaneous edema/contusion also noted over the right hip. Bladder wall thickening, probably secondary to chronic outlet obstruction from prostatomegaly. Knee X-Ray 04/29/25 22:09 IMPRESSION: No acute osseous finding in the bilateral knees. Knee X-Ray 04/29/25 22:09 IMPRESSION: No acute osseous finding in the bilateral knees. Hip/Pelvis X-Ray 04/29/25 22:10 IMPRESSION: No acute osseous finding in the pelvis or bilateral hips. Chest X-Ray 04/29/25 22:14 IMPRESSION: No acute cardiopulmonary process. Labs Labs: Laboratory Results - last 24 hr 04/29/25 04/29/25 04/29/25 17:49 18:10 22:06 WBC 7.7 RBC 3.35 L Hgb 10.1 L D Hct 30.5 L MCV 91.0 MCH 30.1 MCHC 33.1 RDW 13.6 Plt Count 138 L MPV 11.1 H Immature Gran % (Auto) 0.5 Neut % (Auto) 77.9 H Lymph % (Auto) 11.6 L [place] % (Auto) 8.7 H Eos % (Auto) 0.8 Baso % (Auto) 0.5 Lymph # (Auto) 0.90 [place] # (Auto) 0.7 H Eos # (Auto) 0.1 Baso # (Auto) 0.0 Abs Immat Gran (auto) 0.04 H Absolute Neuts (auto) 6.0 Absolute Nucleated RBC 0.000 Nucleated RBC % 0.0 PT 15.4 H INR 1.2 APTT 40.3 H Sodium 139 Potassium 3.7 Chloride 104 Carbon Dioxide 27 Anion Gap 8 BUN 19 Creatinine 1.00 Estim Creat Clear Calc 53 Estimated GFR > 60 Glucose 87 Lactic Acid 0.8 Calcium 9.6 Total Bilirubin 0.8 AST 79 H ALT 37 Alkaline Phosphatase 90 Total Creatine Kinase 777 H Troponin I 0.043 H* Total Protein 6.8 Albumin 3.7 TSH 1.380 Urine Color Yellow Urine Appearance Clear Urine pH 5.5 Ur Specific [place] 1.020 Urine Protein Negative Urine Glucose (UA) Negative Urine Ketones 2+ H Ur Blood (Man) Negative Urine Nitrate Negative Urine Bilirubin Negative Urine Urobilinogen 1.0 Leukocyte Esterase Rfl Negative Urine Opiates Screen Negative Urine Methadone Screen Negative Ur Barbiturates Screen Negative Ur Phencyclidine Scrn Negative Ur Amphetamine Screen Negative U Benzodiazepines Scrn Negative Urine Cocaine Screen Negative U Cannabinoids Screen Negative Blood Type Antibody Screen 04/29/25 04/30/25 04/30/25 23:43 01:36 04:14 WBC 6.1 RBC 2.95 L Hgb 8.9 L Hct 27.2 L MCV 92.2 MCH 30.2 MCHC 32.7 RDW 13.6 Plt Count 115 L MPV 10.7 H Immature Gran % (Auto) Neut % (Auto) Lymph % (Auto) [place] % (Auto) Eos % (Auto) Baso % (Auto) Lymph # (Auto) [place] # (Auto) Eos # (Auto) Baso # (Auto) Abs Immat Gran (auto) Absolute Neuts (auto) Absolute Nucleated RBC Nucleated RBC % PT INR APTT Sodium 139 Potassium 3.2 L Chloride 108 H Carbon Dioxide 25 Anion Gap 6 BUN 15 Creatinine 0.82 Estim Creat Clear Calc 56 Estimated GFR > 60 Glucose 96 Lactic Acid Calcium 8.9 Total Bilirubin AST ALT Alkaline Phosphatase Total Creatine Kinase Troponin I 0.053 H* D 0.054 H* Total Protein Albumin TSH Urine Color Urine Appearance Urine pH Ur Specific [place] Urine Protein Urine Glucose (UA) Urine Ketones Ur Blood (Man) Urine Nitrate Urine Bilirubin Urine Urobilinogen Leukocyte Esterase Rfl Urine Opiates Screen Urine Methadone Screen Ur Barbiturates Screen Ur Phencyclidine Scrn Ur Amphetamine Screen U Benzodiazepines Scrn Urine Cocaine Screen U Cannabinoids Screen Blood Type A Positive Antibody Screen Negative Quality VTE Prophylaxis VTE prophylaxis: mechanical ordered
[2025-04-30 13:24] LABS: Creatine Kinase 510 U/L (55-170)
[2025-04-30] MEDS: ROSUVASTATIN 20 MG TABLET 40 MG PO (23:34)
[2025-05-01] VITALS (8 sets, daily range): BP systolic 107–117; BP diastolic 50–59; PULSE 56–63; RESP 18–20; TEMP 35.6–36.3; O2SAT 98–100; BMI 19.8
[2025-05-01 06:20] LABS: Hematocrit 28.6 % (42.0-52.0); Hemoglobin 9.4 g/dL (14.0-18.0); Immature Granulocyte Percent A 0.4 % (0-0.5); Immature Platelet Fraction Pct 4.7 % (0.9-11.2); Lymphocytes Absolute Auto 1.08 K/mm3 (0.9-3.2); Mean Corpuscular HGB Conc 32.9 g/dl (32-36); Mean Corpuscular Hemoglobin 30.7 pg (26-34); Mean Corpuscular Volume 93.5 fl (80-100); Nucleated Red Blood Cells Absolute Auto 0.000 K/mm3 (0.0-0.012); Nucleated Red Blood Cells Perc 0.0 % (0.0-0.2); Platelet Count Result 132 k/mm3 (150-375); Red Blood Count 3.06 M/mm3 (4.6-6.20); White Blood Count 5.6 K/mm3 (4.5-10.0)
[2025-05-01 06:31] LABS: Alanine Aminotransferase 31 U/L (6-50); Albumin Level 3.3 g/dL (3.5-5.1); Alkaline Phosphatase 80 U/L (38-126); Anion Gap 6 mmol/L (4-12); Aspartate Amino Transferase 55 U/L (17-59); Bilirubin,Total 0.7 mg/dL (0.2-1.3); Blood Urea Nitrogen 10 mg/dL (9-20); Calcium 9.1 mg/dL (8.4-10.2); Carbon Dioxide 27 mmol/L (22-30); Chloride 104 mmol/L (98-107); Estimated CRCL calculation 61 ml/min; Estimated Glomerular Filt Rate > 60; Glucose 69 mg/dL (65-110); Magnesium 1.9 mg/dL (1.6-2.3); Potassium 3.3 mmol/L (3.4-5.0); Sodium 137 mmol/L (137-145); Total Protein 6.1 g/dL (6.3-8.2)
[2025-05-01] MEDS: ACETAMINOPHEN 325 MG TABLET 650 MG PO ×2 (11:52→20:34)
[2025-05-01] MEDS: DONEPEZIL HCL 5 MG TABLET PO ×2 (11:53→20:35)
[2025-05-01] MEDS: FINASTERIDE 5 MG TABLET PO (11:53)
[2025-05-01] MEDS: ASPIRIN 81 MG ENTERIC TABLET PO (11:53)
[2025-05-01] MEDS: MEMANTINE 5 MG TABLET PO ×2 (11:53→20:35)
[2025-05-01] MEDS: TAMSULOSIN HCL 0.4 MG CAPSULE PO (11:53)
[2025-05-01] MEDS: MULTIVITAMINS /C LUTEIN (CENTRUM SILVER) TABLET *BKC 1 TAB PO (11:54)
[2025-05-01] MEDS: GABAPENTIN 100 MG CAPSULE PO ×2 (11:54→20:35)
[2025-05-01] MEDS: DIVALPROEX SODIUM DR 125 MG TABEC PO ×2 (11:54→20:35)
--- NOTE | 2025-05-01 13:23 | PM.IMPN ---
Progress Note: A&P Assessment and Plan (1) Hematoma of right hip: Qualifiers: Encounter type: initial encounter Qualified Code(s): S70.01XA - Contusion of right hip, initial encounter Code(s): S70.01XA - Contusion of right hip, initial encounter Status: Acute Assessment and Plan: Stable Appears painful for pt. PT and OT evaluation ordered. Fall precautions. (2) Acute on chronic anemia: Code(s): D64.9 - Anemia, unspecified Status: Acute Assessment and Plan: Pt's anemia is worse today w/Hgb dropping from 10.1-->8.9, however he did receive multiple bags of IVF in the ER for hydration in the setting of Rhabdo and hypotension, suspect dilutional. H&H 9.4/28.6 Trend to ensure stability Check stool Occult blood. (3) Hypotension due to hypovolemia: Code(s): E86.1 - Hypovolemia Status: Acute Assessment and Plan: Improving. Appears Euvolemic at this time. No further IVF needed at this time. (4) Acute dehydration: Code(s): E86.0 - Dehydration Status: Resolved (5) Rhabdomyolysis: Qualifiers: Rhabdomyolysis type: non-traumatic Qualified Code(s): M62.82 - Rhabdomyolysis Code(s): M62.82 - Rhabdomyolysis Status: Acute Assessment and Plan: Suspect combination of fall with hematoma on the hip and FTT. Recheck CK downtrending (6) Elevated troponin: Code(s): R79.89 - Other specified abnormal findings of blood chemistry Status: Acute Assessment and Plan: Elevation but flat, trending as follows: 0.043-->0.053-->0.054 Continue Telemetry. (7) Severe protein-calorie malnutrition: Code(s): E43 - Unspecified severe protein-calorie malnutrition Status: Acute Assessment and Plan: Suspect Failure to thrive. Consult dietitian Accurate I&O, Daily weight Over the past five months the pt has had a 12 kg weight loss. (8) Pacemaker: Code(s): Z95.0 - Presence of cardiac pacemaker Status: Acute Assessment and Plan: CAD s/p 2 stents, pacemaker. Stent placement --Off plavix for hematoma Time Spent With Patient Time: 58 minutes Subjective Date/time seen: 05/01/25 13:23 Interval history: He is confused, oriented x2. Knows he's at [place] and it's 2024. He does not appear to be in any acute distress. Reports right hip and right shoulder pain Hematoma stable. Likely discharge in AM if blood count stable Review of Systems Review of Systems: Patient is a poor historian and has history of vascular dementia All systems reviewed & are unremarkable except as noted in HPI and below Exam Narrative: Weight 67.6 kg BMI 20.2 General - Awake and alert. No acute distress Eyes - PERRLA, EOM intact ENT - No thrush, No erythema Neck - No noticeable or palpable swelling Lymph Nodes - No lymphadenopathy Cardiovascular - RRR no m/r/g, no JVD Lungs: Clear to auscultation, No wheezing, use of accessory muscles Skin - Skin warm and dry, no wounds or rashes Abdomen - Normal bowel sounds, abdomen soft and nontender Extremities - No edema, cyanosis or clubbing Musculoskeletal - 5/5 strength, normal range of motion, no swollen or erythematous joints. Neurological ? Alert and oriented x 2, CN 2-12 grossly intact. Psych: Normal mood and affect Objective Data Vital Signs Vital Signs: Vital Signs - 24 hr 04/30/25 14:00 04/30/25 16:00 04/30/25 20:00 Temperature 97.1 F L Pulse Rate 65 61 59 L Respiratory Rate 16 18 Blood Pressure 108/51 L Pulse Oximetry 98 99 Oxygen Delivery Room Air 04/30/25 20:00 04/30/25 22:00 05/01/25 00:00 Temperature 98.3 F Pulse Rate 59 L 59 L 58 L Respiratory Rate 18 Blood Pressure 103/55 L Pulse Oximetry 99 Oxygen Delivery 05/01/25 04:00 05/01/25 06:00 05/01/25 10:54 Temperature 97.1 F L Pulse Rate 59 L 63 Respiratory Rate 20 Blood Pressure 111/54 L Pulse Oximetry 100 Oxygen Delivery Room Air Intake/Output Intake/Output: Intake & Output 04/28/25 04/29/25 04/30/25 05/01/25 23:59 23:59 23:59 23:59 Intake Total 1999 360 236 Output Total 300 900 Balance 7437 -[id number] Meds/Results Medications: Active Medications Generic Name Dose Route Start Last Admin Trade Name Freq PRN Reason Stop Dose Admin Acetaminophen 650 mg 04/30/25 00:18 Acetaminophen 650 Mg Suppository RECTAL Q6H PRN Mild Pain (1-3) or Fever Acetaminophen 650 mg 04/30/25 03:04 05/01/25 11:52 Acetaminophen 325 Mg Tablet PO 650 mg Q4H PRN Administration pain 1-3 or fever Amantadine HCl 100 mg 04/30/25 09:00 Amantadine Hcl 100 Mg Capsule PO Q12HR [facility] Aripiprazole 15 mg 04/30/25 09:00 05/01/25 11:53 Aripiprazole 5 Mg Tablet PO 15 mg DAILY [facility] Administration Aspirin 81 mg 04/30/25 09:00 05/01/25 11:53 Aspirin 81 Mg Enteric Tablet PO 81 mg QAM [facility] Administration Divalproex Sodium 125 mg 04/30/25 09:00 05/01/25 11:[address] 125 Mg Tabec PO 125 mg Q12HR [facility] Administration Donepezil HCl 5 mg 04/30/25 09:00 05/01/25 11:53 Donepezil Hcl 5 Mg Tablet PO 5 mg Q12HR [facility] Administration Finasteride 5 mg 04/30/25 09:00 05/01/25 11:53 Finasteride 5 Mg Tablet PO 5 mg QAM [facility] Administration Gabapentin 100 mg 04/30/25 09:00 05/01/25 11:54 Gabapentin 100 Mg Capsule PO 100 mg Q12HR [facility] Administration Lorazepam 0.5 mg 04/30/25 03:04 Lorazepam (*Crx) 0.5 Mg Tablet PO Q8H PRN Anxiety Memantine 5 mg 04/30/25 09:00 05/01/25 11:53 Memantine 5 Mg Tablet PO 5 mg Q12HR [facility] Administration Metoprolol Succinate 50 mg 04/30/25 09:00 Metoprolol Succinate Ext Rel 50 Mg Tabcr PO QAM [facility] Multivitamins/Minerals 1 tab 04/30/25 09:00 05/01/25 11:54 Multivitamins /C Lutein (Centrum Silver) Tablet *Bkc PO 1 tab QAM [facility] Administration Rosuvastatin Calcium 40 mg 04/30/25 21:00 04/30/25 23:34 Rosuvastatin 20 Mg Tablet PO 40 mg QHS [facility] Administration Tamsulosin HCl 0.4 mg 04/30/25 09:00 05/01/25 11:53 Tamsulosin Hcl 0.4 Mg Capsule PO 0.4 mg QAM [facility] Administration Radiology Results: ITS Impressions Head CT 04/29/25 21:50 IMPRESSION: No acute intracranial process. Cervical Spine CT 04/29/25 21:51 IMPRESSION: No acute fracture or traumatic malalignment in the cervical spine. Lower Extremity CTA 04/29/25 21:55 IMPRESSION: 10.2 x 1.5 cm deep subcutaneous fluid collection over the right hip, without extravasation to suggest active hemorrhage. More superficial subcutaneous edema/contusion also noted over the right hip. Bladder wall thickening, probably secondary to chronic outlet obstruction from prostatomegaly. Knee X-Ray 04/29/25 22:09 IMPRESSION: No acute osseous finding in the bilateral knees. Knee X-Ray 04/29/25 22:09 IMPRESSION: No acute osseous finding in the bilateral knees. Hip/Pelvis X-Ray 04/29/25 22:10 IMPRESSION: No acute osseous finding in the pelvis or bilateral hips. Chest X-Ray 04/29/25 22:14 IMPRESSION: No acute cardiopulmonary process. Labs Labs: Laboratory Results - last 24 hr 04/30/25 05/01/25 13:09 05:02 WBC 5.6 RBC 3.06 L Hgb 9.4 L Hct 28.6 L MCV 93.5 MCH 30.7 MCHC 32.9 RDW 13.7 Plt Count 132 L MPV 11.5 H Immature Gran % (Auto) 0.4 Neut % (Auto) 68.0 Lymph % (Auto) 19.2 [place] % (Auto) 9.4 H Eos % (Auto) 2.5 Baso % (Auto) 0.5 Lymph # (Auto) 1.08 [place] # (Auto) 0.5 Eos # (Auto) 0.1 Baso # (Auto) 0.0 Abs Immat Gran (auto) 0.02 Absolute Neuts (auto) 3.8 Absolute Nucleated RBC 0.000 Nucleated RBC % 0.0 % Immature Plt Fraction 4.7 Sodium 137 Potassium 3.3 L Chloride 104 Carbon Dioxide 27 Anion Gap 6 BUN 10 D Creatinine 0.73 Estim Creat Clear Calc 61 Estimated GFR > 60 Glucose 69 Calcium 9.1 Magnesium 1.9 Total Bilirubin 0.7 AST 55 ALT 31 Alkaline Phosphatase 80 Total Creatine Kinase 510 H Total Protein 6.1 L Albumin 3.3 L Quality VTE Prophylaxis VTE prophylaxis: mechanical ordered Hospitalist [facility] Advance Care Plan I have confirmed that the patient's Advanced Care Plan is present, code status is documented, or surrogate decision maker is listed in patient medical record.: Yes Medication Reconciliation I have utilized all available resources to obtain, update and review the patients current medications (includes all prescriptions, OTC, herbals, cannabis, and nutritional supplements).: Yes
[2025-05-01] MEDS: POTASSIUM CHLORIDE 20 MEQ ER TABLET 40 MEQ PO (16:56)
[2025-05-01] MEDS: ROSUVASTATIN 20 MG TABLET 40 MG PO (20:35)
[2025-05-02] VITALS (9 sets, daily range): BP systolic 100–122; BP diastolic 45–55; PULSE 60–75; RESP 16–17; TEMP 35.7–36.6; O2SAT 97–99
[2025-05-02 06:05] LABS: Hematocrit 32.5 % (42.0-52.0); Hemoglobin 10.6 g/dL (14.0-18.0); Immature Granulocyte Percent A 0.4 % (0-0.5); Lymphocytes Absolute Auto 1.35 K/mm3 (0.9-3.2); Mean Corpuscular HGB Conc 32.6 g/dl (32-36); Mean Corpuscular Hemoglobin 30.4 pg (26-34); Mean Corpuscular Volume 93.1 fl (80-100); Nucleated Red Blood Cells Absolute Auto 0.000 K/mm3 (0.0-0.012); Nucleated Red Blood Cells Perc 0.0 % (0.0-0.2); Platelet Count Result 151 k/mm3 (150-375); Red Blood Count 3.49 M/mm3 (4.6-6.20); White Blood Count 7.1 K/mm3 (4.5-10.0)
[2025-05-02 06:24] LABS: Anion Gap 4 mmol/L (4-12); Blood Urea Nitrogen 15 mg/dL (9-20); Calcium 9.4 mg/dL (8.4-10.2); Carbon Dioxide 30 mmol/L (22-30); Chloride 104 mmol/L (98-107); Estimated CRCL calculation 57 ml/min; Estimated Glomerular Filt Rate > 60; Glucose 83 mg/dL (65-110); Potassium 4.2 mmol/L (3.4-5.0); Sodium 138 mmol/L (137-145)
--- NOTE | 2025-05-02 07:34 | P.PNIM_ITS ---
Progress Note: A&P Assessment and Plan (1) Hematoma of right hip: Qualifiers: Encounter type: initial encounter Qualified Code(s): S70.01XA - Contusion of right hip, initial encounter Code(s): S70.01XA - Contusion of right hip, initial encounter Status: Acute Assessment and Plan: Stable * Appears painful for pt. * PT and OT evaluation ordered. * Fall precautions. (2) Acute on chronic anemia: Code(s): D64.9 - Anemia, unspecified Status: Acute Assessment and Plan: Pt's anemia is worse today w/Hgb dropping from 10.1-->8.9, however he did receive multiple bags of IVF in the ER for hydration in the setting of Rhabdo and hypotension, suspect dilutional. H&H 9.4/28.6<10.6/32 * Stable * Restart clopidogrel and monitor (3) Hypotension due to hypovolemia: Code(s): E86.1 - Hypovolemia Status: Acute Assessment and Plan: * Improving. * Appears Euvolemic (4) Acute dehydration: Code(s): E86.0 - Dehydration Status: Resolved Assessment and Plan: Po intake poor, less than half a liter Follow intake closely --Monitor labs, IV fluids if needed (5) Rhabdomyolysis: Qualifiers: Rhabdomyolysis type: non-traumatic Qualified Code(s): M62.82 - Rhabdomyolysis Code(s): M62.82 - Rhabdomyolysis Status: Acute Assessment and Plan: * Suspect combination of fall with hematoma on the hip and FTT. * Recheck CK downtrending. Recheck in AM (6) Elevated troponin: Code(s): R79.89 - Other specified abnormal findings of blood chemistry Status: Acute Assessment and Plan: * Elevation but flat, trending as follows: 0.043-->0.053-->0.054 * Continue Telemetry. (7) Severe protein-calorie malnutrition: Code(s): E43 - Unspecified severe protein-calorie malnutrition Status: Acute Assessment and Plan: * Suspect Failure to thrive. * Consult dietitian * Accurate I&O, Daily weight * Over the past five months the pt has had a 12 kg weight loss. (8) Pacemaker: Code(s): Z95.0 - Presence of cardiac pacemaker Status: Acute Assessment and Plan: CAD s/p 2 stents, pacemaker. Stent placement --Off plavix for hematoma, resume Time Spent With Patient Time: 53 minutes Subjective Date/time seen: 05/02/25 07:34 Interval history: He is confused, oriented x2. Knows he's at [place] and it's 2024. Minimally participatory. Not eating well He does not appear to be in any acute distress. Reports right hip and right shoulder pain improving. Hematoma stable Previously planned referral to [facility] or [facility] in December for ongoing outpatient management (former patient of Dr. Munoz who left [facility] practice in 2022; dismissed by [facility] for escalating behaviors in clinic setting. Needs a CT urogram) Review of Systems Review of Systems: Patient is a poor historian and has history of vascular dementia All systems reviewed & are unremarkable except as noted in HPI and below Exam Narrative: Weight 67.6 kg BMI 20.2 General - Awake and alert. No acute distress Eyes - PERRLA, EOM intact ENT - No thrush, No erythema Neck - No noticeable or palpable swelling Lymph Nodes - No lymphadenopathy Cardiovascular - RRR no m/r/g, no JVD Lungs: Clear to auscultation, No wheezing, use of accessory muscles Skin - Skin warm and dry, no wounds or rashes Abdomen - Normal bowel sounds, abdomen soft and nontender Extremities - No edema, cyanosis or clubbing Musculoskeletal - 5/5 strength, normal range of motion, no swollen or erythematous joints. Neurological ? Alert and oriented x 2, CN 2-12 grossly intact. Psych: Normal mood and affect Objective Data Vital Signs Vital Signs: Vital Signs - 24 hr 05/01/25 08:00 05/01/25 10:54 05/01/25 13:40 Temperature 96.0 F L Pulse Rate 60 56 L Respiratory Rate 18 Blood Pressure 117/59 L Pulse Oximetry 100 Oxygen Delivery Room Air 05/01/25 16:00 05/01/25 20:00 05/01/25 20:00 Temperature Pulse Rate 60 60 Respiratory Rate Blood Pressure Pulse Oximetry Oxygen Delivery Room Air 05/01/25 20:41 05/02/25 00:00 05/02/25 04:00 Temperature 97.3 F L Pulse Rate 60 60 60 Respiratory Rate 18 Blood Pressure 107/50 L Pulse Oximetry 98 Oxygen Delivery 05/02/25 04:57 Temperature 97.4 F L Pulse Rate 62 Respiratory Rate 16 Blood Pressure 122/55 L Pulse Oximetry 98 Oxygen Delivery Intake/Output Intake/Output: Intake & Output 04/29/25 04/30/25 05/01/25 05/02/25 23:59 23:59 23:59 23:59 Intake Total 1999 360 576 550 Output Total 600 900 800 Balance 1970 -240 -324 -250 Meds/Results Medications: Active Medications Generic Name Dose Route Start Last Admin Trade Name Freq PRN Reason Stop Dose Admin Acetaminophen 650 mg 04/30/25 00:18 Acetaminophen 650 Mg Suppository RECTAL Q6H PRN Mild Pain (1-3) or Fever Acetaminophen 650 mg 04/30/25 03:04 05/01/25 20:34 Acetaminophen 325 Mg Tablet PO 650 mg Q4H PRN Administration pain 1-3 or fever Amantadine HCl 100 mg 04/30/25 09:00 Amantadine Hcl 100 Mg Capsule PO Q12HR LORETO Aripiprazole 15 mg 04/30/25 09:00 05/01/25 11:53 Aripiprazole 5 Mg Tablet PO 15 mg DAILY LORETO Administration Aspirin 81 mg 04/30/25 09:00 05/01/25 11:53 Aspirin 81 Mg Enteric Tablet PO 81 mg QAM [facility] Administration Divalproex Sodium 125 mg 04/30/25 09:00 05/01/25 20:[address] 125 Mg Tabec PO 125 mg Q12HR [facility]ETO Administration Donepezil HCl 5 mg 04/30/25 09:00 05/01/25 20:35 Donepezil Hcl 5 Mg Tablet PO 5 mg Q12HR L[facility]O Administration Finasteride 5 mg 04/30/25 09:00 05/01/25 11:53 Finasteride 5 Mg Tablet PO 5 mg QAM [facility] Administration Gabapentin 100 mg 04/30/25 09:00 05/01/25 20:35 Gabapentin 100 Mg Capsule PO 100 mg Q12HR [facility] Administration Lidocaine 1 patch 05/02/25 09:00 Lidocaine 5% Patch TRANSDERM DAILY LORETO Lorazepam 0.5 mg 04/30/25 03:04 Lorazepam (*Crx) 0.5 Mg Tablet PO Q8H PRN Anxiety Memantine 5 mg 04/30/25 09:00 05/01/25 20:35 Memantine 5 Mg Tablet PO 5 mg Q12HR LORETO Administration Metoprolol Succinate 50 mg 04/30/25 09:00 Metoprolol Succinate Ext Rel 50 Mg Tabcr PO QAM [facility] Multivitamins/Minerals 1 tab 04/30/25 09:00 05/01/25 11:54 Multivitamins /C Lutein (Centrum Silver) Tablet *Bkc PO 1 tab QAM [facility] Administration Rosuvastatin Calcium 40 mg 04/30/25 21:00 05/01/25 20:35 Rosuvastatin 20 Mg Tablet PO 40 mg QHS [facility] Administration Tamsulosin HCl 0.4 mg 04/30/25 09:00 05/01/25 11:53 Tamsulosin Hcl 0.4 Mg Capsule PO 0.4 mg QAM [facility] Administration Radiology Results: ITS Impressions Head CT 04/29/25 21:50 IMPRESSION: No acute intracranial process. Cervical Spine CT 04/29/25 21:51 IMPRESSION: No acute fracture or traumatic malalignment in the cervical spine. Lower Extremity CTA 04/29/25 21:55 IMPRESSION: 10.2 x 1.5 cm deep subcutaneous fluid collection over the right hip, without extravasation to suggest active hemorrhage. More superficial subcutaneous edema/contusion also noted over the right hip. Bladder wall thickening, probably secondary to chronic outlet obstruction from prostatomegaly. Knee X-Ray 04/29/25 22:09 IMPRESSION: No acute osseous finding in the bilateral knees. Knee X-Ray 04/29/25 22:09 IMPRESSION: No acute osseous finding in the bilateral knees. Hip/Pelvis X-Ray 04/29/25 22:10 IMPRESSION: No acute osseous finding in the pelvis or bilateral hips. Chest X-Ray 04/29/25 22:14 IMPRESSION: No acute cardiopulmonary process. Labs Labs: Laboratory Results - last 24 hr 05/02/25 05:32 WBC 7.1 RBC 3.49 L Hgb 10.6 L Hct 32.5 L MCV 93.1 MCH 30.4 MCHC 32.6 RDW 13.9 Plt Count 151 MPV 11.6 H Immature Gran % (Auto) 0.4 Neut % (Auto) 68.6 Lymph % (Auto) 19.1 [place] % (Auto) 9.2 H Eos % (Auto) 2.1 Baso % (Auto) 0.6 Lymph # (Auto) 1.35 [place] # (Auto) 0.7 H Eos # (Auto) 0.2 Baso # (Auto) 0.0 Abs Immat Gran (auto) 0.03 Absolute Neuts (auto) 4.9 Absolute Nucleated RBC 0.000 Nucleated RBC % 0.0 Sodium 138 Potassium 4.2 Chloride 104 Carbon Dioxide 30 Anion Gap 4 BUN 15 D Creatinine 0.78 Estim Creat Clear Calc 57 Estimated GFR > 60 Glucose 83 Calcium 9.4 Quality VTE Prophylaxis VTE prophylaxis: mechanical ordered Hospitalist MIPS Advance Care Plan I have confirmed that the patient's Advanced Care Plan is present, code status is documented, or surrogate decision maker is listed in patient medical record.: Yes Medication Reconciliation I have utilized all available resources to obtain, update and review the patients current medications (includes all prescriptions, OTC, herbals, cannabis, and nutritional supplements).: Yes
[2025-05-02] MEDS: TAMSULOSIN HCL 0.4 MG CAPSULE PO (08:35)
[2025-05-02] MEDS: MULTIVITAMINS /C LUTEIN (CENTRUM SILVER) TABLET *BKC 1 TAB PO (08:35)
[2025-05-02] MEDS: MEMANTINE 5 MG TABLET PO ×2 (08:35→20:56)
[2025-05-02] MEDS: DONEPEZIL HCL 5 MG TABLET PO ×2 (08:35→20:56)
[2025-05-02] MEDS: FINASTERIDE 5 MG TABLET PO (08:35)
[2025-05-02] MEDS: ASPIRIN 81 MG ENTERIC TABLET PO (08:35)
[2025-05-02] MEDS: GABAPENTIN 100 MG CAPSULE PO ×2 (08:35→20:56)
[2025-05-02] MEDS: DIVALPROEX SODIUM DR 125 MG TABEC PO ×2 (08:35→20:56)
[2025-05-02] MEDS: LIDOCAINE 5% PATCH 1 PATCH TRANSDERM (08:36)
[2025-05-02] MEDS: ROSUVASTATIN 20 MG TABLET 40 MG PO (20:56)
[2025-05-03] VITALS (8 sets, daily range): BP systolic 103–110; BP diastolic 40–70; PULSE 60–88; RESP 14–18; TEMP 36.3–37.1; O2SAT 92–100
[2025-05-03] MEDS: CLOPIDOGREL BISULFATE 75 MG TABLET PO ×2 (00:21→09:08)
[2025-05-03 08:37] LABS: Hematocrit 32.6 % (42.0-52.0); Hemoglobin 10.5 g/dL (14.0-18.0); Immature Granulocyte Percent A 0.4 % (0-0.5); Immature Platelet Fraction Pct 4.2 % (0.9-11.2); Lymphocytes Absolute Auto 1.47 K/mm3 (0.9-3.2); Mean Corpuscular HGB Conc 32.2 g/dl (32-36); Mean Corpuscular Hemoglobin 30.3 pg (26-34); Mean Corpuscular Volume 93.9 fl (80-100); Nucleated Red Blood Cells Absolute Auto 0.000 K/mm3 (0.0-0.012); Nucleated Red Blood Cells Perc 0.0 % (0.0-0.2); Platelet Count Result 150 k/mm3 (150-375); Red Blood Count 3.47 M/mm3 (4.6-6.20); White Blood Count 7.9 K/mm3 (4.5-10.0)
[2025-05-03 08:59] LABS: Anion Gap 5 mmol/L (4-12); Blood Urea Nitrogen 17 mg/dL (9-20); Calcium 9.4 mg/dL (8.4-10.2); Carbon Dioxide 30 mmol/L (22-30); Chloride 101 mmol/L (98-107); Estimated CRCL calculation 51 ml/min; Estimated Glomerular Filt Rate > 60; Glucose 90 mg/dL (65-110); Potassium 4.3 mmol/L (3.4-5.0); Sodium 136 mmol/L (137-145)
[2025-05-03] MEDS: ACETAMINOPHEN 325 MG TABLET 650 MG PO (09:05)
[2025-05-03] MEDS: GABAPENTIN 100 MG CAPSULE PO ×2 (09:09→21:56)
[2025-05-03] MEDS: ASPIRIN 81 MG ENTERIC TABLET PO (09:09)
[2025-05-03] MEDS: MULTIVITAMINS /C LUTEIN (CENTRUM SILVER) TABLET *BKC 1 TAB PO (09:09)
[2025-05-03] MEDS: MEMANTINE 5 MG TABLET PO ×2 (09:16→21:56)
[2025-05-03] MEDS: LIDOCAINE 5% PATCH 1 PATCH TRANSDERM (09:16)
[2025-05-03] MEDS: DIVALPROEX SODIUM DR 125 MG TABEC PO ×2 (09:16→21:56)
[2025-05-03] MEDS: DONEPEZIL HCL 5 MG TABLET PO ×2 (09:16→21:56)
[2025-05-03] MEDS: TAMSULOSIN HCL 0.4 MG CAPSULE PO (09:16)
[2025-05-03] MEDS: FINASTERIDE 5 MG TABLET PO (09:16)
--- NOTE | 2025-05-03 12:45 | P.PNIM_ITS ---
Progress Note: A&P Assessment and Plan (1) Confusion: Code(s): R41.0 - Disorientation, unspecified Status: Acute Assessment and Plan: new medications this year: Amantadine 100 q12, Donepezil 5mg q12, Memantine 5mg q12, depakote 125 q12 --Amantadine on hold --Daughter wondering if they could be contributing to confusion and falls --Consult neurology, discussed with family. Likely hold amantadine for discharge --Has been on Abilify for years, was on 10mg 07/2024 --Depakote, amantadine, donepezil, and memantine all new since November admission. --Also likely malignancy on imaging (2) Hematoma of right hip: Qualifiers: Encounter type: initial encounter Qualified Code(s): S70.01XA - Contusion of right hip, initial encounter Code(s): S70.01XA - Contusion of right hip, initial encounter Status: Acute Assessment and Plan: Stable * Appears painful for pt, stable * PT and OT evaluation ordered. * Fall precautions. * Treatment of anemia (3) Acute on chronic anemia: Code(s): D64.9 - Anemia, unspecified Status: Acute Assessment and Plan: Pt's anemia is worse today w/Hgb dropping from 10.1-->8.9, however he did receive multiple bags of IVF in the ER for hydration in the setting of Rhabdo and hypotension, suspect dilutional. H&H 9.4/28.6<10.6/32 * Stable * Restart clopidogrel and monitor (4) Hypotension due to hypovolemia: Code(s): E86.1 - Hypovolemia Status: Acute Assessment and Plan: * Improving. * Appears Euvolemic (5) Acute dehydration: Code(s): E86.0 - Dehydration Status: Resolved Assessment and Plan: Po intake poor, less than half a liter Follow intake closely --Monitor labs, IV fluids if needed (6) Rhabdomyolysis: Qualifiers: Rhabdomyolysis type: non-traumatic Qualified Code(s): M62.82 - Rhabdomyolysis Code(s): M62.82 - Rhabdomyolysis Status: Acute Assessment and Plan: * Suspect combination of fall with hematoma on the hip and FTT. * Recheck CK downtrending, 777>510. Recheck in AM (7) Elevated troponin: Code(s): R79.89 - Other specified abnormal findings of blood chemistry Status: Acute Assessment and Plan: * Elevation but flat, trending as follows: 0.043-->0.053-->0.054 * Continue Telemetry. (8) Severe protein-calorie malnutrition: Code(s): E43 - Unspecified severe protein-calorie malnutrition Status: Acute Assessment and Plan: * Suspect Failure to thrive. * Consult dietitian * Accurate I&O, Daily weight * Over the past five months the pt has had a 12 kg weight loss. (9) Pacemaker: Code(s): Z95.0 - Presence of cardiac pacemaker Status: Acute Assessment and Plan: CAD s/p 2 stents, pacemaker. Stent placement --Off plavix for hematoma, resume (10) Hypophosphatemia: Code(s): E83.39 - Other disorders of phosphorus metabolism Status: Acute Assessment and Plan: Phos 2.4 --Kphos x2 doses Time Spent With Patient Time: 58 minutes Subjective Date/time seen: 05/03/25 12:45 Interval history: Awake and talkative today Spoke with daughter who reports multiple new medications this year. Donepezil, memantadine, and amantadine and is concerned they could be causing confusion con tributing to falls Will discuss with neurology and outpatient physician. Amantadine has been on hold. Renal US concerning for malignancy. CT CAP with CT urogram today for staging and prognosis He does not appear to be in any acute distress. Reports right hip and right shoulder pain improving. Hematoma stable Hematoma to right him stable. Blood count stable Review of Systems Review of Systems: Patient is a poor historian and has history of vascular dementia All systems reviewed & are unremarkable except as noted in HPI and below Exam Narrative: Weight 67.6 kg BMI 20.2 General - Awake and alert. No acute distress Eyes - PERRLA, EOM intact ENT - No thrush, No erythema Neck - No noticeable or palpable swelling Lymph Nodes - No lymphadenopathy Cardiovascular - RRR no m/r/g, no JVD Lungs: Clear to auscultation, No wheezing, use of accessory muscles Skin - Skin warm and dry, no wounds or rashes Abdomen - Normal bowel sounds, abdomen soft and nontender Extremities - No edema, cyanosis or clubbing Musculoskeletal - 3/5 strength, normal range of motion, no swollen or erythematous joints. Neurological ? Alert and oriented x 1, CN 2-12 grossly intact. Psych: Calm and cooperative Skin: General skin exam: wounds noted (BLE with scabbing and bruising present.) Objective Data Vital Signs Vital Signs: Vital Signs - 24 hr 05/02/25 14:00 05/02/25 16:00 05/02/25 20:00 Temperature 96.2 F L Pulse Rate 65 68 75 Respiratory Rate 17 16 Blood Pressure 102/48 L Pulse Oximetry 97 99 Oxygen Delivery Room Air 05/02/25 20:00 05/02/25 21:33 05/03/25 00:00 Temperature 97.9 F Pulse Rate 75 75 70 Respiratory Rate 16 Blood Pressure 100/45 L Pulse Oximetry 99 Oxygen Delivery 05/03/25 04:00 05/03/25 06:00 05/03/25 08:00 Temperature 97.8 F Pulse Rate 70 65 Respiratory Rate 17 Blood Pressure 104/40 L Pulse Oximetry 99 Oxygen Delivery Room Air 05/03/25 08:59 05/03/25 10:15 Temperature Pulse Rate Respiratory Rate Blood Pressure Pulse Oximetry 97 Oxygen Delivery Room Air Room Air Intake/Output Intake/Output: Intake & Output 04/30/25 05/01/25 05/02/25 05/03/25 23:59 23:59 23:59 23:59 Intake Total 664 913 7902 640 Output Total 381 131 8155 1000 Balance -240 -324 -34 -360 Meds/Results Medications: Active Medications Generic Name Dose Route Start Last Admin Trade Name Freq PRN Reason Stop Dose Admin Acetaminophen 650 mg 04/30/25 00:18 Acetaminophen 650 Mg Suppository RECTAL Q6H PRN Mild Pain (1-3) or Fever Acetaminophen 650 mg 04/30/25 03:04 05/03/25 09:05 Acetaminophen 325 Mg Tablet PO 650 mg Q4H PRN Administration pain 1-3 or fever Amantadine HCl 100 mg 04/30/25 09:00 Amantadine Hcl 100 Mg Capsule PO Q12HR LORETO Aripiprazole 15 mg 04/30/25 09:00 05/03/25 09:08 Aripiprazole 5 Mg Tablet PO 15 mg DAILY LORETO Administration Aspirin 81 mg 04/30/25 09:00 05/03/25 09:09 Aspirin 81 Mg Enteric Tablet PO 81 mg QAM [facility] Administration Clopidogrel Bisulfate 75 mg 05/02/25 21:05 05/03/25 09:08 Clopidogrel Bisulfate 75 Mg Tablet PO 75 mg DAILY LORETO Administration Divalproex Sodium 125 mg 04/30/25 09:00 05/03/25 09:[address] 125 Mg Tabec PO 125 mg Q12HR [facility]ETO Administration Donepezil HCl 5 mg 04/30/25 09:00 05/03/25 09:16 Donepezil Hcl 5 Mg Tablet PO 5 mg Q12HR [facility]ETO Administration Finasteride 5 mg 04/30/25 09:00 05/03/25 09:16 Finasteride 5 Mg Tablet PO 5 mg QAM [facility] Administration Gabapentin 100 mg 04/30/25 09:00 05/03/25 09:09 Gabapentin 100 Mg Capsule PO 100 mg Q12HR [facility]O Administration Lidocaine 1 patch 05/02/25 09:00 05/03/25 09:16 Lidocaine 5% Patch TRANSDERM 1 patch DAILY LORETO Administration Lorazepam 0.5 mg 04/30/25 03:04 Lorazepam (*Crx) 0.5 Mg Tablet PO Q8H PRN Anxiety Memantine 5 mg 04/30/25 09:00 05/03/25 09:16 Memantine 5 Mg Tablet PO 5 mg Q12HR [facility] Administration Metoprolol Succinate 50 mg 04/30/25 09:00 Metoprolol Succinate Ext Rel 50 Mg Tabcr PO QAM [facility] Multivitamins/Minerals 1 tab 04/30/25 09:00 05/03/25 09:09 Multivitamins /C Lutein (Centrum Silver) Tablet *Bkc PO 1 tab QAM [facility] Administration Rosuvastatin Calcium 40 mg 04/30/25 21:00 05/02/25 20:56 Rosuvastatin 20 Mg Tablet PO 40 mg QHS [facility] Administration Sodium Phosphate 250 mg 05/03/25 17:00 Potassium Phos/Sodium Phos 250 Mg Tablet PO 05/05/25 09:01 BID [facility] Tamsulosin HCl 0.4 mg 04/30/25 09:00 05/03/25 09:16 Tamsulosin Hcl 0.4 Mg Capsule PO 0.4 mg QAM [facility] Administration Radiology Results: ITS Impressions Head CT 04/29/25 21:50 IMPRESSION: No acute intracranial process. Cervical Spine CT 04/29/25 21:51 IMPRESSION: No acute fracture or traumatic malalignment in the cervical spine. Lower Extremity CTA 04/29/25 21:55 IMPRESSION: 10.2 x 1.5 cm deep subcutaneous fluid collection over the right hip, without extravasation to suggest active hemorrhage. More superficial subcutaneous edema/contusion also noted over the right hip. Bladder wall thickening, probably secondary to chronic outlet obstruction from prostatomegaly. Knee X-Ray 04/29/25 22:09 IMPRESSION: No acute osseous finding in the bilateral knees. Knee X-Ray 04/29/25 22:09 IMPRESSION: No acute osseous finding in the bilateral knees. Hip/Pelvis X-Ray 04/29/25 22:10 IMPRESSION: No acute osseous finding in the pelvis or bilateral hips. Chest X-Ray 04/29/25 22:14 IMPRESSION: No acute cardiopulmonary process. Renal Ultrasound 05/02/25 12:12 IMPRESSION: Interval enlargement of a mass within the right renal pelvis which represents a malignancy until proven otherwise. Contrast-enhanced MRI is recommended as is urologic consultation. Labs Labs: Laboratory Results - last 24 hr 05/03/25 08:20 WBC 7.9 RBC 3.47 L Hgb 10.5 L Hct 32.6 L MCV 93.9 MCH 30.3 MCHC 32.2 RDW 13.9 Plt Count 150 MPV 10.9 H Immature Gran % (Auto) 0.4 Neut % (Auto) 69.2 Lymph % (Auto) 18.6 [place] % (Auto) 9.5 H Eos % (Auto) 1.8 Baso % (Auto) 0.5 Lymph # (Auto) 1.47 [place] # (Auto) 0.8 H Eos # (Auto) 0.1 Baso # (Auto) 0.0 Abs Immat Gran (auto) 0.03 Absolute Neuts (auto) 5.5 Absolute Nucleated RBC 0.000 Nucleated RBC % 0.0 % Immature Plt Fraction 4.2 Sodium 136 L Potassium 4.3 Chloride 101 Carbon Dioxide 30 Anion Gap 5 BUN 17 Creatinine 0.87 Estim Creat Clear Calc 51 Estimated GFR > 60 Glucose 90 Calcium 9.4 Phosphorus 2.4 L Quality VTE Prophylaxis VTE prophylaxis: mechanical ordered Hospitalist MIPS Advance Care Plan I have confirmed that the patient's Advanced Care Plan is present, code status is documented, or surrogate decision maker is listed in patient medical record.: Yes Medication Reconciliation I have utilized all available resources to obtain, update and review the patients current medications (includes all prescriptions, OTC, herbals, cannabis, and nutritional supplements).: Yes
[2025-05-03] MEDS: ROSUVASTATIN 20 MG TABLET 40 MG PO (21:56)
[2025-05-03] MEDS: LORazepam (*CRX) 0.5 MG TABLET PO (23:26)
[2025-05-04] VITALS (9 sets, daily range): BP systolic 95–147; BP diastolic 50–54; PULSE 60–80; RESP 16–20; TEMP 36.5–36.9; O2SAT 92–100
[2025-05-04 07:55] LABS: Hematocrit 30.8 % (42.0-52.0); Hemoglobin 9.8 g/dL (14.0-18.0); Immature Granulocyte Percent A 0.4 % (0-0.5); Immature Platelet Fraction Pct 4.4 % (0.9-11.2); Lymphocytes Absolute Auto 0.94 K/mm3 (0.9-3.2); Mean Corpuscular HGB Conc 31.8 g/dl (32-36); Mean Corpuscular Hemoglobin 29.9 pg (26-34); Mean Corpuscular Volume 93.9 fl (80-100); Nucleated Red Blood Cells Absolute Auto 0.000 K/mm3 (0.0-0.012); Nucleated Red Blood Cells Perc 0.0 % (0.0-0.2); Platelet Count Result 139 k/mm3 (150-375); Red Blood Count 3.28 M/mm3 (4.6-6.20); White Blood Count 5.1 K/mm3 (4.5-10.0)
[2025-05-04 08:06] LABS: Anion Gap 5 mmol/L (4-12); Blood Urea Nitrogen 18 mg/dL (9-20); Calcium 9.3 mg/dL (8.4-10.2); Carbon Dioxide 29 mmol/L (22-30); Chloride 102 mmol/L (98-107); Estimated CRCL calculation 51 ml/min; Estimated Glomerular Filt Rate > 60; Glucose 99 mg/dL (65-110); Potassium 3.6 mmol/L (3.4-5.0); Sodium 136 mmol/L (137-145)
[2025-05-04] MEDS: LIDOCAINE 5% PATCH 1 PATCH TRANSDERM (08:10)
[2025-05-04] MEDS: BISACODYL 10 MG SUPPOSITORY RECTAL (08:10)
[2025-05-04] MEDS: DONEPEZIL HCL 5 MG TABLET PO (08:11)
[2025-05-04] MEDS: MULTIVITAMINS /C LUTEIN (CENTRUM SILVER) TABLET *BKC 1 TAB PO (08:11)
[2025-05-04] MEDS: GABAPENTIN 100 MG CAPSULE PO (08:11)
[2025-05-04] MEDS: SENNOSIDES 8.6 MG TABLET PO ×2 (08:11→16:42)
[2025-05-04] MEDS: DIVALPROEX SODIUM DR 125 MG TABEC PO ×2 (08:11→22:03)
[2025-05-04] MEDS: PANTOPRAZOLE 40 MG TABLET PO (08:11)
[2025-05-04] MEDS: MEMANTINE 5 MG TABLET PO (08:11)
[2025-05-04] MEDS: FINASTERIDE 5 MG TABLET PO (08:11)
[2025-05-04] MEDS: TAMSULOSIN HCL 0.4 MG CAPSULE PO (08:11)
[2025-05-04] MEDS: ASPIRIN 81 MG ENTERIC TABLET PO (08:12)
[2025-05-04 08:21] LABS: Troponin I 0.020 ng/mL (0.000-0.034)
--- NOTE | 2025-05-04 08:40 | P.PNIM_ITS ---
Progress Note: A&P Assessment and Plan (1) Confusion: Code(s): R41.0 - Disorientation, unspecified Status: Acute Assessment and Plan: new medications this year: Amantadine 100 q12, Donepezil 5mg q12, Memantine 5mg q12, depakote 125 q12 --Amantadine on hold --Daughter reports multiple new meds this year, could be contributing to confusion and falls. A year ago he was living at home, didn't take meds for most of his life despite some difficulties. Likely visual hallucinations in middle age with no known drug use. He took lithium at one point but her mother would hide it in his food. --Consulted neurology, discussed with family. Hold amantadine for discharge --Has been Abilify 10mg since at least 07/2024 --Depakote, amantadine, donepezil, and memantine all new since November admission. --On Zyprexa hs, was started 05/04 overnight for agitation --Psychiatry consult in AM --Also likely malignancy on imaging, discussed with urology (2) Hematoma of right hip: Qualifiers: Encounter type: initial encounter Qualified Code(s): S70.01XA - Contusion of right hip, initial encounter Code(s): S70.01XA - Contusion of right hip, initial encounter Status: Acute Assessment and Plan: Stable * Appears painful for pt, stable * PT and OT evaluation ordered. * Fall precautions. * Treatment of anemia (3) Acute on chronic anemia: Code(s): D64.9 - Anemia, unspecified Status: Acute Assessment and Plan: Pt's anemia is worse today w/Hgb dropping from 10.1-->8.9, however he did receive multiple bags of IVF in the ER for hydration in the setting of Rhabdo and hypotension, suspect dilutional. H&H 9.4/28.6<10.6/32 * Stable * Restart clopidogrel and monitor (4) Hypotension due to hypovolemia: Code(s): E86.1 - Hypovolemia Status: Acute Assessment and Plan: * Improving. * Appears Euvolemic (5) Acute dehydration: Code(s): E86.0 - Dehydration Status: Resolved Assessment and Plan: Po intake poor, less than half a liter Follow intake closely --Monitor labs, IV fluids if needed (6) Rhabdomyolysis: Qualifiers: Rhabdomyolysis type: non-traumatic Qualified Code(s): M62.82 - Rhabdomyolysis Code(s): M62.82 - Rhabdomyolysis Status: Acute Assessment and Plan: * Suspect combination of fall with hematoma on the hip and FTT. * Recheck CK downtrending, 777>510. Recheck in AM (7) Elevated troponin: Code(s): R79.89 - Other specified abnormal findings of blood chemistry Status: Acute Assessment and Plan: * Elevation but flat, trending as follows: 0.043-->0.053-->0.054>0.020 * Continue Telemetry. (8) Severe protein-calorie malnutrition: Code(s): E43 - Unspecified severe protein-calorie malnutrition Status: Acute Assessment and Plan: Weight loss may be related to malignancy. Can also consider medication effecting appetite * Therapist Occupational consulted * Accurate I&O, Daily weight * Over the past five months the pt has had a 12 kg weight loss. (9) Pacemaker: Code(s): Z95.0 - Presence of cardiac pacemaker Status: Acute Assessment and Plan: CAD s/p 2 stents, pacemaker. Stent placement --Off plavix for hematoma, resumed but question of drop (10) Hypophosphatemia: Code(s): E83.39 - Other disorders of phosphorus metabolism Status: Acute Assessment and Plan: Phos 2.4 05/04 --Kphos x2 doses, resolved today, 2.9 (11) Renal mass, right: Code(s): N28.89 - Other specified disorders of kidney and ureter Status: Acute Assessment and Plan: Spoke with urology and biopsy for a malignancy would not be indicated. Generally slow growing and would require nephrectomy. Otherwise, could consider surveillance Time Spent With Patient Time: 62 minutes Subjective Date/time seen: 05/04/25 14:50 Interval history: Patient's daughter arriving from out of town today, [address] from [place] She expressed concern about multiple new medications this year. Donepezil, memantadine, and amantadine. Will discuss with neurology. Spoke with outpatient PCP and he reported that he started amantadine so he is more awake. It has been on hold during admission. Was only on lithium years ago for a short time. Otherwise was off medications until Abilify. Now also on depakot, ativan, and seroquel at facility Blood count has ranged 9.4-10.6 Hematoma to right thigh stable. Blood count stable Spoke with urology and no indication for biopsy. Imaging is diagnostic and would require serial imaging and nephrectomy if decides to intervene. Can follow imaging outpatient Swinging at nurses in the morning but somnolent during the day Not eating much, slept most of today Review of Systems Review of Systems: Patient is a poor historian and has history of vascular dementia All systems reviewed & are unremarkable except as noted in HPI and below Exam Narrative: Weight 67.6 kg BMI 20.2 General - Awake and alert. No acute distress Eyes - PERRLA, EOM intact ENT - No thrush, No erythema Neck - No noticeable or palpable swelling Lymph Nodes - No lymphadenopathy Cardiovascular - RRR no m/r/g, no JVD Lungs: Clear to auscultation, No wheezing, use of accessory muscles Skin - Skin warm and dry, no wounds or rashes Abdomen - Normal bowel sounds, abdomen soft and nontender Extremities - No edema, cyanosis or clubbing Musculoskeletal - 3/5 strength, normal range of motion, no swollen or erythematous joints. Neurological ? Alert and oriented x 1, CN 2-12 grossly intact. Psych: Calm, sleeping Objective Data Vital Signs Vital Signs: Vital Signs - 24 hr 05/03/25 08:59 05/03/25 10:15 05/03/25 12:00 Temperature Pulse Rate 72 Respiratory Rate Blood Pressure Pulse Oximetry 97 Oxygen Delivery Room Air Room Air 05/03/25 14:00 05/03/25 16:00 05/03/25 22:12 Temperature 98.7 F 97.4 F L Pulse Rate 65 60 88 Respiratory Rate 18 14 Blood Pressure 110/45 L 103/70 Pulse Oximetry 100 92 Oxygen Delivery 05/04/25 00:00 05/04/25 04:00 05/04/25 05:52 Temperature 97.7 F Pulse Rate 80 63 60 Respiratory Rate 20 Blood Pressure 95/50 L Pulse Oximetry 100 Oxygen Delivery Intake/Output Intake/Output: Intake & Output 05/01/25 05/02/25 05/03/25 05/04/25 23:59 23:59 23:59 23:59 Intake Total 576 1266 880 550 Output Total 900 1300 1900 Balance - 550 Meds/Results Medications: Active Medications Generic Name Dose Route Start Last Admin Trade Name Freq PRN Reason Stop Dose Admin Acetaminophen 650 mg 04/30/25 00:18 Acetaminophen 650 Mg Suppository RECTAL Q6H PRN Mild Pain (1-3) or Fever Acetaminophen 650 mg 04/30/25 03:04 05/03/25 09:05 Acetaminophen 325 Mg Tablet PO 650 mg Q4H PRN Administration pain 1-3 or fever Amantadine HCl 100 mg 04/30/25 09:00 Amantadine Hcl 100 Mg Capsule PO Q12HR LORETO Aripiprazole 15 mg 04/30/25 09:00 05/04/25 08:11 Aripiprazole 5 Mg Tablet PO 15 mg DAILY LORETO Administration Aspirin 81 mg 04/30/25 09:00 05/04/25 08:12 Aspirin 81 Mg Enteric Tablet PO 81 mg QAM LORETO Administration Bisacodyl 10 mg 05/04/25 09:00 05/04/25 08:10 Bisacodyl 10 Mg Suppository RECTAL 10 mg QAM LORETO Administration Clopidogrel Bisulfate 75 mg 05/02/25 21:05 05/03/25 09:08 Clopidogrel Bisulfate 75 Mg Tablet PO 75 mg DAILY LORETO Administration Divalproex Sodium 125 mg 04/30/25 09:00 05/04/25 08:[address] 125 Mg Tabec PO 125 mg Q12HR LORETO Administration Donepezil HCl 5 mg 04/30/25 09:00 05/04/25 08:11 Donepezil Hcl 5 Mg Tablet PO 5 mg Q12HR LORETO Administration Finasteride 5 mg 04/30/25 09:00 05/04/25 08:11 Finasteride 5 Mg Tablet PO 5 mg QAM LORETO Administration Gabapentin 100 mg 04/30/25 09:00 05/04/25 08:11 Gabapentin 100 Mg Capsule PO 100 mg Q12HR LORETO Administration Lidocaine 1 patch 05/02/25 09:00 05/04/25 08:10 Lidocaine 5% Patch TRANSDERM 1 patch DAILY LORETO Administration Lorazepam 0.5 mg 04/30/25 03:04 05/03/25 23:26 Lorazepam (*Crx) 0.5 Mg Tablet PO 0.5 mg Q8H PRN Administration Anxiety Memantine 5 mg 04/30/25 09:00 05/04/25 08:11 Memantine 5 Mg Tablet PO 5 mg Q12HR LORETO Administration Metoprolol Succinate 50 mg 04/30/25 09:00 Metoprolol Succinate Ext Rel 50 Mg Tabcr PO QAM LORETO Multivitamins/Minerals 1 tab 04/30/25 09:00 05/04/25 08:11 Multivitamins /C Lutein (Centrum Silver) Tablet *Bkc PO 1 tab QAM LORETO Administration Olanzapine 10 mg 05/04/25 01:30 05/04/25 07:58 Olanzapine 5 Mg Tablet PO Not Given QHS LORETO Pantoprazole Sodium 40 mg 05/04/25 09:00 05/04/25 08:11 Pantoprazole 40 Mg Tablet PO 40 mg QAM LORETO Administration Polyethylene Glycol 17 gm 05/04/25 09:00 05/04/25 08:10 Polyethylene Glycol 3350 17 Gm Powd.Pack PO 17 gm TID LORETO Administration Rosuvastatin Calcium 40 mg 04/30/25 21:00 05/03/25 21:56 Rosuvastatin 20 Mg Tablet PO 40 mg QHS LORETO Administration Senna 8.6 mg 05/04/25 09:00 05/04/25 08:11 Sennosides 8.6 Mg Tablet PO 8.6 mg BID LORETO Administration Tamsulosin HCl 0.4 mg 04/30/25 09:00 05/04/25 08:11 Tamsulosin Hcl 0.4 Mg Capsule PO 0.4 mg QAM LORETO Administration Radiology Results: ITS Impressions Head CT 04/29/25 21:50 IMPRESSION: No acute intracranial process. Cervical Spine CT 04/29/25 21:51 IMPRESSION: No acute fracture or traumatic malalignment in the cervical spine. Lower Extremity CTA 04/29/25 21:55 IMPRESSION: 10.2 x 1.5 cm deep subcutaneous fluid collection over the right hip, without extravasation to suggest active hemorrhage. More superficial subcutaneous edema/contusion also noted over the right hip. Bladder wall thickening, probably secondary to chronic outlet obstruction from prostatomegaly. Knee X-Ray 04/29/25 22:09 IMPRESSION: No acute osseous finding in the bilateral knees. Knee X-Ray 04/29/25 22:09 IMPRESSION: No acute osseous finding in the bilateral knees. Hip/Pelvis X-Ray 04/29/25 22:10 IMPRESSION: No acute osseous finding in the pelvis or bilateral hips. Chest X-Ray 04/29/25 22:14 IMPRESSION: No acute cardiopulmonary process. Renal Ultrasound 05/02/25 12:12 IMPRESSION: Interval enlargement of a mass within the right renal pelvis which represents a malignancy until proven otherwise. Contrast-enhanced MRI is recommended as is urologic consultation. Chest CT 05/03/25 15:19 IMPRESSION: Subacute fracture of the posterior left 10th rib with trace callus formation. No findings within the chest to suggest metastatic disease within the chest, as detailed above. Abdomen/Pelvis CT 05/03/25 15:44 IMPRESSION: Multiple bladder diverticulum. Findings within the right kidney which represent a malignancy until proven otherwise, as detailed above. The entirety of the right ureter is not opacified with intravenous contrast, limiting its evaluation. The entirety of the bladder is not opacified with contrast, also limiting its evaluation for which direct visualization of both areas are recommended. Additional abnormality within the tail of the pancreas, as detailed above. Labs Labs: Laboratory Results - last 24 hr 05/03/25 05/04/25 08:20 07:42 WBC 5.1 RBC 3.28 L Hgb 9.8 L Hct 30.8 L MCV 93.9 MCH 29.9 MCHC 31.8 L RDW 13.9 Plt Count 139 L MPV 10.7 H Immature Gran % (Auto) 0.4 Neut % (Auto) 68.7 Lymph % (Auto) 18.4 [place] % (Auto) 8.4 Eos % (Auto) 3.5 Baso % (Auto) 0.6 Lymph # (Auto) 0.94 [place] # (Auto) 0.4 Eos # (Auto) 0.2 Baso # (Auto) 0.0 Abs Immat Gran (auto) 0.02 Absolute Neuts (auto) 3.5 Absolute Nucleated RBC 0.000 Nucleated RBC % 0.0 % Immature Plt Fraction 4.4 Sodium 136 L 136 L Potassium 4.3 3.6 Chloride 101 102 Carbon Dioxide 30 29 Anion Gap 5 5 BUN 17 18 Creatinine 0.87 0.85 Estim Creat Clear Calc 51 51 Estimated GFR > 60 > 60 Glucose 90 99 Calcium 9.4 9.3 Phosphorus 2.4 L 2.9 Troponin I 0.020 Quality VTE Prophylaxis VTE prophylaxis: mechanical ordered Hospitalist MIPS Advance Care Plan I have confirmed that the patient's Advanced Care Plan is present, code status is documented, or surrogate decision maker is listed in patient medical record.: Yes Medication Reconciliation I have utilized all available resources to obtain, update and review the patients current medications (includes all prescriptions, OTC, herbals, cannabis, and nutritional supplements).: Yes
[2025-05-04 08:52] LABS: HIV 1/2 Ab P24 Ag Result Negative (Negative)
[2025-05-04 08:55] LABS: Vitamin B12 818.0 pg/mL (239-931)
[2025-05-04 10:02] LABS: Syphilis IgG/IgM Antibody Non-Reactive (Nonreactive)
--- NOTE | 2025-05-04 15:49 | PCOTNOTE ---
Per RN, pt is not appropriate for therapy today due to being very tired and nursing is requesting that pt continue to rest and sleep. Will continue per poc duration/frequency tomorrow.
--- NOTE | 2025-05-04 18:08 | WPDNEURCNPN ---
Assessment and Plan Assessment and plan (1) Dementia: Code(s): F03.90 - Unspecified dementia, unspecified severity, without behavioral disturbance, psychotic disturbance, mood disturbance, and anxiety Status: Acute (2) Renal mass, right: Code(s): N28.89 - Other specified disorders of kidney and ureter Status: Acute (3) Dehydration: Code(s): E86.0 - Dehydration Status: Acute (4) Normocytic anemia: Code(s): D64.9 - Anemia, unspecified Status: Acute (5) Hematoma of right hip: Qualifiers: Encounter type: initial encounter Qualified Code(s): S70.01XA - Contusion of right hip, initial encounter Code(s): S70.01XA - Contusion of right hip, initial encounter Status: Acute (6) Rhabdomyolysis: Qualifiers: Rhabdomyolysis type: non-traumatic Qualified Code(s): M62.82 - Rhabdomyolysis Code(s): M62.82 - Rhabdomyolysis Status: Acute (7) Difficulty in walking: Code(s): R26.2 - Difficulty in walking, not elsewhere classified Status: Acute Plan based upon the evaluation I would suggest to keep him on Aricept 10 mg daily morning and Namenda or memantine 10 mg twice a day. Psychiatric medications such as Abilify should be evaluated by psychiatrist if available. However would not suggest to take him off the medication in view of the long history of bipolar disorder. Apparently he has had hallucinations in the past and he has been aggressive towards the nursing staff at times. I agree that we should take him off amantadine. Other medications include finasteride, metoprolol, Crestor, clopidogrel tell. It appears that he is on gabapentin and lidocaine patches possibly for neuropathic type pain. We can stop gabapentin for now and if his pain becomes worse we can treat him. His hemoglobin is low at 9.8 now where she had hemoglobin of 30.1 in December 2024. His vitamin B12 and vitamin-D level were normal. Electrolytes and BUN and creatinine were also normal. However upon admission he was urine was found to positive for ketones suggestive of starvation or probably refusal to eat. He had abdomen and pelvic CT scan which shows multiple bladder diverticula and malignancy of the right kidney. His CT scan of the chest shows subacute fracture of the posterior left 10th rib with crepitus formation. CT scan of the head performed on 04/29/2025 did not show any acute intracranial process. I discussed this with the hospitalist team and suggest Urology and psychiatric consultation if possible. I shall be glad to follow up. Consult date: 05/04/25 HPI: Andrés Dempsey is a 84 year old male With history of dementia, atrial fibrillation not on anticoagulation, chronic kidney disease, history of bipolar disorder with history of previous psychiatric treatment. Patient was brought to the hospital because he has been confused and also had a fall with bruise on the right hip. Mild rhabdomyolysis and dehydration. CT scan of brain was negative. Patient is hitting the nursing staff. He is not able to give much in the way of the history. There is apparently a finding of a possible malignancy of the right kidney however urology is aware of it. His daughter is coming from [place]. The daughter is the worried that the patient may have been on too many medications. She wanted this to be looked into. Patient has declined over some time in terms of memory. at the time when I saw him he was a drowsy but barely opens his eyes but does not communicate or answer to the questions. a sitter has been appointed to keep an eye on him and we be of his condition and she has not noted any significant changes. However in the morning he knew his age was around 80 but when I saw him he told me was 25 years old. Review of Systems Review of Systems: ROS unobtainable: Yes unobtainable due to mental status [facility] Past Medical History Medical History (Updated 05/04/25 @ 18:13 by Malcom Pang MD) Dementia Coronary artery disease Combined systolic and diastolic congestive heart failure Echocardiogram November 2024: EF 40-45%, moderately increased left ventricular wall thickness, grade 1 diastolic dysfunction, normal right ventricular function mild biatrial enlargement Chronic constipation Atrial fibrillation Glaucoma BPH w urinary obs/LUTS Bipolar depression Vascular dementia Bulbous urethral stricture Anxiety Neuropathy Vision disorder Arthritis Prophylactic gland removal Removed from neck 1976 Surgical History Surgical History (Updated 04/30/25 @ 03:42 by Shae nAdrews DO) History of colonoscopy with polypectomy History of coronary artery stent placement Left circumflex and LAD Pacemaker S/P eye surgery Left eye 2024 Previous back surgery Fusion L3-L5 History of hip replacement Left 2006 Family History Family History Father Cancer Mother Cancer Colostomy care Son Diabetes mellitus Social History Social History (Updated 04/30/25 @ 03:30 by Shae Andrews DO) Social History: The patient is on probation and has a left ankle monitor in place. Code status: DNR/DNI (per EMR) Smoking status: Never smoker Second hand tobacco smoke exposure: No Alcohol intake: unknown Substance use: never Substance use type: does not use Do You Feel Safe in your Home?: Yes Lack of Transportation: No Lack of Food: Never True Current Housing: I Have Housing Concerned About Future Housing: No Difficulty Paying Gas/Electric Bills: No Difficulty Paying for Meds: No Currently Unemployed: No Education: High School Diploma/GED Difficulty w/ Childcare or Family Care: No Living arrangements: senior living Occupation/Education: retired 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 Spiritual care concerns: No Meds Home Medications and Allergies Home Medications ?Medication ?Instructions ?Recorded ?Confirmed ?Type [id number] 150 mcg-vit K1 1 tablet PO DAILY 06/22/24 04/30/25 History 30 mcg-lycop 300 mcg-lutein tablet (Centrum Minis Men 50 Plus) aspirin 81 mg tablet,delayed 81 mg PO QAM #30 tabs 12/07/24 04/30/25 Rx release clopidogrel 75 mg tablet 75 mg PO QAM #30 tabs 12/07/24 04/30/25 Rx metoprolol succinate 50 mg 50 mg PO QAM #30 tabs 12/07/24 04/30/25 Rx tablet,extended release 24 hr rosuvastatin 20 mg tablet 40 mg (2 x 20 mg) PO EVENING #30 12/07/24 04/30/25 Rx tabs finasteride 5 mg tablet (Proscar) 5 mg PO QAM #30 tabs 12/30/24 04/30/25 Rx lorazepam 0.5 mg tablet 0.5 mg PO Q8H PRN Anxiety #15 tabs 12/30/24 04/30/25 Rx tamsulosin 0.4 mg capsule 0.4 mg PO QAM #30 caps 12/30/24 04/30/25 Rx acetaminophen 325 mg capsule 650 mg PO Q4H PRN pain 04/30/25 04/30/25 History amantadine HCl 100 mg capsule 100 mg PO BID 04/30/25 04/30/25 History aripiprazole 10 mg tablet (Abilify) 15 mg PO DAILY 04/30/25 04/30/25 History divalproex 250 mg tablet,extended 125 mg PO BID 04/30/25 04/30/25 History release 24 hr (Depakote ER) donepezil 5 mg tablet (Aricept) 5 mg PO BID 04/30/25 04/30/25 History gabapentin 100 mg capsule 100 mg PO BID 04/30/25 04/30/25 History lidocaine 5 % topical patch 2 patch transdermal DAILY 04/30/25 04/30/25 History (Lidoderm) memantine 5 mg tablet (Namenda) 5 mg PO BID 04/30/25 04/30/25 History Allergies Allergy/AdvReac Type Severity Reaction Status Date / Time No Known Allergies Allergy Verified 12/22/24 19:44 Vital Signs Vital Signs - 24 hr 05/03/25 22:12 05/04/25 00:00 05/04/25 04:00 Temperature 97.4 F L Pulse Rate 88 80 63 Respiratory Rate 14 Blood Pressure 103/70 Pulse Oximetry 92 Oxygen Delivery 05/04/25 05:52 05/04/25 08:00 05/04/25 14:00 Temperature 97.7 F 97.9 F Pulse Rate 60 64 Respiratory Rate 20 16 Blood Pressure 95/50 L 123/54 L Pulse Oximetry 100 100 Oxygen Delivery Room Air Exam Narrative: Patient is very drowsy, opens his eyes when asked to tell me how old he was he told me 25 years old. He does not appear to aphasia. Examination head and neck was unremarkable. No evidence of external trauma to the head or neck. No nuchal rigidity. No carotid bruit. Heart sounds were normal. Motor system difficult to evaluate since he would not cooperate. No significant changes in the tone noted on either side. No spasticity or cogwheeling noted. Examination was limited since he was unable to cooperate. Deep tendon reflexes did not show any significant asymmetry. Results Labs 05/04/25 07:42 05/04/25 07:42 Labs: Short CBC 05/04/25 Range/Units 07:42 WBC 5.1 (4.5-10.0) K/mm3 Hgb 9.8 L (14.0-18.0) g/dL Hct 30.8 L (42.0-52.0) % Plt Count 139 L (150-375) k/mm3 BMP 05/04/25 07:42 Sodium 136 L Potassium 3.6 Chloride 102 Carbon Dioxide 29 BUN 18 Creatinine 0.85 Glucose 99 Calcium 9.3 Cardiac Enzymes 05/04/25 Range/Units 07:42 Troponin I 0.020 (0.000-0.034) ng/mL
[2025-05-04] MEDS: MEMANTINE 5 MG TABLET 10 MG PO (22:03)
[2025-05-04] MEDS: ROSUVASTATIN 20 MG TABLET 40 MG PO (22:03)
[2025-05-05] VITALS (8 sets, daily range): BP systolic 104–129; BP diastolic 51–58; PULSE 60–69; RESP 18–20; TEMP 36.9–37.1; O2SAT 97–100
[2025-05-05 06:12] LABS: IFOB Positive Control Positive; Immunochemical Fecal Occult Bl Negative (N)
[2025-05-05 06:13] LABS: Hematocrit 32.1 % (42.0-52.0); Hemoglobin 10.2 g/dL (14.0-18.0); Immature Granulocyte Percent A 0.4 % (0-0.5); Lymphocytes Absolute Auto 1.32 K/mm3 (0.9-3.2); Mean Corpuscular HGB Conc 31.8 g/dl (32-36); Mean Corpuscular Hemoglobin 29.7 pg (26-34); Mean Corpuscular Volume 93.3 fl (80-100); Nucleated Red Blood Cells Absolute Auto 0.000 K/mm3 (0.0-0.012); Nucleated Red Blood Cells Perc 0.0 % (0.0-0.2); Platelet Count Result 154 k/mm3 (150-375); Red Blood Count 3.44 M/mm3 (4.6-6.20); White Blood Count 6.8 K/mm3 (4.5-10.0)
[2025-05-05 06:32] LABS: Anion Gap 5 mmol/L (4-12); Blood Urea Nitrogen 15 mg/dL (9-20); Calcium 9.5 mg/dL (8.4-10.2); Carbon Dioxide 30 mmol/L (22-30); Chloride 100 mmol/L (98-107); Estimated CRCL calculation 53 ml/min; Estimated Glomerular Filt Rate > 60; Glucose 75 mg/dL (65-110); Potassium 4.3 mmol/L (3.4-5.0); Sodium 135 mmol/L (137-145)
--- NOTE | 2025-05-05 07:16 | P.PNIM_ITS ---
Progress Note: A&P Assessment and Plan (1) Confusion: Code(s): R41.0 - Disorientation, unspecified Status: Acute Assessment and Plan: new medications this year: Amantadine 100 q12, Donepezil 5mg q12, Memantine 5mg q12, depakote 125 q12, seroquel --Amantadine and seroquel on hold --Daughter reports multiple new meds this year, could be contributing to confusion and falls. A year ago he was living at home, didn't take meds for most of his life despite some difficulties. Likely visual hallucinations in middle age with no known drug use. He took lithium at one point but her mother would hide it in his food. --Consulted neurology, discussed with family. Holding amantadine for discharge. Appreciate recommendations --Has been Abilify 10mg since at least 07/2024 --Depakote, seroquel, amantadine, donepezil, and memantine all new since November admission. --On Zyprexa hs, was started 05/04 overnight for agitation --Psychiatry consult --Also likely malignancy on imaging, discussed with urology (2) Hematoma of right hip: Qualifiers: Encounter type: initial encounter Qualified Code(s): S70.01XA - Contusion of right hip, initial encounter Code(s): S70.01XA - Contusion of right hip, initial encounter Status: Acute Assessment and Plan: Stable * Appears painful for pt, stable * PT and OT evaluation ordered. * Fall precautions. * Treatment of anemia * Holding plavix, resume in 1 week (3) Acute on chronic anemia: Code(s): D64.9 - Anemia, unspecified Status: Acute Assessment and Plan: Pt's anemia is worse today w/Hgb dropping from 10.1-->8.9, however he did receive multiple bags of IVF in the ER for hydration in the setting of Rhabdo and hypotension, suspect dilutional. H&H 9.4/28.6<10.6/32 * Stable * Holding clopidogrel, restart in 1 week (4) Hypotension due to hypovolemia: Code(s): E86.1 - Hypovolemia Status: Acute Assessment and Plan: * Improving. * Appears Euvolemic (5) Acute dehydration: Code(s): E86.0 - Dehydration Status: Resolved Assessment and Plan: Po intake poor, less than half a liter Follow intake closely --Monitor labs, IV fluids if needed (6) Rhabdomyolysis: Qualifiers: Rhabdomyolysis type: non-traumatic Qualified Code(s): M62.82 - Rhabdomyolysis Code(s): M62.82 - Rhabdomyolysis Status: Acute Assessment and Plan: * Suspect combination of fall with hematoma on the hip and FTT. * Recheck CK downtrending, 777>510. (7) Elevated troponin: Code(s): R79.89 - Other specified abnormal findings of blood chemistry Status: Acute Assessment and Plan: * Elevation but flat, trending as follows: 0.043-->0.053-->0.054>0.020 * Continue Telemetry. (8) Severe protein-calorie malnutrition: Code(s): E43 - Unspecified severe protein-calorie malnutrition Status: Acute Assessment and Plan: Weight loss may be related to malignancy. Can also consider medication effecting appetite * Miter Saw Operator consulted * Accurate I&O, Daily weight * Over the past five months the pt has had a 12 kg weight loss. (9) Pacemaker: Code(s): Z95.0 - Presence of cardiac pacemaker Status: Acute Assessment and Plan: CAD s/p 2 stents, pacemaker. Stent placement --Off plavix for hematoma, resumed but question of drop. So will hold for a week (10) Hypophosphatemia: Code(s): E83.39 - Other disorders of phosphorus metabolism Status: Acute Assessment and Plan: Phos 2.4 05/04 --Kphos x2 doses (11) Renal mass, right: Code(s): N28.89 - Other specified disorders of kidney and ureter Status: Acute Assessment and Plan: Spoke with urology and biopsy for a malignancy would not be indicated. Generally slow growing and would require nephrectomy. Otherwise, could consider surveillance (12) Mood disorder: Code(s): F39 - Unspecified mood [affective] disorder Status: Acute Assessment and Plan: hx bipolar with psychotic features Home meds at [facility]: Depakote 125mg BID, ativan 0.5 BID & prn, seroquel 25mg BID, ariprazole 15mg, Haldol prn --Consult psychiatry Time Spent With Patient Time: 59 minutes Subjective Date/time seen: 05/05/25 07:16 Interval history: Hematoma stable but still sleeping most of the day Consulting psychiatry Review of Systems Review of Systems: Patient is a poor historian and has history of vascular dementia All systems reviewed & are unremarkable except as noted in HPI and below Exam Narrative: Weight 67.6 kg BMI 20.2 General - Awake and alert. No acute distress Eyes - PERRLA, EOM intact ENT - No thrush, No erythema Neck - No noticeable or palpable swelling Lymph Nodes - No lymphadenopathy Cardiovascular - RRR no m/r/g, no JVD Lungs: Clear to auscultation, No wheezing, use of accessory muscles Skin - Skin warm and dry, no wounds or rashes Abdomen - Normal bowel sounds, abdomen soft and nontender Extremities - No edema, cyanosis or clubbing Musculoskeletal - 3/5 strength, normal range of motion, no swollen or erythematous joints. Neurological ? Alert and oriented x 1, CN 2-12 grossly intact. Psych: Calm, sleeping Objective Data Vital Signs Vital Signs: Vital Signs - 24 hr 05/04/25 08:00 05/04/25 08:00 05/04/25 12:00 Temperature Pulse Rate 62 60 Respiratory Rate Blood Pressure Pulse Oximetry Oxygen Delivery Room Air 05/04/25 14:00 05/04/25 16:00 05/04/25 20:00 Temperature 97.9 F Pulse Rate 64 60 74 Respiratory Rate 16 18 Blood Pressure 123/54 L Pulse Oximetry 100 92 Oxygen Delivery Room Air 05/04/25 20:00 05/04/25 20:51 05/05/25 00:00 Temperature 98.5 F Pulse Rate 60 74 60 Respiratory Rate 18 Blood Pressure 147/53 H Pulse Oximetry 92 Oxygen Delivery 05/05/25 04:00 05/05/25 05:14 Temperature 98.7 F Pulse Rate 61 60 Respiratory Rate 20 Blood Pressure 120/58 L Pulse Oximetry 97 Oxygen Delivery Intake/Output Intake/Output: Intake & Output 05/02/25 05/03/25 05/04/25 05/05/25 23:59 23:59 23:59 23:59 Intake Total 1266 880 850 550 Output Total 1300 2399 489 1569 Balance -34 -1020 50 -450 Meds/Results Medications: Active Medications Generic Name Dose Route Start Last Admin Trade Name Freq PRN Reason Stop Dose Admin Acetaminophen 650 mg 04/30/25 00:18 Acetaminophen 650 Mg Suppository RECTAL Q6H PRN Mild Pain (1-3) or Fever Acetaminophen 650 mg 04/30/25 03:04 05/03/25 09:05 Acetaminophen 325 Mg Tablet PO 650 mg Q4H PRN Administration pain 1-3 or fever Aripiprazole 15 mg 04/30/25 09:00 05/04/25 08:11 Aripiprazole 5 Mg Tablet PO 15 mg DAILY LORETO Administration Aspirin 81 mg 04/30/25 09:00 05/04/25 08:12 Aspirin 81 Mg Enteric Tablet PO 81 mg QAM LORETO Administration Bisacodyl 10 mg 05/04/25 09:00 05/04/25 08:10 Bisacodyl 10 Mg Suppository RECTAL 10 mg QAM LORETO Administration Clopidogrel Bisulfate 75 mg 05/02/25 21:05 05/03/25 09:08 Clopidogrel Bisulfate 75 Mg Tablet PO 75 mg DAILY LORETO Administration Divalproex Sodium 125 mg 04/30/25 09:00 05/04/25 22:[address] 125 Mg Tabec PO 125 mg Q12HR LORETO Administration Donepezil HCl 10 mg 05/05/25 09:00 Donepezil Hcl 5 Mg Tablet PO DAILY LORETO Finasteride 5 mg 04/30/25 09:00 05/04/25 08:11 Finasteride 5 Mg Tablet PO 5 mg QAM LORETO Administration Lidocaine 1 patch 05/02/25 09:00 05/04/25 08:10 Lidocaine 5% Patch TRANSDERM 1 patch DAILY LORETO Administration Lorazepam 0.5 mg 04/30/25 03:04 05/03/25 23:26 Lorazepam (*Crx) 0.5 Mg Tablet PO 0.5 mg Q8H PRN Administration Anxiety Memantine 10 mg 05/04/25 21:00 05/04/25 22:03 Memantine 5 Mg Tablet PO 10 mg Q12HR [facility] Administration Metoprolol Succinate 50 mg 04/30/25 09:00 Metoprolol Succinate Ext Rel 50 Mg Tabcr PO QAM [facility] Multivitamins/Minerals 1 tab 04/30/25 09:00 05/04/25 08:11 Multivitamins /C Lutein (Centrum Silver) Tablet *Bkc PO 1 tab QAM LORETO Administration Olanzapine 10 mg 05/04/25 01:30 05/04/25 22:02 Olanzapine 5 Mg Tablet PO 10 mg QHS LORETO Administration Pantoprazole Sodium 40 mg 05/04/25 09:00 05/04/25 08:11 Pantoprazole 40 Mg Tablet PO 40 mg QAM [facility] Administration Polyethylene Glycol 17 gm 05/04/25 09:00 05/04/25 16:42 Polyethylene Glycol 3350 17 Gm Powd.Pack PO 17 gm TID LORETO Administration Rosuvastatin Calcium 40 mg 04/30/25 21:00 05/04/25 22:03 Rosuvastatin 20 Mg Tablet PO 40 mg QHS LORETO Administration Senna 8.6 mg 05/04/25 09:00 05/04/25 16:42 Sennosides 8.6 Mg Tablet PO 8.6 mg BID LORETO Administration Tamsulosin HCl 0.4 mg 04/30/25 09:00 05/04/25 08:11 Tamsulosin Hcl 0.4 Mg Capsule PO 0.4 mg QAM L[facility] Administration Radiology Results: ITS Impressions Head CT 04/29/25 21:50 IMPRESSION: No acute intracranial process. Cervical Spine CT 04/29/25 21:51 IMPRESSION: No acute fracture or traumatic malalignment in the cervical spine. Lower Extremity CTA 04/29/25 21:55 IMPRESSION: 10.2 x 1.5 cm deep subcutaneous fluid collection over the right hip, without extravasation to suggest active hemorrhage. More superficial subcutaneous edema/contusion also noted over the right hip. Bladder wall thickening, probably secondary to chronic outlet obstruction from prostatomegaly. Knee X-Ray 04/29/25 22:09 IMPRESSION: No acute osseous finding in the bilateral knees. Knee X-Ray 04/29/25 22:09 IMPRESSION: No acute osseous finding in the bilateral knees. Hip/Pelvis X-Ray 04/29/25 22:10 IMPRESSION: No acute osseous finding in the pelvis or bilateral hips. Chest X-Ray 04/29/25 22:14 IMPRESSION: No acute cardiopulmonary process. Renal Ultrasound 05/02/25 12:12 IMPRESSION: Interval enlargement of a mass within the right renal pelvis which represents a malignancy until proven otherwise. Contrast-enhanced MRI is recommended as is urologic consultation. Chest CT 05/03/25 15:19 IMPRESSION: Subacute fracture of the posterior left 10th rib with trace callus formation. No findings within the chest to suggest metastatic disease within the chest, as detailed above. Abdomen/Pelvis CT 05/03/25 15:44 IMPRESSION: Multiple bladder diverticulum. Findings within the right kidney which represent a malignancy until proven otherwise, as detailed above. The entirety of the right ureter is not opacified with intravenous contrast, limiting its evaluation. The entirety of the bladder is not opacified with contrast, also limiting its evaluation for which direct visualization of both areas are recommended. Additional abnormality within the tail of the pancreas, as detailed above. Labs Labs: Laboratory Results - last 24 hr 05/04/25 05/05/25 05/05/25 07:42 05:07 05:34 WBC 5.1 6.8 RBC 3.28 L 3.44 L Hgb 9.8 L 10.2 L Hct 30.8 L 32.1 L MCV 93.9 93.3 MCH 29.9 29.7 MCHC 31.8 L 31.8 L RDW 13.9 14.3 Plt Count 139 L 154 MPV 10.7 H 11.2 H Immature Gran % (Auto) 0.4 0.4 Neut % (Auto) 68.7 69.8 Lymph % (Auto) 18.4 19.4 Mcdowell % (Auto) 8.4 7.3 Eos % (Auto) 3.5 2.5 Baso % (Auto) 0.6 0.6 Lymph # (Auto) 0.94 1.32 Mcdowell # (Auto) 0.4 0.5 Eos # (Auto) 0.2 0.2 Baso # (Auto) 0.0 0.0 Abs Immat Gran (auto) 0.02 0.03 Absolute Neuts (auto) 3.5 4.8 Absolute Nucleated RBC 0.000 0.000 Nucleated RBC % 0.0 0.0 % Immature Plt Fraction 4.4 Sodium 136 L 135 L Potassium 3.6 4.3 Chloride 102 100 Carbon Dioxide 29 30 Anion Gap 5 5 BUN 18 15 Creatinine 0.85 0.82 Estim Creat Clear Calc 51 53 Estimated GFR > 60 > 60 Glucose 99 75 Calcium 9.3 9.5 Phosphorus 2.9 Troponin I 0.020 Vitamin B12 818.0 Vitamin D 25-Hydroxy 38.4 Stl Occult Blood (IFOB) Negative Syphilis IgG/IgM Ab Non-reactive HIV 1&2 Ab/P24 Ag 4thGn Negative Quality VTE Prophylaxis VTE prophylaxis: mechanical ordered Hospitalist [facility] Advance Care Plan I have confirmed that the patient's Advanced Care Plan is present, code status is documented, or surrogate decision maker is listed in patient medical record.: Yes Medication Reconciliation I have utilized all available resources to obtain, update and review the patients current medications (includes all prescriptions, OTC, herbals, cannabis, and nutritional supplements).: Yes
[2025-05-05] MEDS: DIVALPROEX SODIUM DR 125 MG TABEC PO ×2 (10:07→20:32)
[2025-05-05] MEDS: MEMANTINE 5 MG TABLET 10 MG PO ×2 (10:07→20:33)
[2025-05-05] MEDS: MULTIVITAMINS /C LUTEIN (CENTRUM SILVER) TABLET *BKC 1 TAB PO (10:08)
[2025-05-05] MEDS: ASPIRIN 81 MG ENTERIC TABLET PO (10:08)
[2025-05-05] MEDS: DONEPEZIL HCL 5 MG TABLET 10 MG PO (10:08)
[2025-05-05] MEDS: FINASTERIDE 5 MG TABLET PO (10:08)
[2025-05-05] MEDS: SENNOSIDES 8.6 MG TABLET PO ×2 (10:09→17:07)
[2025-05-05] MEDS: PANTOPRAZOLE 40 MG TABLET PO (10:09)
[2025-05-05] MEDS: TAMSULOSIN HCL 0.4 MG CAPSULE PO (10:09)
--- NOTE | 2025-05-05 10:13 | PCNFU ---
Nutrition Follow-Up Complete: Suboptimal po intake related to reduced appetite as evidenced by family report and charted intake PO Intake greater than 50% - Progressing with goal. Intakes 0-100%, mostly 90-100% last 48 hours. Continue with goal Goal: Pt current nutrition is Heart healthy, soft & bite sized, Ensure HP+ BID (350 kcal, 20 g protein) Nutrition recommendation: No new recommendations. Continue current nutrition care plan and orders. Agree with orders Last recorded weight is 64 kg. Bowel Motility: No BMs are charted. Bowel regimen is going Labs Reviewed: Hgb 10.3 , Hct 32.1, Alb 3.3, Na 135 Meds Noted: MIralax, senna, dulcolax, protonix Skin: No skin issues Additional Notes: Intakes mostly good. Refused dinner last night. Continue with current nutrition orders. Monitor intake, wt, labs. Follow up in 5 days.
[2025-05-05] MEDS: ROSUVASTATIN 20 MG TABLET 40 MG PO (20:33)
--- NOTE | 2025-05-05 23:09 | PC.NURSE ---
Pt has a complete change in condition. He is lucid, awake, alert, able to say he is in [facility], it is April,, and his name and . Called and spoke with his daughter Jaci. She will be here in the morning. The patient is also having intentional conversations with staff.
[2025-05-06 05:53] VITALS: BP 131/88; PULSE 63; RESP 20; TEMP 37; O2SAT 97
[2025-05-06 05:54] LABS: Hematocrit 31.2 % (42.0-52.0); Hemoglobin 9.9 g/dL (14.0-18.0); Immature Granulocyte Percent A 0.4 % (0-0.5); Lymphocytes Absolute Auto 1.23 K/mm3 (0.9-3.2); Mean Corpuscular HGB Conc 31.7 g/dl (32-36); Mean Corpuscular Hemoglobin 30.0 pg (26-34); Mean Corpuscular Volume 94.5 fl (80-100); Nucleated Red Blood Cells Absolute Auto 0.000 K/mm3 (0.0-0.012); Nucleated Red Blood Cells Perc 0.0 % (0.0-0.2); Platelet Count Result 164 k/mm3 (150-375); Red Blood Count 3.30 M/mm3 (4.6-6.20); White Blood Count 7.0 K/mm3 (4.5-10.0)
[2025-05-06 06:15] LABS: Anion Gap 6 mmol/L (4-12); Blood Urea Nitrogen 23 mg/dL (9-20); Calcium 9.1 mg/dL (8.4-10.2); Carbon Dioxide 27 mmol/L (22-30); Chloride 103 mmol/L (98-107); Estimated CRCL calculation 44 ml/min; Estimated Glomerular Filt Rate > 60; Glucose 97 mg/dL (65-110); Potassium 4.1 mmol/L (3.4-5.0); Sodium 136 mmol/L (137-145)
--- NOTE | 2025-05-06 08:36 | P.PNIM_ITS ---
Progress Note: A&P Assessment and Plan (1) Confusion: Code(s): R41.0 - Disorientation, unspecified Status: Acute Assessment and Plan: new medications this year: Amantadine 100 q12, Donepezil 5mg q12, Memantine 5mg q12, depakote 125 q12, seroquel. Seroquel stopped during admission. Depakote, amantadine, donepezil, seroquel, memantine all new since November admission. --Daughter reports multiple new meds this year, could be contributing to confusion and falls. A year ago he was living at home, didn't take meds for most of his life despite some difficulties. Likely visual hallucinations in middle age with no known drug use. He took lithium at one point but her mother would hide it in his food. --Consulted neurology, discussed with family. Stopped amantadine --Has been Abilify 10mg since at least 07/2024 Psychiatry consulted, appreciate recommendations. Stopped depakote --On Zyprexa hs, was started 05/04 overnight for agitation, changed to prn per psychiatry recs --Also likely malignancy on imaging, discussed with urology (2) Hematoma of right hip: Qualifiers: Encounter type: initial encounter Qualified Code(s): S70.01XA - Contusion of right hip, initial encounter Code(s): S70.01XA - Contusion of right hip, initial encounter Status: Acute Assessment and Plan: Stable * Appears painful for pt, stable * PT and OT evaluation ordered. * Fall precautions. * Treatment of anemia (3) Acute on chronic anemia: Code(s): D64.9 - Anemia, unspecified Status: Acute Assessment and Plan: Pt's anemia is worse today w/Hgb dropping from 10.1-->8.9, however he did receive multiple bags of IVF in the ER for hydration in the setting of Rhabdo and hypotension, suspect dilutional. H&H 9.4/28.6<10.6/32 * Stable * Holding clopidogrel, restart in 1 week (4) Hypotension due to hypovolemia: Code(s): E86.1 - Hypovolemia Status: Acute Assessment and Plan: * Improving. * Appears Euvolemic * (5) Acute dehydration: Code(s): E86.0 - Dehydration Status: Resolved Assessment and Plan: Po intake poor but improving the last few days Follow intake closely --Monitor labs, IV fluids if needed (6) Rhabdomyolysis: Qualifiers: Rhabdomyolysis type: non-traumatic Qualified Code(s): M62.82 - Rhabdomyolysis Code(s): M62.82 - Rhabdomyolysis Status: Acute Assessment and Plan: * Suspect combination of fall with hematoma on the hip and FTT. * Recheck CK downtrending, 777>510 (7) Elevated troponin: Code(s): R79.89 - Other specified abnormal findings of blood chemistry Status: Acute Assessment and Plan: * Elevation but flat, trending as follows: 0.043-->0.053-->0.054>0.020 * Continue Telemetry. (8) Severe protein-calorie malnutrition: Code(s): E43 - Unspecified severe protein-calorie malnutrition Status: Acute Assessment and Plan: Weight loss may be related to malignancy. 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 (9) Pacemaker: Code(s): Z95.0 - Presence of cardiac pacemaker Status: Acute Assessment and Plan: CAD s/p 2 stents, pacemaker. Stent placement --Off plavix for hematoma, resumed but question of drop (10) Hypophosphatemia: Code(s): E83.39 - Other disorders of phosphorus metabolism Status: Acute Assessment and Plan: RESOLVED Phos 2.4 05/04 --Kphos x2 doses. --Recheck in AM (11) Renal mass, right: Code(s): N28.89 - Other specified disorders of kidney and ureter Status: Acute Assessment and Plan: Spoke with urology and biopsy for a malignancy would not be indicated. Generally slow growing and would require nephrectomy. Otherwise, could consider surveillance (12) Mood disorder: Code(s): F39 - Unspecified mood [affective] disorder Status: Acute Assessment and Plan: hx bipolar with psychotic features Home meds at [facility]: Depakote 125mg BID, ativan 0.5 BID & prn, seroquel 25mg BID, ariprazole 15mg, Haldol prn --Consulted psychiatry, appreciate recommendations Time Spent With Patient Time: 55 minutes Subjective Date/time seen: 05/06/25 10:45 Interval history: VSS. Labs ok Psychiatry evaluated today and stopped depakote. More alert and ate breakfast this morning. Slept a lot of the morning and was awake tonight and asking for a sandwich when I saw him again Zyprexa changed to prn Review of Systems Review of Systems: Patient is a poor historian and has history of vascular dementia All systems reviewed & are unremarkable except as noted in HPI and below Exam Narrative: Weight 67.6 kg BMI 20.2 General - Awake and alert. No acute distress Eyes - PERRLA, EOM intact ENT - No thrush, No erythema Neck - No noticeable or palpable swelling Lymph Nodes - No lymphadenopathy Cardiovascular - RRR no m/r/g, no JVD Lungs: Clear to auscultation, No wheezing, use of accessory muscles Skin - Skin warm and dry, no wounds or rashes. Hematoma to right thigh improving Abdomen - Normal bowel sounds, abdomen soft and nontender Extremities - No edema, cyanosis or clubbing Musculoskeletal - 3/5 strength, normal range of motion, no swollen or er ythematous joints. Neurological ? Alert and oriented x 1, CN 2-12 grossly intact. Psych: Calm, sleeping Objective Data Vital Signs Vital Signs: Vital Signs - 24 hr 05/05/25 12:00 05/05/25 14:00 05/05/25 20:00 Temperature 98.6 F Pulse Rate 61 67 69 Respiratory Rate 18 20 Blood Pressure 104/56 L Pulse Oximetry 100 100 Oxygen Delivery Room Air 05/05/25 21:13 05/06/25 05:53 Temperature 98.5 F 98.6 F Pulse Rate 69 63 Respiratory Rate 20 20 Blood Pressure 129/51 L 131/88 Pulse Oximetry 100 97 Oxygen Delivery Intake/Output Intake/Output: Intake & Output 05/03/25 05/04/25 05/05/25 05/06/25 23:59 23:59 23:59 23:59 Intake Total 880 850 730 550 Output Total 1049 979 9707 700 Balance -1020 50 570 -150 Meds/Results Medications: Active Medications Generic Name Dose Route Start Last Admin Trade Name Freq PRN Reason Stop Dose Admin Acetaminophen 650 mg 04/30/25 00:18 Acetaminophen 650 Mg Suppository RECTAL Q6H PRN Mild Pain (1-3) or Fever Acetaminophen 650 mg 04/30/25 03:04 05/03/25 09:05 Acetaminophen 325 Mg Tablet PO 650 mg Q4H PRN Administration pain 1-3 or fever Aripiprazole 15 mg 04/30/25 09:00 05/05/25 10:07 Aripiprazole 5 Mg Tablet PO 15 mg DAILY LORETO Administration Aspirin 81 mg 04/30/25 09:00 05/05/25 10:08 Aspirin 81 Mg Enteric Tablet PO 81 mg QAM LORETO Administration Bisacodyl 10 mg 05/04/25 09:00 05/05/25 16:47 Bisacodyl 10 Mg Suppository [facility] Clop[facility] Bisulfate 75 mg 05/02/25 21:05 05/03/25 09:08 Clopidogrel Bisulfate 75 Mg Tablet PO 75 mg DAILY LORETO Administration Divalproex Sodium 125 mg 04/30/25 09:00 05/05/25 20:[address] 125 Mg Tabec PO 125 mg Q12HR LORETO Administration Donepezil HCl 10 mg 05/05/25 09:00 05/05/25 10:08 Donepezil Hcl 5 Mg Tablet PO 10 mg DAILY LORETO Administration Finasteride 5 mg 04/30/25 09:00 05/05/25 10:08 Finasteride 5 Mg Tablet PO 5 mg QAM LORETO Administration Lidocaine 1 patch 05/02/25 09:00 05/05/25 16:46 Lidocaine 5% Patch TRANSDERM Not Given DAILY LORETO Lorazepam 0.5 mg 04/30/25 03:04 05/03/25 23:26 Lorazepam (*Crx) 0.5 Mg Tablet PO 0.5 mg Q8H PRN Administration Anxiety Memantine 10 mg 05/04/25 21:00 05/05/25 20:33 Memantine 5 Mg Tablet PO 10 mg Q12HR LORETO Administration Metoprolol Succinate 50 mg 04/30/25 09:00 Metoprolol Succinate Ext Rel 50 Mg Tabcr PO QAM LORETO Multivitamins/Minerals 1 tab 04/30/25 09:00 05/05/25 10:08 Multivitamins /C Lutein (Centrum Silver) Tablet *Bkc PO 1 tab QAM LORETO Administration Olanzapine 10 mg 05/04/25 01:30 05/05/25 20:32 Olanzapine 5 Mg Tablet PO 10 mg QHS LORETO Administration Pantoprazole Sodium 40 mg 05/04/25 09:00 05/05/25 10:09 Pantoprazole 40 Mg Tablet PO 40 mg QAM LORETO Administration Polyethylene Glycol 17 gm 05/04/25 09:00 05/05/25 17:07 Polyethylene Glycol 3350 17 Gm Powd.Pack PO 17 gm TID LORETO Administration Rosuvastatin Calcium 40 mg 04/30/25 21:00 05/05/25 20:33 Rosuvastatin 20 Mg Tablet PO 40 mg QHS LORETO Administration Senna 8.6 mg 05/04/25 09:00 05/05/25 17:07 Sennosides 8.6 Mg Tablet PO 8.6 mg BID LORETO Administration Tamsulosin HCl 0.4 mg 04/30/25 09:00 05/05/25 10:09 Tamsulosin Hcl 0.4 Mg Capsule PO 0.4 mg QAM LORETO Administration Radiology Results: ITS Impressions Head CT 04/29/25 21:50 IMPRESSION: No acute intracranial process. Cervical Spine CT 04/29/25 21:51 IMPRESSION: No acute fracture or traumatic malalignment in the cervical spine. Lower Extremity CTA 04/29/25 21:55 IMPRESSION: 10.2 x 1.5 cm deep subcutaneous fluid collection over the right hip, without extravasation to suggest active hemorrhage. More superficial subcutaneous edema/contusion also noted over the right hip. Bladder wall thickening, probably secondary to chronic outlet obstruction from prostatomegaly. Knee X-Ray 04/29/25 22:09 IMPRESSION: No acute osseous finding in the bilateral knees. Knee X-Ray 04/29/25 22:09 IMPRESSION: No acute osseous finding in the bilateral knees. Hip/Pelvis X-Ray 04/29/25 22:10 IMPRESSION: No acute osseous finding in the pelvis or bilateral hips. Chest X-Ray 04/29/25 22:14 IMPRESSION: No acute cardiopulmonary process. Renal Ultrasound 05/02/25 12:12 IMPRESSION: Interval enlargement of a mass within the right renal pelvis which represents a malignancy until proven otherwise. Contrast-enhanced MRI is recommended as is urologic consultation. Chest CT 05/03/25 15:19 IMPRESSION: Subacute fracture of the posterior left 10th rib with trace callus formation. No findings within the chest to suggest metastatic disease within the chest, as detailed above. Abdomen/Pelvis CT 05/03/25 15:44 IMPRESSION: Multiple bladder diverticulum. Findings within the right kidney which represent a malignancy until proven otherwise, as detailed above. The entirety of the right ureter is not opacified with intravenous contrast, limiting its evaluation. The entirety of the bladder is not opacified with contrast, also limiting its evaluation for which direct visualization of both areas are recommended. Additional abnormality within the tail of the pancreas, as detailed above. Labs Labs: Laboratory Results - last 24 hr 05/06/25 05:30 WBC 7.0 RBC 3.30 L Hgb 9.9 L Hct 31.2 L MCV 94.5 MCH 30.0 MCHC 31.7 L RDW 14.2 Plt Count 164 MPV 10.8 H Immature Gran % (Auto) 0.4 Neut % (Auto) 70.0 Lymph % (Auto) 17.6 L [place] % (Auto) 9.5 H Eos % (Auto) 1.9 Baso % (Auto) 0.6 Lymph # (Auto) 1.23 [place] # (Auto) 0.7 H Eos # (Auto) 0.1 Baso # (Auto) 0.0 Abs Immat Gran (auto) 0.03 Absolute Neuts (auto) 4.9 Absolute Nucleated RBC 0.000 Nucleated RBC % 0.0 Sodium 136 L Potassium 4.1 Chloride 103 Carbon Dioxide 27 Anion Gap 6 BUN 23 H Creatinine 1.01 Estim Creat Clear Calc 44 Estimated GFR > 60 Glucose 97 Calcium 9.1 Quality VTE Prophylaxis VTE prophylaxis: mechanical ordered Hospitalist [facility] Advance Care Plan I have confirmed that the patient's Advanced Care Plan is present, code status is documented, or surrogate decision maker is listed in patient medical record.: Yes Medication Reconciliation I have utilized all available resources to obtain, update and review the patients current medications (includes all prescriptions, OTC, herbals, cannabis, and nutritional supplements).: Yes
[2025-05-06] MEDS: ASPIRIN 81 MG ENTERIC TABLET PO (09:11)
[2025-05-06] MEDS: FINASTERIDE 5 MG TABLET PO (09:11)
[2025-05-06] MEDS: MEMANTINE 5 MG TABLET 10 MG PO ×2 (09:11→21:00)
[2025-05-06] MEDS: DONEPEZIL HCL 5 MG TABLET 10 MG PO (09:11)
[2025-05-06] MEDS: PANTOPRAZOLE 40 MG TABLET PO (09:12)
[2025-05-06] MEDS: TAMSULOSIN HCL 0.4 MG CAPSULE PO (09:12)
[2025-05-06] MEDS: MULTIVITAMINS /C LUTEIN (CENTRUM SILVER) TABLET *BKC 1 TAB PO (09:12)
[2025-05-06] MEDS: SENNOSIDES 8.6 MG TABLET PO (09:12)
--- NOTE | 2025-05-06 09:13 | WPDCNPSYCH ---
Assessment and Plan Assessment and plan (1) Mood disorder: Code(s): F39 - Unspecified mood [affective] disorder Status: Acute (2) Dementia: Code(s): F03.90 - Unspecified dementia, unspecified severity, without behavioral disturbance, psychotic disturbance, mood disturbance, and anxiety Status: Acute (3) Altered mental status: Code(s): R41.82 - Altered mental status, unspecified Status: Acute Plan Patient with notable history of bipolar disorder, anxiety which he has largely been untreated for throughout life. Discussed goals of care with daughter, likely will pursue hospice care to keep patient comfortable. Has been presenting with fluctuating mental status, agitation- likely compounded by psychiatric history, dementia, complex medical conditions, polypharmacy, possible delirium secondary to the former. Recommend from psychiatry standpoint to limit polypharmacy, likely contributing to altered mental status, falls. Recommendations: -Continue Abilify 15mg daily for mood stabilization -Discontinue depakote -Switch olanzapine to PRN in the evenings for agitation to avoid double antipsychotic usage, sedating properties -Continue lorazepam PRN for agitation. HPI Data of Consult Date/Time: 05/06/25 09:13 Requesting Physician: Shae Andrews DO Primary Care Provider: Merary Waddell APRN Consult Narrative Narrative: Andrés Dempsey is a 84 year old male with history of dementia, atrial fibrillation not on anticoagulation, chronic kidney disease, history of bipolar disorder with history of previous psychiatric treatment. He was admitted from his nursing facility following a fall and altered mental status. During interview this morning, he was alert and sitting up in bed, oriented to person/place/month and year although is a poor historian regarding psychiatric treatment. Daughter is present at bedside today and provides much of the history. She reports a longstanding history of bipolar disorder, which he has been unmedicated for much of his life. He is currently prescribed aripiprazole 15mg daily, depakote 125mg BID, olanzapine 10mg qHS, and lorazepam as needed for agitation. It does not appear he has required lorazepam PRN since admission. However, olanzapine 10mg qHS was added 05/04 to manage agitation in the evening. Appears his mental status has been fluctuating throughout admission. He is pleasant during interview, although appears indifferent about plan of care. He has no current outpatient psychiatric provider, has had one visit after Nov admission at behavioral health walk in clinic at [facility], which is when aripiprazole was started for mood stabilization/irritability and anxiety. He has taken lithium, quetiapine, haldol, others in the past per daughter, although no jail compliance with psychiatric treatment. Per daughter, her mother would put lithium in his food to help manage his mood swings, although he developed tremors from the lithium so this was discontinued. He has no known history of substance use, suicidal behaviors, inpatient psychiatric admissions. Review of Systems Constitutional: Constitutional: Reports as per HPI Respiratory: Respiratory: Reports no additional respiratory complaints Psychiatric: Psychiatric: Reports behavioral changes, Reports change in appetite and Reports confusion Const: All systems reviewed & are unremarkable except as noted in HPI and below Neuro: Reports behavioral changes and altered mental status Psych: Reports as per HPI [facility] Past Medical History Medical History (Updated 05/06/25 @ 09:41 by Princess Aviles, [employer] COUNTER ATTENDANT) Dementia Coronary artery disease Combined systolic and diastolic congestive heart failure Echocardiogram November 2024: EF 40-45%, moderately increased left ventricular wall thickness, grade 1 diastolic dysfunction, normal right ventricular function mild biatrial enlargement Chronic constipation Atrial fibrillation Glaucoma BPH w urinary obs/LUTS Bipolar depression Vascular dementia Bulbous urethral stricture Anxiety Neuropathy Vision disorder Arthritis Prophylactic gland removal Removed from neck 1976 Surgical History Surgical History (Updated 04/30/25 @ 03:42 by Shae Andrews DO) History of colonoscopy with polypectomy History of coronary artery stent placement Left circumflex and LAD Pacemaker S/P eye surgery Left eye 2024 Previous back surgery Fusion L3-L5 History of hip replacement Left 2006 Family History Family History Father Cancer Mother Cancer Colostomy care Son Diabetes mellitus Social History Social History (Updated 04/30/25 @ 03:30 by Shae Andrews DO) Social History: The patient is on probation and has a left ankle monitor in place. Code status: DNR/DNI (per EMR) Smoking status: Never smoker Second hand tobacco smoke exposure: No Alcohol intake: unknown Substance use: never Substance use type: does not use Do You Feel Safe in your Home?: Yes Lack of Transportation: No Lack of Food: Never True Current Housing: I Have Housing Concerned About Future Housing: No Difficulty Paying Gas/Electric Bills: No Difficulty Paying for Meds: No Currently Unemployed: No Education: High School Diploma/GED Difficulty w/ Childcare or Family Care: No Living arrangements: half-way Occupation/Education: retired 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 Spiritual care concerns: No Meds Home Medications and Allergies Home Medications ?Medication ?Instructions ?Recorded ?Confirmed ?Type [id number] 150 mcg-vit K1 1 tablet PO DAILY 06/22/24 04/30/25 History 30 mcg-lycop 300 mcg-lutein tablet (Centrum Minis Men 50 Plus) aspirin 81 mg tablet,delayed 81 mg PO QAM #30 tabs 12/07/24 04/30/25 Rx release clopidogrel 75 mg tablet 75 mg PO QAM #30 tabs 12/07/24 04/30/25 Rx metoprolol succinate 50 mg 50 mg PO QAM #30 tabs 12/07/24 04/30/25 Rx tablet,extended release 24 hr rosuvastatin 20 mg tablet 40 mg (2 x 20 mg) PO EVENING #30 12/07/24 04/30/25 Rx tabs finasteride 5 mg tablet (Proscar) 5 mg PO QAM #30 tabs 12/30/24 04/30/25 Rx lorazepam 0.5 mg tablet 0.5 mg PO Q8H PRN Anxiety #15 tabs 12/30/24 04/30/25 Rx tamsulosin 0.4 mg capsule 0.4 mg PO QAM #30 caps 12/30/24 04/30/25 Rx acetaminophen 325 mg capsule 650 mg PO Q4H PRN pain 04/30/25 04/30/25 History amantadine HCl 100 mg capsule 100 mg PO BID 04/30/25 04/30/25 History aripiprazole 10 mg tablet (Abilify) 15 mg PO DAILY 04/30/25 04/30/25 History divalproex 250 mg tablet,extended 125 mg PO BID 04/30/25 04/30/25 History release 24 hr (Depakote ER) donepezil 5 mg tablet (Aricept) 5 mg PO BID 04/30/25 04/30/25 History gabapentin 100 mg capsule 100 mg PO BID 04/30/25 04/30/25 History lidocaine 5 % topical patch 2 patch transdermal DAILY 04/30/25 04/30/25 History (Lidoderm) memantine 5 mg tablet (Namenda) 5 mg PO BID 04/30/25 04/30/25 History Allergies Allergy/AdvReac Type Severity Reaction Status Date / Time No Known Allergies Allergy Verified 12/22/24 19:44 Vital Signs Vital Signs - 24 hr 05/05/25 12:00 05/05/25 14:00 05/05/25 20:00 Temperature 98.6 F Pulse Rate 61 67 69 Respiratory Rate 18 20 Blood Pressure 104/56 L Pulse Oximetry 100 100 Oxygen Delivery Room Air 05/05/25 21:13 05/06/25 05:53 Temperature 98.5 F 98.6 F Pulse Rate 69 63 Respiratory Rate 20 20 Blood Pressure 129/51 L 131/88 Pulse Oximetry 100 97 Oxygen Delivery Exam Const: General: cooperative and underweight Orientation/consciousness: patient oriented x3 Neuro: General: oriented to person, oriented to place and oriented to time Psych: Mental Status: other (fluctuating ) Affect: Indifferent affect present Attitude: cooperative Insight: Limited insight present (Psych) Judgement: Limited judgement present (Psych) Results Labs 05/06/25 05:30 05/06/25 05:30 Labs: Short CBC 05/06/25 Range/Units 05:30 WBC 7.0 (4.5-10.0) K/mm3 Hgb 9.9 L (14.0-18.0) g/dL Hct 31.2 L (42.0-52.0) % Plt Count 164 (150-375) k/mm3 BMP 05/06/25 05:30 Sodium 136 L Potassium 4.1 Chloride 103 Carbon Dioxide 27 BUN 23 H Creatinine 1.01 Glucose 97 Calcium 9.1
[2025-05-06 14:00] VITALS: BP 104/44; PULSE 68; RESP 16; TEMP 36.8; O2SAT 97
--- NOTE | 2025-05-06 17:05 | P.PNNEUR_ITS ---
Progress Note: A&P Assessment and Plan (1) Dementia: Code(s): F03.90 - Unspecified dementia, unspecified severity, without behavioral disturbance, psychotic disturbance, mood disturbance, and anxiety Status: Acute (2) Bipolar depression: Code(s): F31.9 - Bipolar disorder, unspecified Status: Acute Plan I noted that patient has been seen by psychiatrist and the psychiatrist has recommended to continue the Abilify and keep Zyprexa on p.r.n. basis and discontinue Depakote and amantadine. I agree with these recommendations. The patient may continue the Aricept 10 mg a day and Namenda 10 mg twice a day as a also discuss this with the hospitalist and the nursing staff who did ago. Subjective Date/time seen: 05/06/25 17:05 Interval history: The patient is 84-year-old was admitted to the hospital change in mental status. He also has history of atrial fibrillation and dementia. He has a cardiac pacemaker in place. Brought from retirement to the [facility]. He also found to have mild rhabdomyolysis. His also history of falls and bruising in the right hip. He was found to have dehydration. CT scan of brain did not show any significant abnormalities. Patient states that he has pain all over the body he does not feel well. He also was found to have increase in the size of tumor in the right kidney suspicious of a renal carcinoma. His daughter has come from [place] however was not available at the time when I saw the patient. Review of Systems Review of Systems: All systems reviewed & are unremarkable except as noted in HPI and below Exam Narrative: Patient is awake and alert however appears to have evidence for cognitive impairment and memory loss. He was able to name 5 colors however unable to name 5 cities. Unable to tell me the date or month current whereabouts. No aphasia or dysarthria. Cranial nerves on individual testing appears grossly intact. Motor system shows normal power and tone in both upper and lower limbs. No cogwheeling or involuntary movements seen. Sensory is grossly intact. Objective Data Vital Signs Vital Signs: Vital Signs - 24 hr 05/05/25 20:00 05/05/25 21:13 05/06/25 05:53 Temperature 98.5 F 98.6 F Pulse Rate 69 69 63 Respiratory Rate 20 20 20 Blood Pressure 129/51 L 131/88 Pulse Oximetry 100 100 97 Oxygen Delivery Room Air 07/12/25 14:00 Temperature 98.2 F Pulse Rate 68 Respiratory Rate 16 Blood Pressure 104/44 L Pulse Oximetry 97 Oxygen Delivery Intake/Output Intake/Output: Intake & Output 05/03/25 05/04/25 05/05/25 05/06/25 23:59 23:59 23:59 23:59 Intake Total 880 196 781 7017 Output Total 5119 016 5263 700 Balance -1020 50 -570 330 Meds/Results Medications: Active Medications Generic Name Dose Route Start Last Admin Trade Name Freq PRN Reason Stop Dose Admin Acetaminophen 650 mg 04/30/25 00:18 Acetaminophen 650 Mg Suppository RECTAL Q6H PRN Mild Pain (1-3) or Fever Acetaminophen 650 mg 04/30/25 03:04 05/03/25 09:05 Acetaminophen 325 Mg Tablet PO 650 mg Q4H PRN Administration pain 1-3 or fever Aripiprazole 15 mg 04/30/25 09:00 05/06/25 09:12 Aripiprazole 5 Mg Tablet PO 15 mg DAILY LORETO Administration Aspirin 81 mg 04/30/25 09:00 05/06/25 09:11 Aspirin 81 Mg Enteric Tablet PO 81 mg QAM LORETO Administration Bisacodyl 10 mg 05/04/25 09:00 05/06/25 09:08 Bisacodyl 10 Mg Suppository RECTAL Not Given QAM LORETO Clopidogrel Bisulfate 75 mg 05/02/25 21:05 05/03/25 09:08 Clopidogrel Bisulfate 75 Mg Tablet PO 75 mg DAILY LORETO Administration Divalproex Sodium 125 mg 04/30/25 09:00 05/06/25 09:[address] 125 Mg Tabec PO Not Given Q12HR LORETO Donepezil HCl 10 mg 05/05/25 09:00 05/06/25 09:11 Donepezil Hcl 5 Mg Tablet PO 10 mg DAILY LORETO Administration Finasteride 5 mg 04/30/25 09:00 05/06/25 09:11 Finasteride 5 Mg Tablet PO 5 mg QAM LORETO Administration Lidocaine 1 patch 05/02/25 09:00 05/05/25 16:46 Lidocaine 5% Patch TRANSDERM Not Given DAILY LORETO Lorazepam 0.5 mg 04/30/25 03:04 05/03/25 23:26 Lorazepam (*Crx) 0.5 Mg Tablet PO 0.5 mg Q8H PRN Administration Anxiety Memantine 10 mg 05/04/25 21:00 05/06/25 09:11 Memantine 5 Mg Tablet PO 10 mg Q12HR LORETO Administration Metoprolol Succinate 50 mg 04/30/25 09:00 Metoprolol Succinate Ext Rel 50 Mg Tabcr PO QAM LORETO Multivitamins/Minerals 1 tab 04/30/25 09:00 05/06/25 09:12 Multivitamins /C Lutein (Centrum Silver) Tablet *Bkc PO 1 tab QAM LORETO Administration Olanzapine 10 mg 05/04/25 01:30 05/05/25 20:32 Olanzapine 5 Mg Tablet PO 10 mg QHS LORETO Administration Pantoprazole Sodium 40 mg 05/04/25 09:00 05/06/25 09:12 Pantoprazole 40 Mg Tablet PO 40 mg QAM LORETO Administration Polyethylene Glycol 17 gm 05/04/25 09:00 05/06/25 09:12 Polyethylene Glycol 3350 17 Gm Powd.Pack PO 17 gm TID LORETO Administration Rosuvastatin Calcium 40 mg 04/30/25 21:00 05/05/25 20:33 Rosuvastatin 20 Mg Tablet PO 40 mg QHS LORETO Administration Senna 8.6 mg 05/04/25 09:00 05/06/25 09:12 Sennosides 8.6 Mg Tablet PO 8.6 mg BID LORETO Administration Tamsulosin HCl 0.4 mg 04/30/25 09:00 05/06/25 09:12 Tamsulosin Hcl 0.4 Mg Capsule PO 0.4 mg QAM LORETO Administration Radiology Results: ITS Impressions Head CT 04/29/25 21:50 IMPRESSION: No acute intracranial process. Cervical Spine CT 04/29/25 21:51 IMPRESSION: No acute fracture or traumatic malalignment in the cervical spine. Lower Extremity CTA 04/29/25 21:55 IMPRESSION: 10.2 x 1.5 cm deep subcutaneous fluid collection over the right hip, without extravasation to suggest active hemorrhage. More superficial subcutaneous edema/contusion also noted over the right hip. Bladder wall thickening, probably secondary to chronic outlet obstruction from prostatomegaly. Knee X-Ray 04/29/25 22:09 IMPRESSION: No acute osseous finding in the bilateral knees. Knee X-Ray 04/29/25 22:09 IMPRESSION: No acute osseous finding in the bilateral knees. Hip/Pelvis X-Ray 04/29/25 22:10 IMPRESSION: No acute osseous finding in the pelvis or bilateral hips. Chest X-Ray 04/29/25 22:14 IMPRESSION: No acute cardiopulmonary process. Renal Ultrasound 05/02/25 12:12 IMPRESSION: Interval enlargement of a mass within the right renal pelvis which represents a malignancy until proven otherwise. Contrast-enhanced MRI is recommended as is urologic consultation. Chest CT 05/03/25 15:19 IMPRESSION: Subacute fracture of the posterior left 10th rib with trace callus formation. No findings within the chest to suggest metastatic disease within the chest, as detailed above. Abdomen/Pelvis CT 05/03/25 15:44 IMPRESSION: Multiple bladder diverticulum. Findings within the right kidney which represent a malignancy until proven otherwise, as detailed above. The entirety of the right ureter is not opacified with intravenous contrast, limiting its evaluation. The entirety of the bladder is not opacified with contrast, also limiting its evaluation for which direct visualization of both areas are recommended. Additional abnormality within the tail of the pancreas, as detailed above. Labs Labs: Laboratory Results - last 24 hr 05/06/25 05:30 WBC 7.0 RBC 3.30 L Hgb 9.9 L Hct 31.2 L MCV 94.5 MCH 30.0 MCHC 31.7 L RDW 14.2 Plt Count 164 MPV 10.8 H Immature Gran % (Auto) 0.4 Neut % (Auto) 70.0 Lymph % (Auto) 17.6 L [place] % (Auto) 9.5 H Eos % (Auto) 1.9 Baso % (Auto) 0.6 Lymph # (Auto) 1.23 [place] # (Auto) 0.7 H Eos # (Auto) 0.1 Baso # (Auto) 0.0 Abs Immat Gran (auto) 0.03 Absolute Neuts (auto) 4.9 Absolute Nucleated RBC 0.000 Nucleated RBC % 0.0 Sodium 136 L Potassium 4.1 Chloride 103 Carbon Dioxide 27 Anion Gap 6 BUN 23 H Creatinine 1.01 Estim Creat Clear Calc 44 Estimated GFR > 60 Glucose 97 Calcium 9.1
[2025-05-06 20:00] VITALS: PULSE 99; RESP 20; O2SAT 100
[2025-05-06 20:01] VITALS: O2SAT 97
[2025-05-06] MEDS: ROSUVASTATIN 20 MG TABLET 40 MG PO (21:00)
[2025-05-06 21:03] VITALS: BP 123/61; PULSE 99; RESP 20; TEMP 36.9; O2SAT 100
[2025-05-07 05:21] VITALS: BP 119/60; PULSE 96; RESP 18; TEMP 36.4; O2SAT 91
[2025-05-07 06:48] LABS: Hematocrit 33.5 % (42.0-52.0); Hemoglobin 10.6 g/dL (14.0-18.0); Immature Granulocyte Percent A 0.5 % (0-0.5); Lymphocytes Absolute Auto 1.13 K/mm3 (0.9-3.2); Mean Corpuscular HGB Conc 31.6 g/dl (32-36); Mean Corpuscular Hemoglobin 30.0 pg (26-34); Mean Corpuscular Volume 94.9 fl (80-100); Nucleated Red Blood Cells Absolute Auto 0.000 K/mm3 (0.0-0.012); Nucleated Red Blood Cells Perc 0.0 % (0.0-0.2); Platelet Count Result 175 k/mm3 (150-375); Red Blood Count 3.53 M/mm3 (4.6-6.20); White Blood Count 8.8 K/mm3 (4.5-10.0)
[2025-05-07 07:05] LABS: Anion Gap 10 mmol/L (4-12); Blood Urea Nitrogen 30 mg/dL (9-20); Calcium 9.5 mg/dL (8.4-10.2); Carbon Dioxide 31 mmol/L (22-30); Chloride 98 mmol/L (98-107); Estimated CRCL calculation 47 ml/min; Estimated Glomerular Filt Rate > 60; Glucose 90 mg/dL (65-110); Potassium 4.3 mmol/L (3.4-5.0); Sodium 139 mmol/L (137-145)
--- NOTE | 2025-05-07 07:25 | PM.IMPN ---
Progress Note: A&P Assessment and Plan (1) Confusion: Code(s): R41.0 - Disorientation, unspecified Status: Acute Assessment and Plan: New medications this year: Amantadine 100 q12, Donepezil 5mg q12, Memantine 5mg q12, depakote 125 q12, seroquel --Amantadine and seroquel stopped --Daughter reports multiple new meds this year, could be contributing to confusion and falls. A year ago he was living at home, didn't take meds for most of his life despite some difficulties. Long history of hallucinations, likely visual hallucinations in middle age with no known drug use. He took lithium at one point but ex- would hide it in his food. --Consulted neurology, discussed with family. Holding amantadine for discharge. Appreciate recommendations --Has been Abilify 10mg since at least 07/2024 --Depakote, seroquel, amantadine, donepezil, and memantine all new since November admission. --On Zyprexa hs, was started on 10mg 10 overnight for agitation. Received 10mg 05/06. Changed to zyprexa 5mg q8 prn po or im --Psychiatry consulted, appreciate recommendations. Stopped depakote --Also likely malignancy on imaging, discussed with urology --Still very disoriented/hallucinating but more awake 05/07. Eating more. Discuss adjusting medications further with psychiatry and neurology (2) Hematoma of right hip: Qualifiers: Encounter type: initial encounter Qualified Code(s): S70.01XA - Contusion of right hip, initial encounter Code(s): S70.01XA - Contusion of right hip, initial encounter Status: Acute Assessment and Plan: Stable Appears painful for pt, stable PT and OT evaluation ordered. Fall precautions. Treatment of anemia Holding plavix, resume in 1 week (3) Acute on chronic anemia: Code(s): D64.9 - Anemia, unspecified Status: Acute Assessment and Plan: Pt's anemia is worse today w/Hgb dropping from 10.1-->8.9, however he did receive multiple bags of IVF in the ER for hydration in the setting of Rhabdo and hypotension, suspect dilutional. H&H 9.4/28.6<10.6/32 Stable Holding clopidogrel, restart in 1 week (4) Hypotension due to hypovolemia: Code(s): E86.1 - Hypovolemia Status: Acute Assessment and Plan: Improving. Appears Euvolemic (5) Acute dehydration: Code(s): E86.0 - Dehydration Status: Resolved Assessment and Plan: Po intake poor, less than half a liter Follow intake closely --Monitor labs, IV fluids if needed (6) Rhabdomyolysis: Qualifiers: Rhabdomyolysis type: non-traumatic Qualified Code(s): M62.82 - Rhabdomyolysis Code(s): M62.82 - Rhabdomyolysis Status: Acute Assessment and Plan: Suspect combination of fall with hematoma on the hip and FTT. Recheck CK downtrending, 777>510. (7) Elevated troponin: Code(s): R79.89 - Other specified abnormal findings of blood chemistry Status: Acute Assessment and Plan: Elevation but flat, trending as follows: 0.043-->0.053-->0.054>0.020 Continue Telemetry. (8) Severe protein-calorie malnutrition: Code(s): E43 - Unspecified severe protein-calorie malnutrition Status: Acute Assessment and Plan: Weight loss may be related to malignancy. Can also consider medication effecting appetite General Operations Manager consulted Accurate I&O, Daily weight Over the past five months the pt has had a 12 kg weight loss. (9) Pacemaker: Code(s): Z95.0 - Presence of cardiac pacemaker Status: Acute Assessment and Plan: CAD s/p 2 stents, pacemaker. Stent placement --Off plavix for hematoma, resumed but question of drop. So will hold for a week --Follow CBC (10) Hypophosphatemia: Code(s): E83.39 - Other disorders of phosphorus metabolism Status: Acute Assessment and Plan: Phos 2.4 05/04 --Kphos x2 doses (11) Renal mass, right: Code(s): N28.89 - Other specified disorders of kidney and ureter Status: Acute Assessment and Plan: Spoke with urology and biopsy for a malignancy would not be indicated. Generally slow growing and would require nephrectomy. Otherwise, planning surveillance (12) Mood disorder: Code(s): F39 - Unspecified mood [affective] disorder Status: Acute Assessment and Plan: hx bipolar with psychotic features Home meds at [facility]: Depakote 125mg BID, ativan 0.5 BID & prn, seroquel 25mg BID, ariprazole 15mg, Haldol prn --Consulted psychiatry appreciate recommendations --TSH, RPR, HIV, B12 normal/negative Time Spent With Patient Time: 68 minutes Evaluated patient 3 times during the day Subjective Date/time seen: 05/07/25 07:25 Interval history: VSS More awake today. Eating more today. 10mg Zyprexa was given last night for mild agitation. Was changed to PRN. Decreased to 2.5mg and adding rozerem for sleep Having visual hallucinations today, no obvious auditory hallucinations. Calm and pleasant this morning and knew he was at [facility], and knew the date was April 2025 but also reported seeing a bridge in front of him and a person off to the left but could not hear the person. Was unable to connect that being in the hospital and seeing the bridge didn't make sense logically In the afternoon was more confused/agitated. Wanted to go shopping at [employer] or [place]. Took 5 nurses to get him back to bed, but then was more redirectable. Took zyprexa and still very confused. Family considering hospice but unsure to what extent behavioral changes are medication related. Following for symptoms Planning discharge to a new SNF, which has been arranged. Review of Systems Review of Systems: Patient is a poor historian and has history of vascular dementia All systems reviewed & are unremarkable except as noted in HPI and below Exam Narrative: Weight 67.6 kg BMI 20.2 General - Awake and alert. No acute distress Eyes - PERRLA, EOM intact ENT - No thrush, No erythema Neck - No noticeable or palpable swelling Lymph Nodes - No lymphadenopathy Cardiovascular - RRR no m/r/g, no JVD Lungs: Clear to auscultation, No wheezing, use of accessory muscles Skin - Skin warm and dry, no wounds or rashes. Hematoma to right thigh improving Abdomen - Normal bowel sounds, abdomen soft and nontender Extremities - No edema, cyanosis or clubbing Musculoskeletal - 3/5 strength, normal range of motion, no swollen or erythematous joints. Neurological ? Alert and oriented x 1, CN 2-12 grossly intact. Psych: Calm, sleeping Wearing an ankle monitor for confusion Objective Data Vital Signs Vital Signs: Vital Signs - 24 hr 05/06/25 14:00 05/06/25 20:00 05/06/25 20:01 Temperature 98.2 F Pulse Rate 68 99 Respiratory Rate 16 20 Blood Pressure 104/44 L Pulse Oximetry 97 100 97 Oxygen Delivery Room Air Room Air Fraction of Inspired Oxygen 21 21 05/06/25 21:03 05/07/25 05:21 Temperature 98.5 F 97.6 F Pulse Rate 99 96 Respiratory Rate 20 18 Blood Pressure 123/61 119/60 Pulse Oximetry 100 91 Oxygen Delivery Fraction of Inspired Oxygen Intake/Output Intake/Output: Intake & Output 05/04/25 05/05/25 05/06/25 05/07/25 23:59 23:59 23:59 23:59 Intake Total 083 828 4699 550 Output Total 800 1300 1200 300 Balance 50 -570 1170 250 Meds/Results Medications: Active Medications Generic Name Dose Route Start Last Admin Trade Name Freq PRN Reason Stop Dose Admin Acetaminophen 650 mg 04/30/25 00:18 Acetaminophen 650 Mg Suppository RECTAL Q6H PRN Mild Pain (1-3) or Fever Acetaminophen 650 mg 04/30/25 03:04 05/03/25 09:05 Acetaminophen 325 Mg Tablet PO 650 mg Q4H PRN Administration pain 1-3 or fever Aripiprazole 15 mg 04/30/25 09:00 05/06/25 09:12 Aripiprazole 5 Mg Tablet PO 15 mg DAILY LORETO Administration Aspirin 81 mg 04/30/25 09:00 05/06/25 09:11 Aspirin 81 Mg Enteric Tablet PO 81 mg QAM LORETO Administration Bisacodyl 10 mg 05/04/25 09:00 05/06/25 09:08 Bisacodyl 10 Mg Suppository RECTAL Not Given QAM LORETO Clopidogrel Bisulfate 75 mg 05/02/25 21:05 05/03/25 09:08 Clopidogrel Bisulfate 75 Mg Tablet PO 75 mg DAILY LORETO Administration Donepezil HCl 10 mg 05/05/25 09:00 05/06/25 09:11 Donepezil Hcl 5 Mg Tablet PO 10 mg DAILY LORETO Administration Finasteride 5 mg 04/30/25 09:00 05/06/25 09:11 Finasteride 5 Mg Tablet PO 5 mg QAM LORETO Administration Lidocaine 1 patch 05/02/25 09:00 05/06/25 09:55 Lidocaine 5% Patch TRANSDERM Not Given DAILY LORETO Lorazepam 0.5 mg 04/30/25 03:04 05/03/25 23:26 Lorazepam (*Crx) 0.5 Mg Tablet PO 0.5 mg Q8H PRN Administration Anxiety Memantine 10 mg 05/04/25 21:00 05/06/25 21:00 Memantine 5 Mg Tablet PO 10 mg Q12HR LORETO Administration Metoprolol Succinate 50 mg 04/30/25 09:00 Metoprolol Succinate Ext Rel 50 Mg Tabcr PO QAM LORETO Multivitamins/Minerals 1 tab 04/30/25 09:00 05/06/25 09:12 Multivitamins /C Lutein (Centrum Silver) Tablet *Bkc PO 1 tab QAM LORETO Administration Olanzapine 10 mg 05/06/25 17:30 05/06/25 20:59 Olanzapine 5 Mg Tablet PO 10 mg QHS PRN Administration agitation Pantoprazole Sodium 40 mg 05/04/25 09:00 05/06/25 09:12 Pantoprazole 40 Mg Tablet PO 40 mg QAM LORETO Administration Polyethylene Glycol 17 gm 05/04/25 09:00 05/06/25 18:31 Polyethylene Glycol 3350 17 Gm Powd.Pack PO Not Given TID LORETO Rosuvastatin Calcium 40 mg 04/30/25 21:00 05/06/25 21:00 Rosuvastatin 20 Mg Tablet PO 40 mg QHS LORETO Administration Senna 8.6 mg 05/04/25 09:00 05/06/25 18:31 Sennosides 8.6 Mg Tablet PO Not Given BID LORETO Tamsulosin HCl 0.4 mg 04/30/25 09:00 05/06/25 09:12 Tamsulosin Hcl 0.4 Mg Capsule PO 0.4 mg QAM LORETO Administration Radiology Results: ITS Impressions Head CT 04/29/25 21:50 IMPRESSION: No acute intracranial process. Cervical Spine CT 04/29/25 21:51 IMPRESSION: No acute fracture or traumatic malalignment in the cervical spine. Lower Extremity CTA 04/29/25 21:55 IMPRESSION: 10.2 x 1.5 cm deep subcutaneous fluid collection over the right hip, without extravasation to suggest active hemorrhage. More superficial subcutaneous edema/contusion also noted over the right hip. Bladder wall thickening, probably secondary to chronic outlet obstruction from prostatomegaly. Knee X-Ray 04/29/25 22:09 IMPRESSION: No acute osseous finding in the bilateral knees. Knee X-Ray 04/29/25 22:09 IMPRESSION: No acute osseous finding in the bilateral knees. Hip/Pelvis X-Ray 04/29/25 22:10 IMPRESSION: No acute osseous finding in the pelvis or bilateral hips. Chest X-Ray 04/29/25 22:14 IMPRESSION: No acute cardiopulmonary process. Renal Ultrasound 05/02/25 12:12 IMPRESSION: Interval enlargement of a mass within the right renal pelvis which represents a malignancy until proven otherwise. Contrast-enhanced MRI is recommended as is urologic consultation. Chest CT 05/03/25 15:19 IMPRESSION: Subacute fracture of the posterior left 10th rib with trace callus formation. No findings within the chest to suggest metastatic disease within the chest, as detailed above. Abdomen/Pelvis CT 05/03/25 15:44 IMPRESSION: Multiple bladder diverticulum. Findings within the right kidney which represent a malignancy until proven otherwise, as detailed above. The entirety of the right ureter is not opacified with intravenous contrast, limiting its evaluation. The entirety of the bladder is not opacified with contrast, also limiting its evaluation for which direct visualization of both areas are recommended. Additional abnormality within the tail of the pancreas, as detailed above. Labs Labs: Laboratory Results - last 24 hr 05/07/25 05:43 WBC 8.8 RBC 3.53 L Hgb 10.6 L Hct 33.5 L MCV 94.9 MCH 30.0 MCHC 31.6 L RDW 14.0 Plt Count 175 MPV 11.6 H Immature Gran % (Auto) 0.5 Neut % (Auto) 74.1 H Lymph % (Auto) 12.9 L [place] % (Auto) 10.3 H Eos % (Auto) 1.6 Baso % (Auto) 0.6 Lymph # (Auto) 1.13 [place] # (Auto) 0.9 H Eos # (Auto) 0.1 Baso # (Auto) 0.1 Abs Immat Gran (auto) 0.04 H Absolute Neuts (auto) 6.5 Absolute Nucleated RBC 0.000 Nucleated RBC % 0.0 Sodium 139 Potassium 4.3 Chloride 98 Carbon Dioxide 31 H Anion Gap 10 BUN 30 H Creatinine 0.94 Estim Creat Clear Calc 47 Estimated GFR > 60 Glucose 90 Calcium 9.5 Quality VTE Prophylaxis VTE prophylaxis: mechanical ordered Hospitalist [facility] Advance Care Plan I have confirmed that the patient's Advanced Care Plan is present, code status is documented, or surrogate decision maker is listed in patient medical record.: Yes Medication Reconciliation I have utilized all available resources to obtain, update and review the patients current medications (includes all prescriptions, OTC, herbals, cannabis, and nutritional supplements).: Yes
[2025-05-07 08:00] VITALS: O2SAT 91
[2025-05-07] MEDS: MEMANTINE 5 MG TABLET 10 MG PO ×2 (08:06→22:21)
[2025-05-07] MEDS: ASPIRIN 81 MG ENTERIC TABLET PO (08:06)
[2025-05-07] MEDS: TAMSULOSIN HCL 0.4 MG CAPSULE PO (08:06)
[2025-05-07] MEDS: SENNOSIDES 8.6 MG TABLET PO (08:06)
[2025-05-07] MEDS: FINASTERIDE 5 MG TABLET PO (08:06)
[2025-05-07] MEDS: MULTIVITAMINS /C LUTEIN (CENTRUM SILVER) TABLET *BKC 1 TAB PO (08:06)
[2025-05-07] MEDS: DONEPEZIL HCL 5 MG TABLET 10 MG PO (08:06)
[2025-05-07] MEDS: PANTOPRAZOLE 40 MG TABLET PO (08:06)
[2025-05-07] MEDS: LIDOCAINE 5% PATCH 1 PATCH TRANSDERM (08:08)
[2025-05-07 14:00] VITALS: BP 112/61; PULSE 64; RESP 16; TEMP 36.6; O2SAT 100
[2025-05-07] MEDS: LORazepam (*CRX) 0.5 MG TABLET PO ×2 (14:12→22:22)
[2025-05-07 19:51] VITALS: O2SAT 90
[2025-05-07 20:00] VITALS: PULSE 55; RESP 17; O2SAT 90
--- NOTE | 2025-05-07 20:24 | PC.NURSE ---
pt is very combative, non dierectable, trying getting out of bed and very high risk of fall. pt been very aggressive combative and rude to staff, very confused. got po Jose at 15:00 but order q8, Ledy the provider pulmonary specialist was notified and we stayed with pt.However, she said not to give anything for now even though pt in a high isk for fall. charge nurse was notified.
[2025-05-07] MEDS: OLANZapine 10 MG INJ VIAL 5 MG IM (20:34)
[2025-05-07 21:25] VITALS: BP 109/52; PULSE 55; RESP 17; TEMP 36.3; O2SAT 90
[2025-05-07] MEDS: ROSUVASTATIN 20 MG TABLET 40 MG PO (22:22)
[2025-05-07] MEDS: MELATONIN 5 MG TABLET PO (22:22)
--- NOTE | 2025-05-08 00:34 | PC.NURSE ---
20:34 pt got IM Zyprexa by provider leslee, later on got his meds with pudding, pt still restless but less jumping out of bed. we're monitoring closely.
[2025-05-08 05:23] VITALS: BP 105/74; PULSE 57; RESP 17; O2SAT 100
[2025-05-08 08:00] VITALS: O2SAT 100
[2025-05-08 08:04] LABS: Hematocrit 29.4 % (42.0-52.0); Hemoglobin 9.2 g/dL (14.0-18.0); Immature Granulocyte Percent A 0.7 % (0-0.5); Lymphocytes Absolute Auto 1.17 K/mm3 (0.9-3.2); Mean Corpuscular HGB Conc 31.3 g/dl (32-36); Mean Corpuscular Hemoglobin 29.8 pg (26-34); Mean Corpuscular Volume 95.1 fl (80-100); Nucleated Red Blood Cells Absolute Auto 0.000 K/mm3 (0.0-0.012); Nucleated Red Blood Cells Perc 0.0 % (0.0-0.2); Platelet Count Result 141 k/mm3 (150-375); Red Blood Count 3.09 M/mm3 (4.6-6.20); White Blood Count 6.8 K/mm3 (4.5-10.0)
[2025-05-08 08:42] LABS: Anion Gap 6 mmol/L (4-12); Blood Urea Nitrogen 20 mg/dL (9-20); Calcium 9.2 mg/dL (8.4-10.2); Carbon Dioxide 28 mmol/L (22-30); Chloride 100 mmol/L (98-107); Estimated CRCL calculation 58 ml/min; Estimated Glomerular Filt Rate > 60; Glucose 95 mg/dL (65-110); Potassium 3.6 mmol/L (3.4-5.0); Sodium 134 mmol/L (137-145)
--- NOTE | 2025-05-08 08:45 | PCOTNOTE ---
Per RN, Patient not to be seen this A.M. Patient has had a bad night, not cooperative and required to have medication to assist with calming. Will try back this P.M.
--- NOTE | 2025-05-08 12:29 | P.DS_ITS ---
DS: Admitting Diagnosis Discharge Date 05/08/25 Admitting Diagnosis Altered mental status DS: Discharge Diagnosis Discharge Diagnosis (1) Confusion: Code(s): R41.0 - Disorientation, unspecified Status: Acute (2) Hematoma of right hip: Qualifiers: Encounter type: initial encounter Qualified Code(s): S70.01XA - Contusion of right hip, initial encounter Code(s): S70.01XA - Contusion of right hip, initial encounter Status: Acute (3) Acute on chronic anemia: Code(s): D64.9 - Anemia, unspecified Status: Acute (4) Hypotension due to hypovolemia: Code(s): E86.1 - Hypovolemia Status: Acute (5) Acute dehydration: Code(s): E86.0 - Dehydration Status: Resolved (6) Rhabdomyolysis: Qualifiers: Rhabdomyolysis type: non-traumatic Qualified Code(s): M62.82 - Rhabdomyolysis Code(s): M62.82 - Rhabdomyolysis Status: Acute (7) Elevated troponin: Code(s): R79.89 - Other specified abnormal findings of blood chemistry Status: Acute (8) Severe protein-calorie malnutrition: Code(s): E43 - Unspecified severe protein-calorie malnutrition Status: Acute (9) Pacemaker: Code(s): Z95.0 - Presence of cardiac pacemaker Status: Acute (10) Hypophosphatemia: Code(s): E83.39 - Other disorders of phosphorus metabolism Status: Acute Assessment and Plan: (11) Renal mass, right: Code(s): N28.89 - Other specified disorders of kidney and ureter Status: Acute (12) Mood disorder: Code(s): F39 - Unspecified mood [affective] disorder Status: Acute DS: Summary Hospital Course Hospital Course: 84-year-old male with a past medical history of atrial fibrillation, coronary disease status post 2 stents, essential hypertension, cardiac pacemaker, BPH, bipolar disorder and vascular dementia who presented to the ER from [facility] via EMS due to not acting like his usual self. detention staff stated patient seemed lethargic and tired. The patient was alert oriented times 2 at baseline. The patient had evidence of multiple abrasions to his feet and legs. Nursing homes states that the patient had a fall and has a large bruise to his right hip. He is on Plavix and 81 mg aspirin. The patient grimaces with pain on palpation of the right hip. He denies any chest pain or shortness of breath but is overall poor historian. On review patient's prior records patient has had at least a 12 kg weight loss since November. Patient admitted for hematoma of the right hip as well as anemia, hypovolemia and rhabdomyolysis. He was put on IV fluids and his rhabdomyolysis did improve. He also has severe protein calorie malnutrition and dietary was consulted. Hypovolemia improved with IV fluids. Patient did develop confusion during his hospital stay. Daughter reports multiple new meds this year (Depakote, seroquel, amantadine, donepezil, and memantine all new since November admission), could be contributing to confusion and falls. A year ago he was living at home, didn't take meds for most of his life despite some difficulties. Long history of hallucinations, likely visual hallucinations in middle age with no known drug u se. He took lithium at one point but ex- would hide it in his food. Neurology was consulted and they recommended holding his amantadine due to confusion. Patient was very disoriented and hallucinating while in the hospital and required sedating medications. Psychiatry was also consulted on the case and they recommended to stop his Depakote. Plan to discharge patient with hospice care. Time Spent with Patient Time attestation: Total time spent providing and/or coordinating discharge services: Exam Narrative: GENERAL: Comfortable, no acute distress HENMT: moist mucous membranes EYES: EOM intact b/l NECK: no lymphadenopathy RESPIRATORY: clear to auscultation, no increased respiratory effort CARDIO: Regular rate and rhythm GI: soft, nontender, bowel sounds present SKIN/EXTREMITIES: Bruising over right hip NEURO: PROM intact, answers questions appropriately, A&O x0 DS: Data Data Completed and Pending Labs on day of discharge: Labs from last 24 hours 05/08/25 07:21 WBC 6.8 RBC 3.09 L Hgb 9.2 L Hct 29.4 L MCV 95.1 MCH 29.8 MCHC 31.3 L RDW 14.1 Plt Count 141 L MPV 10.9 H Immature Gran % (Auto) 0.7 H Neut % (Auto) 67.5 Lymph % (Auto) 17.2 L Cole % (Auto) 11.8 H Eos % (Auto) 2.4 Baso % (Auto) 0.4 Lymph # (Auto) 1.17 Cole # (Auto) 0.8 H Eos # (Auto) 0.2 Baso # (Auto) 0.0 Abs Immat Gran (auto) 0.05 H Absolute Neuts (auto) 4.6 Absolute Nucleated RBC 0.000 Nucleated RBC % 0.0 Sodium 134 L Potassium 3.6 Chloride 100 Carbon Dioxide 28 Anion Gap 6 BUN 20 D Creatinine 0.75 Estim Creat Clear Calc 58 Estimated GFR > 60 Glucose 95 Calcium 9.2 Discharge Plan Discharge Attending physician on discharge: Kellen Adrian Consulting providers: Radha Quintana; Kellen Adrian; Malcom Pang; Princess Aviles Discharging Clinician: Kellen Adrian Patient Disposition: Hospice - Home Activity: no shower Diet: as tolerated Discharge Instructions: Discharge disposition: Discharge to hospice Take medications as prescribed Monitor blood pressures Return to the emergency department if he developed sudden shortness of breath, chest pain, nausea, vomiting, upset stomach or intractable diarrhea Return to the emergency department if you develop fever greater than 100.4 Thank you for [facility] for your healthcare needs Patient Instructions: Antibiotic Form Patient Language: Kyrgyz Stand Alone Forms: General Discharge Information Discharge Medications: Continued Centrum Minis Men 50 Plus [id number] mcg tablet 1 tablet PO DAILY metoprolol succinate 50 mg Tablet Extended Release 24 Hr 50 mg PO QAM Qty: 30 0RF clopidogrel 75 mg Tablet 75 mg PO QAM Qty: 30 0RF aspirin 81 mg Tablet,Delayed Release (Dr/Ec) 81 mg PO QAM Qty: 30 0RF rosuvastatin 20 mg Tablet 40 mg PO EVENING Qty: 30 0RF acetaminophen 325 mg capsule 650 mg PO Q4H PRN (Reason: pain) donepezil [Aricept] 5 mg tablet 5 mg PO BID memantine [Namenda] 5 mg tablet 5 mg PO BID lidocaine [Lidoderm] 5 % Adhesive Patch,Medicated 2 patch transdermal DAILY gabapentin 100 mg capsule 100 mg PO BID aripiprazole [Abilify] 10 mg Tablet 15 mg PO DAILY lorazepam 0.5 mg Tablet 0.5 mg PO Q8H PRN (Reason: Anxiety) Qty: 15 0RF tamsulosin 0.4 mg Capsule 0.4 mg PO QAM Qty: 30 0RF finasteride [Proscar] 5 mg Tablet 5 mg PO QAM Qty: 30 0RF Discontinued amantadine HCl 100 mg capsule 100 mg PO BID divalproex [Depakote ER] 250 mg tablet extended release 24 hr 125 mg PO BID Date of admission: 04/30/25 17:09 Primary Care Provider: Merary Waddell Admitting Provider: Shae Andrews Attending physician on admission: Shae Andrews Condition: Stable Hospitalist MIPS Heart Failure (Exclusion) Patient has history of Heart Transplant or Left Ventricular Assistive Device?: No IF YES, STOP HERE Heart Failure (Qualifier) Patient has current or prior documentation of LVEF less than or equal to 40%, or mod/servere depressed LVSF?: No IF NO, STOP HERE
[2025-05-08] MEDS: ASPIRIN 81 MG ENTERIC TABLET PO (13:43)
[2025-05-08] MEDS: MEMANTINE 5 MG TABLET 10 MG PO (13:44)
[2025-05-08] MEDS: TAMSULOSIN HCL 0.4 MG CAPSULE PO (13:44)
[2025-05-08] MEDS: FINASTERIDE 5 MG TABLET PO (13:44)
[2025-05-08] MEDS: PANTOPRAZOLE 40 MG TABLET PO (13:44)
[2025-05-08] MEDS: LIDOCAINE 5% PATCH 1 PATCH TRANSDERM (13:44)
[2025-05-08] MEDS: DONEPEZIL HCL 5 MG TABLET 10 MG PO (13:44)
[2025-05-08] MEDS: MULTIVITAMINS /C LUTEIN (CENTRUM SILVER) TABLET *BKC 1 TAB PO (13:44)
[2025-05-08 14:00] VITALS: BP 117/52; PULSE 63; RESP 16; O2SAT 98
== END 2025-05-08 17:56 | disposition hospice, home (50) | DRG 640 ==
LOC: ANHED 20:21 → ANH3MEDSUR 04-30 00:22
PROVIDERS: Emergency Medicine; Nurse Practitioner Acute Care; Nurse Practitioner Adult Health; Admitting Provider Internal Medicine; Emergency Provider Physician Assistant; PCP Nurse Practitioner Family; Visit Provider Internal Medicine Critical Care Medicine
DX: E86.1 Hypovolemia (principal); E43 Unspecified severe protein-calorie malnutrition; I50.42 Chronic combined systolic (congestive) and diastolic (congestive) heart failure; M62.82 Rhabdomyolysis; I24.89 Other forms of acute ischemic heart disease; Z68.1 Body mass index [BMI] 19.9 or less, adult; C64.1 Malignant neoplasm of right kidney, except renal pelvis; R44.2 Other hallucinations; E86.0 Dehydration; R41.0 Disorientation, unspecified; T50.995A Adverse effect of other drugs, medicaments and biological substances, initial encounter; D64.9 Anemia, unspecified; I95.89 Other hypotension; I25.10 Atherosclerotic heart disease of native coronary artery without angina pectoris; I12.9 Hypertensive chronic kidney disease with stage 1 through stage 4 chronic kidney disease, or unspecified chronic kidney disease; S70.01XA Contusion of right hip, initial encounter; W19.XXXA Unspecified fall, initial encounter; N18.9 Chronic kidney disease, unspecified; I48.91 Unspecified atrial fibrillation; F01.50 Vascular dementia, unspecified severity, without behavioral disturbance, psychotic disturbance, mood disturbance, and anxiety; F31.9 Bipolar disorder, unspecified; N40.1 Benign prostatic hyperplasia with lower urinary tract symptoms; H40.9 Unspecified glaucoma; G62.9 Polyneuropathy, unspecified; F41.9 Anxiety disorder, unspecified; E83.39 Other disorders of phosphorus metabolism; R62.7 Adult failure to thrive; S90.812A Abrasion, left foot, initial encounter; S90.811A Abrasion, right foot, initial encounter; S80.812A Abrasion, left lower leg, initial encounter; S80.811A Abrasion, right lower leg, initial encounter; Z66 Do not resuscitate; Z98.1 Arthrodesis status; Z96.642 Presence of left artificial hip joint; Z95.5 Presence of coronary angioplasty implant and graft; Z95.0 Presence of cardiac pacemaker; Z79.02 Long term (current) use of antithrombotics/antiplatelets; Z79.82 Long term (current) use of aspirin
CPT/HCPCS: 36415; 70450; 71045; 71260; 72125; 73521; 73562; 73706; 74178; 76775; 80048; 80053; 80307; 81003; 82274; 82306; 82550; 82607; 83605; 83735; 84100; 84443; 84484; 85025; 85027; 85055; 85610; 85730; 86593; 86703; 86850; 86900; 86901; 87040; 90471; 90715; 93005; 96360; 97161; 97166; 97530; 97535; 99285; A9270; G0378; G0432; J2359; J7030; Q9967